=== PATIENT | male | born 1970 | race Two or more races ===

== ENCOUNTER 2025-04-22 10:30 | Outpatient (REF) | payer OTHER, SELFPAY ==
--- NOTE | 2025-04-22 | EMG_ITS ---
Chief complaint: Numbness and tingling left > right hands Reason for referral: G62.9 Polyneuropathy Referred by: ERICH Paula Procedure done: Nerve conduction of the bilateral upper extremities with EMG performed bilaterally Bilateral median and ulnar motor studies were performed, bilateral median and ulnar mixed sensory studies, radial sensory studies and median lateral antecubital brachial sensory studies were performed an EMG needle examination was performed. Bilateral median motor distal latencies were slightly prolonged, bilateral median mixed sensory distal latencies were prolonged with mildly slow conduction velocities. Bilateral ulnar motor study revealed moderate slowing across elbow with slight reduction of amplitude. In addition, median amplitudes were slightly larger distally than proximally, and ulnar amplitudes were larger proximally than distally. Impression: 1. [id number] bilateral median neuropathy across carpal tunnel 2. [id number] bilateral ulnar neuropathy across elbow 3. Bilateral Marek Cele anastomosis, a normal variant MTDD
--- OUTSIDE RECORDS SUMMARY | 2025-04-22 12:34 | XMS_ITS | Clinical Summary ---
Author Organization [facility] Address [address] [address] Phone Care Team Providers Care Wind Turbine Technician Name Role Phone Freddie Peguero MD Primary Care Provider [phone] Allergies No known active allergies Medications acetaminophen (TYLENOL) 500 MG tablet Active albuterol HFA (PROVENTIL HFA;VENTOLIN HFA) 108 (90 Base) MCG/ACT inhaler 2 puffs by Other route 4 (four) times a day Active fluticasone (FLONASE) 50 MCG/ACT nasal spray 1 Active fluticasone-kyara meterol (ADVAIR DISKUS) 500-50 MCG/DOSE diskus inhaler by Other route 2 (two) times a day Active gabapentin (NEURONTIN) 400 MG capsule 1 Active omeprazole (PriLOSEC) [address] capsule 1 Active topiramate (TOPAMAX) 50 MG tablet 1 Active traMADol (ULTRAM) 50 MG tablet 1 Active loratadine (CLARITIN) 10 MG tablet loratadine 10 mg tablet TAKE 1 TABLET BY MOUTH EVERY DAY Active Melatonin 10 MG capsule melatonin 10 mg capsule TAKE 1 CAPSULE BY MOUTH EVERY DAY AT BEDTIME NEEDED Active buPROPion XL (WELLBUTRIN XL) 150 MG 24 hr tablet Take 150 mg by mouth 1 (one) time each day 3 Active sildenafil (VIAGRA) 50 MG tablet TAKE 1 TABLET EVERY DAY BY ORAL ROUTE NEEDED. 3 Active Zepbound 7.5 MG/0.5ML solution auto-injector INJECT 0.5 ML (7.5 MG TOTAL) UNDER THE SKIN EVERY 7 (SEVEN) DAYS. 5 Active Senexon-S 8.6-50 MG per tablet Take 1 tablet by mouth 1 (one) time each day Active Active Problems Problem Noted Date Diagnosed Date Acute nontraumatic kidney injury 02/06/2023 Allergic rhinitis 02/06/2023 02/06/2023 Anxiety 02/06/2023 02/06/2023 Asthma 02/06/2023 02/06/2023 Chronic back pain 02/06/2023 02/06/2023 Fatigue 02/06/2023 02/06/2023 Gastroesophageal reflux disease 02/06/2023 02/06/2023 Hyperlipidemia 02/06/2023 02/06/2023 Herpes simplex 02/06/2023 02/06/2023 Helicobacter detected by serology 02/06/2023 Heartburn 02/06/2023 02/06/2023 Severe obesity 02/06/2023 02/06/2023 Plantar fascial fibromatosis 02/06/202312/2022 Mild persistent asthma 02/06/2023 Migraine 02/06/2023 02/06/2023 Lesion of ulnar nerve 02/06/2023 02/06/2023 Insomnia 02/06/2023 02/06/2023 Primary erectile dysfunction 05/18/202212/2022 Degeneration of cervical intervertebral disc 02/06/2023 Cervical radiculitis 01/12/2022 02/06/2023 Obstructive sleep apnea syndrome 01/10/2022 02/06/2023 Chronic kidney disease, stage 2 (mild) Hypertension 06/30/2021 Hypoglycemia 07/27/2020 02/06/2023 Hiatal hernia 04/24/2019 02/06/2023 Moderate major depression 02/19/20192022 Ex-smoker 01/31/2017 02/06/2023 Meralgia paresthetica 11/02/2015 02/06/2023 Family History Medical History Relation Comments Heart disease Father Hypertension Father Diabetes Mother Hypertension Mother Heart disease Sibling Relation Status Comments Father Mother Sibling Social History Tobacco Use Types Packs/Day Years Used Date Smoking Tobacco: Former Smokeless Tobacco: Never Tobacco Cessation:Counseling Given: Not Answered Alcohol Use Standard Drinks/Week Comments No 0 (1 standard drink = 0.6 oz pur e alcohol) Sex and Gender Information Value Date Recorded Sex Assigned at Not on file Legal Sex Male 4:56 PM EST Gender Identity Not on file Sexual Orientation Not on file Last Filed Vital Signs Vital Sign Reading Time Taken Comments Blood Pressure 100/60 01/14/2025 2:35 PM EDT Pulse 60 01/14/2025 2:35 PM EDT Temperature - - Respiratory Rate - - Oxygen Saturation 99% 01/14/2025 2:35 PM EDT Inhaled Oxygen Concentration - - Weight 139 kg (307 lb 3.2 oz) 01/14/2025 2:35 PM EDT Height 182.9 cm (6') 01/12/2024 11:50 AM EDT Body Mass Index 41.66 01/12/2024 11:50 AM EDT Plan of Treatment Upcoming Encounters Date Type Department Care Team (Late st Contact Info) Description 07/15/2025 2:00 PM EST Office Visit [facility] [address] [phone] Ashok Carpio MD [address] [phone] Health Maintenance Due Date Last Done Comments Hepatitis B Vaccine (1 of 3 - 19+ 3-dose series) 1991 Pneumococcal Vaccine: 50+ Ye ars (1 of 2 - PCV) 1991 Colorectal Cancer Screening: Annual FOBT 2021 Colorectal Cancer Screening: Colonoscopy 2021 Colorectal Cancer Screening: Sigmoidoscopy 2021 Influenza Vaccine (#1) 2025 4, 05/17/2022, 03/09/2020, Additional history exists [place] [address] ([id number]) [facility] ([id number]) Care Teams Wind Turbine Technician Relationship Specialty Start Date End Date Freddie Peguero MD [address] [phone] PCP - General Family Medicine 02/02/22
--- OUTSIDE RECORDS SUMMARY | 2025-04-22 12:34 | XMS_ITS | Data Portability ---
Author Organization [facility], Id [facility] Address [address] [place] [address] Care Team Providers Care Teleprinter Installer Name Role Phone JUVENAL HATHAWAY Primary Care Provider HIM CCA OTHER Assessment Encounter Date Assessment Date Assessment LastModified by Organization Details LastModified Time 03/27/2024 03/27/2024 service called for burning on urination found 53 yom with hx recurrent UTI c/o 2d feeling unwell, cough, fatigue. chills able conitnue regular PO fluids took 1g acetaminophn just immediately prior to arrival VS T104 tympanic, 102.4 oral dry skin, MMM CTAB #Acute COVID-19 supportive care, push PO fluids, acetaminophen 1g q6h no ibuprofen if unable keep uo with fluids or temp elev unresponse to acetaminophen, visit ED conitnue rest, PO fluids, monitor fever curve otherwise return to primary team [email or web address] Not available 03/27/2024 23:23:30 04/04/2024 04/04/2024 53 yo M with reported hx asthma and recent diagnosis of COVID (most sxs resolved) but with persistent dyspnea and cough w/exertion. Also endorses intermittent non-radiating chest tightness with the cough. Pt has been using his rx'd inhalers, but notably his albuterol inhaler is . No hx CAD or OH. No leg swelling. No F/C. VS wnl - SpO2 98% on RA. CV exam wnl Lung exam CTAB EKG RBBB (per patient followed by cardiology) No evidence of ACS. Wells score 0 and hx not c/w PE Will treat as asthma exacerbation with prednisone 40mg x 5 days Will send a new rx for albuterol inhaler to use q4 hrs PRN SOB. Pt should call PCP in the AM to arrange a clinic visit for f/up. elijah Not available 04/08/2024 18:21:26 06/10/2024 06/10/2024 As noted, we were called to see this patient regarding concerns of astham. Evaluation in the field was performed by my senior mechanical design engineer colleague, as noted above, I provided real-time direction and supervision for this visit. The evaluation revealed 54y M with asthma and asthma exacerbatoin sxs x 2, responding well to albuterol nebs by SpO2, VSS, resp exam c/w asthma - no consolidation to suggest pneumonia. Prednisone 40mg now and 40mg x 4d to pharmacy. Encouraged f/u w PCP to request albuterol nebulizer. Low threshold to call back w persistent SHOB. Impression: Asthma exacerbation Plan: prednisone Primary care, consider f/u in 3-5d to assess improvement. Consider education/transi tion to SMART therapy. Patient needs nebulizer supplies. Disposition: We discussed the diagnostic uncertainty of home visits and the risk associated with this. In this case, the patient and I felt this to be an acceptable and reasonable amount of risk given the benefit of avoiding an ED visit. We discussed the need to seek care urgently/emergen tly in the setting of any new or worsening serious symptoms, particularly shob, fever, worsening wheezing despite meds atilhou Not available 06/10/2024 21:08:59 Plan of Treatment Reminders Order Date Submit Date Provider Last Modified By Organization Details Last Modified Time Details Appointments None recorded. Lab BMP, serum or plasma [address], [phone] 5 08:02:15 rapid SARS CoV 2 Ag, QL IA, respiratory specimen [address], [phone] 4 21:55:06 rapid flu (A+B) [address], [phone] 4 21:54:46 urinalysis, dipstick [address], [phone] 4 08:09:01 rapid SARS CoV 2 Ag, QL IA, respiratory specimen 2023 [facility], [address] [place] [address], [phone] 4 08:09:16 Referral None recorded. Procedures None recorded. Surgeries None recorded. Imaging None recorded. Medication Orders sodium chloride 0.9 % intravenous solution 2024 025 [facility] [phone] [place], [address], 5 21:42:38 metoclopram marybel 5 mg/mL injection solution 2024 025 [facility], [phone] [place], [address], 5 21:42:38 diphenhydra mine 50 mg/mL injection solution 2024 025 [facility], [phone] [place], [address], 5 21:42:38 prednisone 20 mg tablet 2023 024 [facility], [phone] [place], [address], 4 21:04:59 prednisone 20 mg tablet 2023 024 [facility] [phone] [place], [address], 4 21:05:00 albuterol sulfate 2.5 mg/3 mL (0.083 %) solution for nebulizatio n 2023 024 [facility], [phone] [place], [address], 4 21:09:20 prednisone 20 mg tablet 2023 024 [email or web address] [facility] [phone] [place], [address], 4 21:43:45 prednisone 20 mg tablet 2023 024 [facility], [phone] [place], [address], 4 21:43:46 albuterol sulfate HFA 90 mcg/actuati on aerosol inhaler 2023 024 [facility], [phone] [place], [address], 4 21:43:47 Lotrimin AF Powder 2 % topical spray 2023 024 [facility], [phone] [place], [address], 4 10:40:31 Patient TargetsNo targets recorded. Patient InstructionsNo instructions recorded. Reason for Referral None Reported. Results Created Date Observation Date Name Description Value Unit Range Abnormal Flag Note LastModifiedBy Organization Detail LastModifiedTime 06/10/20 24 06/10/2024 rapid SARS CoV 2 Ag, QL IA, respi rator y speci men rapid SARS CoV 2 Ag, QL IA, respiratory specimen negati ve Not Available Main - [facility] ed [address] [place] [address], [phone] 06/10/2024 21:06:43 06/10/20 24 06/10/2024 rapid flu (A+B) Flu negati ve Not Available [facility] ed [address] [place] [address], [phone] 06/10/2024 21:06:43 Result Notes None recorded. Medical Equipment None Reported. Allergies No known drug allergies Medications Name Sig Start Date Stop Date Status Note LastModified by Organization Details LastModified Time BD Alcohol Swabs active Not Available Not Available Not Available prednisone 10 mg tablet PLEASE SEE ATTACHED FOR DETAILED DIRECTIONS active Not Available Not Available N ot Available metocloprami de 5 mg/mL injection solution Take 10 mg by injection route. 2024 active Not Available Not Available Not Avai lable sildenafil 50 mg tablet TAKE 1 TABLET EVERY DAY BY ORAL ROUTE NEEDED. active Not Available Not Available No t Available azithromycin 250 mg tablet TAKE 1 TABLET BY MOUTH EVERY DAY active Not Available Not Available No t Available famotidine 40 mg tablet TAKE 1 TABLET BY MOUTH TWICE A DAY active Not Available Not Available No t Available prednisone 20 mg tablet TAKE 2 TABLETS BY MOUTH EVERY DAY FOR 5 DAYS active Not Available Not Available No t Available gabapentin 400 mg capsule TAKE 1 CAPSULE BY MOUTH THREE TIMES A DAY active Not Available Not Available Not Available Lotrimin AF Powder 2 % topical spray APPLY SPRAY TO THE AFFECTED AREA(S) BY TOPICAL ROUTE 2 TIMES PER DAY IN THE MORNING AND EVENING x 10 days 2023 active Not Available Not Available Not Avai lable sulfamethoxa zole 800 mg-trimethop rim 160 mg tablet TAKE 1 TABLET BY MOUTH EVERY 12 HOURS active Not Available Not Available No t Available omeprazole 40 mg capsule,zaid yed release TAKE 1 CAPSULE BY MOUTH TWICE A DAY active Not Available Not Available No t Available aspirin 81 mg tablet,delay ed release TAKE 1 TABLET BY MOUTH EVERY DAY active Not Available Not Available No t Available tramadol 50 mg tablet TAKE 2 TABLETS BY MOUTH 3 TIMES A DAY DIRECTED FOR 30 DAYS. active Not Available Not Available No t Available sildenafil 100 mg tablet TAKE 1 TABLET ONE HOUR PRIOR TO SEXUAL ACTIVITY NO MORE THAN ONCE DAILY active Not Available Not Available N ot Available lidocaine-pr ilocaine 2.5 %-2.5 % topical cream APPLY TOPICALLY ONCE active Not Available Not Available No t Available hydrocortiso ne 2.5 % topical cream with perineal applicator APPLY SPARINGLY TO AFFECTED AREA 2 TO 4 TIMES A DAY active Not Available Not Available Not Available diphenhydram ine 50 mg/mL injection solution Take 25 mg by injection route. 2024 active Not Available Not Available Not Avai lable tamsulosin 0.4 mg capsule TAKE 1 CAPSULE BY MOUTH EVERY DAY BEFORE BEDTIME active Not Available Not Available No t Available benzonatate 100 mg capsule TAKE 1 CAPSULE BY MOUTH THREE TIMES A DAY NEEDED FOR COUGH active Not Available Not Available No t Available econazole nitrate 1 % topical cream TAKE 1 APPLICATION (TOPICAL) 2 TIMES PER DAY FOR 28 DAYS APPLY TO AFFECTED AREAS ON TORSO active Not Available Not Available No t Available tacrolimus 0.1 % topical ointment APPLY TO ALL AREAS TWICE A DAY active Not Available Not Available Not Available clotrimazole -betamethaso ne 1 %-0.05 % topical cream PLEASE SEE ATTACHED FOR DETAILED DIRECTIONS active Not Available Not Available N ot Available betamethason e dipropionate 0.05 % topical cream APPLY 2X PER DAY X14 DAYS TO AREAS ON TORSO, FOR 2WEEKS, THEN STOP FOR A WEEK, REPEAT UNTIL GONE active Not Available Not Available N ot Available oxybutynin chloride ER 5 mg tablet,exten ded release 24 hr TAKE 1 TABLET BY MOUTH EVERY DAY active Not Available Not Available No t Available montelukast 10 mg tablet TAKE 1 TABLET BY MOUTH EVERY DAY active Not Available Not Available No t Available codeine 10 mg-guaifenes in 100 mg/5 mL oral liquid TAKE 5 ML BY MOUTH EVERY 6 HOURS NEEDED FOR COUGH active Not Available Not Available No t Available sodium chloride 0.9 % intravenous solution Inject 500 mL by intravenous route. 2024 active Not Available Not Available Not Avai lable polyethylene glycol 3350 17 gram/dose oral powder TAKE 17 GRAM DISSOLVED IN WATER BY MOUTH ONCE A DAY active Not Available Not Available No t Available albuterol sulfate HFA 90 mcg/actuatio n aerosol inhaler INHALE 2 PUFFS EVERY 4 TO 6 HOURS active Not Available Not Available No t Available ferrous sulfate 325 mg (65 mg iron) tablet,delay ed release TAKE 1 TABLET BY MOUTH EVERY DAY active Not Available Not Available No t Available ketoconazole 2 % topical cream APPLY TO AFFECTED AREA EVERY DAY active Not Available Not Available No t Available ondansetron 4 mg disintegrati ng tablet DISSOLVE 1 TABLET BY MOUTH 3 TIMES A DAY active Not Available Not Available Not Available fluticasone propionate 50 mcg/actuatio n nasal spray,suspen daniella SPRAY 2 SPRAYS INTO EACH NOSTRIL DAILY DIRECTED active Not Available Not Available No t Available clotrimazole 1 % topical cream APPLY TO AFFECTED AREA TWICE A DAY FOR 2 WEEKS active Not Available Not Available No t Available loratadine 10 mg tablet TAKE 1 TABLET BY MOUTH EVERY DAY active Not Available Not Available No t Available oxycodone 5 mg tablet TAKE 1/2 TABLET BY MOUTH EVERY 6 HOURS NEEDED FOR PAIN DIRECTED active Not Available Not Available No t Available bupropion HCl XL 150 mg 24 hr tablet, extended release TAKE 1 TABLET BY MOUTH EVERY DAY active Not Available Not Available No t Available topiramate 50 mg tablet TAKE 1 TABLET BY MOUTH TWICE A DAY active Not Available Not Available No t Available chlorhexidin e gluconate 0.12 % mouthwash SWISH AND SPIT THREE TIMES A DAY FOR 7 DAYS active Not Available Not Available N ot Available melatonin 5 mg tablet TAKE 2 TABLETS BY MOUTH EVERY DAY AT BEDTIME active Not Available Not Available No t Available Antiseptic Skin Cleanser (chlorhexidi ne) 4 % liquid USE A BODY WASH EVERY DAY active Not Available Not Available No t Available Myrbetriq 25 mg tablet,exten ded release TAKE 1 TABLET BY MOUTH DAILY FOR 30 DAYS, THEN TAKE 50MG DAILY active Not Available Not Available No t Available melatonin 10 mg capsule TAKE 1 CAPSULE BY MOUTH AT BEDTIME active Not Available Not Available No t Available Wixela Inhub 250 mcg-50 mcg/dose powder for inhalation TAKE 1 PUFF BY MOUTH TWICE A DAY *RINSE MOUTH AFTER USE* active Not Available Not Available No t Available Wixela Inhub 500 mcg-50 mcg/dose powder for inhalation INHALE 1 PUFF INTO THE LUNGS TWICE A DAY active Not Available Not Available Not Available Vitals Date Recorded Body temperature Oxygen saturation Oxygen saturation in Arterial blood by Pulse oximetry Respiratory rate Heart rate Systolic And Diastolic Provider Name and Address Organization Details Last Updated DateTime 5 98.4 [degF] 99 % 99 % 18 /min 66 /min 145/90 mm[Hg] Not Available [email or web address] 5 21:32:23 Date Recorded Body temperature Heart rate Respiratory rate Oxygen saturation Oxygen saturation in Arterial blood by Pulse oximetry Systolic blood pressure Provider Name and Address Organization Details Last Updated DateTime 4 98.2 [degF] 69 /min 16 /min 97 % 97 % 120 mm[Hg] Not Available [email or web address] 4 10:36:09 Date Recorded Respiratory rate Oxygen saturation Oxygen saturation in Arterial blood by Pulse oximetry Body weight Body temperature Heart rate Systolic And Diastolic Provider Name and Address Organization Details Last Updated DateTime 4 16 /min 97 % 97 % 179649. 992 g 104 [degF] 87 /min 124/70 mm[Hg] Not Available [facility] 4 20:11:37 Date Recorded Body temperature Oxygen saturation Oxygen saturation in Arterial blood by Pulse oximetry Body weight Body height Heart rate Respiratory rate Systolic And Diastolic Provider Name and Address Organization Details Last Updated DateTime 4 98.5 [degF] 98 % 98 % 202313. 992 g 182.88 cm 68 /min 16 /min 140/85 mm[Hg] Not Available [employer] 21:31:30 Date Recorded Respiratory rate Body temperature Oxygen saturation Oxygen saturation in Arterial blood by Pulse oximetry Body weight Body height Heart rate Systolic And Diastolic Provider Name and Address Organization Details Last Updated DateTime 4 18 /min 98.9 [degF] 95 % 95 % 232723. 728 g 182.88 cm 72 /min 108/76 mm[Hg] Not Available [employer] [facility] 21:01:05 Social History None recorded. Functional Status None recorded. Mental Status None recorded. Family History Nothing Reported. Medical History No medical history recorded. Past Encounters Encounter ID Performer Location Encounter Start Date Encounter Closed Date Diagnosis/Indication Diagnosis SNOMED-CT Code Diagnosis ICD10 Code Diagnosis IMO Codes Diagnosis Note [id number] Gold Dolan MD Main - [facility] [address] [place] [address] [phone] 06/06/2022 14:51:44 06/08/2022 11:05:10 Upper respiratory infection 29714383 J06.9 [id number] Cari Urbina MD Main - [facility] [address] [place] [address] [phone] 09/22/2023 21:15:30 09/23/2023 00:43:00 Nausea, vomiting and diarrhea 0260221 R19.7 [id number] Christin Morales MD Main - [facility] [address] [place] [address] [phone] 0 10/13/2023 10:31:40 10/13/2023 12:57:37 Localized eruption of skin 095593575 R21 Evaluation in the field was performed by my senior mechanical design engineer colleague, as noted above, I provided real-time direction and supervisio n for this visit. 53yo M with painful and slightly pruritic erythemato us rash in skin folds of chest x 1 week. Recently on Bactrim. No mucosal lesions. On senior mechanical design engineer eval VS wnl, exam c/w intertriga l fungal infection, appearance not c/w zoster. Will treat with antifungal powder (spray form for ease of applicatio n), warned pt OTC and may not be covered by insurance. We discussed the diagnostic uncertaint y of home visits and the risk associated with this. In this case, the patient and I felt this to be an acceptable and reasonable amount of risk given the benefit of avoiding an ED visit. We discussed the need to seek care urgently/e mergently in the setting of any new or worsening serious symptoms, shortness of breath, cough, chest pain, fever. [id number] Gracia Aldridge MD Main - [facility] [address] [place] [address] [phone] 03/27/2024 20:11:35 03/28/2024 08:10:36 COVID-19 [id number] U07.1 Acute COVID-19 [id number] U07.1 [id number] MONSE FONG MD Main - [facility] [address] [place] [address] [id number] 04/04/2024 21:31:28 04/08/2024 19:28:20 Dyspnea on exertion 70435688 R06.09 [id number] Marissa Levy MD Main - [facility] [address] [place] [address] [phone] 06/10/2024 21:01:00 06/10/2024 22:07:26 Exacerbation of intermittent asthma 417577269 J45.22 [id number] ZHANE POLANCO MD Main - [facility] [address] [place] [address] [phone] 07/20/2024 21:21:47 07/22/2024 20:57:59 Headache 88309570 R51.9 Evaluation in the field was performed by my senior mechanical design engineer colleague, as noted above, I provided real-time direction and supervisio n for this visit. The evaluation revealed a 54-year-ol d male with a history of asthma, migraine headaches managed with Topamax for prophylaxi s and Excedrin as needed, and chronic kidney disease stage 3a, but with no history of hypertensi on (his usual blood pressure is typically low). He presents with complaints of a pressure-l mauricio headache and elevated blood pressure. The patient reports using his mother's blood pressure cuff today, which recorded a reading as high as 167/90 mmHg (his last visit with us on 06/10 showed a blood pressure of 108/76 mmHg). He denies blurred vision, weakness, chest pain, dizziness, nausea, vomiting or neurologic al deficits. VS: BP: 145/90 , HR: 66 bpm, RR: 18 , O2 saturation : 99% on room air. AfebrileEx am : AAO, speaking in full sentences, NAD. No neuro deficits. Lungs CTABBMP unremarkab le other than Creat 1.5Allergi es reviewed Impression :Elevated blood pressure in a patient with no prior diagnosis of hypertensi on.Headach e, likely related to elevated blood pressure vs migraine Plan:-500 mL of Normal Saline - was administer ed.-Reglan 10 mg IV and Benadryl 25 mg IV were administer ed. No Toradol was given due to the patient's chronic kidney disease - stage 3a and elevated blood pressure.- Patient advised to continue Topamax as prescribed and use Excedrin as needed.-Irwin celeste advised to maintain a blood pressure log and bring it to their scheduled visit with their PCP next week.-Sonia ent advised to avoid salty foods.-Red flags discussed with the patient. Primary care, consider__ _ Dispositio n: We discussed the diagnostic uncertaint y of home visits and the risk associated with this. In this case, the patient and I felt this to be an acceptable and reasonable amount of risk given the benefit of avoiding an ED visit. We discussed the need to seek care urgently/e mergently in the setting of any new or worsening serious symptoms, particular ly ongoing or worsening headache, blurred vision, weakness , focal deficits, dizziness, CP, SOB, fever, chills, vomiting or any other concerns Health Concerns Section Related Observation LastModified by Organization Detai ls LastModified Time None Recorded Concern Status LastModified by Organization Details LastModified Time None Recorded Advance Directives Directive None Recorded Payers Insurance Date Sequence Insurance Name Policy Number Policy Steen Covered Member ID Steen Member ID Guarantor Name 06/10/2024 [address] [facility] - DOS PRIOR TO 2022 - DUAL ELIGIBLE (MEDICARE REPLACEMENT/AD VANTAGE - HMO) Ramírez Mena [id number] Ramírez Mena 07/22/2024 1 [facility] - DOS ON OR AFTER 2022 - DUAL ELIGIBLE - LONGTERM OPTIONS AND ONE CARE (MEDICARE REPLACEMENT/AD VANTAGE - HMO) Ramírez Mena [id number] Ramírez Mena Notes Date Note Type Note Provider Name and Address Organization Details Recorded Time 10/13/2023 text/html [facility] Nurse Triage Notes (Dorothy Leonard): Chief Complaints: Pain PMH: COPD/Asthma Allergies: No Known Comments: Identity/Address/ verified. Member reports left axillary region redness and burning. Slightly itchy. Noticed 1 week ago, becoming worse. No new medication. Skin intact. Denies fevers. No OTC meds taken. .................... .................... .................... .................... .................... .................... .................... . Radiology Assistant Note From Aliya Srinivasan: Community Radiology Assistant Christin Srinivasan SC6 dispatched to a [facility] for a 53 yom C/O a rash. Upon arrival, the pt was ambulatory, BREWER X4, in no apparent distress. He stated that he had a circumcision a over a week ago, and was given bactrim. He reported that he saw the urologist the day prior, and that the surgical site looks good. He stated he took his last dose of bactrim 3 days prior, but that he had noticed some redness and itching on his left side about a week prior. He stated the discomfot, itching, and pain had steadily increased since then, and became almost unbearable the night prior. He stated he put some powder on the affected area in an attempt to keep it dry. He denied the rash anywhere else on his body. Pictures of his right and left torso mid axillary in insted; left side affected. He denied any THOMAS, dizziness, fever, cough, sore throat, CP, SOB, abd pain, N/V/D, or urinary S/S. C consulted; pt was given rx for nystatin and general wound care instructions for fungal infection. Red flags discussed. .................... .................... .................... .................... .................... .................... .................... . Disposition: Fulfilled Christin Morales MD [address] [place] [address],[address], [place], [address], [place]. com. cn 10/13/2023 11:16:10 03/27/2024 text/html CRC Nurse Triage Notes (Ean Sunshine): Chief Complaints: UTI/Pyelonephritis, URI PMH: COPD/Asthma Allergies: Unknown Comments: Gaggerman verified the Pt.'s name//address and phone number. Education provided on the response time and the Pt. was advised to monitor reported s/s and seek emergency treatment if needed. Member reports UTI symptoms - Lower back pain and fever - Increased in frequency and urinating little amounts - S/S started x2 days - Member also reports having a cough/cold and congestion. Radiology Assistant Organization Information for [facility] Business Legal Name: [facility] Address: [address] [place], [place] [address] [address], [employer] Pressmen: Nabeel Kimble MD CLIA No.: [id number] Radiology Assistant POC Test Results from [facility] Urine Dipstick (20:07:33) Urine leukocytes: NR Urine nitrites: NR Urine urobilinogen: 0.2(3.5) URO Urine protein: NR Urine pH: 6 pH Urine blood: + BLO Urine specific gravity: 1.015 SG Urine ketones: NR Urine bilirubin: NR Urine glucose: NR .................... .................... .................... .................... .................... .................... .................... . Radiology Assistant Note From Shmuel Mendosa: Pt co fever body aches chills loss of appetite and congestion for past two days. Pt was concerned for uti. Pt denies cp sob sore throat , painful urination abdominal pain flank pain dizziness NVD or cough. Baseline vitals assessed, pt febrile , pt able to tolerate fluid intake. Pt took Tylenol 20 mins prior to arrival. Urine dip benign , Covid positive, flu negative. [facility] contacted and advised pt to continue with Tylenol every 4-6 hours as needed, self care and rest and plenty of fluid intake. Pt declines paxlovid, Pt educated on signs indicating the ER. Pt advised if symptoms worsen to go to ER. .................... .................... .................... .................... .................... .................... .................... . Disposition: Dave Aldridge MD [address] [facility],[address], [place], [address], [employer]A [employer] 03/27/2024 23:24:29 04/04/2024 text/html [facility] Nurse Triage Notes (Zakiya Ro): Reason For Request: Patient had covid a few weeks ago, (on a Tue), and now patient still has breathing problems and doesn't feel well. Chief Complaints: Shortness of Breath/Dyspnea, URI, Weakness/Lethargy PMH: COPD/Asthma Allergies: No Known Comments: Patient calling in to place a referral, identified via name and . 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 NKDA. Patient had covid about 2.5 weeks ago, was not a candidate for Paxlovid due to kidney injuries in the past. He used Theraflu with some relief of symptoms. He endorses that the, flu like symptoms are gone, but still struggling with chest tightness, sob and being able to take a deep breath. He does have a random, intermittent nonproductive cough, feels phlegm but unable to expectorate anything. Denies fever/chill, no n/v/d, no stuffy or runny nose, no post nasal drip. He would like to be evaluated. Evaluate need for CXR. .................... .................... .................... .................... .................... .................... .................... . Radiology Assistant Note From Raji Valdes: [facility] visit for male pt. Pt presents complaining of chest tightness s/p COVID 9 days ago. Pt has asthma at baseline and takes wixela and albuterol. Pt reports dyspnea on exertion and some when lying supine. Pt denies fevers. Pt has some kidney dysfunction so was not given paxlovid. V/S as listed. Pt afebrile. Lung sounds clear. Pt's albuterol inhaler noted to be more than 1 year . Consulted with [facility] [place]. Fong who ordered EKG. 12 lead tracing taken showing RBBB with no known history or older reference EKGs for comparison. Dr. Fong ordered 40 mg of prednisone given on scene. Remainder of script sent to pharmacy. Pt declined neb treatment. Reviewed red flags for ED. Pt encouraged to follow up with PCP tomorrow. Pt education provided. .................... .................... .................... .................... .................... .................... .................... . Disposition: Fulfilled MONSE FONG MD [address] [facility],[address], [place], [address], [place]. com. cn 04/08/2024 18:21:34 06/10/2024 text/html HPI: 54 year old male member. This data analyst report writer called to perform telephonic MDS and member is noted to have a dry cough with audible I&E wheezes. Member reports spitting up phlegm earlier in the day, reports expectorate was thick and clear in color. Member reports symptoms started yesterday. Member denies fever. Member denies chest pain. PMH includes: Asthma, history of COVID (+) in March of 2024. .................... .................... .................... .................... .................... .................... .................... . CRC Nurse Triage Notes (Angeli Shabazz): Chief Complaints: Asthma, Cough PMH: COPD/Asthma Comments: HPI reviewed Radiology Assistant Organization Information for Dax Briceño Legal Name: [employer] Address: [address] [place] [id number], [employer] Pressmen: Braydon LANDAVERDE No.: [id number] Radiology Assistant POC Test Results from Dax Briceño Rapid COVID antigen (20:48:39) COVID: - Rapid influenza antigen (20:48:44) Flu: - [facility] HPI - 2d asthma sxs. wheezing. shob. albuterol MDI not helping. he felt sick - recently felt feverish, cough, and congestion. .................... .................... .................... .................... .................... .................... .................... . Radiology Assistant Note From Dax Briceño: [id number] to the above address for asthma and a cough. The pt was heard wheezing from across the room upon arrival. The pt stated this only started on Monday and has been getting worse. The pt stated he had Covid back in the beginning of March and thinks he might be positive again. The pt was tested for Covid and Flu and the results were negative for either. The pt takes a Wexela inhaler daily in the morning and the evening and then he has an Albuterol inhaler he uses when needed. The pt had diminished lung sounds in both lungs and Dr Levy was consulted and he was given a DUO NEB with Abluterol and Atrovent which did wonderful with clearing up the pt's lungs. The pt was also given 40 mg PO of Prednisone and a prescription was called in for the remaining days for him. The pt was advised to contact his primary physician for a nebulizer machine for his own treatments. The pt was also advised to call 911 if his symptoms got worse, the pt was made aware of chest pain and severe shortness of breath and he understood. SC1 cleared the call. WRR .................... .................... .................... .................... .................... .................... .................... . [facility] Consulted: Marissa Levy .................... .................... .................... .................... .................... .................... .................... . Disposition: Fulfilled Marissa Levy MD [address] [place] [address],[address], [place], [address], [place]. com. cn 06/10/2024 21:54:30 07/20/2024 text/html ROS as noted in the HPI CRC Nurse Triage Notes (Ean Sunshine - CHARLEY): Denies: History of Heart Attack, in the setting of active chest pain Active Chest pain, radiates to neck jaw and or arm Diaphoretic/Sweating Describes as c rushing Sudden onset of nausea/Vomiting and shortness of breath. Shortness of Breath Unable to speak in full sentences without distress Palpitations, feeling dizzy Chest pain, increased fatigue Chief Complaints: Hypertension, Headache, Breathing problems PMH: COPD/Asthma PMH Reviewed at 07/20/2024 - :07 Allergies Reviewed at 07/20/2024 - :07 Comments: Gaggerman verified the Pt.'s name//address and phone number. Education provided on the response time and the Pt. was advised to monitor reported s/s and seek emergency treatment if needed. Pt reports feeling unwell with Head pressure. B/P was obtained - 161/90 - Denies a history of hypertension - Denies headache and chest pain - Denies blurred vision -Denies Nausea/vomiting - S/S started earlier - Denies taking any over the counter medications Radiology Assistant Organization Information for Joel Li [employer] Legal Name: [employer] Address: [address] [place] [id number], [employer] Pressmen: Braydon LANDAVERDE No.: [id number] Radiology Assistant POC Test Results from Joel Li iSTAT Chem8+ (22:01:56) Na: 138 mEq/L K: 4.4 mEq/L Cl: 106 mEq/L iCa: 1.27 mmol/L TCO2: 23 mmol/L Glu: 79 mg/dL BUN: 12 mg/dL Crea: 1.5 mg/dL Hct: 45 % Hb: 15.3 g/dL A Attachments uploaded as part of this test result can be found under Documents section. .................... .................... .................... .................... .................... .................... .................... . Radiology Assistant Note From Joel Li: SC12 dispatched to the address listed above for the report of a male libertarian with a headache and hypertension. Arrival on scene, patient was found upstairs lying semi fowlers in bed, alert and oriented x4, patent airway, breathing non labored speaking in complete sentences, skin color WPD. +/= Chest rise. -SOB, -CP, -NVD, -Trauma, -Fever. GCS 15. FASTED of 0. Patient reports that he began to experience generalized head pressure and hypertension about 4-5 hours. Patient reports that he used his mother blood pressure machine which came back at 166/90 and was concerned. Patient reports no changes in head pressure based on movement or palpation. Patient reports that he has a history of migraines but states that this headache feels different. Patient reports no recent trauma, fevers, or infection. Patient reports no urinary issues and no bloody or black stool. Patient vital signs obtained as noted with improvements from prior blood pressures. [facility] was consulted, provided orders to IN to establish IV access with blood draw for BMP, administer 500ml Normal saline, 10mg Metoclopramide IV, and 25mg Benadryl IV. 20 gauge IV established in right AC, lab draw performed without incident. ISTAT BMP performed as noted. 500ml Normal Saline bolus administered IV, 25mg Benadryl IV administered, and 10mg Metoclopramide IV administered, six patient right verified. IV removed at end of visit. Red flags discussed with patient, advised to call 911 if condition worsened. Patient additionally advised to follow up with PCP. INChasity clear. [facility] Lab Orders: BMP, serum or plasma: Performed .................... .................... .................... .................... .................... .................... .................... . [facility] Consulted: Zhane Polanco .................... .................... .................... .................... .................... .................... .................... . Disposition: Fulfilled ZHANE POLANCO MD [address] [facility],[address], [place], [address], ANIKA PRATER 07/21/2024 09:19:23
--- OUTSIDE RECORDS SUMMARY | 2025-04-22 12:34 | XMS_ITS | Data Portability ---
Author Organization [place] - [facility], Allergy Address [address] [address] Care Team Providers Care Die Maintenance Name Role Phone JUVENAL HATHAWAY Primary Care Provider Assessment Encounter Date Assessment Date Assessment LastModified by Organization Details LastModified Time 05/02/2024 05/02/2024 53-year-old male presents for cerumen impaction removal. No acute issues since last visit. Cerumen impaction removed with suction bilaterally, which patient tolerated well. Otologic exam demonstrated TMs are intact with well-aerated middle ear spaces. Recommend continued Q-tip avoidance. Recommend 6-month follow-up for cerumen removal, sooner with issues. [email or web address] Not available 05/02/2024 09:41:26 10/30/2024 10/30/2024 54-year-old male presents for evaluation of the ears. TMs are normal to inspection. External auditory canals are without obstruction. Reviewed Qtip avoidance. Recommend follow up as needed for cerumen debridement or hearing changes. [email or web address] Not available 10/30/2024 15:10:05 02/10/2025 02/10/2025 54 year old male presents for evaluation of right otalgia. Otoscopic examination is unremarkable with no signs of effusion or infection. Audiometric testing also demonstrates normal hearing and tympanograms bilaterally. Patient did have bilateral crepitus with elevation and depression of the mandible. We discussed that the patient's auricular discomfort is most likely consistent with intermittent inflammation of the jaw joint or spasm of the surrounding musculature. This is likely exacerbated by dental clenching and grinding . Recommend light massage, warm compresses, and anti-inflammato jackelyn for symptomatic management. I also stressed chewing evenly on both sides of the mouth to keep from overworking the jaw joint and eating a soft food diet as needed. He is scheduled to meet with his dentist to obtain a night manager. Referral to physical therapist who specializes in TMJ disorders could also be considered in the future. All questions were answered. [email or web address] Not available 02/10/2025 12:01:54 Plan of Treatment Reminders Order Date Submit Date Provider Last Modified By Organization Details Last Modified Time Details Appointments None record ed. Lab None record ed. Referral None record ed. Procedures None record ed. Surgeries None record ed. Imaging None record ed. Medication Orders None record ed. Patient TargetsNo targets recorded. Patient InstructionsNo instructions recorded. Reason for Referral None Reported. Results Created Date Observation Date Name Description Value Unit Range Abnormal Flag Note LastModifiedBy Organization Detail LastModifiedTime 02/11/20 25 audio gram No observ ation record ed. BARCODE Not Available 2024 18:51:33 Result Notes None recorded. Problems Name Problem SNOMED Code Status Onset Date Resolution Date Notes Provider Name and Address Organization Details Recorded Time Dysphonia 88200220 Active 2020 Hoarsenes s; Note: Date Diagnosed : 09/09/2020 3:30 PM (R49.0) Not Available [facility] 4 02:40:14 Pain of right temporoma ndibular joint 51320759843 340716 Active 2021 Arthralgi a of right temporoma ndibular joint; Note: Date Diagnosed : 08/19/2021 11:17 AM (M26.621) Not Available [facility] 4 02:40:08 Otalgia of right ear 2855805418 Active 2021 Otalgia, right ear; Note: Date Diagnosed : 08/19/2021 11:12 AM (H92.01) Not Available [facility] 4 02:40:02 Abnormal auditory perceptio n 30100466 Active 2022 Other abnormal auditory perceptio ns, right ear; Note: Date Diagnosed : 3 4:53 PM (H93.291) Other abnormal auditory perceptio ns, bilateral ; Note: Date Diagnosed : 11/10/2020 1:58 PM (H93.293) ; Start Date : 1 Not Available [facility] 4 02:40:07 Bilateral temporoma ndibular joint pain 20115517792 812050 Active 2022 Arthralgi a of bilateral temporoma ndibular joint; Location: bilateral Note: Date Diagnosed : 3 4:52 PM (M26.623) Not Available [facility] 4 02:40:02 Otalgia of left ear 1019842089 Active 2022 Otalgia, left ear; Note: Date Diagnosed : 3 4:52 PM (H92.02) Not Available [facility] 4 02:40:13 Impacted cerumen in left ear 04622974272 68596 Active 2022 Impacted cerumen, left ear; Note: Date Diagnosed : 05/09/2023 3:55 PM (H61.22) Not Available [facility] 4 02:40:01 Impacted cerumen of bilateral ears 23416226068 60893 Active 2023 Impacted cerumen, bilateral ; Note: Date Diagnosed : 10/23/2023 3:37 PM (H61.23) Not Available [facility] 4 02:40:07 Abnormal auditory perceptio n 14983167 Active 2024 CASSIE VIDAL [address] [facility],[place] [address], [facility] [place], [address] , [facility] - [facility] 5 09:26:42 Referred otalgia of right ear 10774848745 54562 Active 2024 HIRAM TRIMBLE [address] [facility],[place] [address], [facility] [place], [address] , [facility] - [facility] 5 10:42:06 Problem Notes None recorded. Procedures Surgical History Date Name Laterality Status Provider Name and Address Organization Details Recorded Time 5 Air & Speech Audio with Tymps - 85155, 10900 & 78040 completed CASSIE VIDAL [address] [facility],[place] [address], [place], [address], [place] - [facility] 02/10/2025 09:26:26 Cerumen removal without microscope bilat completed LISY COLEMAN PA-C [address] [place] [address], [place], [address], [facility] - [facility] 05/02/2024 09:39:10 Imaging Results None recorded. Procedure Notes None recorded. Medical Equipment None Reported. Medications Name Sig Start Date Stop Date Status Note LastModified by Organization Details LastModified Time neomycin- polymyxin -hydrocor t 3.5 mg/mL-10, 000 unit/mL-1 % ear solution 10/22 completed Medicati on ID: [id number] rand Name: neomycin -polymyx in-HC Se nd Method: E-Prescr ibed Sub s Allowed: subs OK Medic ationGen ericName : neomycin -polymyx in-HC Not Available Not Available Not Available prednison e 10 mg tablet PLEASE SEE ATTACHED FOR DETAILED DIRECTIO NS 10/29 completed Not Available Not Available Not Available sildenafi l 50 mg tablet TAKE 1 TABLET EVERY DAY BY ORAL ROUTE NEEDED. active Not Available Not Available No t Available azithromy sarah 250 mg tablet TAKE 1 TABLET BY MOUTH EVERY DAY 10/29 completed Not Available Not Available Not Available valacyclo vir 1 gram tablet 10/22 completed Medicati on ID: [id number] B rand Name: valacycl ovir Sen d Method: E-Prescr ibed Sub s Allowed: subs OK Medic ationGen ericName : valacycl ovir Not Available Not Available Not Available naltrexon e 50 mg tablet TAKE 1/2 TABLET (25 MG TOTAL) BY MOUTH DAILY active Not Available Not Available No t Available FreeStyle Lancets 28 gauge 10/22 completed Medicati on ID: [id number] B rand Name: FreeStyl e Lancets Send Method: E-Prescr ibed Sub s Allowed: subs OK Speci al Instruct ion: USE TO CHECK BLOOD SUGAR ONCE DAILY E11.65 M edicatio nGeneric Name: FreeStyl e Lancets Not Available Not Available Not Available famotidin e 40 mg tablet 10/22 completed Medicati on ID: [id number] B rand Name: famotidi ne Send Method: E-Prescr ibed Sub s Allowed: subs OK Medic ationGen ericName : famotidi ne Not Available Not Available Not Available prednison e 20 mg tablet TAKE 2 TABLETS BY MOUTH EVERY DAY FOR 5 DAYS 10/29 completed Not Available Not Available Not Available gabapenti n 400 mg capsule TAKE 1 CAPSULE BY MOUTH THREE TIMES A DAY active Not Available Not Available No t Available sulfameth oxazole 800 mg-trimet hoprim 160 mg tablet 10/29 completed Medicati on ID: [id number] B rand Name: sulfamet hoxazole -trimeth oprim Se nd Method: E-Prescr ibed Sub s Allowed: subs OK Medic ationGen ericName : sulfamet hoxazole -trimeth oprim Not Available Not Available Not Available omeprazol e 40 mg capsule,d elayed release TAKE 1 CAPSULE BY MOUTH TWICE A DAY active Not Available Not Available No t Available aspirin 81 mg tablet,de layed release 10/29 completed Medicati on ID: [id number] B rand Name: aspirin Send Method: E-Prescr ibed Sub s Allowed: subs OK Medic ationGen ericName : aspirin Not Available Not Available Not Available tramadol 50 mg tablet TAKE 2 TABLETS (100 MG TOTAL) BY MOUTH 3 TIMES A DAY DIRECTED FOR BACK PAIN. active Not Available Not Available No t Available acetamino phen 500 mg tablet TAKE 2 TABLETS (1,000 MG TOTAL) BY MOUTH EVERY 8 HOURS active Not Available Not Available No t Available sildenafi l 100 mg tablet TAKE 1 TAB ONE HOUR PRIOR TO SEXUAL ACTIVITY NO MORE THAN ONCE DAILY active Not Available Not Available No t Available tamsulosi n 0.4 mg capsule TAKE 1 CAPSULE BY MOUTH EVERY DAY BEFORE BEDTIME 10/29 completed Not Available Not Available Not Available benzonata te 100 mg capsule TAKE 1 CAPSULE BY MOUTH THREE TIMES A DAY NEEDED FOR COUGH 10/29 completed Not Available Not Available Not Available econazole nitrate 1 % topical cream TAKE 1 APPLICAT ION (TOPICAL ) 2 TIMES PER DAY FOR 28 DAYS APPLY TO AFFECTED AREAS ON TORSO 10/29 completed Not Available Not Available Not Available cyanocoba junie (vit B-12) 1,000 mcg/mL injection solution INJECT 1 ML INTRAMUS CULARLY ONCE WEEKLY FOR 4 WEEKS, THEN MONTHLY MAINTENA NCE active Not Available Not Available No t Available tacrolimu s 0.1 % topical ointment APPLY TO ALL AREAS TWICE A DAY active Not Available Not Available No t Available clotrimaz ole-betam ethasone 1 %-0.05 % topical cream PLEASE SEE ATTACHED FOR DETAILED DIRECTIO NS 10/29 completed Not Available Not Available Not Available oxycodone 5 mg capsule PLEASE SEE ATTACHED FOR DETAILED DIRECTIO NS active Not Available Not Available No t Available betametha sone dipropion ate 0.05 % topical cream 10/29 completed Medicati on ID: [id number] B rand Name: betameth asone dipropio ping Sen d Method: E-Prescr ibed Sub s Allowed: subs OK Medic ationGen ericName : betameth asone dipropio ping Not Available Not Available Not Available docusate sodium 100 mg capsule TAKE 1-2 CAPSULES PER DAY, NEEDED FOR CONSTIPA TION active Not Available Not Available No t Available monteluka st 10 mg tablet TAKE 1 TABLET BY MOUTH EVERY DAY active Not Available Not Available No t Available codeine 10 mg-guaife nesin 100 mg/5 mL oral liquid TAKE 5 ML BY MOUTH EVERY 6 HOURS NEEDED FOR COUGH 10/29 completed Not Available Not Available Not Available alcohol swabs APPLY 1 PAD EVERY WEEK BY TOPICAL ROUTE FOR 90 DAYS. active Not Available Not Available No t Available zolpidem 10 mg tablet 10/22 completed Medicati on ID: [id number] B rand Name: zolpidem Send Method: E-Prescr ibed Sub s Allowed: subs OK Medic ationGen ericName : zolpidem Not Available Not Available Not Available albuterol sulfate HFA 90 mcg/actua tion aerosol inhaler INHALE 2 PUFFS EVERY 4 TO 6 HOURS active Not Available Not Available No t Available ketoconaz ole 2 % topical cream APPLY TO AFFECTED AREA EVERY DAY 10/29 completed Not Available Not Available Not Available ondansetr on 4 mg disintegr ating tablet DISSOLVE 1 TABLET BY MOUTH 3 TIMES A DAY 10/29 completed Not Available Not Available Not Available fluticaso ne propionat e 50 mcg/actua tion nasal spray,jeny pension SPRAY 2 SPRAYS INTO EACH NOSTRIL DAILY DIRECTED active Not Available Not Available No t Available clotrimaz ole 1 % topical cream 10/29 completed Medicati on ID: [id number] B rand Name: clotrima zole Sen d Method: E-Prescr ibed Sub s Allowed: subs OK Medic ationGen ericName : clotrima zole Not Available Not Available Not Available dicyclomi ne 10 mg capsule 10/22 completed Medicati on ID: [id number] B rand Name: dicyclom ine Send Method: E-Prescr ibed Sub s Allowed: subs OK Medic ationGen ericName : dicyclom ine Not Available Not Available Not Available loratadin e 10 mg tablet TAKE 1 TABLET BY MOUTH EVERY DAY active Not Available Not Available No t Available nabumeton e 500 mg tablet 10/22 completed Medicati on ID: [id number] B rand Name: nabumeto ne Send Method: E-Prescr ibed Sub s Allowed: subs OK Medic ationGen ericName : nabumeto ne Not Available Not Available Not Available oxycodone 5 mg tablet TAKE 1 TABLET (5 MG TOTAL) BY MOUTH EVERY 6 HOURS NEEDED FOR SEVERE PAIN MAX DAILY AMOUNT: 20 MG active Not Available Not Available No t Available Denta 5000 Plus 1.1 % cream USE PEA SISE AMOUNT WITH TOOTH BRUSH TWICE A DAY. active Not Available Not Available No t Available bupropion HCl XL 300 mg 24 hr tablet, extended release 10/22 completed Medicati on ID: [id number] B rand Name: bupropio n HCl Send Method: E-Prescr ibed Sub s Allowed: subs OK Medic ationGen ericName : bupropio n HCl Not Available Not Available Not Available bupropion HCl XL 150 mg 24 hr tablet, extended release TAKE 1 TABLET BY MOUTH EVERY DAY active Not Available Not Available No t Available topiramat e 50 mg tablet TAKE 1 TABLET BY MOUTH TWICE A DAY active Not Available Not Available No t Available chlorhexi dine gluconate 0.12 % mouthwash SWISH AND SPIT THREE TIMES A DAY FOR 7 DAYS active Not Available Not Available No t Available sodium fluoride 1.1 %-potassi um nitrate 5 % dental paste USE PEA SIZE AMOUNT WITH TOOTHBRU SH TWICE A DAY active Not Available Not Available No t Available FreeStyle Lite Meter kit 10/22 completed Medicati on ID: [id number] B rand Name: FreeStyl e Lite Meter Se nd Method: E-Prescr ibed Sub s Allowed: subs OK Speci al Instruct ion: USE TO CHECK BLOOD SUGAR ONCE DAILY. E11.65 M marco Abreuic Name: FreeStyl e Lite Meter Not Available Not Available Not Available FreeStyle Lite Strips 10/22 completed Medicati on ID: [id number] B rand Name: FreeStyl e Lite Strips S end Method: E-Prescr ibed Sub s Allowed: subs OK Speci al Instruct ion: USE TO CHECK BLOOD SUGAR ONCE DAILY E11.65 M marco Abreuic Name: FreeStyl e Lite Strips Not Available Not Available Not Available melatonin 5 mg tablet TAKE 2 TABLETS BY MOUTH AT BEDTIME active Not Available Not Available No t Available Gavilax 17 gram/dose oral powder TAKE 17 GRAMS BY MOUTH TWICE A DAY active Not Available Not Available No t Available Senexon-S 8.6 mg-50 mg tablet TAKE 2 TABLETS BY MOUTH EVERY DAY active Not Available Not Available No t Available Antisepti c Skin Cleanser (chlorhex idine) 4 % liquid USE A BODY WASH EVERY DAY active Not Available Not Available No t Available Wixela Inhub 250 mcg-50 mcg/dose powder for inhalatio n TAKE 1 PUFF BY MOUTH TWICE A DAY *RINSE MOUTH AFTER USE* 10/29 completed Not Available Not Available Not Available Wixela Inhub 500 mcg-50 mcg/dose powder for inhalatio n INHALE 1 PUFF INTO THE LUNGS TWICE A DAY active Not Available Not Available No t Available Zepbound 10 mg/0.5 mL subcutane ous pen injector INJECT 0.5 ML (10 MG TOTAL) UNDER THE SKIN EVERY 7 (SEVEN) DAYS. active Not Available Not Available No t Available Zepbound 5 mg/0.5 mL subcutane ous pen injector INJECT 0.5 ML (5 MG TOTAL) UNDER THE SKIN EVERY 7 (SEVEN) DAYS FOR 28 DAYS. active Not Available Not Available No t Available Zepbound 2.5 mg/0.5 mL subcutane ous pen injector INJECT 0.5 ML (2.5 MG TOTAL) UNDER THE SKIN EVERY 7 DAYS active Not Available Not Available No t Available Zepbound 7.5 mg/0.5 mL subcutane ous pen injector INJECT 0.5 ML (7.5 MG TOTAL) UNDER THE SKIN EVERY 7 (SEVEN) DAYS. active Not Available Not Available No t Available Vitals Date Recorded Body height Body mass index (BMI) Body weight Provider Name and Address Organization Details Last Updated DateTime 10/30/2024 182.88 cm 44.9 kg/m2 330907.07 g Baylee Fonseca [facility] 10/30/2024 15:02:10 Date Recorded Body height Body mass index (BMI) Body weight Provider Name and Address Organization Details Last Updated DateTime 02/10/2025 195.58 cm 35.3 kg/m2 945413.53 g Baylee Fonseca [facility] 02/10/2025 09:34:38 Date Recorded Body height Body mass index (BMI) Body weight Provider Name and Address Organization Details Last Updated DateTime 05/02/2024 182.88 cm 44.2 kg/m2 115139.11 g Sharon Ramon [facility] 05/02/2024 09:17:01 Social History None recorded. Functional Status None recorded. Mental Status None recorded. Family History Relationship Description Onset Age of this Age Resolved Age Notes LastModified by Organization Details LastModified Time Mother Asthma [email or web address] Not available 0 10/30/2024 15:02:14 Mother Diabetes mellitus [email or web address] Not available 2024 15:02:14 Medical History Condition Response Allergies/Hayfever N Heart Problems N Anxiety Y Tonsil Infections N Emphysema N Migraines Y Thyroid Problems N Glaucoma N Depression N COPD N Developmental Delay N Nasal or Sinus Problems N Anemia N Immune System Disorder N Anesthesia Complications N Heart Attack (OK) N Other Skin Condition N Diabetes N Rhinitis N Bleeding Disorder N Food Allergy N Arthritis Y Hearing Loss N Hyperlipidemia N Cancer N Stroke N Dementia N Nasal polyps N Asthma Y Sleep Disorder Y GERD/Reflux Y High Cholesterol N Liver Disease N Headaches Y Fibromyalgia N Hypertension Y Speech Delay N Kidney Disease Y Past Encounters Encounter ID Performer Location Encounter Start Date Encounter Closed Date Diagnosis/Indication Diagnosis SNOMED-CT Code Diagnosis ICD10 Code Diagnosis IMO Codes Diagnosis Note [id number] LISY COLEMAN PA-C [facility] [address] [address] 05/02/2024 09:03:01 05/02/2024 09:37:59 Impacted cerumen of bilateral ears 1373145406 749478 H61.23 [id number] LISY COLEMAN PA-C [facility] [address] [address] 10/30/2024 14:54:48 10/30/2024 15:07:41 Ear examination normal 255064384 Z01.10 [id number] HIRAM TRIMBLE [facility] [address] [place] [address] 02/10/2025 08:58:32 02/10/2025 09:52:26 Abnormal auditory perception 08547448 H93.291 [id number] Audiologic al evaluation results: Right ear:Normal hearing with excellent word recognitio n.Left ear:Normal hearing with excellent word recognitio n. Tympanomet ry:Right Ear:Type ALeft Ear:Type A Referred o talgia of right ear 9099982400 786548 H92.01 M26.621 M79.11 Health Concerns Section Related Observation LastModified by Organization Detai ls LastModified Time None Recorded Concern Status LastModified by Organization Details LastModified Time None Recorded Advance Directives Directive None Recorded Payers Insurance Date Sequence Insurance Name Policy Number Policy Steen Covered Member ID Steen Member ID Guarantor Name 04/02/2025 1 [facility] - DOS ON OR AFTER 2022 - ONE CARE (MEDICARE REPLACEMENT/AD VANTAGE - HMO) Ramírez Mena [id number] Ramírez Mena 03/24/2025 1 [facility] - DOS ON OR AFTER 2022 - ONE CARE (MEDICARE REPLACEMENT/AD VANTAGE - HMO) Ramírez Mena [id number] Ramírez Mena 03/24/2025 1 [facility] - DOS ON OR AFTER 2022 - MEDICARE [place]AGE [place]MED[place]ARE REPLACEMENT/AD VANTAGE - PPO) Ramírez Mena [id number] Ramírez Mena 04/02/2025 2 [place] [facility] Ramírez Mena [id number] Ramírez Mena Notes Date Note Type Note Provider Name and Address Organization Details Recorded Time 05/02/2024 text/html ROS as noted in the [facility] 53-year-old male presents for evaluation of the ears. Reports no change in hearing. Denies otalgia, otorrhea, change in tinnitus, or Qtip use. KARSON CARR MD [address] [facility],[address], [address], [facility] 05/03/2024 17:08:25 10/30/2024 text/html ROS as noted in the [facility] 54-year-old male presents for evaluation of the ears. No acute issues since last visit. Denies ear pain, drainage, or hearing loss. He stopped using Qtips in his ears. BRITTANY VELÁSQUEZ MD [address] [facility],[address], [address], [facility] 10/31/2024 09:01:50 02/10/2025 text/html ROS as noted in the [facility] 54 year old male presents for evaluation of right otalgia. Patient reports this began 2 weeks ago, described as an intermittent achy sensation involving the outer ear. The discomfort is accompanied by muffled hearing and has slightly improved since then. Denies URI symptoms at time of onset, otorrhea, tinnitus, and dizziness. He does endorse bruxism and is scheduled to see his dentist for a night manager. No longer using Q-tips. CHAYA NOLASCO MD [address] [facility],[address], [address], [facility] 02/10/2025 13:32:20
--- OUTSIDE RECORDS SUMMARY | 2025-04-22 12:34 | XMS_ITS | Data Portability ---
Author Organization [facility], Main Office Address [address] [place] [address] Care Team Providers Care Kids Activities Coach Name Role Phone BLUE MC Cash Register Mechanic EDELMIRA NEWTON Phys. Med. & Rehab [facility] N utritionist CHRISTIANO SONG MD Sleep Medicine [phone] MATTHEW GARCIA Macaroni Press Operator [facility] Urologist IAIN COBB Stable Attendant ALISHA SNIDER General Surgeon [facility] Sleep [facility] cine SUDARSHAN BAKER Machine Dyer [phone] JUVENAL HATHAWAY Primary Care Provider [phone] [facility] Vp Treasurer DONYA STEVEN Neurologist [phone] Assessment No assessment recorded. Plan of Treatment Reminders Order Date Submit Date Provider Last Modified By Organization Details Last Modified Time Details Appointments PA 2024 01:15P M PA SCHEDULE Not available Not available Not available FOLLOW UP 2024 10:00A M Juvenal Hathaway MD Not available Not available Not available Lab None record ed. Referral dermat ologis t referr binh Marie t report s change in mole in the past year, with increa sed irrita tion and occasi onal bleedi ng. 2024 025 [facility] [address], [address], [place], [address], 03/21/2025 09:09:31 neurol ogist referr al - Previo usly seen by your office for neurop athy r/t previo us back injury , concus daniella. Would like anothe r appoin tment for evalua tion of worsen ing sympto ms. 2024 025 Donya Steven MD, [address] [place] [address] Dr, [address], [place], [address], 03/06/2025 14:41:29 Procedures None record ed. Surgeries None record ed. Imaging XR, cervic al spine - neck pain with radiat ing neurop athic sympto ms 2024 025 [facility], [address] [facility] [address] [facility], [place], [address], 03/07/2025 11:38:33 electr omyogr am + nerve conduc tion study - Evalua ting neurop athy report ed in left arm, bilate ral for compar ainsley 2024 025 [facility] (Imaging), [address], [place], [address], 03/24/2025 11:35:25 Medication Orders cyanoc obalam in (vit B-12) 1,000 mcg/mL inject ion soluti on 2024 025 [id number], [phone] [place], [address], 04/04/2025 13:34:43 cyanoc obalam in (vit B-12) 1,000 mcg/mL inject ion soluti on 2024 025 Not available 03/06/2025 15:50:40 cyanoc obalam in (vit B-12) 1,000 mcg/mL inject ion soluti on 2024 025 [id number], [phone] [facility], [place], [address], 02/03/2025 13:43:09 cyanoc obalam in (vit B-12) 1,000 mcg/mL inject ion soluti on 2024 025 QIANA Not available 01/03/2025 05:01:47 Patient TargetsNo targets recorded. Patient Instructions Encounter Date Encounter Id Patient Instructions Last Modified By Organization Details Last Modified Time 03/06/2025 [id number] cervical disc disease: care instructions Not available 03/06/2025 14:41:29 neuropathic pain: care instructions Not available 03/06/2025 14:41:29 Chart reviewed, agree with above assessment and plan. [email or web address] Not available 03/06/2025 16:55:21 03/20/2025 [id number] moles: care instructions Not available 03/20/2025 15:17:28 Chart reviewed, agree with above assessment and plan. awychowski Not available 03/20/2025 15:19:38 Reason for Referral Neurologist Referral for Jojo ropathy Previously seen by your office for neuropathy r/t previous back injury, concussion. Would like another appointment for evaluation of worsening symptoms. Referring Physician: [facility], Encounter Date: 03/06/2025 Vp Treasurer Referral for C hange in skin lesion Patient reports change in mole in the past year, with increased irritation and occasional bleeding. Referring Physician: [facility], Encounter Date: 03/20/2025 Results Created Date Observation Date Name Description Value Unit Range Abnormal Flag Note LastModifiedBy Organization Detail LastModifiedTime 12/30/1912/30/2024 PROTH ROMBI N TIME WITH INR protime 12.9 sec 10.6-1 3.9 Not Available [facility]/S Dept [address], [place], [address], 12/30/2024 02:00:21 12/30/1912/30/2024 PROTH ROMBI N TIME WITH INR INR 1.0 Not Available [facility]/S Dept [address] [place] [address], [address], 12/30/2024 02:00:21 12/30/19 25 12/30/2024 PROTH ROMBI N TIME WITH INR note See Report [facility], [address], [place], [place] [id number] Not Available [facility]/ Dept [address] [place] [address] [place], [address], 12/30/2024 02:00:21 12/30/1912/30/2024 TYPE AND SCREE N ABO group O Not Available [facility] [address] [place] [address], [address], 12/30/2024 02:19:39 12/30/19 25 12/30/2024 TYPE AND SCREE N Rh type Positi ve Not Available [facility] [address] [place] [address], [address], 12/30/2024 02:19:39 12/30/19 25 12/30/2024 TYPE AND SCREE N antibody screen Negati ve Not Available [facility] [address] [place] [address], [address], 12/30/2024 02:19:39 12/30/19 25 12/30/2024 TYPE AND SCREE N note See Report [facility], [address], [place], [facility] [place] [id number] Not Available [facility] [address] [place] [address], [address], 12/30/2024 02:19:39 02/20/20 25 02/20/2025 HOMOC Y+MET HYL homocyst(E)i ne 10.5 umol/ L 0.0-14 .5 Not Available [facility] ([facility]) [address] [place], [address], 02/24/2025 10:06:00 02/20/2002/24/2025 HOMOC Y+MET HYL methylmaloni c acid, serum 120 nmol/ L 0-378 Not Available [facility] ([facility]) [address] [place], [address], 02/24/2025 10:06:00 02/20/2002/19/2025 CBC WITH DIFFE RENTI AL/PL ATELE T WBC 6.3 x10e3 /uL 3.4-10 .8 normal Not Available [facility] ([facility]) [address] [place], [address], 02/24/2025 10:06:00 02/20/20 25 02/19/2025 CBC WITH DIFFE RENTI AL/PL ATELE T RBC 4.91 x10e6 /uL 4.14-5 .80 normal Not Available [facility] ([facility]) [address] [place], [address], 02/24/2025 10:06:00 02/20/20 25 02/19/2025 CBC WITH DIFFE RENTI AL/PL ATELE T hemoglobin 14.8 g/dL 13.0-1 7.7 normal Not Available [facility] ([facility]) [address] [place], [address], 02/24/2025 10:06:00 02/20/2002/19/2025 CBC WITH DIFFE RENTI AL/PL ATELE T hematocrit 45.5 % 37.5-5 1.0 normal Not Available [facility] ([facility]) [address] [place], [address], 02/24/2025 10:06:00 02/20/20 25 02/19/2025 CBC WITH DIFFE RENTI AL/PL ATELE T MCV 93 fL 79-97 normal Not Available [facility] ([facility]) [address] [place], [address], 02/24/2025 10:06:00 02/20/20 25 02/19/2025 CBC WITH DIFFE RENTI AL/PL ATELE T MCH 30.1 pg 26.6-3 3.0 normal Not Available [facility] ([facility]) [address] [facility], [place], [address], 02/24/2025 10:06:00 02/20/2002/19/2025 CBC WITH DIFFE RENTI AL/PL ATELE T MCHC 32.5 g/dL 31.5-3 5.7 normal Not Available [facility] ([facility]) [address] [place], [address], 02/24/2025 10:06:00 02/20/20 25 02/19/2025 CBC WITH DIFFE RENTI AL/PL ATELE T RDW 13.4 % 11.6-1 5.4 Not Available [facility] ([facility]) [address] [place], [address], 02/24/2025 10:06:00 02/20/20 25 02/19/2025 CBC WITH DIFFE RENTI AL/PL ATELE T platelets 221 x10e3 /uL 150-45 0 normal Not Available [facility] ([facility]) [address] [place], [address], 02/24/2025 10:06:00 02/20/2002/19/2025 CBC WITH DIFFE RENTI AL/PL ATELE T neutrophils 75 % not estab. normal Not Available [facility] ([facility]) [address] [place], [address], 02/24/2025 10:06:00 02/20/20 25 02/19/2025 CBC WITH DIFFE RENTI AL/PL ATELE T lymphs 14 % not estab. normal Not Available [facility] ([facility]) [address] [place], [address], 02/24/2025 10:06:00 02/20/20 25 02/19/2025 CBC WITH DIFFE RENTI AL/PL ATELE T monocytes 8 % not estab. normal Not Available [facility] ([facility]) [address] [facility], [place], [address], 02/24/2025 10:06:00 02/20/20 25 02/19/2025 CBC WITH DIFFE RENTI AL/PL ATELE T eos 2 % not estab. normal Not Available [facility] ([facility]) [address] [facility], [place], [address], 02/24/2025 10:06:00 02/20/20 25 02/19/2025 CBC WITH DIFFE RENTI AL/PL ATELE T basos 1 % not estab. normal Not Available [facility] ([facility]) [address] [place], [address], 02/24/2025 10:06:00 02/20/20 25 02/19/2025 CBC WITH DIFFE RENTI AL/PL ATELE T immature cells INVESTMENT TRADER Not Available [facility]) [address] [place], [address], 02/24/2025 10:06:00 02/20/20 25 02/19/2025 CBC WITH DIFFE RENTI AL/PL ATELE T neutrophils (absolute) 4.7 x10e3 /uL 1.4-7. 0 normal Not Available [facility] ([facility]) [address] [place], [address], 02/24/2025 10:06:00 02/20/20 25 02/19/2025 CBC WITH DIFFE RENTI AL/PL ATELE T lymphs (absolute) 0.9 x10e3 /uL 0.7-3. 1 normal Not Available [facility] ([facility]) [address] [facility], [place], [address], 02/24/2025 10:06:00 02/20/20 25 02/19/2025 CBC WITH DIFFE RENTI AL/PL ATELE T monocytes(ab solute) 0.5 x10e3 /uL 0.1-0. 9 normal Not Available [facility] ([facility]) [address] [facility], [place], [address], 02/24/2025 10:06:00 02/20/20 25 02/19/2025 CBC WITH DIFFE RENTI AL/PL ATELE T eos (absolute) 0.1 x10e3 /uL 0.0-0. 4 normal Not Available [facility] ([facility]) [address] [facility], [place], [address], 02/24/2025 10:06:00 02/20/20 25 02/19/2025 CBC WITH DIFFE RENTI AL/PL ATELE T baso (absolute) 0.1 x10e3 /uL 0.0-0. 2 normal Not Available [facility] ([facility]) [address] [facility], [place], [address], 02/24/2025 10:06:00 02/20/20 25 02/19/2025 CBC WITH DIFFE RENTI AL/PL ATELE T immature granulocytes 0 % not estab. Not Available [facility] ([facility]) [address] [place], [address], 02/24/2025 10:06:00 02/20/20 25 02/19/2025 CBC WITH DIFFE RENTI AL/PL ATELE T immature grans (abs) 0.0 x10e3 /uL 0.0-0. 1 Not Available [facility] ([facility]) [address] [facility], [place], [address], 02/24/2025 10:06:00 02/20/20 25 02/19/2025 CBC WITH DIFFE RENTI AL/PL ATELE T NRBC INVESTMENT TRADER Not Available [facility] ([facility]) [address] [facility], [place], [address], 02/24/2025 10:06:00 02/20/20 25 02/19/2025 CBC WITH DIFFE RENTI AL/PL ATELE T hematology comments: INVESTMENT TRADER Not Available [facility]) [address] [facility], [place], [address], 02/24/2025 10:06:00 02/20/20 25 02/20/2025 VITAM IN B12 AND FOLAT E vitamin B12 409 pg/mL 232-12 45 normal Not Available [facility] ([facility]) [address] [facility], [place], [address], 02/24/2025 10:06:01 02/20/20 25 02/20/2025 VITAM IN B12 AND FOLAT E folate (folic acid), serum 14.7 NG/mL >3.0 normal A serum folat e kaylee ntrat ion of less than 3.1 ng/mL is consi dered to repre sent clini koffi defic iency . Not Available [facility] ([facility]) [address] [facility], [place], [address], 02/24/2025 10:06:01 02/20/20 25 02/20/2025 POTAS SIUM, HEPAR IN PLASM A potassium, heparin plasma 3.7 mmol/ L 3.5-5. 2 Not Available [facility] ([facility]) [address] [facility], [place], [address], 02/24/2025 10:06:02 02/20/20 25 02/19/2025 RETIC ULOCY TE COUNT reticulocyte count 1.2 % 0.6-2. 6 Not Available [facility] ([facility]) [address] [facility], [place], [address], 02/24/2025 10:06:03 03/07/20 25 03/06/2025 XR, cervi koffi spine No observ ation record ed. [facility] [address] [facility], [place], [address], 03/17/2025 15:06:16 Result Notes None recorded. Problems Name Problem SNOMED Code Status Onset Date Resolution Date Notes Provider Name and Address Organization Details Recorded Time Allergic rhinitis 04688313 Active Not Available [facility] 3 12:19:13 Anxiety state 342460266 Active Not Available [facility] 3 12:19:13 Asthma 612765091 Completed 09/23/2018 José John MD [address], [place], [address] , [facility] 9 08:14:02 Lesion of ulnar nerve 018627760 Completed 11/17/2023 Juvenal Hathaway MD [address], [place], [address] , [facility] 4 13:26:49 Pulmonar y emphysem a 43787212 Completed 09/21/2018 José John MD [address], [place], [address] , [facility] 9 15:50:02 Gastroes ophageal reflux disease 508175054 Active Not Available [facility] 3 12:19:13 Tobacco user 313561399 Completed 01/31/2017 Removal Reason: quit CHIDI Pelletier, [facility] 7 14:34:48 History of clinical finding in subject 449869437 Completed 01/31/2017 CHIDI Pelletier, [facility] 7 14:36:36 Hyperlip idemia 26490820 Active Not Available [facility] 3 12:19:13 Insomnia 700102928 Active Not Available [facility] 3 12:19:13 Migraine 24176739 Active Not Available [facility] 3 12:19:13 Obesity 358417883 Completed 09/23/2018 José John MD [address], [place], [address] , [facility] 9 08:12:35 Plantar fascial fibromat osis 64794844 Completed 11/18/2024 Juvenal Hathaway MD [address], [place], [address] , [facility] 5 13:30:37 Lateral epicondy litis 518744835 Completed 09/23/2018 José John MD [address], [place], [address] , [facility] 9 08:14:25 Neck pain 68901363 Completed 09/23/2018 José John MD [address], [place], [address] , [facility] 9 08:12:39 Mild persiste nt asthma 193625064 Active Not Available [facility] 3 12:19:13 Fatigue 02093285 Completed 11/17/2023 Juvenal Hathaway MD [address] [facility] [address], [place], [address] , [facility] 4 08:20:34 Degenera tion of lumbar interver tebral disc 62184083 Active Not Available [facility] 3 12:19:13 Major depressi ve disorder 543689354 Completed 02/19/2019 Kemi Murillo RN null, [facility] 9 15:20:59 Atypical chest pain 048615490 Completed 09/23/2018 José John MD [address] [facility] [address], [place], [address] , [facility] 9 08:14:19 Acute sinusiti s 93503881 Completed 01/31/2017 Wes henao MA null, [facility] 7 14:36:31 Herpes labialis 2741415 Active Not Available [facility] 3 12:19:13 Helicoba cter detected by serology 909263661 Completed 11/17/2023 Juvenal Hathaway MD [address], [place], [address] , [facility] 4 13:25:33 Candidia sis of mouth 02802854 Completed 09/23/2018 José John MD [address], [place], [address] , [facility] 9 08:12:42 Low back pain 034744208 Completed 09/23/2018 José John MD [address], [place], [address] , [facility] 9 08:13:27 Heartbur n 48010533 Completed 11/17/2023 Juvenal Hathaway MD [address], [place], [address] , [facility] 4 13:24:36 Asthma 815290845 Active Not Available [facility] 3 12:19:13 Herpes simplex 44016910 Completed 11/17/2023 Juvenal Hathaway MD [address] [facility] [address], [place], [address] , [facility] 4 13:25:55 Chronic back pain 601736832 Active Not Available [facility] 3 12:19:13 Administ ration of bacteria l and viral vaccine Completed 200801/21/2014 RECORDED 09/27/19 09 3:30PM BY DRISS STEELE, OFFICE VISIT Not Available [facility] 4 14:38:56 Administ ration of bacteria l and viral vaccine Completed 200802/10/2014 RECORDED 09/27/19 09 3:30PM BY DRISS STEELE, OFFICE VISIT Not Available [facility] 4 06:47:55 Tobacco dependen ce syndrome 61285161 Completed 201001/21/2014 RECORDED 12/08/19 11 10:25AM BY WES STEELE MA, JEANNETTEATI ON/ADDEN DUM Not Available [facility] 4 14:38:56 Tobacco dependen ce syndrome 90217157 Completed 201002/10/2014 RECORDED 12/08/19 11 10:25AM BY WES STEELE MA, JEANNETTEATI ON/ADDEN DUM Not Available [facility] 4 06:47:56 Acute pyelonep hritis without medullar y necrosis 517902133 Completed 201101/21/2014 RECORDED 02/07/20 12 1:32PM BY WES STEELE MA, MELODIE ON/ADDEN DUM Not Available [facility] 4 14:38:54 Chest pain 41916336 Completed 201101/21/2014 STORY: NOTES SINGLE EPISODE OF SUBSTERN AL CHEST PAIN AT REST. STATES EPISODE LAST 45MIN. SOME NAUSEA.; RECORDED 02/07/20 12 1:32PM BY WES STEELE MA, MELODIE ON/ADDEN DUM Not Available [facility] 4 14:38:55 Headache 08967485 Completed 201101/21/2014 RECORDED 02/07/20 12 1:32PM BY WES STEELE MA, JEANNETTEATI ON/ADDEN DUM Not Available [facility] 4 14:38:55 Pain of elbow region 49787364 Completed 201101/21/2014 IMPRESSI ON: R SIDED, NO HX OF TRAUMA OR INJURY. PAIN X 2 DAYS. PT WITH CONCERN RE BURSITIS , NO SWELLING OR DEFORMIT Y. PAIN OVER TRICEPS TENDON. ADVISED RE REST, ICE, NSAID FOR PAIN. WILL CHECK XRAY AND CONTACT PT WITH REPORT. HE IS TO CALL SOONER PRN.; RECORDED 02/07/20 12 1:32PM BY WES STEELE MA, MELODIE ON/ADDEN DUM Not Available [facility] 4 14:38:55 Blood in urine 12567186 Completed 201101/21/2014 RECORDED 02/07/20 12 1:32PM BY WES STEELE MA, MELODIE ON/ADDEN DUM Not Available [facility] 4 14:38:55 Kidney stone 59189664 Completed 201101/21/2014 STORY: HISTORY OF PRIOR PYELONEP HRITIS AND HEMATURI A; RECORDED 02/07/20 12 1:32PM BY WES STEELE MA, MELODIE ON/ADDEN DUM Not Available [facility] 4 14:38:56 Otalgia 68792021 Completed 201101/21/2014 IMPRESSI ON: SXS YESTERDA Y, GUYVIN G TODAY. NORMAL EXAM. REASSURE D. PT TO CALL PRN.; RECORDED 02/07/20 12 1:32PM BY WES STEELE MA, MELODIE ON/ADDEN DUM Not Available [facility] 4 14:38:56 Knee pain Completed 201101/21/2014 RECORDED 02/07/20 12 1:32PM BY WES STEELE MA, MELODIE ON/ADDEN DUM Not Available [facility] 4 14:38:56 Sprain of foot 97265301 Completed 201101/21/2014 RECORDED 02/07/20 12 1:32PM BY WES STEELE MA, MELODIE ON/ADDEN DUM Not Available [facility] 4 14:38:56 Syncope and collapse 993519441 Completed 201101/21/2014 RECORDED 02/07/20 12 1:32PM BY WES STEELE MA, MELODIE ON/ADDEN DUM Not Available [facility] 4 14:38:56 Viral disease 63250809 Completed 201101/21/2014 RECORDED 02/07/20 12 1:32PM BY WES STEELE MA, MELODIE ON/ADDEN DUM Not Available [facility] 4 14:38:57 Wheezing 50286162 Completed 201101/21/2014 RECORDED 02/07/20 12 1:32PM BY WES STEELE MA, MELODIE ON/ADDEN DUM Not Available [facility] 4 14:38:57 Acute pyelonep hritis without medullar y necrosis 433572523 Completed 201102/10/2014 RECORDED 02/07/20 12 1:32PM BY WES STEELE MA, MELODIE ON/ADDEN DUM Not Available [facility] 4 06:47:55 Chest pain 59116437 Completed 201102/10/2014 STORY: NOTES SINGLE EPISODE OF SUBSTERN AL CHEST PAIN AT REST. STATES EPISODE LAST 45MIN. SOME NAUSEA.; RECORDED 02/07/20 12 1:32PM BY WES STEELE MA, MELODIE ON/ADDEN DUM Not Available [facility] 4 06:47:55 Headache 01133384 Completed 201102/10/2014 RECORDED 02/07/20 12 1:32PM BY WES STEELE MA, MELODIE ON/ADDEN DUM Not Available [facility] 4 06:47:55 Pain of elbow region 45423922 Completed 201102/10/2014 IMPRESSI ON: R SIDED, NO HX OF TRAUMA OR INJURY. PAIN X 2 DAYS. PT WITH CONCERN RE BURSITIS , NO SWELLING OR DEFORMIT Y. PAIN OVER TRICEPS TENDON. ADVISED RE REST, ICE, NSAID FOR PAIN. WILL CHECK XRAY AND CONTACT PT WITH REPORT. HE IS TO CALL SOONER PRN.; RECORDED 02/07/20 12 1:32PM BY WES STEELE MA, MELODIE ON/ADDEN DUM Not Available [facility] 4 06:47:55 Blood in urine 11784890 Completed 201102/10/2014 RECORDED 02/07/20 12 1:32PM BY WES STEELE MA, MELODIE ON/ADDEN DUM Not Available [facility] 4 06:47:55 Kidney stone 44090073 Completed 201102/10/2014 STORY: HISTORY OF PRIOR PYELONEP HRITIS AND HEMATURI A; RECORDED 02/07/20 12 1:32PM BY WES STEELE MA, ANNOTATI ON/ADDEN DUM Not Available [facility] 4 06:47:55 Otalgia 23864625 Completed 201102/10/2014 IMPRESSI ON: SXS YESTERDA Y, IMPROVIN G TODAY. NORMAL EXAM. REASSURE D. PT TO CALL PRN.; RECORDED 02/07/20 12 1:32PM BY WES STEELE MA, ANNOTATI ON/ADDEN DUM Not Available [facility] 4 06:47:56 Knee pain Completed 201102/10/2014 RECORDED 02/07/20 12 1:32PM BY WES STEELE MA, ANNOTATI ON/ADDEN DUM Not Available [facility] 4 06:47:56 Sprain of foot 39592411 Completed 201102/10/2014 RECORDED 02/07/20 12 1:32PM BY WES STEELE MA, ANNOTATI ON/ADDEN DUM Not Available [facility] 4 06:47:56 Syncope and collapse 643244106 Completed 201102/10/2014 RECORDED 02/07/20 12 1:32PM BY WES STEELE MA, ANNOTATI ON/ADDEN DUM Not Available [facility] 4 06:47:56 Viral disease 95018882 Completed 201102/10/2014 RECORDED 02/07/20 12 1:32PM BY WES STEELE MA, ANNOTATI ON/ADDEN DUM Not Available [facility] 4 06:47:56 Wheezing 52712387 Completed 201102/10/2014 RECORDED 02/07/20 12 1:32PM BY WES STEELE MA, ANNOTATI ON/ADDEN DUM Not Available [facility] 4 06:47:56 Bronchit is 40776738 Completed 201201/21/2014 RECORDED 08/07/19 13 9:16AM BY JEANNETTE LLAMASATI ON/ADDEN DUM Not Available [facility] 4 14:38:55 Bronchit is 81417314 Completed 201202/10/2014 RECORDED 08/07/19 13 9:16AM BY MARTINE UGARTE, ANNOTATI ON/ADDEN DUM Not Available [facility] 4 06:47:55 Renewal of prescrip tion Completed 201201/21/2014 RECORDED 10/04/19 13 9:02AM BY KACY COLEMAN MA, ANNOTATI ON/ADDEN DUM Not Available [facility] 4 14:38:56 Enthesop athy [facility] 02797582 Completed 201201/21/2014 RECORDED 10/04/19 13 9:02AM BY KACY COLEMAN MA, ANNOTATI ON/ADDEN DUM Not Available [facility] 4 14:38:56 Renewal of prescrip tion Completed 201202/10/2014 RECORDED 10/04/19 13 9:02AM BY KACY COLEMAN MA, ANNOTATI ON/ADDEN DUM Not Available [facility] 4 06:47:55 [facility] 24426021 Completed 201202/10/2014 RECORDED 10/04/19 13 9:02AM BY AKCY COLEMAN MA, ANNOTATI ON/ADDEN DUM Not Available [facility] 4 06:47:56 Tobacco user 499309993 Completed 201201/21/2014 RECORDED 11/24/19 13 8:46AM BY WES STEELE MA, ANNOTATI ON/ADDEN DUM CHIDI Pelletier MA - [facility] 7 14:34:48 Acute asthma 081534062 Completed 201201/21/2014 RECORDED 02/05/20 13 10:50AM BY RUSSELL CAT MA, ANNOTATI ON/ADDEN DUM Not Available [facility] 4 14:38:54 Chronic sinusiti s 75028082 Completed 201201/21/2014 RECORDED 02/05/20 13 10:50AM BY RUSSELL CAT MA, ANNOTATI ON/ADDEN DUM Not Available [facility] 4 14:38:56 Acute asthma 263103971 Completed 201202/10/2014 RECORDED 02/05/20 13 10:50AM BY RUSSELL CAT MA, ANNOTATI ON/ADDEN DUM Not Available [facility] 4 06:47:55 Chronic sinusiti s 76231427 Completed 201202/10/2014 RECORDED 02/05/20 13 10:50AM BY RUSSELL CAT MA, ANNOTATI ON/ADDEN DUM Not Available [facility] 4 06:47:56 Acute pharyngi tis 539642042 Completed 201201/21/2014 RECORDED 02/12/20 13 1:05PM BY WES STEELE MA, ANNOTATI ON/ADDEN DUM Not Available [facility] [facility] 4 14:38:54 Acute sinusiti s [id number] Completed 201201/21/2014 RECORDED 02/12/20 13 1:05PM BY WES STEELE MA, ANNOTATI ON/ADDEN DUM CHIDI Pelletier [facility] 7 14:36:31 Acute pharyngi tis [id number] Completed 201202/10/2014 RECORDED 02/12/20 13 1:05PM BY WES STEELE MA, ANNOTATI ON/ADDEN DUM Not Available [facility] 4 06:47:55 Acute sinusiti s 32147564 Completed 201202/10/2014 RECORDED 02/12/20 13 1:05PM BY WES STEELE MA, ANNOTATI ON/ADDEN DUM CHIDI [facility] 7 14:36:31 Left upper quadrant pain [id number] Completed 201201/21/2014 RECORDED 05/08/20 13 10:40AM BY WES STEELE MA, ANNOTATI ON/ADDEN DUM Not Available [facility] 4 14:38:54 Follow-u p encounte r Completed 201201/21/2014 RECORDED 05/08/20 13 10:39AM BY WES STEELE MA, ANNOTATI ON/ADDEN DUM Not Available [facility] 4 14:38:55 Malaise and fatigue [id number] Completed 201201/21/2014 RECORDED 05/08/20 13 10:39AM BY WES STEELE MA, ANNOTATI ON/ADDEN DUM Not Available [facility] 4 14:38:55 Adult health examinat ion Completed 201201/21/2014 RECORDED 05/08/20 13 10:39AM BY WES STEELE MA, ANNOTATI ON/ADDEN DUM Not Available [facility] 4 14:38:55 Left upper quadrant pain [id number] Completed 201202/10/2014 RECORDED 05/08/20 13 10:40AM BY WES STEELE MA, ANNOTATI ON/ADDEN DUM Not Available [facility] 4 06:47:55 Follow-u p encounte r Completed 201202/10/2014 RECORDED 05/08/20 13 10:39AM BY WES STEELE MA, ANNOTATI ON/ADDEN DUM Not Available [facility] 4 06:47:55 Malaise and fatigue [id number] Completed 201202/10/2014 RECORDED 05/08/20 13 10:39AM BY WES STEELE MA, ANNOTATI ON/ADDEN DUM Not Available [facility] 4 06:47:55 Adult health examinat ion Completed 201202/10/2014 RECORDED 05/08/20 13 10:39AM BY WES STEELE MA, ANNOTATI ON/ADDEN DUM Not Available [facility] 4 06:47:55 Pain in limb 72152084 Completed 201301/21/2014 RECORDED 07/31/19 14 11:03AM BY WES STEELE MA, ANNOTATI ON/ADDEN DUM Not Available [facility] 4 14:38:56 Abdomina l pain 65266405 Completed 201301/21/2014 RECORDED 07/31/19 14 11:03AM BY WES STEELE MA, ANNOTATI ON/ADDEN DUM Not Available [facility] 4 14:38:56 Pain in limb 06902072 Completed 201302/10/2014 RECORDED 07/31/19 14 11:03AM BY WES STEELE MA, ANNOTATI ON/ADDEN DUM Not Available [facility] 4 06:47:56 Abdomina l pain 99611303 Completed 201302/10/2014 RECORDED 07/31/19 14 11:03AM BY WES STEELE MA, ANNOTATI ON/ADDEN DUM Not Available [facility] 4 06:47:56 Disorder of lower extremit y Completed 201301/21/2014 RECORDED 08/13/19 14 12:52PM BY YAMILE MAKI MA, ANNOTATI ON/ADDEN DUM Not Available [facility] 4 14:38:54 History of depressi on [id number] Completed 201301/21/2014 RECORDED 08/13/19 14 12:53PM BY YAMILE MAKI MA, ANNOTATI ON/ADDEN DUM Not Available [facility] 4 14:38:55 Disorder of lower extremit y Completed 201302/10/2014 RECORDED 08/13/19 14 12:52PM BY YAMILE MAKI MA, ANNOTATI ON/ADDEN DUM Not Available [facility] 4 06:47:55 History of depressi on [id number] Completed 201302/10/2014 RECORDED 08/13/19 14 12:53PM BY YAMILE MAKI MA, ANNOTATI ON/ADDEN DUM Not Available [facility] 4 06:47:55 Meralgia paresthe jagdeep 13772296 Active 2015 Dx: G57.11; numbness and burning in outer thigh Not Available [facility] 3 12:19:14 Ex-smoke r 1404296 Active 2016 Not Available [facility] 3 12:19:14 Mild intermit tent asthma 402345170 Completed 201809/23/2018 José John MD [address], [place], [address] , [facility] 9 08:15:52 Uncompli cated mild persiste nt asthma 718255102 Completed 201809/23/2019 José John MD [address], [place], [address] , [facility] 0 19:55:46 Moderate major depressi on 244732 Completed 201811/17/2023 Juvenal Hathaway MD [address], [place], [address] , [facility] 4 13:28:48 Serum creatini ne above referenc e range 702660789 Completed 201809/23/2019 José John MD [address], [place], [address] , [facility] 0 19:55:30 Hiatal hernia 11372919 Active 2018 Not Available [facility] 3 12:19:14 Morbid obesity 903080775 Active 2019 Not Available [facility] 3 12:19:13 Hypoglyc emia 623816879 Completed 202011/17/2023 Juvenal Hathaway MD [address], [place], [address] , [facility] 4 13:26:03 Left lateral elbow tendinop athy 75061969246 9100 Completed 202011/17/2023 Juvenal Hathaway MD [address] [facility] [address], [place], [address] , [facility] 4 13:26:42 Hyperten sive disorder 96993751 Active 2020 Martine Ugarte MA null, [facility] 4 14:17:09 Chronic kidney disease stage 2 332076494 Completed 202006/30/2021 Martine Ugarte MA null, [facility] 4 14:17:09 Obstruct usman sleep apnea syndrome 87233084 Active 2021 Not Available [facility] 3 12:19:13 Degenera tion of cervical interver tebral disc 55096495 Active 2021 Not Available [facility] 3 12:19:13 Primary erectile dysfunct ion 715710720 Active 2021 Not Available [facility] 3 12:19:13 Anal fissure 12170873 Active 2022 NAYE Meehan [address] [facility] [address], [place], [address] , [facility] 3 11:50:26 Acute prostati tis 45027367 Completed 202211/17/2023 Juvenal Hathaway MD [address] [facility] [address], [place], [address] , [facility] 4 13:23:54 Pain of left knee joint 38375906696 4107 Completed 202211/18/2024 Juvenal Hathaway MD [address] [facility] [address], [place], [address] , [facility] 5 13:27:25 Pain of right knee joint 85079276476 4100 Active 2022 NAYE Meehan [address], [place], [address] , [facility] 3 13:10:57 History of Helicoba cter pylori infectio n [id number] 342893 Active 2023 Juvenal Hathaway MD [address], [place], [address] , [facility] 4 13:25:14 Major depressi on in remissio n 99732400 Active 2023 Juvenal Hathaway MD [address], [place], [address] , [facility] 4 13:28:43 Chronic pain syndrome 367435281 Active 2023 Juvenal Hathaway MD [address], [place], [address] , [facility] 4 07:50:05 Incision al hernia 984894285 Active 2024 Juvenal Hathaway MD [address], [place], [address] , [facility] 5 13:29:31 Pain of knee region 6335842357 Active 2024 Teri Panda null, [facility] 5 12:25:03 Pernicio us anemia 92419499 Active 2024 CHIDI Roberts, [facility] 5 13:36:18 Neuropat hy 495543671 Active 2024 LEANNA Wang [facility] [address], [place], [address] , [facility] 5 13:47:38 Blood pressure above referenc e range 53725244 Active 2024 LEANNA Wang [employer] [address], [place], [address] , [facility] 5 13:54:14 Change in skin lesion 040737123 Active 2024 COSME MIRANDAP- [address] [facility] [address], [place], [address] , [facility] 5 14:30:34 Problem Notes None recorded. Procedures Surgical History Date Name Laterality Status Provider Name and Address Organization Details Recorded Time 06/18/20 24 Chronic Pain Assessment completed Wes smith MA [facility] 06/18/2024 15:30:34 09/25/19 24 circumcision completed Juvenal Hathaway MD [address] [facility] [address], [place], [address], [facility] 11/17/2023 13:33:39 10/05/19 22 Chronic Pain Assessment completed Wse smith [place] [facility] 10/04/2021 13:54:52 09/29/19 21 Six-Item Cognitive Test completed Juana Miner MA [facility] 09/28/2020 13:38:47 09/04/19 21 Upper gi endoscopy performed completed Prachi Teran [facility] 09/03/2020 13:44:48 08/20/19 20 laparoscopic appendectomy completed Esthela Mercer [facility] 08/21/2019 10:00:45 04/11/20 17 Polysom 6/> yrs 4/> antony completed Wes smith [place] [facility] 04/17/2017 10:49:10 05/12/20 16 Colonoscopy completed Wes smith MA [facility] 01/31/2017 14:39:56 I&d abscess simple/single completed Priscila Porter [facility] 11/03/2020 11:22:34 Imaging Results None recorded. Procedure Notes None recorded. Medical Equipment None Reported. Allergies Allergen ID Allergen Name Allergen Category Reaction Reaction Severity Criticality Documentation Date Start Date Code Code System Note Provider Name and Address Organization Details Recorded Time 71797 No known allergy (situatio n) Not available Not available Not available Not available 03/13/2024 33098 6003 SNOMED Martine CHIDI Ugarte [facility], [facility] 4 14:16:56 No known drug allergies Medications Name Sig Start Date Stop Date Status Note LastModified by Organization Details LastModified Time prednison e tab 10mgpredn isone active Not Available Not Available Not Available clotrimaz ole 10 mg troc active Not Available Not Available Not Available ibuprofen tab 800mgibup rofen active Not Available Not Available Not Available zolpidem tartrate 10 mg tabs active Not Available Not Available Not Available omeprazol e 40 mg cpdr active Not Available Not Available Not Available topiramat e tab 50mgtopir amate active Not Available Not Available Not Available omeprazol e cap 20mgomepr azole active Not Available Not Available Not Available zolpidem tab 10mgzolpi dem tartrate active Not Available Not Available Not Available tramadol hcl tab 50mgtrama dol hcl active Not Available Not Available Not Available amox/k clav tab 875mgamox icillin/c lavulanat e potassium active Not Available Not Available No t Available Prescript ion - Prior Authoriza tion Request 01/12 completed Not Available Not Available Not Available topiramat e tab 25mgtopir amate active Not Available Not Available Not Available tramadol hcl 50 mg tabs active Not Available Not Available Not Available amoxicill in 500 mg capsule TAKE 1 CAPSULE BY MOUTH 3 TIMES A DAY 03/23 completed Not Available Not Available Not Available clotrimaz ole 10 mg joao 03/13 completed Not Available Not Available Not Available neomycin- polymyxin -hydrocor t 3.5 mg/mL-10, 000 unit/mL-1 % ear solution INSTILL 4 DROPS INTO AFFECTED EAR(S) BY OTIC ROUTE 3 TIMES PER DAY 05/11 completed Not Available Not Available Not Available prednison e 10 mg tablet PLEASE SEE ATTACHED FOR DETAILED DIRECTIO NS 06/18 completed Not Available Not Available Not Available citalopra m 40 mg tablet DAILY 02/06 completed RECORDED 02/07/20 12 1:53PM BY JOSÉ JOHN MD, OFFICE VISIT;DR Dafne ALBA GIVES HIM THIS SCRIPT. Not Available Not Available Not Available hydrocort isone-pra moxine 2.5 %-1 % rectal cream Insert 1 applicat ion every day by rectal route for 14 days. 2022 active Not Available Not Available Not Avai lable sildenafi l 50 mg tablet TAKE 1 TABLET EVERY DAY BY ORAL ROUTE NEEDED. 07/24 completed Not Available Not Available Not Available cefpodoxi me 200 mg tablet TAKE 1 TABLET BY MOUTH TWICE A DAY UNTIL FINISHED 07/25 completed Not Available Not Available Not Available azithromy sarah 250 mg tablet DAILY, PER INSTRUCT IONS ON PACKAGE 06/18 completed Not Available Not Available Not Available ibuprofen 800 mg tablet Take 1 tablet 3 times a day by oral route as needed for 3 days. 01/12 completed Not Available Not Available Not Available valacyclo vir 1 gram tablet Take 2 tablets as needed by oral route. active Not Available Not Available No t Available clarithro mycin 500 mg tablet Take 1 tablet twice a day by oral route for 14 days. 10/11 completed Not Available Not Available Not Available sumatript an 100 mg tablet NEEDED TO TREAT A MIGRAINE 09/21 completed RECORDED 09/22/19 12 10:49AM BY MELODIE CESPEDES ON/CROW ELENA;USE PRN HEADACHE . MAY REPEAT IN 2 HOURS IF NEEDED. MAX DOSE IS 2 PER DAY. Not Available Not Available Not Available sucralfat e 100 mg/mL oral suspensio n 08/03 completed Not Available Not Available Not Available sucralfat e 1 gram tablet FOUR TIMES DAILY 02/04 completed RECORDED 02/05/20 13 11:02AM BY RUSSELL CAT MA, OFFICE VISIT; Not Available Not Available Not Available naltrexon e 50 mg tablet TAKE 1/2 TABLET (25 MG TOTAL) BY MOUTH DAILY 11/18 completed Not Available Not Available Not Available FreeStyle Lancets 28 gauge Take 1 each every day by miscell. route for 90 days. 07/25 completed Not Available Not Available Not Available famotidin e 40 mg tablet TAKE 1 TABLET BY MOUTH TWICE A DAY 11/16 completed Not Available Not Available Not Available prednison e 20 mg tablet TAKE 2 TABLETS BY MOUTH EVERY DAY FOR 5 DAYS 06/18 completed Not Available Not Available Not Available gabapenti n 400 mg capsule TAKE 1 CAPSULE BY MOUTH THREE TIMES A DAY active Not Available Not Available No t Available quetiapin e 200 mg tablet AT BEDTIME 02/04 completed RECORDED 02/05/20 13 11:02AM BY RUSSELL CAT MA, OFFICE VISIT;DR Dafne ALBA GIVES HIM THIS SCRIPT. Not Available Not Available Not Available penciclov ir 1 % topical cream EVERY 2 HOURS PRN 02/04 completed RECORDED 02/05/20 13 11:02AM BY RUSSELL CAT MA, OFFICE VISIT; Not Available Not Available Not Available ciproflox acin 500 mg tablet TAKE 1 TABLET BY MOUTH EVERY 12 HOURS DIRECTED FOR 7 DAYS 05/03 completed Not Available Not Available Not Available sulfameth oxazole 800 mg-trimet hoprim 160 mg tablet TAKE 1 TABLET BY MOUTH TWICE A DAY FOR 7 DAYS 10/25 completed Not Available Not Available Not Available peg-elect rolyte solution 420 gram oral solution 11/17 completed Not Available Not Available Not Available omeprazol e 40 mg capsule,d elayed release TAKE 1 CAPSULE BY MOUTH TWICE A DAY active Not Available Not Available No t Available aspirin 81 mg tablet,de layed release Take 1 tablet every day by oral route. 10/25 completed Not Available Not Available Not Available tramadol 50 mg tablet TAKE 2 TABLETS BY MOUTH 3 TIMES A DAY DIRECTED FOR BACK PAIN. 2024 active Not Available Not Available Not Avai lable acetamino phen 500 mg tablet TAKE 2 TABLETS (1,000 MG TOTAL) BY MOUTH EVERY 8 HOURS 03/06 completed Not Available Not Available Not Available sildenafi l 100 mg tablet TAKE 1 TAB ONE HOUR PRIOR TO SEXUAL ACTIVITY NO MORE THAN ONCE DAILY active Not Available Not Available No t Available amoxicill in 500 mg tablet Take 2 tablets twice a day by oral route for 14 days. 2014 active Not Available Not Available Not Avai lable lidocaine -prilocai ne 2.5 %-2.5 % topical cream 01/12 completed Not Available Not Available Not Available oxycodone -acetamin ophen 5 mg-325 mg tablet EVERY 4-6 HOURS NEEDED active Not Available Not Available No t Available hydrocort isone 2.5 % topical cream with perineal applicato r APPLY A THIN LAYER TO THE AFFECTED AREA(S) BY TOPICAL ROUTE 2-4 TIMESDAI LY active Not Available Not Available No t Available Fluticaso ne Propionat e (Inhal) 50 mcg/BLIST inhl powd DAILY 02/04 completed Flovent Diskus Not Available Not Available Not Available methocarb isabelle 750 mg tablet THREE TIMES DAILY PRN 02/04 completed RECORDED 02/05/20 13 11:02AM BY RUSSELL CAT MA, OFFICE VISIT; Not Available Not Available Not Available tamsulosi n 0.4 mg capsule TAKE 1 CAPSULE BY MOUTH EVERY DAY BEFORE BEDTIME 11/18 completed only took this for a few days in 2022 Not Available Not Available Not Available benzonata te 100 mg capsule TAKE 1 CAPSULE BY MOUTH THREE TIMES A DAY NEEDED FOR COUGH 06/18 completed Not Available Not Available Not Available econazole nitrate 1 % topical cream 03/13 completed Not Available Not Available Not Available cephalexi n 500 mg capsule 01/01 completed Not Available Not Available Not Available cyanocoba junie (vit B-12) 1,000 mcg/mL injection solution Inject 1 mL every month by intramus cular route. 2024 active Not Available Not Available Not Avai lable tacrolimu s 0.1 % topical ointment APPLY TO ALL AREAS TWICE A DAY active Not Available Not Available No t Available clotrimaz ole-betam ethasone 1 %-0.05 % topical cream PLEASE SEE ATTACHED FOR DETAILED DIRECTIO NS 11/16 completed Not Available Not Available Not Available prednison e 50 mg tablet Take 1 tablet every day by oral route for 5 days. 07/26 completed Not Available Not Available Not Available lidocaine 5 % topical patch APPLY 1 PATCH BY TRANSDER MAL ROUTE ONCE DAILY (MAY WEAR UP TO 12HOURS. ) 01/12 completed Not Available Not Available Not Available oxycodone 5 mg capsule PLEASE SEE ATTACHED FOR DETAILED DIRECTIO NS 03/06 completed Not Available Not Available Not Available betametha sone dipropion ate 0.05 % topical cream 10/25 completed Not Available Not Available Not Available docusate sodium 100 mg capsule TAKE 1-2 CAPSULES PER DAY, NEEDED FOR CONSTIPA TION active Not Available Not Available No t Available oxybutyni n chloride ER 5 mg tablet,ex tended release 24 hr 08/03 completed Not Available Not Available Not Available gabapenti n 300 mg capsule TAKE 1-2 CAPSULE( S) BY MOUTH AT BEDTIME. TAKE ONE HOUR PRIOR TO SLEEP. 05/05 completed Not Available Not Available Not Available omeprazol e 20 mg capsule,d elayed release Take one daily 10/11 completed Not Available Not Available Not Available monteluka st 10 mg tablet TAKE 1 TABLET BY MOUTH EVERY DAY 2024 active Not Available Not Available Not Avai lable codeine 10 mg-guaife nesin 100 mg/5 mL oral liquid TAKE 5 ML BY MOUTH EVERY 6 HOURS NEEDED FOR COUGH 06/18 completed Not Available Not Available Not Available alcohol swabs APPLY 1 PAD EVERY WEEK BY TOPICAL ROUTE FOR 90 DAYS. active Not Available Not Available No t Available nystatin 100,000 unit/gram topical powder APPLY TO THE FOLDS 3-4 X DAILY active Not Available Not Available No t Available lorazepam 1 mg tablet 11/29 completed Not Available Not Available Not Available levofloxa sarah 750 mg tablet TAKE 1 TABLET EVERY DAY BY ORAL ROUTE FOR 7 DAYS. 02/01 completed Not Available Not Available Not Available zolpidem 10 mg tablet Take 1 tablet every day by oral route for 90 days. 12/04 completed Not Available Not Available Not Available albuterol sulfate HFA 90 mcg/actua tion aerosol inhaler INHALE 2 PUFFS EVERY 4 TO 6 HOURS active Not Available Not Available No t Available ferrous sulfate 325 mg (65 mg iron) tablet,de layed release TAKE 1 TABLET BY MOUTH EVERY DAY 07/25 completed Not Available Not Available Not Available ketoconaz ole 2 % topical cream APPLY TO AFFECTED AREA EVERY DAY 11/16 completed Not Available Not Available Not Available ondansetr on 4 mg disintegr ating tablet DISSOLVE 1 TABLET BY MOUTH 3 TIMES A DAY NEEDED 10/25 completed Not Available Not Available Not Available topiramat e 100 mg tablet TWO TIMES DAILY active RECORDED 09/22/19 12 10:48AM BY MELODIE CESPEDES/ADDEN DUM; Not Available Not Available Not Available fluticaso ne propionat e 50 mcg/actua tion nasal spray,jeny pension SPRAY 2 SPRAYS INTO EACH NOSTRIL DAILY DIRECTED active Not Available Not Available No t Available clotrimaz ole 1 % topical cream 10/25 completed Not Available Not Available Not Available dicyclomi ne 10 mg capsule Take 1 capsule every day by oral route for 90 days. 12/04 completed Not Available Not Available Not Available chlorhexi dine gluconate 4 % topical liquid USE BODY WASH TOPICALL Y NEEDED WHEN FLARING. active Not Available Not Available No t Available loratadin e 10 mg tablet TAKE 1 TABLET BY MOUTH EVERY DAY active Not Available Not Available No t Available naproxen 500 mg tablet Take 1 tablet twice a day by oral route with meals for 10 days. 06/14 completed Not Available Not Available Not Available diazepam 5 mg tablet 11/17 completed Not Available Not Available Not Available hydrocort isone-pra moxine 1 %-1 % rectal cream Apply rectally in the evening 11/16 completed Not Available Not Available Not Available amoxicill in 875 mg-potass ium clavulana te 125 mg tablet Take 1 tablet every 12 hours by oral route for 10 days. 10/11 completed Not Available Not Available Not Available nabumeton e 500 mg tablet 03/13 completed Not Available Not Available Not Available oxycodone 5 mg tablet TAKE 1 TABLET (5 MG TOTAL) BY MOUTH EVERY 6 HOURS NEEDED FOR SEVERE PAIN MAX DAILY AMOUNT: 20 MG 03/06 completed Not Available Not Available Not Available neomycin- polymyxin -hydrocor t 3.5 mg-10,000 unit/mL-1 % ear drops,jeny p INSTILL 4 DROPS INTO AFFECTED EAR(S) BY OTIC ROUTE 3 TIMES PER DAY 05/11 completed Not Available Not Available Not Available Denta 5000 Plus 1.1 % cream USE PEA SISE AMOUNT WITH TOOTH BRUSH TWICE A DAY. active Not Available Not Available No t Available codeine-g uaifenesi n oral syrup EVERY FOUR HOURS, NEEDED 05/25 completed RECORDED 06/11/20 10 1:16PM BY HIRAM SCOTT, MEDICATI ON AUTO-ILYA CTIVATIO N; Not Available Not Available Not Available bupropion HCl XL 300 mg 24 hr tablet, extended release TAKE 1 TABLET BY MOUTH EVERY DAY 09/28 completed Not Available Not Available Not Available bupropion HCl XL 150 mg 24 hr tablet, extended release TAKE 1 TABLET BY MOUTH EVERY DAY active Not Available Not Available No t Available topiramat e 50 mg tablet TAKE 1 TABLET BY MOUTH TWICE A DAY 2024 active Not Available Not Available Not Avai lable chlorhexi dine gluconate 0.12 % mouthwash SWISH AND SPIT THREE TIMES A DAY FOR 7 DAYS 06/18 completed Not Available Not Available Not Available Vicodin EVERY 4 HOURS PRN 06/30 completed RECORDED 07/27/19 11 1:54PM BY WES STEELE MA, MEDICATI ON AUTO-ILYA CTIVATIO N; Not Available Not Available Not Available naproxen TWO TIMES DAILY 06/14 completed RECORDED 06/14/20 10 11:27AM BY WES STEELE MA, OFFICE VISIT; Not Available Not Available Not Available Ambien 10 mg. 03/11 completed Not Available Not Available Not Available sodium fluoride 1.1 %-potassi um nitrate 5 % dental paste USE PEA SIZE AMOUNT WITH TOOTHBRU SH TWICE A DAY active Not Available Not Available No t Available FreeStyle Lite Meter kit USE TO CHECK BLOOD SUGAR ONCE DAILY. E11.65 02/01 completed Not Available Not Available Not Available FreeStyle Lite Strips Take 1 strip every day by miscell. route. 07/25 completed Not Available Not Available Not Available melatonin [...] Not Available Not Available No t Available Calmol-4 76 %-10 % rectal supposito ry Insert 1 supposit ory twice a day by rectal route as directed for 6 days. 11/16 completed Not Available Not Available Not Available lidocaine 4 % topical gel Apply 1 applicat ion twice a day by topical route as needed for 5 days. 11/16 completed Not Available Not Available Not Available melatonin 10 mg tablet Take 1 tablet po daily at bedtime 01/12 completed duplicat e entry Not Available Not Available Not Available Myrbetriq 25 mg tablet,ex tended release TAKE 1 TABLET BY MOUTH DAILY FOR 30 DAYS, THEN TAKE 50MG DAILY 01/12 completed Not Available Not Available Not Available melatonin 10 mg capsule 03/13 completed Not Available Not Available Not Available Konsyl Sugar-Lacho e 6 gram/6 gram oral powder Take 6 g 3 times a day by oral route as needed for 7 days. 11/16 completed Not Available Not Available Not Available Flonase Sensimist 27.5 mcg/actua tion nasal spray,jeny pension Take 2 sprays every day by nasal route at bedtime for 30 days. 10/04 completed Not Available Not Available Not Available Wixela Inhub 250 mcg-50 mcg/dose powder for inhalatio n INHALE 1 DOSE BY MOUTH TWICE DAILY. RINSE MOUTH AFTER USE 04/17 completed Not Available Not Available Not Available Wixela Inhub 500 mcg-50 mcg/dose powder for inhalatio n Inhale 2 puffs every day by inhalati on route for 90 days. 2024 active Not Available Not Available Not Avai lable Afluria Qd 2019- (36 mos up)(PF)60 mcg (15 mcg x4)/0.5 mL IM syringe PHARMACY ADMINIST ERED 05/11 completed Not Available Not Available Not Available Wegovy 0.25 mg/0.5 mL subcutane ous pen injector Inject 0.25 mg every week by subcutan eous route for 30 days. 07/18 completed Not Available Not Available Not Available Zepbound 10 mg/0.5 mL subcutane ous pen injector INJECT 0.5 ML UNDER THE SKIN EVERY 7 DAYS. 03/20 completed Not Available Not Available Not Available Zepbound 5 mg/0.5 mL subcutane ous pen injector INJECT 0.5 ML (5 MG TOTAL) UNDER THE SKIN EVERY 7 (SEVEN) DAYS FOR 28 DAYS. 01/22 completed Not Available Not Available Not Available Zepbound 2.5 mg/0.5 mL subcutane ous pen injector INJECT 0.5 ML (2.5 MG TOTAL) UNDER THE SKIN EVERY 7 DAYS 12/04 completed Not Available Not Available Not Available Zepbound 12.5 mg/0.5 mL subcutane ous pen injector INJECT 0.5 ML (12.5 MG TOTAL) UNDER THE SKIN EVERY 7 (SEVEN) DAYS. active Not Available Not Available No t Available Zepbound 7.5 mg/0.5 mL subcutane ous pen injector INJECT 0.5 ML (7.5 MG TOTAL) UNDER THE SKIN EVERY 7 (SEVEN) DAYS. 03/06 completed Not Available Not Available Not Available Vitals Date Recorded Body height Body mass index (BMI) Body weight Heart rate Oxygen saturation Oxygen saturation in Arterial blood by Pulse oximetry Body temperature Systolic And Diastolic Provider Name and Address Organization Details Last Updated DateTime 5 180.34 cm 40.8 kg/m2 503444. 85 g 65 /min 98 % 98 % 98.6 [degF] 117/76 mm[Hg] Vinita [facility] [place] 5 13:31:51 Date Recorded Body height Body mass index (BMI) Body weight Heart rate Oxygen saturation Oxygen saturation in Arterial blood by Pulse oximetry Body temperature Systolic And Diastolic Provider Name and Address Organization Details Last Updated DateTime 5 180.34 cm 40.2 kg/m2 129675. 6 g 85 /min 99 % 99 % 97.9 [degF] 94/65 mm[Hg] Wes bryan [facility] [place] 5 14:18:10 Social History Question Answer Notes LastModified by Organizat ion Details LastModified Time Tobacco Smoking Status Former Smoker quit in 07/2010 CHIDI Curran [facility] [place] 04/18/2014 10:42:29 Do You Have An Advance Directive? Yes HCP [email or web address] Information not available 11/08/2021 Is Blood Transfusion Acceptable In An Emergency? Yes Information not available 05/01/2015 What Is Your Level Of Caffeine Consumption? Occasional 1-2 Cups Of DECAFF Coffee; Sometimes Regular Coffee Information not available 11/17/2023 How Much Tobacco Do You Chew? None Information not available 05/01/2015 What Type Of Diet Are You Following? SPECIFIC Low Fat, Low Salt, Uses Splenda Sweetener, Lots Of Veggies Information not available 04/18/2014 Which Illicit Or Recreational Drugs Have You Used? None Information not available 04/18/2014 Education 12 [email or web address] Information not available 11/08/2021 When Did You Quit Smoking? 11-15yearssi [email or web address] nicholsonte Information not available 11/08/2021 Live Alone Or With Others? With Others Quentin Milligan) And 2 Stepchildren [email or web address] Information not available 11/08/2021 Do You Take Precautions To Prevent Distracted Driving? Yes Information not available 05/01/2015 How Often Do You Need To Have Someone Help You When You Read Instructions, Pamphlets, Or Other Written Material From Your Doctor Or Pharmacy? Never Information not available 05/01/2015 Have You Served In The ? No Information not available 01/31/2017 Have You Or Anyone In Your Household Had Any Of The Following Symptoms In The Last 14 Days: Sore Throat, Cough, Chills, Body Aches For Unknown Reasons, Shortness Of Breath For Unknown Reasons, Loss Of Smell, Loss Of Taste, Fever At Or Greater Than 100 Degrees Fahrenheit? No Information not available 07/27/2020 Are You Or Anyone In Your Household A Health Care Provider Or Emergency Responder? No Information not available 03/11/2020 To The Best Of Your Knowledge Have You Been In Close Proximity To Any Individual Who Tested Positive For COVID-19? No Information not available 03/11/2020 *AWV ONLY* Are You Presently Prescribed Opioid Medication By PCP Or Specialist? If YES -Provider Assess The Benefit For Other, Non-opioid Pain Therapies Instead, Even If The Patient Does Not Have OUD But Is Possibly At Risk. No Information not available 03/11/2020 Have You Recently Traveled To A [place] [address] High Risk Area Or Gathering In The Last 10 Days? No Information not available 07/27/2020 Marital Status Single [email or web address] Informatio n not available 11/08/2021 What Was The Date Of Your Most Recent Tobacco Screening? 03/20/2025 Information not available 03/20/2025 How Many Children Do You Have? 0 Information not available 04/18/2014 What Is Your Current Pack Years? 10packyears [email or web address] Information not available 11/08/2021 Do You Use Protection During Sex? No Information not available 05/01/2015 Seat Belts Used Routinely Yes [email or web address] Information not available 11/08/2021 Are You Sexually Active? Yes Aarti Information not available 11/17/2023 Smoke Alarm In Home Yes [email or web address] Information not available 11/08/2021 At What Age Did You Start Smoking Tobacco? 19 Quit At 40 Information not available 05/01/2015 Are You Passively Exposed To Smoke? No Information not available 05/01/2015 How Much Tobacco Do You Smoke? 1 PPW Information not available 04/18/2014 Do You Use Sunscreen Routinely? No Information not available 05/01/2015 How Many Years Have You Smoked Tobacco? 21 Information not available 05/01/2015 Sex: Unknown Functional Status Question Answer Note LastModified by Organizat ion Details LastModified Time Do you use any illicit or recreational drugs? No [email or web address] Information not available 11/08/2021 Do you or have you ever used any other forms of tobacco or nicotine? No [email or web address] Information not available 11/08/2021 What is your level of alcohol consumption? None Information not available 04/18/2014 Do you or have you ever used smokeless tobacco? Never used smokeless tobacco Information not available 09/23/2019 Are you currently employed? No disabled due to back issues Information not available 04/18/2014 Are you able to walk independently without assistance or assistive devices? YESWOREST [email or web address] Information not available 11/08/2021 Are you able to care for yourself independently? 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 Never used electronic cigarettes [email or web address] Information not available 11/08/2021 What is your exercise level? Occasional walking Information not available 05/01/2015 Mental Status None recorded. Family History Relationship Description Onset Age of this Age Resolved Age Notes LastModified by Organization Details LastModified Time Mother Essential hypertension [email or web address] Not available 14:25:06 Mother Diabetes mellitus [email or web address] s Not available 11/02/2015 10:09:52 Mother Asthma [email or web address] s Not available 11/02/2015 10:09:52 Mother Glaucoma [email or web address] s Not available 11/17/2023 13:17:00 Mother Cataract [email or web address] s Not available 11/17/2023 13:17:06 Father Essential hypertension [email or web address] Not available 14:25:06 Father Prostatism [email or web address] Not avail able 11/08/2021 14:25:06 Father Heart disease 68 [email or web address] Not available 11/29 11:41:41 Maternal Grandfather Primary malignant neoplasm of lung [email or web address] Not available 11/08 14:25:06 Medical History Condition Response Anxiety Disorder Y Obesity Y Depression Y Immunizations Vaccine Type Date Status Note Provider Nam e and Address Organization Details Recorded Time Influenza, split virus, trivalent, preservative 7 completed Not Available [facility] 05/17/2023 15:46:02 Influenza, split virus, quadrivalent, preservative 9 completed TANI [facility], [facility] 07/24/2023 15:15:16 Influenza, split virus, quadrivalent, preservative 0 completed TANI Lindsay, [facility] 07/24/2023 15:15:16 Influenza, split virus, quadrivalent, PF 0 completed Not Available [facility] 05/17/2023 15:46:02 COVID-19, mRNA, LNP-S, PF, 100 mcg/0.5mL dose or 50 mcg/0.25mL dose 1 completed Not Available [facility] 05/17/2023 15:46:02 COVID-19, mRNA, LNP-S, PF, 100 mcg/0.5mL dose or 50 mcg/0.25mL dose 1 completed Not Available [facility] 05/17/2023 15:46:02 Influenza, MDCK, quadrivalent, PF 9 completed Not Available [facility] 05/17/2023 15:46:02 Influenza, MDCK, quadrivalent, PF 7 completed Not Available [facility] 05/17/2023 15:46:02 Influenza, MDCK, quadrivalent, PF 6 completed Not Available [facility] 05/17/2023 15:46:02 Influenza, split virus, trivalent, PF 4 completed Not Available [facility] 05/17/2023 15:46:02 Influenza, split virus, quadrivalent, PF 5 completed Not Available [facility] 05/17/2023 15:46:03 Td (adult), 2 Lf tetanus toxoid, preservative free, adsorbed 9 completed Not Available [facility] 05/17/2023 15:46:02 Influenza, split virus, quadrivalent, PF 8 completed Not Available [facility] 05/17/2023 15:46:02 zoster recombinant 3 completed Not Available [facility] 05/17/2023 15:46:02 zoster recombinant 3 completed TANI Lindsay, [facility] 07/24/2023 15:15:17 Tdap 4 completed CHIDI Curran, [facility] 06/18/2024 15:09:13 Pneumococcal conjugate PCV20, polysaccharide [id number] conjugate, adjuvant, PF 5 completed Ofelia booth, [facility] 07/12/2024 09:10:54 COVID-19, mRNA, LNP-S, PF, jen-sucrose, 30 mcg/0.3 mL 5 completed Cindi Yanez MA null, [facility] 07/26/2024 13:39:45 Influenza, split virus, quadrivalent, PF 2 completed Juvenal Hathaway MD [address] [address], [place], [address], [facility] 05/17/2022 14:52:47 Tdap 9 completed Not Available [facility] 05/17/2023 15:46:02 Influenza, split virus, trivalent, PF 4 completed Juvenal Hathaway MD [address] [address], [place], [address], [facility] 06/19/2024 12:48:41 Influenza, split virus, trivalent, PF 5 completed Wes Mendez MA null, [facility] 03/20/2025 14:38:37 Past Encounters Encounter ID Performer Location Encounter Start Date Encounter Closed Date Diagnosis/Indication Diagnosis SNOMED-CT Code Diagnosis ICD10 Code Diagnosis IMO Codes Diagnosis Note [id number] [facility] [address] [facility] [place] [address] 05/23/2007 00:00:00 [id number] auto[facility]Comm erce [address] [facility],[address] [place] [address] 05/23/2007 00:00:00 [id number] auto[facility]Comm erce [address] [facility],[address] [place] [address] 05/23/2007 00:00:00 [id number] auto[facility] erce [address] [facility],[address] [place] [address] 06/01/2007 00:00:00 [id number] [facility] erce [address] [place] [address] 06/01/2007 00:00:00 [id number] [facility] [address] [place] [address] 09/26/2008 00:00:00 [id number] [facility] [address] [place] [address] 09/26/2008 00:00:00 [id number] auto[facility] erce [address] [place] [address] 12/07/2009 00:00:00 [id number] auto[facility] erce [address] [facility] [address] [place] [address] 12/07/2009 00:00:00 [id number] auto[facility] erce [address] [facility] [address] [place] [address] 12/07/2009 00:00:00 [id number] auto[facility] erce [address] [facility] [address] [place] [address] 01/12/2010 00:00:00 [id number] [facility] [address] [facility] [address] [place] [address] 01/12/2010 00:00:00 [id number] auto[facility] erce [address] [facility],[address] [place] [address] 05/17/2010 00:00:00 [id number] [facility] erce [address] [facility] [address] [place] [address] 05/17/2010 00:00:00 [id number] [facility] erce [address] [facility] [address] [place] [address] 06/14/2010 00:00:00 [id number] auto[facility]Comm erce [address] [facility] [address] [place] [address] 06/14/2010 00:00:00 [id number] autoEComm erce [address] [facility],[address] [place] [address] 06/14/2010 00:00:00 [id number] autoEComm erce [address] [place] [address] 06/23/2010 00:00:00 [id number] autoEComm erce [address] [place] [address] 06/23/2010 00:00:00 [id number] autoEComm erce [address] [place] [address] 06/28/2010 00:00:00 [id number] autoEComm erce [address] [place] [address] 12/07/2010 00:00:00 [id number] autoEComm erce [address] [place] [address] 12/07/2010 00:00:00 [id number] autoEComm erce [address] [facility] [address] [place] [address] 01/24/2011 00:00:00 [id number] autoEComm erce [address] [place] [address] 01/24/2011 00:00:00 [id number] autoEComm erce [address] [facility] [address] [place] [address] 05/18/2011 00:00:00 [id number] autoEComm erce [address] [facility] [address] [place] [address] 05/18/2011 00:00:00 [id number] autoEComm erce [address] [place] [address] 08/09/2011 00:00:00 [id number] auto[facility]Comm erce [address] [place] [address] 08/09/2011 00:00:00 [id number] autoEComm erce [address] [facility] [address] [place] [address] 11/04/2011 00:00:00 [id number] auto[facility]Comm erce [address] [place] [address] 02/07/2012 00:00:00 [id number] auto[facility]Comm erce [address] [facility] [address] [place] [address] 08/07/2012 00:00:00 [id number] auto[facility]Comm erce [address] [facility] [address] [place] [address] 08/07/2012 00:00:00 [id number] autoEComm erce [address] [facility] [address] [place] [address] 08/07/2012 00:00:00 [id number] auto[facility]Comm erce [address] [facility] [address] [place] [address] 10/03/2012 00:00:00 [id number] autoEComm erce [address] [facility] [place] [address] 11/23/2012 00:00:00 [id number] autoEComm erce [address] [facility],[address] [place] [address] 11/23/2012 00:00:00 [id number] autoEComm erce [address] [facility],[address] [place] [address] 11/23/2012 00:00:00 [id number] autoEComm erce [address] [facility],[address] [place] [address] 11/23/2012 00:00:00 [id number] autoEComm erce [address] [facility],[address] [place] [address] 02/04/2013 00:00:00 [id number] autoEComm erce [address] [facility],[address] [place] [address] 02/11/2013 00:00:00 [id number] autoEComm erce [address] [facility],[address] [place] [address] 02/11/2013 00:00:00 [id number] autoEComm erce [address] [facility],[address] [place] [address] 02/11/2013 00:00:00 [id number] autoEComm erce [address] [place] [address] 02/11/2013 00:00:00 [id number] auto[facility]Comm erce [address] [place] [address] 05/08/2013 00:00:00 [id number] auto[facility]Comm erce [address] [place] [address] 05/08/2013 00:00:00 [id number] autoEComm erce [address] [place] [address] 05/08/2013 00:00:00 [id number] autoEComm erce [address] [place] [address] 05/08/2013 00:00:00 [id number] auto[facility]Comm erce [address] [facility],[address] [place] [address] 07/31/2013 00:00:00 [id number] autoEComm erce [address] [place],[address] [place] [address] 07/31/2013 00:00:00 [id number] auto[facility]Comm erce [address] [facility],[address] [place] [address] 07/31/2013 00:00:00 [id number] autoEComm erce [address] [place],[address] [place] [address] 08/13/2013 00:00:00 [id number] autoEComm erce [address] [place],[address] [place] [address] 08/13/2013 00:00:00 [id number] autoEComm erce [address] [facility],[address] [place] [address] 08/13/2013 00:00:00 [id number] José John MD Main Office [address] [facility] [address] [place] [address] 04/18/2014 10:27:28 04/18/2014 11:46:45 Adult health examination 502196257 Needs infl uenza immunization 876628746 Gastroesop hageal reflux disease 401514958 Migraine 28218918 Lateral epicondylitis 064959136 Body mass index 40+ - severely obese 736486941 Neck pain 08360201 Mild persi stent asthma 470790231 Fatigue 37375130 Hyperlipidemia 21423094 Major depr essive disorder 924531047 [id number] NAYE Cai Main Office [address] [address] [place] [address] 07/23/2014 09:11:22 07/23/2014 10:10:13 Atypical chest pain 515265866 atypical , reassuring ECG with low cardiac risk but will eval further with stress test Body mass index 40+ - severely obese 785871957 Asthma 446533151 Lungs are clear today, continue advair 500/50 BID and albuterol inhaler prn [id number] José John MD Main Office [address] [address] [place] [address] 12/09/2014 13:30:57 12/09/2014 14:12:40 Acute sinusitis 97249448 Mild persi stent asthma 836718628 Degenerati on of lumbar intervertebral disc 98281441 Herpes labialis 3671174 [id number] José John MD Main Office [address] [address] [place] [address] 12/29/2014 10:58:10 12/29/2014 11:46:00 Gastroesophageal reflux disease 730562852 [id number] NAYE Cai Main Office [address] [address] [place] [address] 01/12/2015 10:18:37 01/12/2015 10:46:58 Candidiasis of mouth 16026028 on abx, continue probiotic, complete abx for h. pylori [id number] José John MD Main Office [address] [address] [place] [address] 02/17/2015 10:43:22 02/17/2015 11:24:40 Candidiasis of mouth 16845464 [id number] José John MD Main Office [address] [address] [place] [address] 05/01/2015 09:38:45 05/01/2015 10:55:39 Adult health examination 250622664 Z00.00 G0439 Major depr essive disorder 039150497 F32.9 Anxiety state 307027148 F41.1 Needs infl uenza immunization 722842920 Z23 Hyperlipidemia 05191455 E78.5 Body mass index 40+ - severely obese 813136337 Z68.41 Gastroesop hageal reflux disease 327226064 K21.9 Fatigue 26146581 R53.83 [id number] José John MD Main Office [address] [address] [place] [address] 10/12/2015 11:04:57 10/12/2015 11:56:35 Low back pain 792835680 M54.5 Acute on chronic [id number] José John MD Main Office [address] [place] [address] 11/02/2015 09:50:10 11/02/2015 11:06:32 Low back pain 009816319 M54.5 Acute on chronic Body mass index 40+ - severely obese 420928580 Z68.41 Meralgia paresthetica 85 897548 G57.11 [id number] José John MD Main Office [address] [address] [place] [address] 11/17/2016 14:18:50 11/17/2016 15:31:40 Chest pain 36252251 R07.89 Low back pain 308378633 M54.5 Acute on chronic Mild persi stent asthma 640935062 J45.30 Palpitations 21613715 R0 0.2 Patient will return tomorrow for Holter monitor placement [id number] José John MD Main Office [address] [address] [place] [address] 11/18/2016 09:01:59 11/18/2016 09:30:58 Palpitations 20801768 R00.2 [id number] Rubina rangel MD Main Office [address] [place] [address] 11/19/2016 09:35:39 11/21/2016 13:25:44 Palpitations 60682702 R00.2 [id number] José John MD Main Office [address] [place] [address] 12/26/2016 15:42:49 12/26/2016 21:59:28 [id number] José John MD Main Office [address] [address] [place] [address] 01/31/2017 14:25:48 01/31/2017 15:45:50 Adult health examination 876727171 Z00.00 G0439 Mild persi stent asthma 004901759 J45.30 STable on Advair Hypersomnia 35427999 G47 .10 Last sleep test 2006 Migraine 18769362 G43.90 9 STable on topiramate Degenerati on of lumbar intervertebral disc 97515342 M51.36 Heel pain 7918243 M79.67 2 Major depr essive disorder 835686909 F32.9 Hyperlipidemia 42236492 E78.5 Fatigue 54169602 R53.83 Gastroesop hageal reflux disease 657681127 K21.9 Stable on omeprazole Body mass index 40+ - severely obese 463566348 E66.01 Z68.43 [id number] NAYE Meehan Main Office [address] [address] [place] [address] 04/07/2017 14:33:46 04/07/2017 15:22:52 Knee pain 59928076 M25.562 He notes sleep medicine suggested increasing his dose of gabapentin at bedtime. He tried it and was successful in sleeping. Will send rx for 1 month supply of increased dose as it may help with knee pain as well. Continue all other meds adn discuss further with PCP in May. Will send for XR and refer to ortho for further eval. [id number] José John MD Main Office [address] [address] [place] [address] 05/05/2017 12:47:30 05/05/2017 15:00:04 Low back pain 631284905 M54.5 Acute on chronic Major depr essive disorder 818022835 F32.9 Insomnia 684171071 G47.0 0 Improved with gabapentin [id number] José John MD Main Office [address] [address] [place] [address] 06/05/2017 13:08:34 06/05/2017 14:03:38 Insomnia 534856741 G47.00 Improved with gabapentin Acute exac erbation of mild persistent asthma 7058331834 12709 J45.31 [id number] Sim Luna PA-C Main Office [address] [address] [place] [address] 07/26/2017 13:37:40 07/26/2017 14:34:05 Fever 609034987 R50.9 rapid flu neg - will check labs and urine - pt states also has 2 day h/o dysuria - no pus dc. nl lung sounds and no cough/sob so doubt pna. 25 minute office visit with greater than 50% of the visit face-to-fa ce with the patient and/or family providing counseling and/or coordinati on of care. *ADDENDUM 1.25.18 - serum wbc ct 23.5 and urinalysis suspicious for uti - spoke c pt - will rx c cipro 500mg bid x 1 wk, and advised to take probiotic/ push fluids/go to ER if worse* Dysuria 52359390 R30.0 [id number] José John MD Main Office [address] [address] [place] [address] 08/11/2017 12:49:35 08/11/2017 13:39:34 Major depressive disorder 167897693 F32.9 Anxiety state 124937097 F41.1 Body mass index 40+ - severely obese 622297448 E66.01 Z68.42 Hyperlipidemia 89436288 E78.5 [id number] Malcolm Bear MD Main Office [address] [address] [place] [address] 01/16/2018 09:08:11 01/16/2018 10:02:56 Foot pain 87372679 M79.671 Likely a sprain vs tendinitis . Will rule out 5th metatarsal fracture and arthritic changes. Will try a compressio n brace, HEP, and RICE. To podiatry if persistent /worse. Call with any problems or if new symptoms develop. [id number] NAYE Meehan Main Office [address] [address] [place] [address] 03/29/2018 14:12:59 03/29/2018 14:46:30 Needs influenza immunization 091450427 Z23 Pain of sh oulder region 29478873 M25.511 anterior right shoulder pain x 1 month, full ROM, tenderness to palpation to anterior shoulder but otherwise no pain. will get XR, naproxen bid x 10 days with food, continue other meds, ice or heat as needed. PT as directed. if sx treatment not helpful will refer to ortho for further eval. [id number] Godwin Diaz MD Main Office [address] [facility] [address] [place] [address] 06/14/2018 13:02:49 06/14/2018 13:58:15 Chest pain 75962898 R07.1 Appears to be non-cardia c. He has no cardiac risk factors and his EKG shows no change from his previous one. Probably muscular. I advised ibuprofen prn. [id number] José John MD Main Office [address] [facility] [address] [place] [address] 09/21/2018 14:52:53 09/21/2018 16:07:43 Adult health examination 412515151 Z00.00 G0439 Requires a tetanus booster 345654821 Z23 Allergic rhinitis 863977 04 J30.1 Body mass index 40+ - severely obese 301756957 E66.01 Z68.41 Mild persi stent asthma 656292305 J45.30 STable on Advair Hyperlipidemia 96534097 E78.5 Fatigue 22322147 R53.83 Migraine 14754543 G43.90 9 STable on topiramate Degenerati on of lumbar intervertebral disc 41466633 M51.36 chronic back pain. Continues on tramadol with good results. did not respond to PT Major depr essive disorder 693151512 F32.9 Gastroesop hageal reflux disease 559374409 K21.9 Stable on omeprazole Uncomplica ana mild persistent asthma 203844900 J45.30 Stable on Advair with rare use of rescue inhaler [id number] Malcolm Bear MD Main Office [address] [facility] [address] [facility] [place] [address] 11/29/2018 11:33:19 11/29/2018 12:38:27 Asthmatic bronchitis 754005351 J45.909 rest, hydration, start pred taper, use albuterol inhaler as needed, ok for otc cough med as needed, call if not improving in the next few days, sooner if worse Acute pharyngitis 301105 003 J02.9 gargles, otc pain reliever if needed, will treat for pharyngiti s with dry cough, atypical bronchitis . Call prn if not better [id number] Godwin Diaz MD Main Office [address] [address] [place] [address] 01/29/2019 14:14:28 01/29/2019 15:12:01 Dyspnea at rest 406886327 R06.00 His oxygen was normal when laying down and when walking around the office. Body mass index 40+ - severely obese 234505243 E66.01 Z68.42 [id number] oJsé John MD Main Office [address] [address] [place] [address] 02/20/2019 13:06:47 02/20/2019 13:59:32 Dizziness 234490233 R42 ? electrolyt e abnormalit y. will check magnesium and retest BMP. CBC was normal in the ER. Tachycardia 9761495 R00. 0 will test thyroid. EKG was normal in the hospital. Cramp in lower limb 4499 37712 R25.2 Hypoglycemia 308339240 E 16.2 Pt. documented one episode with ? glucose of 32 . Will use CGM with [employer] for tracking blood sugars for 2 weeks and also pt. is advised to keep diary of all symptoms with dates and descriptio n. F/u 2-4 weeks. [id number] José John MD Main Office [address] [address] [place] [address] 03/13/2019 15:59:25 03/13/2019 16:30:46 Fatigue 90581040 R53.83 Has significan tly improved. Rec increase fluid intake. Discussed with patient how to use OneTouch glucometer , instructed to check sugar whenever symptomati c after meals and to return with readings if he continues to have symptoms. If symptoms do not continue, then patient does not need to follow up. [id number] José John MD Main Office [address] [address] [place] [address] 04/24/2019 09:47:00 04/24/2019 10:31:23 Gastroesophageal reflux disease 640013200 K21.9 Pt. is recommende d to avoid spicy foods, caffeine and late night eating and return to taking PPI as was directed by the GI. If symptoms persist or worsen , pt. will call office for further work up. [id number] Malcolm Bear MD Main Office [address] [address] [place] [address] 06/10/2019 14:02:35 06/10/2019 15:12:52 Extreme obesity with alveolar hypoventilation 361607902 E66.2 pulmonolog y consult Urinary tr act infectious disease 70491205 N39.0 repeat urine, still having some mild symptoms, will send for culture if needed, push fluids and continue antibiotic s for now Serum crea tinine above reference range 854899408 R79.89 will do labs today Dizziness 246155741 R42 still feeling off today, tired, do STAT labs now/ advised ED if feeling worse through the night. [id number] Malcolm Bear MD Main Office [address] [address] [place] [address] 06/10/2019 14:05:49 06/11/2019 08:15:54 [id number] Malcolm Bear MD Main Office [address] [address] [place] [address] 06/17/2019 11:25:04 06/17/2019 12:44:42 Left lower quadrant pain 582205030 R10.32 recently hospitaliz ed then back to ER yesterday for LLQ pain - see below - believe pt's pain is in part d/t ibs-c, and may help explain his sxs not only over the past few months but also over the past few yrs Constipation 03419995 K5 9.00 see above and below Irritable bowel syndrome characterized by constipation 770265495 K58.1 ? this vs other - new dx - will cont to monitor - if sxs worse will refer back to gi, if acutely worse then call us, o/w f/u next wk for re-eval [id number] Malcolm Bear MD Main Office [address] [address] [place] [address] 07/04/2019 09:39:58 07/04/2019 11:07:50 [id number] Malcolm Bear MD Main Office [address] [address] [place] [address] 07/05/2019 09:00:26 07/05/2019 09:38:36 Pain of right shoulder joint 2820427649 9527080 M25.511 Use pain patch as noted below, otc ibuprofen or tyelnol as needed. Home exercise and avoid aggravatin g positions or movments. If not better will call for PT appt. Clavicle pain 132675568 M25.519 xray was negative, avoid leaning on shoulder, try gentle ROM Body mass index 40+ - severely obese 700880788 Z68.42 pt is in an wt loss program and is down 40 pounds, working on getting his weight down to be a candidate for the gastric sleeve. Has apt with frozen meat cutter 07/25/19 and surgeon 08/22 Morbid obesity 538396298 E66.01 [id number] José John MD Main Office [address] [address] [place] [address] 08/23/2019 09:47:30 08/23/2019 11:12:02 Dysuria 58418263 R30.0 Fever 095891462 R50.9 [id number] José John MD Main Office [address] [address] [place] [address] 09/06/2019 10:51:42 09/06/2019 13:58:42 [id number] José John MD Main Office [address] [address] [place] [address] 09/23/2019 14:37:54 09/23/2019 15:57:16 Adult health examination 261610691 Z00.00 G0439 Allergic rhinitis 632647 04 J30.1 Mild persi stent asthma 329014026 J45.30 STable on Advair Hyperlipidemia 69195342 E78.5 Moderate m ajor depression 147088 F32.1 Stable on bupropion. Body mass index 40+ - severely obese 336002865 E66.01 Z68.41 Chronic ki dney disease stage 3 849598624 N18.3 Likely related to NSAIDs. Followed by nephrology Anxiety state 840230728 F41.1 Migraine 80004465 G43.90 9 STable on topiramate [id number] Malcolm Bear MD Main Office [address] [facility] [address] [place] [address] 03/11/2020 14:49:11 03/11/2020 16:04:48 Pain of ear 632050894 H92.03 no evidence of cerumen impaction, doubt eustachian tube dysfxn, likely has mild to moderate external otitis - see below Acute otitis externa 302 75879 H60.503 [id number] José John MD [facility] [address] [address] [place] [address] 05/11/2020 15:18:27 05/11/2020 16:00:40 Fever 751861101 R50.9 Low back pain 967759062 M54.5 test urine at [facility] after results of COVID test avail and negative. Increase fluids. Exposure t o viral disease 0616997093 17960 Z20.828 If pt's brother is positive for COVID , pt. is advised to quarantine for full 14 days even if his test comes back negative. [id number] José John MD Main Office [address] [address] [place] [address] 05/21/2020 10:06:19 05/21/2020 20:14:23 [id number] José John MD [facility] [address] [place] [address] [place] [address] 05/25/2020 11:28:25 05/25/2020 16:29:59 Mild persistent asthma 963868824 J45.30 post COVID and is doing well now. Will do iincentive spirometry due to residual chest tightness and sob. Continue advair and rescue inh. use. [id number] Juvenal Hathaway MD Main Office [address] [address] [place] [address] 07/22/2020 14:36:27 07/22/2020 16:03:13 Transition of care 4737525054 105 Z75.8 ED notes and medication reviewedPr ecaution discussed, red flag for chest pain discussed such as location, diaphoresi s and radiation and quality, and when to return to ED. Chest discomfort 9971368 09 R07.89 Pain in right costochond ral region and is present on palpation thus i suspect this could be costochond ral in nature given extensive hx of GERD risk of NSAID use discussed extensivel y he agreed to try nabumetone .Given his concern of cardiac cause, fhx of DC, post covid cardiac causes I've ordered echo and a cardiac referral for f/u and to r/o cardiac causes.I suspect much of this is GI and MSK related. Allergic rhinitis 212205 04 J30.9 Patient is having horsiness he is noted to have erythema in the throat and nasal turbinates will refer to ent to evaluate.H e notes discomfort to regular flonase thus does not use regularly, I will try to send sensimist version to see if it can allow for better compliance . [id number] José John MD Main Office [address] [facility] [place] [address] 07/27/2020 15:08:25 07/27/2020 16:20:37 Hypoglycemia 955234121 E16.2 [id number] Juvenal Hathaway MD Main Office [address] [facility] [address] 09/28/2020 13:31:22 09/28/2020 14:21:34 Adult health examination 173162501 Z00.00 Patient was counseled on healthy diet, exercise and nutrition due to Body mass index is 40.7 kg/m . Last Colonoscop y: Date: 05/12/16 Result: WNL Notes that mothers uncle had colon ca. Vaccines: Td: 09/21/18 Zoster: Not indicated at this time PCV13: Not indicated at this time PPSV23: Not indicated at this time Influenza: 03/09/2020 Covid: to receive Skin check: Does not get skin check denies any abnormal mole, has some hemangioma s. Routine labs today, declined STI work up Immunizati on status utd,. Will screen based on risk factors. Regular dental and ophtho care advised as well as seat belt and suncreen use. Distracted driving discussed. Medication reconciled Body mass index 40+ - severely obese 895016898 Z68.41 Patient is being followed by the bariatric center for his obesity and is being followed by a nutritioni st/dietiti an. Moderate m ajor depression 423225 F32.1 Patient notes no longer depressed, denies any homicidal or suicidal ideation. He mentioned to me that the Wellbutrin did not do much for him and he would like to stop it. We talked about tapering the dose down and he is open to doing this the risk of worsening depression was discussed with the patient he was told that if this happens he is to reach out to us or seek medical attention immediatel y. Chronic ki dney disease stage 3 143181924 N18.31 Will evaluate patient's renal function, he stopped NSAIDs which was likely the cause of his renal impairment . Fatigue 16920519 R53.83 Chronic back pain 324315 002 G89.29 Patient has chronic lower back pain, patient has been on tramadol therapy but is open to be seen by a physiatris t, to help with his low back pain. Morbid obesity 286008248 E66.01 [id number] Juvenal Hathaway MD Main Office [address] [facility] [address] [place] [address] 11/03/2020 11:22:04 11/03/2020 13:15:46 Moderate major depression 284369 F32.1 Patient notes no longer depressed, denies any homicidal or suicidal ideation.T olerated tappering of wellbutrin no sx at this time.Will stop wellbutrin .He is aware if mood changes such as depression , he has sucidal thoughts or homcidal thoughts to let us know and call hotline or to go ED. [id number] Juvenal Hathaway MD Main Office [address] [facility] [address] [facility] [place] [address] 12/04/2020 14:25:03 12/04/2020 15:05:56 Transition of care from emergency department to self-care 0324085317 84269 Z76.89 summary, lab and imaging results reviewed and medication reconciled Cervical radiculopathy 03688019 M54.12 Asymptomat ic at this time thus will not start medication .For prevention will provide exercises. Insomnia 669369832 G47.0 0 Stopped zolpidem due to concerns of dependance . Given that it has been > 3 weeks concerns for withdrawal less likely at this time but now he has been having trouble sleeping. Will do trial of melatonin and increase to max of 30 mg as needed. [id number] [facility] [address] [address] [place] [address] 01/01/2021 08:28:45 01/01/2021 11:27:30 Fever 785099199 R50.9 Pain in testicle 7681842 9 N50.819 Pain of prostate 5970907 0 N42.81 [id number] Malcolm [facility] [address] [address] [place] [address] 01/09/2021 19:37:10 01/11/2021 10:03:31 Candidiasis of mouth 39913323 B37.0 Has significan t risk factors and exam findings c/w thrush. Will treat and pt understand s to call if symptoms persist/wo rsen or if there are any issues with rx. [id number] Juvenal Hathaway MD Main Office [facility] [address] [address] [place] [address] 02/01/2021 13:35:07 02/01/2021 14:24:35 Recurrent urinary tract infection 527663146 N39.0 Resolved at this time.Will recheck urine s/p abxPatient does not appear in acute distress, denies any fever, chills or flank pain, will hold any labs Lateral epicondylitis 20 7395475 M77.12 Cannot tolerate NSAID will do trial of conservati ve therapy, if no improvemen t will do trial of steroids. Constipation 72673926 K5 9.00 Passing dequan goes every 2-3 days, high fiber diet discussed, advise hydration. Will also provide stool softner. [id number] Juvenal Hathaway MD Main Office [address] [address] [place] [address] 03/24/2021 13:34:34 03/24/2021 14:02:41 Lateral epicondylitis 958187923 M77.12 Cannot tolerate NSAID we did trial of conservati ve therapy with exercise, brace, ice and with no relief will start PO steroid (side affects discussed) and refer to physiatry. [id number] Juvenal Hathaway MD Main Office [facility] [address] [address] [place] [address] 10/04/2021 13:40:45 10/04/2021 14:25:43 Body mass index 40+ - severely obese 238788825 Z68.41 Patient is being followed by the bariatric center for his obesity and is being followed by a nutritionamarjit hdez/unruly sanchez.Is looking to reconsider surgery. Moderate m ajor depression 595683 F32.1 Notes mood was better with bupropion wants to restartden ies homicidal or suicidal ideationWi ll restart bupropion as it also can help with weight.Chago link angela in October. Chronic ki dney disease stage 3 810289851 N18.31 Advised to avoid NSAID when possible, tells me he very rarely takes Ibuprofen. Chronic back pain 108545 002 G89.29 Patient has chronic lower back pain, patient has been on tramadol therapy but is open to be seen by a physiatry, to help with his low back pain if needs be. Chronic pain syndrome 37 5013916 G89.4 stable on tramadol discussed if more needed I am happy to have him be by pain management .He agreed that I will continue with his current regimen for the time being.Risk of narcotic use discussed. Morbid obesity 607951780 E66.01 [id number] Juvenal Hathaway MD Main Office [address] [address] [place] [address] 10/13/2021 13:51:13 10/13/2021 14:23:39 Hemorrhoids 39943434 K64.9 Advised to continue high-fiber dietAnusol prescribed .Calmol prescribeA dvised to buy sitz bath from the pharmacy so he can sit on the toilet with warm water.We will make urgent referral to colorectal surgeon as he is in extreme discomfort .He was advised if he develops any fever, chills or worsening of the pain or extensive bleeding from the back passage to go to the nearest emergency room. [id number] Juvenal Hathaway MD Main Office [address] [address] [place] [address] 11/08/2021 14:24:21 11/08/2021 15:11:46 Chronic pain syndrome 665643071 G89.4 stable on tramadol discussed if more needed I am happy to have him be by pain management .He agreed that I will continue with his current regimen for the time being.Risk of narcotic use discussed. Chronic back pain 550025 002 G89.29 Patient has chronic lower back pain, patient has been on tramadol therapy but is open to be seen by a physiatry, to help with his low back pain if needs be. Adult heal th examination 054908556 Z00.00 Patient was counseled on healthy diet, exercise and nutrition due to Body mass index is 42.4 kg/m . Last Colonoscop y: Date: 05/12/16 Result: WNL Notes that mothers uncle had colon ca. Vaccines: Td: 09/21/18 Zoster: Not due PCV20: Not due Influenza: not in season Covid: 03/16/21, 04/13/21, advised booster. Skin check: Does not get skin check denies any abnormal mole, has some hemangioma s. Routine labs toda Immunizati on status utd,. Will screen based on risk factors. Regular dental and ophtho care advised as well as seat belt and suncreen use. Distracted driving discussed. Medication reconciled Morbid obesity 531249518 E66.01 Body mass index 40+ - severely obese 455181905 Z68.41 Patient is being followed by the bariatric center for his obesity and is being followed by a nutritioni st/dietiti an. Chronic ki dney disease stage 3 387858345 N18.31 Will evaluate patient's renal function, he stopped NSAIDs which was likely the cause of his renal impairment . Hyperlipidemia 28923452 E78.5 Impaired f asting glycemia 366726178 R73.01 Fatigue 60378522 R53.83 Anemia due to unknown mechanism 08308891 D64.9 Snoring 59963990 R06.83 STOP BANG 5 Hepatitis C screening 41 7373412 Z11.59 Meralgia p aresthetica of right leg 4955045696 04694 G57.11 [id number] Juvenal Hathaway MD Main Office [address] [facility] [address] [facility] [place] [address] 01/12/2022 13:00:48 01/12/2022 13:46:01 Cervical radiculitis 33583818 M54.12 review pain management notes and neck xray. Increase gabapentin by 400 mg and take in the am. Refer to neurology. [id number] Juvenal Hathaway MD Main Office [address] [facility] [address] [place] [address] 05/17/2022 14:14:26 05/17/2022 15:12:02 Morbid obesity 805114022 E66.01 Body mass index 40+ - severely obese 492422801 Z68.41 Patient is being followed by the bariatric center for his obesity and is being followed by a nutritioni st/unruly [place] advised. - Diet and exercise discussed- Patient made aware of risks of obesity- Encouraged to loose weight. Goal set to loose weight at 1-1.5 Lbs/week- Avoid starchy and fatty food- Encouraged use of green vegetables and fruits- Consider Bariatric Surgery evaluation Asthma 881990672 J45.90 9 stable on inhaler.If asthama flare stable when I see him in PE will consider bringing dose down. Mild persi stent asthma 928548155 J45.30 Needs infl uenza immunization 641753919 Z23 Erectile dysfunction 860 377912 F52.21 Has interest in sex but unable to keep erection. [id number] Rubina rangel MD Main Office [address] [facility] [address] [place] [address] 07/25/2022 11:04:08 07/25/2022 11:49:04 History of urinary tract infection 9162592787 107 Z87.440 push fluids, repeat urine today to make sure infection is cleared. Followp with urology to discuss prostate as possible issue and states he was going to be referred for pelvic floor PT> History of sepsis 617248 3629 62462 Z86.19 labs normalized in hospital, BC neg x 2,UTI cleared, pt is no longer having symptoms. Call if any fever, chills or illness sx. [id number] Juvenal Hathaway MD Main Office [address] [facility] [address] [place] [address] 07/25/2022 08:39:44 07/25/2022 11:50:59 [id number] Juvenal Hathaway MD Main Office [address] [facility] [address] [place] [address] 11/14/2022 14:58:18 11/14/2022 16:14:26 Adult health examination 218336338 Z00.00 Patient was counseled on healthy diet, exercise and nutrition due to Body mass index is 43.8 kg/m . Last Colonoscop y: Date: 05/12/16 Result: WNL Due in 10 yrs per note. Last PSADate:Re sultPlan: followed by urology. Vaccines: Td: 09/21/18 Zoster rec: 10/12/22, plans to get second dose. PCV20: Not due Influenza: 05/17/22 Covid: 03/16/21, 04/13/21, bivalent encouraged . Skin check: Does not get skin check denies any abnormal mole, has some hemangioma s. Routine labs today Immunizati on status utd,. Will screen based on risk factors. Regular dental and ophtho care advised as well as seat belt and suncreen use. Distracted driving discussed. Medication reconciled Chronic pain syndrome 37 3475536 G89.4 stable on tramadol discussed if more needed I am happy to have him be seen by pain management .He agreed that I will continue with his current regimen for the time being.Risk of narcotic use discussed. Chronic back pain 621468 002 G89.29 Patient has chronic lower back pain, patient has been on tramadol therapy but is open to be seen by a physiatry, to help with his low back pain if needs be. Morbid obesity 126741623 E66.01 Body mass index 40+ - severely obese 233564704 Z68.41 Patient is being followed by the bariatric center for his obesity and is being followed by a nutritioni /unruly sanchez. Chronic ki dney disease stage 3 949066077 N18.31 Follows renal, advised to avoid NSAID and hydrate. Hyperlipidemia 95867108 E78.5 Impaired f asting glycemia 862912891 R73.01 Fatigue 62506247 R53.83 Snoring 15668157 R06.83 Follows sleep medicine. Moderate m ajor depression 001843 F32.1 Notes mood was better with bupropiond enies homicidal or suicidal ideation [id number] Juvenal Hathaway MD Main Office [address] [facility] [address] [facility] [place] [address] 12/26/2022 10:07:49 12/26/2022 10:44:49 Anal fissure 43955114 K60.2 Sitz bath advised.Hi gh fiber diet, advised.hy giene advised.Cr eam given, calmol providedIf sx persist will refer.No sx orthotic. [id number] Godwin Diaz MD Main Office [address] [address] [place] [address] 03/23/2023 11:31:57 03/23/2023 12:21:13 Anal fissure 84741351 K60.2 No hemorrhoid or fissure noted on exam, no pain with CECILIO. ? spasm vs prostatiti s though he has no other sx. recommend watchful waiting. if sx resume or has any worsening or urinary sx may start cipro twice daily as directed. He does note he is trying to lose weight and has been using a stationary bike- ? whether seat is causing pain/ spasm. Acute prostatitis 607084 02 N41.0 Pain of ri t knee joint 2759184267 16673 M25.561 right knee pain, recommend tylenol as needed, ice, elevate, compressio n, if sx not better in 2 weeks will refer to PT. [id number] Juvenal Hathaway MD Main Office [address] [place] [address] 04/07/2023 13:26:34 04/07/2023 13:56:43 Incisional hernia 300209089 K43.2 Advised to avoid anything that increase intra-abdo tiki pressure, follow up with surgeon on 04/11. Transition of care from emergency department to self-care 0462161590 04361 Z76.89 summary, lab and imaging results reviewed and medication reconciled [id number] Juvenal Hathaway MD Main Office [address] [address] [place] [address] 04/27/2023 08:02:37 05/03/2023 17:00:28 [id number] HIRAM PANTOJA Main Office [address] [address] [place] [address] 07/24/2023 14:51:13 07/24/2023 15:30:31 Insomnia 614187047 G47.00 -requests a refill of melatonin- has sleep study scheduled at the end of the month Mild persi stent asthma 475867278 J45.30 refill per pt request Allergic rhinitis 109169 04 J30.9 refill per pt request History of transient ischemic attack 601566691 Z86.73 Was seen at [facility] [place] left sided hemiparest hesia back in 04/2023-quach s not had any symptoms since discharge- PE was unremarkab le; sensation intact WNL, no signs of TIA-pt completed the outpatient echo and holter monitor as advised by [facility], requests a referral to neurology [id number] Godwin Diaz MD Main Office [address] [facility] [address] [facility] [place] [address] 10/26/2023 13:03:24 10/26/2023 13:38:46 Candidal intertrigo 193758878 B37.2 -ongoing issue for the past x2 months-was recently treated at on 10/14/23; dx with erythema intertrigo and provided with econazole 1% and betamethas one dipropiona te 0.05% cream-reso lved after use of topical creams, reappeared in multiple skin folds after using a deoderant- due to topical regimen failure, advised pt to f/u with dermatolog y and continue conservati ve measuremen ts; will refer to [facility]-will refill topical ointments. Pt is currently on tramadol for chronic pain, contraindi cated with fluconazol e [id number] Juvenal Hathaway MD Main Office [address] [facility] [address] [facility] [place] [address] 11/17/2023 13:03:21 11/17/2023 14:00:14 Adult health examination [id number] Z00.00 Patient was counseled on healthy diet, exercise and nutrition due to Body mass index is 44.5 kg/m . Last Colonoscop y: Date: 05/12/16 Result: WNL Due in 10 yrs per note. Last PSADate:Re sultPlan: followed by urology. Vaccines: Td: 09/21/18 Zoster rec: 10/12/22, 03/11/23 PCV20: script given. Influenza: yearly flu encouraged Covid: encouraged updated vaccine Routine labs today Immunizati on status utd,. Will screen based on risk factors. Regular dental and ophtho care advised as well as seat belt and suncreen use. Distracted driving discussed. Medication reconciled Chronic pain syndrome 37 8710821 G89.4 stable on tramadol discussed if more needed I am happy to have him be seen by pain management .He agreed that I will continue with his current regimen for the time being.Risk of narcotic use discussed. Chronic back pain 896552 002 G89.29 Patient has chronic lower back pain, patient has been on tramadol therapy but is open to be seen by a physiatry, to help with his low back pain if needs be. Morbid obesity 244413887 E66.01 Body mass index 40+ - severely obese 342356496 Z68.41 Patient is being followed by the bariatric center for his obesity and is being followed by a nutritioni /unruly sanchez. Chronic ki dney disease stage 3 900933777 N18.31 Follows renal, advised to avoid NSAID and hydrate. Hyperlipidemia 94256514 E78.5 Impaired f asting glycemia 321321800 R73.01 Snoring 93778318 R06.83 Follows sleep medicine. Moderate m ajor depression 311175 F32.1 Notes mood was better with bupropiond enies homicidal or suicidal ideation Asthma 668066947 J45.90 9 stable on inhaler. Administra tion of pneumococcal vaccine 61281444 Z23 [id number] Juvenal Hathaway MD Main Office [address] [facility] [address] [facility] [place] [address] 04/17/2024 09:11:24 04/17/2024 10:03:28 Upper respiratory infection 21742862 J06.9 Finish regimen per ED as sx has improved.W ill follow up next month. Mild persi stent asthma 510805317 J45.30 Will increase dose of inhaler I suspect covid resulted in asthma exacerbati on as he tells me his cough was worse at night.Cont . albuterol prn. Leukocytosis 699329977 D 72.829 Will repeat CBC, wbc elevation can be from prednisone . Lactic acidosis 54229726 E87.20 Hydration enforced, will repeat lactic acid levels. Transition of care from emergency department to self-care [id number] 12776 Z76.89 summary, lab and imaging results reviewed and medication reconciled [id number] Juvenal Hathaway MD Main Office [address] [facility] [address] [place] [address] 06/18/2024 15:03:16 06/18/2024 16:02:43 Asthma 332930168 J45.909 -Given his recent increase in exacerbati ons, I will start Montelukas t 10 mg daily.-Silvano ck box warning regarding potential mood changes and behavioral side effects was discussed with the patient.-C ont. LABA/ICS-C ont. Albuterol PRN Degenerati on of lumbar intervertebral disc 75548034 M51.360 Degenerati on of cervical intervertebral disc 70647446 M50.30 -Patient reports not tolerating CPAP therapy.-P rovided education on sleep apnea, including the importance of treatment adherence and alternativ e options (e.g., mouth guards). Chronic pain syndrome 37 4594454 G89.4 -The patient is stable on Tramadol and agrees to continue the current regimen for now.-Discu ssed risks associated with narcotic use, including dependency and side effects.-A dvised that if pain worsens or becomes unmanageab le, I will refer him to pain management .-Control substance up to date. Needs infl uenza immunization 870267670 Z23 19 YEARS AND OLDER ONLY Administra tion of pneumococcal vaccine 50358044 Z23 Has asthma encourage to get. Obstructiv e sleep apnea syndrome 66257934 G47.33 Not tolerating CPAP.Consi drea dental guard. Cobalamin deficiency 190 956375 E53.8 -Ordered labs to evaluate the underlying cause of the deficiency .-He is aware must hold all antiacid ppi one week prior to lab and do fasting. Morbid obesity 548324985 E66.01 -Patient is preparing for H. pylori testing as part of his bariatric evaluation .-Plan: Taper PPI to 1 tablet daily for 2 weeks, then hold all PPIs/antac ids for 1 week prior to performing the H. pylori breath test and fasting labs.-He may resume PPIs after testing is completed. -Provided care instructio ns for weight management , including dietary guidance and the importance of lifestyle changes.-A dvised to reach out to insurance regarding GLP 1 Transition of care from emergency department to self-care 8407145384 52704 Z76.89 -Reviewed hospital summary, lab, and imaging results.-C ompleted medication reconcilia tion.*Prov ided education on transition ing to self-care and the importance of follow-up visits. Pneumonia 352574908 J18. 9 Resolved Cheek injury 288764088 S 09.93XD Resolved and healed. [id number] Juvenal Hathaway MD Main Office [address] [address] [place] [address] 06/25/2024 13:48:00 06/25/2024 14:20:49 Morbid obesity 867154868 E66.01 Body mass index 40+ - severely obese 907662959 E66.01 Z68.41 Obstructiv e sleep apnea syndrome 22306372 G47.33 Degenerati on of lumbar intervertebral disc 77944248 M51.360 Degenerati on of cervical intervertebral disc 01733559 M50.30 Chronic back pain 789986 002 G89.29 [id number] Juvenal Hathaway MD Main Office [address] [address] [place] [address] 07/26/2024 13:32:22 07/26/2024 14:11:55 Migraine 71901492 G43.909 stable with topamax. Transition of care 05216 31046 105 Z75.8 Notes from home care reviewed. Cobalamin deficiency 190 155035 E53.8 -Ordered labs to evaluate the underlying cause of the deficiency .-He is aware must hold all antiacid ppi one week prior to lab and do fasting. [id number] Juvenal Hathaway MD Main Office [address] [place] [address] 11/18/2024 13:04:45 11/18/2024 13:55:45 Adult health examination 549950816 Z00.00 Patient was counseled on healthy diet, exercise and nutrition due to Body mass index is 45.5 kg/m . Last Colonoscop y: Date: 05/12/16 Result: WNL Due in 10 yrs per note. Last PSADate:Re sultPlan: followed by urology. Vaccines: Td: 09/21/18 Zoster rec: 10/12/22, 03/11/23 PCV20: 07/10/24 Influenza: 06/18/24 Covid: 07/10/24 Routine labs today Immunizati on status utd,. Will screen based on risk factors. Regular dental and ophtho care advised as well as seat belt and suncreen use. Distracted driving discussed. Medication reconciled Chronic pain syndrome 37 7825067 G89.4 stable on tramadol discussed if more needed I am happy to have him be seen by pain management .He agreed that I will continue with his current regimen for the time being.Risk of narcotic use discussed. Chronic back pain 444588 002 G89.29 Patient has chronic lower back pain, patient has been on tramadol therapy but is open to be seen by a physiatry, to help with his low back pain if needs be. Morbid obesity 239310793 E66.01 Body mass index 40+ - severely obese 686604685 Z68.41 Patient is being followed by the bariatric center for his obesity and is being followed by a nutritioni /unruly sanchez. Chronic ki dney disease stage 3 871008348 N18.31 Follows renal, advised to avoid NSAID and hydrate. Hyperlipidemia 62819913 E78.5 Impaired f asting glycemia 192778089 R73.01 Snoring 21084776 R06.83 Follows sleep medicine. Moderate m ajor depression 087082 F32.1 Notes mood was better with bupropiond enies homicidal or suicidal ideation Cobalamin deficiency 190 262919 E53.8 -Ordered labs to evaluate the underlying cause of the deficiency .-He is aware must hold all antiacid ppi one week prior to lab and do fasting. Drug-induc ed constipation 38521954 K59.03 8840 [id number] Godwin Diaz MD Main Office [address] [place] [address] 12/04/2024 11:06:14 12/04/2024 12:04:26 Pain of knee region 3158095587 M25.562 12644609 likely due to knee sprain. Recommend rest, ice,elevat ion,compre ssion and topical diclofenac cream on affected area. If no or marginal improvemen t improvemen t in 3-4 weeks,. pt is advised to see an orthopedis t. [id number] Godwin Diaz MD Main Office [address] [facility] [address] [facility] [place] [address] 12/11/2024 10:01:39 12/11/2024 10:11:50 Anemia 225291231 D64.9 0225261903 [id number] Godwin Diaz MD Main Office [address] [address] [place], [place] [address] 12/18/2024 13:22:12 12/18/2024 13:51:27 Pernicious anemia 05844873 D51.9 [id number] Godwin Diaz MD Main Office [address] [address] [place], [place] [address] 12/25/2024 13:31:28 12/25/2024 13:46:22 Pernicious anemia 24503055 D51.9 [id number] Juvenal Hathaway MD Main Office [address] [address] [place],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
== END 2025-04-22 10:31 | disposition home or self-care (01) ==
LOC: HO.NEURO 10:30
PROVIDERS: PCP Family Medicine
DX: G62.9 Polyneuropathy, unspecified (principal); R20.0 Anesthesia of skin; R20.2 Paresthesia of skin
CPT/HCPCS: 95886; 95913

== ENCOUNTER → 2025-04-22 10:35 | Outpatient (BNV) | payer OTHER, SELFPAY | PROVIDERS: PCP Family Medicine; Visit Provider Psychiatry & Neurology Neurology | DX: G56.03 Carpal tunnel syndrome, bilateral upper limbs (principal) | CPT/HCPCS: 95886; 95912 ==

== ENCOUNTER → 2025-06-25 13:31 | Outpatient (BNVA) | payer OTHER, SELFPAY | PROVIDERS: PCP Family Medicine; Visit Provider Psychiatry & Neurology Neurology | DX: G56.03 Carpal tunnel syndrome, bilateral upper limbs (principal); G56.23 Lesion of ulnar nerve, bilateral upper limbs | CPT/HCPCS: 99212 ==

== ENCOUNTER 2025-06-25 14:19 | Outpatient (AMB) | payer OTHER, SELFPAY ==
--- OUTSIDE RECORDS SUMMARY | 2025-06-25 13:34 | XMS_ITS | Data Portability ---
Author Organization [facility], Main Office Address [address] [place] [address] Care Team Providers Care Boiler Tenders Supervisor Name Role Phone BLUE MC Home Improvement Advisor EDELMIRA NEWTON Phys. Med. & Rehab [facility] COMPREHENSIVE ADULT WEIGHT MANAGEMENT N utritionist CHRISTIANO SONG MD Sleep Medicine [phone] MATTHEW GARCIA Plumbing Assembler Installer [facility] UROLOGY Urologist IAIN COBB Manager Supply ALISHA SNIDER General Surgeon [facility] cine SUDARSHAN BAKER Maintenance Shop Manager JUVENAL HATHAWAY Primary Care Provider [facility] [employer]oles[employer] Salesperson MELISA CORBETT Neurologist Assessment No assessment recorded. Plan of Treatment Reminders Order Date Submit Date Provider Last Modified By Organization Details Last Modified Time Details Appointments FOLLOW UP 2024 11:00A M Juvenal Hathaway MD Not available Not available Not available CHIDI 2025 01:15P M CHIDI SCHEDULE Not available Not available Not available Lab None recorde d. Referral physica l therapi st referra l 2024 025 [email or web address] Not available 05/12/2025 15:36:59 dermato logist referra l - Patient reports change in mole in the past year, with increas ed irritat ion and occasio nal bleedin g. 2024 025 [facility], [address], [address], [place], [address], 03/21/2025 09:09:31 Procedures None recorde d. Surgeries None recorde d. Imaging XR, knee, 3 view 2024 025 QIANA Not available 05/12/2025 12:18:53 XR, knee, weightb earing 2024 025 QIANA Not available 05/12/2025 11:53:48 Medication Orders cyanoco balamin (vit B-12) 1,000 mcg/mL injecti on solutio n 2024 025 [email or web address] [id number], [phone] [place], [address], 06/05/2025 14:49:41 diclofe nac 1 % topical gel 2024 025 HAZARD [id number], [phone] [place], [address], 05/12/2025 10:42:48 cyanoco balamin (vit B-12) 1,000 mcg/mL injecti on solutio n 2024 025 [email or web address] Not available 05/06/2025 14:03:30 cyanoco balamin (vit B-12) 1,000 mcg/mL injecti on solutio n 2024 025 [email or web address] [id number], [phone] [place], [address], 04/04/2025 13:34:43 Patient TargetsNo targets recorded. Patient Instructions Encounter Date Encounter Id Patient Instructions Last Modified By Organization Details Last Modified Time 03/20/2025 [id number] moles: care instructions Not available 03/20/2025 15:17:28 Chart reviewed, agree with above assessment and plan. [email or web address] Not available 03/20/2025 15:19:38 05/12/2025 [id number] knee arthritis: exercises [email or web address] Not available 05/12/2025 10:42:42 cervical disc disease: care instructions [email or web address] Not available 05/12/2025 10:42:43 sleep apnea: care instructions ckokar Not available 05/12/2025 10:42:43 chronic pain: care instructions [email or web address] Not available 05/12/2025 10:42:42 Learning About Take-Home Naloxone Kits for Opioid Emergencies ckokar Not available 05/12/2025 10:42:42 chronic pain: care instructions ckokar Not available 05/12/2025 10:42:42 Learning About Take-Home Naloxone Kits for Opioid Emergencies ckokar Not available 05/12/2025 10:42:42 Reviewed the risks and benefits of long-term use of opiate for chronic, non-malignant pain. Reviewed with patient that manager long term care opiate use is appropriate treatment based on current medical condition and patient states that continued benefit is noted. Contract for opiate use is in place. Discussed side effects of opiates. Caution driving, reviewed fall risk, and treatment for constipation, as well as option to fill in lesser amounts. A Prescription for an Opioid has been given to the patient and I have reviewed the patients profile in [facility] Partial fill of RX is possible. 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 Referring Physician: Leanna Álvarez, Family Medicine, Encounter Date: 03/20/2025 Physical Therapist Referral for Pain of knee region Referring Physician: Juvenal Hathaway, Family Medicine, Encounter Date: 05/12/2025 Results Created Date Observation Date Name Description Value Unit Range Abnormal Flag Note LastModifiedBy Organization Detail LastModifiedTime 02/20/20 25 02/20/2025 HOMOC Y+MET HYL homocyst(E)i ne 10.5 umol/ L 0.0-14 .5 Not Available [facility] ([facility]) [address] [facility], [place], [address], 02/24/2025 10:06:00 02/20/20 25 02/24/2025 HOMOC Y+MET HYL methylmaloni c acid, serum 120 nmol/ L 0-378 Not Available [facility] ([facility]) [address] [place], [address], 02/24/2025 10:06:00 02/20/20 25 02/19/2025 CBC WITH DIFFE RENTI AL/PL ATELE T WBC 6.3 x10e3 /uL 3.4-10 .8 normal Not Available [facility] ([facility]) [address] [place], [address], 02/24/2025 10:06:00 02/20/20 25 02/19/2025 CBC WITH DIFFE RENTI AL/PL ATELE T RBC 4.91 x10e6 /uL 4.14-5 .80 normal Not Available [facility] ([facility]) [address] [place], [address], 02/24/2025 10:06:00 02/20/20 25 02/19/2025 CBC WITH DIFFE RENTI AL/PL ATELE T hemoglobin 14.8 g/dL 13.0-1 7.7 normal Not Available [facility] ([facility]) [address] [place], [address], 02/24/2025 10:06:00 02/20/20 25 02/19/2025 CBC WITH DIFFE RENTI AL/PL ATELE T hematocrit 45.5 % 37.5-5 1.0 normal Not Available [facility] ([facility]) [address] [place], [address], 02/24/2025 10:06:00 02/20/20 25 02/19/2025 CBC WITH DIFFE RENTI AL/PL ATELE T MCV 93 fL 79-97 normal Not Available [facility] ([facility]) [address] [place], [address], 02/24/2025 10:06:00 02/20/20 25 02/19/2025 CBC WITH DIFFE RENTI AL/PL ATELE T MCH 30.1 pg 26.6-3 3.0 normal Not Available [facility] ([facility]) [address] [place], [address], 02/24/2025 10:06:00 02/20/20 25 02/19/2025 CBC WITH DIFFE RENTI AL/PL ATELE T MCHC 32.5 g/dL 31.5-3 5.7 normal Not Available [facility] ([facility]) [address] [place], [address], 02/24/2025 10:06:00 02/20/20 25 02/19/2025 CBC WITH DIFFE RENTI AL/PL ATELE T RDW 13.4 % 11.6-1 5.4 Not Available [facility] ([facility]) [address] [place], [address], 02/24/2025 10:06:00 02/20/20 25 02/19/2025 CBC WITH DIFFE RENTI AL/PL ATELE T platelets 221 x10e3 /uL 150-45 0 normal Not Available [facility] ([facility]) [address] [place], [address], 02/24/2025 10:06:00 02/20/20 25 02/19/2025 CBC WITH DIFFE RENTI AL/PL ATELE T neutrophils 75 % not estab. normal Not Available [facility] ([facility]) [address] [place], [address], 02/24/2025 10:06:00 02/20/20 25 02/19/2025 CBC WITH DIFFE RENTI AL/PL ATELE T lymphs 14 % not estab. normal Not Available [facility] ([facility]) [address] [place], [address], 02/24/2025 10:06:00 02/20/20 25 02/19/2025 CBC WITH DIFFE RENTI AL/PL ATELE T monocytes 8 % not estab. normal Not Available [facility] ([facility]) [address] [facility], [place], [address], 02/24/2025 10:06:00 02/20/20 25 02/19/2025 CBC WITH DIFFE RENTI AL/PL ATELE T eos 2 % not estab. normal Not Available [facility] ([facility]) [address] [place], [address], 02/24/2025 10:06:00 02/20/2002/19/2025 CBC WITH DIFFE RENTI AL/PL ATELE T basos 1 % not estab. normal Not Available [facility] ([facility]) [address] [place], [address], 02/24/2025 10:06:00 02/20/20 25 02/19/2025 CBC WITH DIFFE RENTI AL/PL ATELE T immature cells EMERGENCY PLANNER Not Available [facility] ([facility]) [address] [place], [address], 02/24/2025 10:06:00 02/20/20 25 02/19/2025 CBC WITH DIFFE RENTI AL/PL ATELE T neutrophils (absolute) 4.7 x10e3 /uL 1.4-7. 0 normal Not Available [facility] ([facility]) [address] [place], [address], 02/24/2025 10:06:00 02/20/20 25 02/19/2025 CBC WITH DIFFE RENTI AL/PL ATELE T lymphs (absolute) 0.9 x10e3 /uL 0.7-3. 1 normal Not Available [facility] ([facility]) [address] [place], [address], 02/24/2025 10:06:00 02/20/20 02/19/2025 CBC WITH DIFFE RENTI AL/PL ATELE T monocytes(ab solute) 0.5 x10e3 /uL 0.1-0. 9 normal Not Available [facility] ([facility]) [address] [facility], [place], [address], 02/24/2025 10:06:00 02/20/20 25 02/19/2025 CBC WITH DIFFE RENTI AL/PL ATELE T eos (absolute) 0.1 x10e3 /uL 0.0-0. 4 normal Not Available [facility] ([facility]) [address] [facility], [place], [address], 02/24/2025 10:06:00 02/20/20 25 02/19/2025 CBC WITH DIFFE RENTI AL/PL ATELE T baso (absolute) 0.1 x10e3 /uL 0.0-0. 2 normal Not Available [facility] ([facility]) [address] [facility], [place], [address], 02/24/2025 10:06:00 02/20/20 25 02/19/2025 CBC WITH DIFFE RENTI AL/PL ATELE T immature granulocytes 0 % not estab. Not Available [facility] ([facility]) [address] [place], [address], 02/24/2025 10:06:00 02/20/20 25 02/19/2025 CBC WITH DIFFE RENTI AL/PL ATELE T immature grans (abs) 0.0 x10e3 /uL 0.0-0. 1 Not Available [facility] ([facility]) [address] [place], [address], 02/24/2025 10:06:00 02/20/20 25 02/19/2025 CBC WITH DIFFE RENTI AL/PL ATELE T NRBC EMERGENCY PLANNER Not Available [facility] ([facility]) [address] [place], [address], 02/24/2025 10:06:00 02/20/20 25 02/19/2025 CBC WITH DIFFE MARISOL AL/PL ENID T hematology comments: EMERGENCY PLANNER Not Available [facility] ([facility]) [address] [facility], [place], [address], 02/24/2025 10:06:00 02/20/2002/20/2025 VITAM IN B12 AND FOLAT E vitamin B12 409 pg/mL 232-12 45 normal Not Available [facility] ([facility]) [address] [facility], [place], [address], 02/24/2025 10:06:01 02/20/2002/20/2025 VITAM IN B12 AND FOLAT E folate (folic acid), serum 14.7 NG/mL >3.0 normal A serum folat e kaylee ntrat ion of less than 3.1 ng/mL is consi dered to repre sent clini koffi defic iency . Not Available [facility] ([facility]) [address] [facility], [place], [address], 02/24/2025 10:06:01 02/20/20 25 02/20/2025 POTAS SIUM HEPAR IN PLASM A potassium, heparin plasma 3.7 mmol/ L 3.5-5. 2 Not Available [facility] ([facility]) [address] [facility], [place], [address], 02/24/2025 10:06:02 02/20/2002/19/2025 RETIC ULOCY TE COUNT reticulocyte count 1.2 % 0.6-2. 6 Not Available [facility] ([facility]) [address] [facility], [place], [address], 02/24/2025 10:06:03 03/07/2003/06/2025 XR, cervi koffi spine No observ ation record ed. [facility] [address], [place], [address], 03/17/2025 15:06:16 04/22/2004/22/2025 elect romyo gram + nerve condu ction study No observ ation record ed. [facility] (Medical Records) [address] [place], [address], 04/26/2025 02:29:19 04/24/2004/22/2025 elect romyo gram + nerve condu ction study No observ ation record ed. [facility] (Medical Records) [address] [place], [address], 04/25/2025 12:27:09 05/12/2005/12/2025 XR, knee, weigh tbear ing Knees Bilat Standi ng, 3 views Reason : bilate ral knee pain; Specia l Instru ctions : weight bearin g COMPAR CARMELLA: 017. FINDIN GS: No bone lesion s or fractu res. No arthri tic change s. No osteoc hondra l defect s or intra- articu lar loose bodies . No eviden ce of joint effusi on. IMPRES WILDER: Normal . WSN: [id number] Orderi ng Physic berna: Alyce Hathaway Dictat ed By: Ryder Chris MD Dictat ed Date/T sheryl: 11:48 a Review ed By: Ryder Chris MD Signed By: Ryder Chris MD Signed Date/T sheryl: 11:48 am Transc ribed By: ALEJO Transc ribed Date/T sheryl: 11:48 am Patien t Class: Outpat ient [facility] (Outpt Imaging) [address] [place], [address], 05/26/2025 10:48:56 05/12/2005/12/2025 XR, knee, 3 view No observ ation record ed. [facility] [address], [address], 05/26/2025 10:48:56 05/19/20 25 ECG 12-le ad No observ ation record ed. [facility] [address] [place], [address], 05/20/2025 13:21:09 Result Notes Documentation Provider Name and Address Organization Details Recorded Time Xr, Knee, Weightbearing : Knees Bilat Standing, 3 views Reason: bilateral knee pain; Special Instructions: weightbearing COMPARISON: 04/07/2017. FINDINGS: No bone lesions or fractures. No arthritic changes. No osteochondral defects or intra-articular loose bodies. No evidence of joint effusion. IMPRESSION: Normal. WSN: [id number] Ordering Physician: Juvenal Hathaway Dictated By: Chapin Villegas MD Dictated Date/Time: 05/12/25 11:48 a Reviewed By: Chapin Villegas MD Signed By: Chapin Villegas MD Signed Date/Time: 05/12/25 11:48 am Transcribed By: ALEJO Transcribed Date/Time: 05/12/25 11:48 am Patient Class: Outpatient Moreno Rodriguez [place] [facility], [facility] 05/26/2025 10:48:56 Problems Name Problem SNOMED Code Status Onset Date Resolution Date Notes Provider Name and Address Organization Details Recorded Time Allergic rhinitis 85002388 Active Not Available [facility] 3 12:19:13 Anxiety state 931768923 Active Not Available [facility] 3 12:19:13 Asthma 373013815 Completed 09/23/2018 José John MD [address], [place], [address] , [facility] 9 08:14:02 Lesion of ulnar nerve 509311138 Completed 11/17/2023 Juvenal Hathaway MD [address], [place], [address] , [facility] 4 13:26:49 Pulmonar y emphysem a 95943010 Completed 09/21/2018 José John MD [address], [place], [address] , [facility] 9 15:50:02 Gastroes ophageal reflux disease 616480513 Active Not Available [facility] 3 12:19:13 Tobacco user 465325617 Completed 01/31/2017 Removal Reason: quit CHIDI Pelletier, [facility] 7 14:34:48 History of clinical finding in subject 058485458 Completed 01/31/2017 CHIDI Pelletier, [facility] 7 14:36:36 Hyperlip idemia 42866234 Active Not Available [facility] 3 12:19:13 Insomnia 875301622 Active Not Available [facility] 3 12:19:13 Migraine 26176412 Active Not Available [facility] 3 12:19:13 Obesity 315100720 Completed 09/23/2018 José John MD [address], [place], [address] , [facility] 9 08:12:35 Plantar fascial fibromat osis 43364964 Completed 11/18/2024 Juvenal Hathaway MD [address], [place], [address] , [facility] 5 13:30:37 Lateral epicondy litis 042785216 Completed 09/23/2018 José John MD [address], [place], [address] , [facility] 9 08:14:25 Neck pain 29749252 Completed 09/23/2018 José John MD [address], [place], [address] , [facility] 9 08:12:39 Mild persiste nt asthma 304784658 Active Not Available [facility] 3 12:19:13 Fatigue 93879563 Completed 11/17/2023 Juvenal Hathaway MD [address] [address], [place], [address] , [facility] 4 08:20:34 Degenera tion of lumbar interver tebral disc 09878990 Active Not Available [facility] 3 12:19:13 Major depressi ve disorder 303309656 Completed 02/19/2019 Kemi Murillo RN null, [facility] 9 15:20:59 Atypical chest pain 626947012 Completed 09/23/2018 José John MD [address] [address], [place], [address] , [facility] 9 08:14:19 Acute sinusiti s 76941840 Completed 01/31/2017 Wes henao MA null, [facility] 7 14:36:31 Herpes labialis 0190921 Active Not Available [facility] 3 12:19:13 Helicoba cter detected by serology 616393281 Completed 11/17/2023 Juvenal Hathaway MD [address] [facility] [address], [place], [address] , [facility] 4 13:25:33 Candidia sis of mouth 31850690 Completed 09/23/2018 José John MD [address] [address], [place], [address] , [facility] 9 08:12:42 Low back pain 441772631 Completed 09/23/2018 José John MD [address] [address], [place], [address] , [facility] 9 08:13:27 Heartbur n 04261260 Completed 11/17/2023 Juvenal Hathaway MD [address] [address], [address] , [facility] 4 13:24:36 Asthma 570217472 Active Not Available [facility] 3 12:19:13 Herpes simplex 75988866 Completed 11/17/2023 Juvenal Hathaway MD [address] [facility] [address], [place], [address] , [facility] 4 13:25:55 Chronic back pain 781531755 Active Not Available [facility] 3 12:19:13 Administ ration of bacteria l and viral vaccine Completed 200801/21/2014 RECORDED 09/27/19 09 3:30PM BY DRISS STEELE, OFFICE VISIT Not Available [facility] 4 14:38:56 Administ ration of bacteria l and viral vaccine Completed 200802/10/2014 RECORDED 09/27/19 09 3:30PM BY DRISS STEELE, OFFICE VISIT Not Available [facility] 4 06:47:55 Tobacco dependen ce syndrome 24355042 Completed 201001/21/2014 RECORDED 12/08/19 11 10:25AM BY WES STEELE MA, JEANNETTEATI ON/ADDEN DUM Not Available [facility] 4 14:38:56 Tobacco dependen ce syndrome 00851927 Completed 201002/10/2014 RECORDED 12/08/19 11 10:25AM BY WES STEELE MA, JEANNETTEATI ON/ADDEN DUM Not Available [facility] 4 06:47:56 Acute pyelonep hritis without medullar y necrosis 465578614 Completed 201101/21/2014 RECORDED 02/07/20 12 1:32PM BY WES STEELE MA, ANNOTATI ON/ADDEN DUM Not Available [facility] 4 14:38:54 Chest pain 94388549 Completed 201101/21/2014 STORY: NOTES SINGLE EPISODE OF SUBSTERN AL CHEST PAIN AT REST. STATES EPISODE LAST 45MIN. SOME NAUSEA.; RECORDED 02/07/20 12 1:32PM BY WES STEELE MA, JEANNETTEATI ON/ADDEN DUM Not Available [facility] 4 14:38:55 Headache 38840887 Completed 201101/21/2014 RECORDED 02/07/20 12 1:32PM BY WES STEELE MA, JEANNETTEATI ON/ADDEN DUM Not Available [facility] 4 14:38:55 Pain of elbow region 57553588 Completed 201101/21/2014 IMPRESSI ON: R SIDED, NO [...] STEELE MA, JEANNETTEATI ON/ADDEN DUM Not Available [facility] 4 14:38:55 Blood in urine 14742106 Completed 201101/21/2014 RECORDED 02/07/20 12 1:32PM BY WES STEELE MA, JEANNETTEATI ON/ADDEN DUM Not Available [facility] 4 14:38:55 Kidney stone 27877791 Completed 201101/21/2014 STORY: HISTORY OF PRIOR PYELONEP HRITIS AND HEMATURI A; RECORDED 02/07/20 12 1:32PM BY WES STEELE MA, MELODIE ON/ADDEN DUM Not Available [facility] 4 14:38:56 Otalgia 69963722 Completed 201101/21/2014 IMPRESSI ON: SXS YESTERDA Y, IMPROVIN G TODAY. NORMAL EXAM. REASSURE D. PT TO CALL PRN.; RECORDED 02/07/20 12 1:32PM BY WES STEELE MA, MELODIE ON/ADDEN DUM Not Available [facility] 4 14:38:56 Knee pain Completed 201101/21/2014 RECORDED 02/07/20 12 1:32PM BY WES STEELE MA, ANNOTATI ON/ADDEN DUM Not Available [facility] 4 14:38:56 Sprain of foot 64596953 Completed 201101/21/2014 RECORDED 02/07/20 12 1:32PM BY WES STEELE MA, ANNOTATI ON/ADDEN DUM Not Available [facility] 4 14:38:56 Syncope and collapse 689811686 Completed 201101/21/2014 RECORDED 02/07/20 12 1:32PM BY WES STEELE MA, ANNOTATI ON/ADDEN DUM Not Available [facility] 4 14:38:56 Viral disease 62062484 Completed 201101/21/2014 RECORDED 02/07/20 12 1:32PM BY WES STEELE MA, ANNOTLAVON ON/ADDEN DUM Not Available [facility] 4 14:38:57 Wheezing 09523473 Completed 201101/21/2014 RECORDED 02/07/20 12 1:32PM BY WES STEELE MA, MELODIE ON/ADDEN DUM Not Available [facility] 4 14:38:57 Acute pyelonep hritis without medullar y necrosis 501214201 Completed 201102/10/2014 RECORDED 02/07/20 12 1:32PM BY WES STEELE MA, MELODIE ON/ADDEN DUM Not Available [facility] 4 06:47:55 Chest pain 70383557 Completed 201102/10/2014 STORY: NOTES SINGLE EPISODE OF SUBSTERN AL CHEST PAIN AT REST. STATES EPISODE LAST 45MIN. SOME NAUSEA.; RECORDED 02/07/20 12 1:32PM BY WES STEELE MA, MELODIE ON/ADDEN DUM Not Available [facility] 4 06:47:55 Headache 15705889 Completed 201102/10/2014 RECORDED 02/07/20 12 1:32PM BY WES STEELE MA, MELODIE ON/ADDEN DUM Not Available [facility] 4 06:47:55 Pain of elbow region 54846751 Completed 201102/10/2014 IMPRESSI ON: R SIDED, NO [...] STEELE MA, MELODIE ON/ADDEN DUM Not Available [facility] 4 06:47:55 Blood in urine 99713434 Completed 201102/10/2014 RECORDED 02/07/20 12 1:32PM BY WES STEELE MA, JEANNETTEATI ON/ADDEN DUM Not Available [facility] 4 06:47:55 Kidney stone 84337203 Completed 201102/10/2014 STORY: HISTORY OF PRIOR PYELONEP HRITIS AND HEMATURI A; RECORDED 02/07/20 12 1:32PM BY WES STEELE MA, MELODIE ON/ADDEN DUM Not Available [facility] 4 06:47:55 Otalgia 90504773 Completed 201102/10/2014 IMPRESSI ON: SXS YESTERDA Y, IMPROVIN G TODAY. NORMAL EXAM. REASSURE D. PT TO CALL PRN.; RECORDED 02/07/20 12 1:32PM BY WES STEELE MA, MELODIE ON/ADDEN DUM Not Available [facility] 4 06:47:56 Knee pain Completed 201102/10/2014 RECORDED 02/07/20 12 1:32PM BY WES STEELE MA, MELODIE ON/ADDEN DUM Not Available [facility] 4 06:47:56 Sprain of foot 97204644 Completed 201102/10/2014 RECORDED 02/07/20 12 1:32PM BY WES STEELE MA, ANNOTATI ON/ADDEN DUM Not Available [facility] 4 06:47:56 Syncope and collapse 000628059 Completed 201102/10/2014 RECORDED 02/07/20 12 1:32PM BY WES STEELE MA, JEANNETTEATI ON/ADDEN DUM Not Available [facility] 4 06:47:56 Viral disease 79861730 Completed 201102/10/2014 RECORDED 02/07/20 12 1:32PM BY WES STEELE MA, JEANNETTEATI ON/ADDEN DUM Not Available [facility] 4 06:47:56 Wheezing 19089973 Completed 201102/10/2014 RECORDED 02/07/20 12 1:32PM BY WES STEELE MA, JEANNETTEATI ON/ADDEN DUM Not Available [facility] 4 06:47:56 [place] is 89680005 Completed 201201/21/2014 RECORDED 08/07/19 13 9:16AM BY MELODIE LLAMAS ON/ADDEN DUM Not Available [facility] 4 14:38:55 [place] is 64174062 Completed 201202/10/2014 RECORDED 08/07/19 13 9:16AM BY MELODIE LLAMAS ON/ADDEN DUM Not Available [facility] 4 06:47:55 Renewal of prescrip tion Completed 201201/21/2014 RECORDED 10/04/19 13 9:02AM BY KACY COLEMAN MA, MELODIE ON/ADDEN DUM Not Available [facility] 4 14:38:[address] [facility] 26739115 Completed 201201/21/2014 RECORDED 10/04/19 13 9:02AM BY KACY COLEMAN MA, MELODIE ON/ADDEN DUM Not Available [facility] 4 14:38:56 Renewal of prescrip tion Completed 201202/10/2014 RECORDED 10/04/19 13 9:02AM BY KACY COLEMAN MA, ANNOTATI ON/ADDEN DUM Not Available [facility] 4 06:47:[address] [facility] 99699106 Completed 201202/10/2014 RECORDED 10/04/19 13 9:02AM BY KACY COLEMAN MA, ANNOTATI ON/ADDEN DUM Not Available [facility] 4 06:47:56 Tobacco user [id number] Completed 201201/21/2014 RECORDED 11/24/19 13 8:46AM BY WES STEELE MA, ANNOTATI ON/ADDEN DUM CHIDI Pelletier MA - [facility] 7 14:34:48 Acute asthma 262039248 Completed 201201/21/2014 RECORDED 02/05/20 13 10:50AM BY RUSSELL CAT MA, ANNOTATI ON/ADDEN DUM Not Available [facility] 4 14:38:54 Chronic sinusiti s 56384680 Completed 201201/21/2014 RECORDED 02/05/20 13 10:50AM BY RUSSELL CAT MA, ANNOTATI ON/ADDEN DUM Not Available [facility] 4 14:38:56 Acute asthma 879944424 Completed 201202/10/2014 RECORDED 02/05/20 13 10:50AM BY RUSSELL CAT MA, ANNOTATI ON/ADDEN DUM Not Available [facility] 4 06:47:55 Chronic sinusiti s 46136196 Completed 201202/10/2014 RECORDED 02/05/20 13 10:50AM BY RUSSELL CAT MA, ANNOTATI ON/ADDEN DUM Not Available [facility] 4 06:47:56 Acute pharyngi tis 816149936 Completed 201201/21/2014 RECORDED 02/12/20 13 1:05PM BY WES STEELE MA, ANNOTATI ON/ADDEN DUM Not Available [facility] 4 14:38:54 Acute sinusiti s 37146737 Completed 201201/21/2014 RECORDED 02/12/20 13 1:05PM BY WES STEELE MA, ANNOTATI ON/ADDEN DUM CHIDI Pelletier, [facility] 7 14:36:31 Acute pharyngi tis 567378625 Completed 201202/10/2014 RECORDED 02/12/20 13 1:05PM BY WES STEELE MA, ANNOTATI ON/ADDEN DUM Not Available [facility] 4 06:47:55 Acute sinusiti s 16111798 Completed 201202/10/2014 RECORDED 02/12/20 13 1:05PM BY WES STEELE MA, ANNOTATI ON/ADDEN DUM CHIDI Pelletier, [facility] 7 14:36:31 Left upper quadrant pain 044728188 Completed 201201/21/2014 RECORDED 05/08/20 13 10:40AM BY WES STEELE MA, ANNOTATI ON/ADDEN DUM Not Available [facility] 4 14:38:54 Follow-u p encounte r Completed 201201/21/2014 RECORDED 05/08/20 13 10:39AM BY WES STEELE MA, ANNOTATI ON/ADDEN DUM Not Available [facility] 4 14:38:55 Malaise and fatigue 787529556 Completed 201201/21/2014 RECORDED 05/08/20 13 10:39AM BY WES STEELE MA, ANNOTATI ON/ADDEN DUM Not Available [facility] 4 14:38:55 Adult health examinat ion Completed 201201/21/2014 RECORDED 05/08/20 13 10:39AM BY WES STEELE MA, ANNOTATI ON/ADDEN DUM Not Available [facility] 4 14:38:55 Left upper quadrant pain 648978035 Completed 201202/10/2014 RECORDED 05/08/20 13 10:40AM BY WES STEELE MA, ANNOTATI ON/ADDEN DUM Not Available [facility] 4 06:47:55 Follow-u p encounte r Completed 201202/10/2014 RECORDED 05/08/20 13 10:39AM BY WES STEELE MA, ANNOTATI ON/ADDEN DUM Not Available [facility] 4 06:47:55 Malaise and fatigue 147737859 Completed 201202/10/2014 RECORDED 05/08/20 13 10:39AM BY WES STEELE MA, ANNOTATI ON/ADDEN DUM Not Available [facility] 4 06:47:55 Adult health examinat ion Completed 201202/10/2014 RECORDED 05/08/20 13 10:39AM BY WES STEELE MA, ANNOTATI ON/ADDEN DUM Not Available [facility] 4 06:47:55 Pain in limb 32816283 Completed 201301/21/2014 RECORDED 07/31/19 14 11:03AM BY WES STEELE MA, ANNOTATI ON/ADDEN DUM Not Available [facility] 4 14:38:56 Abdomina l pain 11050919 Completed 201301/21/2014 RECORDED 07/31/19 14 11:03AM BY WES STEELE MA, ANNOTATI ON/ADDEN DUM Not Available [facility] 4 14:38:56 Pain in limb 86768508 Completed 201302/10/2014 RECORDED 07/31/19 14 11:03AM BY WES STEELE MA, ANNOTATI ON/ADDEN DUM Not Available [facility] 4 06:47:56 Abdomina l pain 81113719 Completed 201302/10/2014 RECORDED 07/31/19 14 11:03AM BY WES STEELE MA, ANNOTATI ON/ADDEN DUM Not Available [facility] 4 06:47:56 Disorder of lower extremit y Completed 201301/21/2014 RECORDED 08/13/19 14 12:52PM BY YAMILE MAKI MA, ANNOTATI ON/ADDEN DUM Not Available [facility] 4 14:38:54 History of depressi on 079243111 Completed 201301/21/2014 RECORDED 08/13/19 14 12:53PM BY YAMILE MAKI MA, ANNOTATI ON/ADDEN DUM Not Available [facility] 4 14:38:55 Disorder of lower extremit y Completed 201302/10/2014 RECORDED 08/13/19 14 12:52PM BY YAMILE MAKI MA, ANNOTATI ON/ADDEN DUM Not Available [facility] 4 06:47:55 History of depressi on 395444033 Completed 201302/10/2014 RECORDED 08/13/19 14 12:53PM BY YAMILE MAKI MA, ANNOTATI ON/ADDEN DUM Not Available [facility] 4 06:47:55 Meralgia paresthe jagdeep 99516473 Active 2015 Dx: G57.11; numbness and burning in outer thigh Not Available [facility] 3 12:19:14 Ex-smoke r 1876610 Active 2016 Not Available [facility] 3 12:19:14 Mild intermit tent asthma 963578020 Completed 201809/23/2018 José John MD [address] [facility] [address], [place], [address] , [facility] 9 08:15:52 Uncompli cated mild persiste nt asthma 212159801 Completed 201809/23/2019 José John MD [address] [facility] [address], [place], [address] , [facility] 0 19:55:46 Moderate major depressi on 525300 Completed 201811/17/2023 Juvenal Hathaway MD [address] [facility] [address], [place], [address] , [facility] 4 13:28:48 Serum creatini ne above referenc e range 661601378 Completed 201809/23/2019 José John MD [address], [place], [address] , [facility] 0 19:55:30 Hiatal hernia 21127301 Active 2018 Not Available [facility] 3 12:19:14 Morbid obesity 237429922 Active 2019 Not Available [facility] 3 12:19:13 Hypoglyc emia 141157333 Completed 202011/17/2023 Juvenal Hathaway MD [address], [place], [address] , [facility] 4 13:26:03 Left lateral elbow tendinop athy 80364101794 9100 Completed 202011/17/2023 Juvenal Hathaway MD [address], [place], [address] , [facility] 4 13:26:42 Hyperten sive disorder 80452853 Active 2020 Martine Craft MA null, [facility] 4 14:17:09 Chronic kidney disease stage 2 742267002 Completed 202006/30/2021 Martine Craft MA null, [facility] 4 14:17:09 Obstruct usman sleep apnea syndrome 04827133 Active 2021 Not Available [facility] 3 12:19:13 Degenera tion of cervical interver tebral disc 53493653 Active 2021 Not Available [facility] 3 12:19:13 Primary erectile dysfunct ion 131749469 Active 2021 Not Available [facility] 3 12:19:13 Anal fissure 44707233 Active 2022 Xavier Brooks, PASUP [address] [facility] [address], [place], [address] , [facility] 3 11:50:26 Acute prostati tis 25508491 Completed 202211/17/2023 Juvenal Hathaway MD [address] [facility] [address], [place], [address] , [facility] 4 13:23:54 Pain of left knee joint 74498205547 4107 Completed 202211/18/2024 Juvenal Hathaway MD [address] [facility] [address], [place], [address] , [facility] 5 13:27:25 Pain of right knee joint 03867498994 4100 Active 2022 Xavier Brooks, [facility] [address] [facility] [address], [place], [address] , [facility] 3 13:10:57 History of Helicoba cter pylori infectio n 64708430212 924778 Active 2023 Juvenal Hathaway MD [address] [facility] [address], [place], [address] , [facility] 4 13:25:14 Major depressi on in remissio n 27852058 Active 2023 Juvenal Hathaway MD [address] [facility] [address], [place], [address] , [facility] 4 13:28:43 Chronic pain syndrome 190441236 Active 2023 Juvenal Hathaway MD [address] [facility] [address], [place], [address] , [facility] 4 07:50:05 Incision al hernia 969762374 Active 2024 Juvenal Hathaway MD [address] [facility] [address], [place], [address] , [facility] 5 13:29:31 Pain of knee region 3713476845 Active 2024 Teri Panda null, [facility] 5 12:25:03 Pernicio us anemia 82128030 Active 2024 Moreno doyle MA null, [facility] 5 13:36:18 Neuropat hy 925612633 Active 2024 LEANNA Wang, [facility] [address] [facility] [address], [place], [address] , [facility] 5 13:47:38 Blood pressure above referenc e range 10195645 Active 2024 LEANNA Wang, [facility] [address] [facility] [address], [place], [address] , [facility] 5 13:54:14 Change in skin lesion 527262865 Active 2024 LEANNA Wang, [facility] [address] [facility] [address], [place], [address] , [facility] 5 14:30:34 Polyneur opathy 01919697 Active 2024 LEANNA Wang, [facility] [address] [facility] [address], [place], [address] , [facility] 5 12:16:04 Problem Notes None recorded. Procedures Surgical History Date Name Laterality Status Provider Name and Address Organization Details Recorded Time 05/12/20 Chronic Pain Assessment completed Wes smith MA [facility] 05/12/2025 10:16:57 06/18/20 Chronic Pain Assessment completed Wes smith MA [facility] 06/18/2024 15:30:34 09/25/19 24 circumcision completed Juvenal Hathaway MD [address] [address], [place], [address], [facility] 11/17/2023 13:33:39 10/05/19 22 Chronic Pain Assessment completed Wes smith MA [facility] 10/04/2021 13:54:52 09/29/19 21 Six-Item Cognitive Test completed Juana Miner MA [facility] 09/28/2020 13:38:47 09/04/19 21 Upper gi endoscopy performed completed Prachi Teran [facility] 09/03/2020 13:44:48 08/20/19 20 laparoscopic appendectomy completed Esthela Mercer [facility] 08/21/2019 10:00:45 04/11/20 17 Polysom 6/> yrs 4/> antony completed Wes smith MA [facility] 04/17/2017 10:49:10 05/12/20 16 Colonoscopy completed Wes smith MA [facility] 01/31/2017 14:39:56 I&d abscess simple/single completed Priscila Porter [facility] 11/03/2020 11:22:34 Imaging Results None recorded. Procedure Notes None recorded. Medical Equipment None Reported. Allergies Allergen ID Allergen Name Allergen Category Reaction Reaction Severity Criticality Documentation Date Start Date Code Code System Note Provider Name and Address Organization Details Recorded Time 67414 No known allergy (situatio n) Not available Not available Not available Not available 03/13/2024 01518 6003 SNEMILY Craft [facility] 14:16:56 No known drug allergies Medications Name [...] CAPSULE BY MOUTH THREE TIMES A DAY 2024 active Not Available Not Available Not Avai lable quetiapin e 200 mg tablet AT BEDTIME 02/04 completed RECORDED 02/05/20 13 11:02AM BY RUSSELL CAT MA, OFFICE VISIT;DR Dafne ALBA GIVES HIM THIS SCRIPT. Not Available Not Available Not Available pimecroli mus 1 % topical cream APPLY TO AFFECTED AREA TWICE A DAY active Not Available Not Available No t Available penciclov ir 1 % topical cream [...] TABLETS BY MOUTH 3 TIMES A DAY NEEDED FOR BACK PAIN FOR 30 DAYS DIRECTED 2024 active Not Available Not Available Not [...] CAPSULES PER DAY, NEEDED FOR CONSTIPA TION 05/12 completed using senna Not Available Not Available Not Available oxybutyni n chloride ER 5 mg [...] active RECORDED 09/22/19 12 10:48AM BY MELODIE CESPEDES ON/CROW ELENA; Not Available Not Available Not Available [email or web address] [...] completed Not Available Not Available Not Available diclofena c 1 % topical gel APPLY 2 GRAMS TO THE AFFECTED AREA(S) BY TOPICAL ROUTE 4 TIMES PER DAY 2024 active Not Available Not Available Not Avai lable melatonin 5 mg tablet TAKE 2 TABLETS [...] Not Available Not Avai lable Afluria Qd 2020- (36 mos up)(PF)60 mcg (15 mcg x4)/0.5 [...] TOTAL) UNDER THE SKIN EVERY 7 DAYS 06/04 /2025 completed Not Available Not Available Not Available Zepbound 15 mg/0.5 mL subcutane ous pen injector INJECT 0.5 ML (15 MG TOTAL) UNDER THE SKIN EVERY 7 (SEVEN) DAYS. active Not Available Not Available No t Available Zepbound 12.5 mg/0.5 mL subcutane ous pen injector INJECT 0.5 ML (12.5 MG TOTAL) UNDER THE SKIN EVERY 7 (SEVEN) DAYS. 05/12 completed Not Available Not Available Not Available Zepbound 7.5 mg/0.5 mL subcutane ous pen injector INJECT 0.5 ML (7.5 MG TOTAL) UNDER THE SKIN EVERY 7 (SEVEN) DAYS. 03/06 completed Not Available Not Available Not Available Vitals Date Recorded Body height Body mass index (BMI) Body weight Heart rate Oxygen saturation Body temperature Systolic And Diastolic Provider Name and Address Organization Details Last Updated DateTime 5 180.34 cm 40.2 kg/m2 143163. 6 g 85 /min 99 % 97.9 [degF] 94/65 mm[Hg] Wes bryan MA [facility] 5 14:18:10 Date Recorded Body height Body mass index (BMI) Body weight Heart rate Oxygen saturation Body temperature Pain severity - 0-10 verbal numeric rating [Score] - Reported Systolic And Diastolic Provider Name and Address Organization Details Last Updated DateTime 5 180.34 cm 39.6 kg/m2 078509. 23 g 74 /min 98 % 98.4 [degF] 8 112/62 mm[Hg] Wes bryan MA [facility] 5 10:12:57 Social History Question Answer Notes LastModified by Organizat ion Details LastModified Time Tobacco Smoking Status Former Smoker quit in 07/2010 Wes Mendez [facility] 04/18/2014 10:42:29 Do You Have An Advance Directive? Yes HCP [email or web address] Information not available 11/08/2021 Is Blood Transfusion [...] None Information not available 04/18/2014 Education 12 [email or web address] Information not available 11/08/2021 When Did You Quit Smoking? 11-15yearssi nccristel [email or web address] Information not available 11/08/2021 Live Alone Or With Others? With Others Quentin Milligan) And 2 Stepchildren [email or web address] Information not available 11/08/2021 Do You Take [...] 03/11/2020 Have You Recently Traveled To A COVID-19 High Risk Area Or Gathering In The Last 10 Days? No Information not available 07/27/2020 Marital Status Single [email or web address] Informatio n not available 11/08/2021 What Was The Date Of Your Most Recent Tobacco Screening? 05/12/2025 Information not available 05/12/2025 How Many Children Do You Have? 0 Information not available 04/18/2014 What Is Your Current Pack Years? 10packyears [email or web address] Information not available 11/08/2021 Do You Use Protection During Sex? No Information not available 05/01/2015 Seat Belts Used Routinely Yes [email or web address] Information not available 11/08/2021 Are You Sexually Active? Yes Aarti Information not available 11/17/2023 Smoke Alarm In Home Yes [email or web address] Information not available 11/08/2021 At What Age [...] use any illicit or recreational drugs? No [email or web address] Information not available 11/08/2021 Do you or have you ever used any other forms of tobacco or nicotine? No [email or web address] Information not available 11/08/2021 What is your level of alcohol consumption? None Information not available 04/18/2014 Do you or have you ever used smokeless tobacco? Never used smokeless tobacco Information not available 09/23/2019 Are you currently employed? No disabled due to back issues Information not available 04/18/2014 Are you able to walk independently without assistance or assistive devices? YESWOREST [email or web address] Information not available 11/08/2021 Are you able to care for yourself independently? 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 Never used electronic cigarettes Information not available 11/08/2021 What is your exercise level? Occasional walking Information not available 05/01/2015 Mental Status None recorded. Family History Relationship Description Onset Age of this Age Resolved Age Notes LastModified by Organization Details LastModified Time Mother Essential hypertension [email or web address] Not available 14:25:06 Mother Diabetes mellitus [email or web address] s Not available 11/02/2015 10:09:52 Mother Asthma [email or web address] s Not available 11/02/2015 10:09:52 Mother Glaucoma [email or web address] s Not available 11/17/2023 13:17:00 Mother Cataract [email or web address] s Not available 11/17/2023 13:17:06 Father Essential hypertension [email or web address] Not available 14:25:06 Father Prostatism [email or web address] Not avail able 11/08/2021 14:25:06 Father Heart disease 68 [email or web address] Not available 11/29 11:41:41 Maternal Grandfather Primary malignant neoplasm of lung [email or web address] Not available 11/08 14:25:06 Medical History Condition Response Anxiety Disorder Y Obesity Y Depression Y Immunizations Vaccine Type Date Status Note Provider Nam e and Address Organization Details Recorded Time Influenza, split virus, trivalent, preservative 7 completed Not Available [facility] 05/17/2023 15:46:02 Influenza, split virus, quadrivalent, preservative 9 completed TANI Lindsay [facility] 07/24/2023 15:15:16 Influenza, split virus, quadrivalent, preservative 0 completed TANI Lindsay [facility] 07/24/2023 15:15:16 Influenza, split virus, quadrivalent, PF 0 completed Not Available [facility] 05/17/2023 15:46:02 COVID-19, mRNA, LNP-S, PF, 100 mcg/0.5mL dose or 50 mcg/0.25mL dose 1 completed Not Available [facility] 05/17/2023 15:46:02 COVID-19, mRNA, LNP-S, PF, 100 mcg/0.5mL dose or 50 mcg/0.25mL dose 1 completed Not Available [facility] 05/17/2023 15:46:02 Influenza, MDCK, quadrivalent, PF 9 completed Not Available [facility] 05/17/2023 15:46:02 Influenza, MDCK, quadrivalent, PF 7 completed Not Available [facility] 05/17/2023 15:46:02 Influenza, MDCK, quadrivalent, PF 6 completed Not Available [facility] 05/17/2023 15:46:02 Influenza, split virus, trivalent, PF 4 completed Not Available [facility] 05/17/2023 15:46:02 Influenza, split virus, quadrivalent, PF 5 completed Not Available [facility] 05/17/2023 15:46:03 Td (adult), 2 Lf tetanus toxoid, preservative free, adsorbed 9 completed Not Available [facility] 05/17/2023 15:46:02 Influenza, split virus, quadrivalent, PF 8 completed Not Available [facility] 05/17/2023 15:46:02 zoster recombinant 3 completed Not Available [facility] 05/17/2023 15:46:02 zoster recombinant 3 completed TANI Lindsay, [facility] 07/24/2023 15:15:17 Tdap 4 completed CHIDI Curran, [facility] 06/18/2024 15:09:13 Pneumococcal conjugate PCV20, polysaccharide FHV206 conjugate, adjuvant, PF 5 completed Ofelia booth, [facility] 07/12/2024 09:10:54 COVID-19, mRNA, LNP-S, PF, jen-sucrose, 30 mcg/0.3 mL 5 completed CHIDI Camargo, [facility] 07/26/2024 13:39:45 Influenza, split virus, quadrivalent, PF 2 completed Juvenal Hathaway MD [address] [address], [place], [address], [facility] 05/17/2022 14:52:47 Tdap 9 completed Not Available [facility] 05/17/2023 15:46:02 Influenza, split virus, trivalent, PF 4 completed Juvenal Hathaway MD [address] [address], [place], [address], [facility] 06/19/2024 12:48:41 Influenza, split virus, trivalent, PF 5 completed CHIDI Curran, [facility] 03/20/2025 14:38:37 Past Encounters Encounter ID Performer Location Encounter Start Date Encounter Closed Date Diagnosis/Indication Diagnosis SNOMED-CT Code Diagnosis ICD10 Code Diagnosis IMO Codes Diagnosis Note [id number] autoEComm erce [address] [facility] [facility] [place] [address] 05/23/2007 00:00:00 [id number] autoEComm erce [address] [facility] [facility] [place] [address] 05/23/2007 00:00:00 [id number] autoEComm erce [address] [facility] [place] [address] 05/23/2007 00:00:00 [id number] autoEComm erce [address] [facility] [address] [place] [address] 06/01/2007 00:00:00 [id number] autoEComm erce [address] [facility] [facility] [place] [address] 06/01/2007 00:00:00 [id number] auto[facility] erce [address] [place] [address] 09/26/2008 00:00:00 [id number] auto[employer] erce [address] [place] [address] 09/26/2008 00:00:00 [id number] autoEComm erce [address] [place] [address] 12/07/2009 00:00:00 [id number] auto[employer] erce [address] [place] [address] 12/07/2009 00:00:00 [id number] autoEComm erce [address] [facility] [address] [place] [address] 12/07/2009 00:00:00 [id number] autoEComm erce [address] [facility] [address] [place] [address] 01/12/2010 00:00:00 [id number] auto[employer]Comm erce [address] [facility] [address] [place] [address] 01/12/2010 00:00:00 [id number] autoEComm erce [address] [facility] [address] [place] [address] 05/17/2010 00:00:00 [id number] autoEComm erce [address] [facility] [place] [address] 05/17/2010 00:00:00 [id number] auto[employer] erce [address] [facility] [address] [place] [address] 06/14/2010 00:00:00 [id number] autoEComm erce [address] [facility] [address] [place] [address] 06/14/2010 00:00:00 [id number] autoEComm erce [address] [facility] [address] [place] [address] 06/14/2010 00:00:00 [id number] auto[employer]Comm erce [address] [facility] [address] [place] [address] 06/23/2010 00:00:00 [id number] autoEComm erce [address] [place] [address] 06/23/2010 00:00:00 [id number] autoEComm erce [address] [place] [address] 06/28/2010 00:00:00 [id number] autoEComm erce [address] [place] [address] 12/07/2010 00:00:00 [id number] autoEComm erce [address] [facility] [address] [place] [address] 12/07/2010 00:00:00 [id number] autoEComm erce [address] [facility] [address] [place] [address] 01/24/2011 00:00:00 [id number] autoEComm erce [address] [facility] [address] [place] [address] 01/24/2011 00:00:00 [id number] autoEComm erce [address] [facility] [address] [place] [address] 05/18/2011 00:00:00 [id number] autoEComm erce [address] [facility] [address] [place] [address] 05/18/2011 00:00:00 [id number] autoEComm erce [address] [facility] [address] [place] [address] 08/09/2011 00:00:00 [id number] autoEComm erce [address] [facility] [address] [place] [address] 08/09/2011 00:00:00 [id number] autoEComm erce [address] [facility] [address] [place] [address] 11/04/2011 00:00:00 [id number] autoEComm erce [address] [facility] [address] [place] [address] 02/07/2012 00:00:00 [id number] autoEComm erce [address] [place] [address] 08/07/2012 00:00:00 [id number] autoEComm erce [address] [place] [address] 08/07/2012 00:00:00 [id number] [employer] [address] [place] [address] 08/07/2012 00:00:00 [id number] [employer] [address] [place] [address] 10/03/2012 00:00:00 [id number] [employer] [address] [facility] [address] [place] [address] 11/23/2012 00:00:00 [id number] [employer] [address] [facility] [address] [place] [address] 11/23/2012 00:00:00 [id number] [employer] [address] [facility] [address] [place] [address] 11/23/2012 00:00:00 [id number] [employer] [address] [facility] [address] [place] [address] 11/23/2012 00:00:00 [id number] [employer] [address] [facility],[address] [place] [address] 02/04/2013 00:00:00 [id number] [employer] [address] [facility] [address] [place] [address] 02/11/2013 00:00:00 [id number] [employer] [address] [place] [address] 02/11/2013 00:00:00 [id number] [employer] [address] [facility] [address] [place] [address] 02/11/2013 00:00:00 [id number] [employer] [address] [facility] [address] [place] [address] 02/11/2013 00:00:00 [id number] [employer] [address] [place] [address] 05/08/2013 00:00:00 [id number] [employer] [address] [place] [address] 05/08/2013 00:00:00 [id number] [employer] [address] [facility],[address] [place] [address] 05/08/2013 00:00:00 [id number] [employer] [address] [facility],[address] [place] [address] 05/08/2013 00:00:00 [id number] [employer] [address] [facility],[address] [place] [address] 07/31/2013 00:00:00 [id number] [employer] [address] [facility],[address] [place] [address] 07/31/2013 00:00:00 [id number] [employer] [address] [facility],[address] [place] [address] 07/31/2013 00:00:00 [id number] [employer] [address] [facility],[address] [place] [address] 08/13/2013 00:00:00 [id number] [employer] [address] [facility],[address] [place] [address] 08/13/2013 00:00:00 [id number] [employer] [address] [facility],[address] [place] [address] 08/13/2013 00:00:00 [id number] José John MD Main Office [address] [facility] [address] [place] [address] 04/18/2014 10:27:28 04/18/2014 11:46:45 Adult health examination 840159193 Needs infl uenza immunization 543977427 Gastroesop hageal reflux disease 177763739 Migraine 92460364 Lateral epicondylitis 135688551 Body mass index 40+ - severely obese 734458490 Neck pain 72023293 Mild persi stent asthma 064962937 Fatigue 86489160 Hyperlipidemia 76753350 Major depr essive disorder 079401847 [id number] NAYE Cai Main Office [address] [address] [place] [address] 07/23/2014 09:11:22 07/23/2014 10:10:13 Atypical chest pain 404847077 atypical , reassuring ECG with low cardiac risk but will eval further with stress test Body mass index 40+ - severely obese 626987150 Asthma 944125410 Lungs are clear today, continue advair 500/50 BID and albuterol inhaler prn [id number] José John MD Main Office [address] [address] [place] [address] 12/09/2014 13:30:57 12/09/2014 14:12:40 Acute sinusitis 71697887 Mild persi stent asthma 935892291 Degenerati on of lumbar intervertebral disc 53058814 Herpes labialis 2579665 [id number] José John MD Main Office [address] [address] [place] [address] 12/29/2014 10:58:10 12/29/2014 11:46:00 Gastroesophageal reflux disease 356363225 [id number] NAYE Cai Main Office [address] [place] [address] 01/12/2015 10:18:37 01/12/2015 10:46:58 Candidiasis of mouth 27904040 on abx, continue probiotic, complete abx for h. pylori [id number] José John MD Main Office [address] [address] [place] [address] 02/17/2015 10:43:22 02/17/2015 11:24:40 Candidiasis of mouth 09585389 [id number] José John MD Main Office [address] [address] [place] [address] 05/01/2015 09:38:45 05/01/2015 10:55:39 Adult health examination 885777511 Z00.00 G0439 Major depr essive disorder 935429652 F32.9 Anxiety state 085863709 F41.1 Needs infl uenza immunization 095630653 Z23 Hyperlipidemia 19612619 E78.5 Body mass index 40+ - severely obese 901017217 Z68.41 Gastroesop hageal reflux disease 636845764 K21.9 Fatigue 50437440 R53.83 [id number] José John MD Main Office [address] [address] [place] [address] 10/12/2015 11:04:57 10/12/2015 11:56:35 Low back pain 054015934 M54.5 Acute on chronic [id number] José John MD Main Office [address] [address] [place] [address] 11/02/2015 09:50:10 11/02/2015 11:06:32 Low back pain 955379873 M54.5 Acute on chronic Body mass index 40+ - severely obese 907001534 Z68.41 Meralgia paresthetica 85 354651 G57.11 [id number] José John MD Main Office [address] [address] [place] [address] 11/17/2016 14:18:50 11/17/2016 15:31:40 Chest pain 52233008 R07.89 Low back pain 526455488 M54.5 Acute on chronic Mild persi stent asthma 846661223 J45.30 Palpitations 48690498 R0 0.2 Patient will return tomorrow for Holter monitor placement [id number] José John MD Main Office [address] [address] [place] [address] 11/18/2016 09:01:59 11/18/2016 09:30:58 Palpitations 30090402 R00.2 [id number] Rubina rangel MD Main Office [address] [address] [place] [address] 11/19/2016 09:35:39 11/21/2016 13:25:44 Palpitations 87324756 R00.2 [id number] José John MD Main Office [address] [address] [place] [address] 12/26/2016 15:42:49 12/26/2016 21:59:28 [id number] José John MD Main Office [address] [address] [place] [address] 01/31/2017 14:25:48 01/31/2017 15:45:50 Adult health examination 580643324 Z00.00 G0439 Mild persi stent asthma 032526049 J45.30 STable on Advair Hypersomnia 91280203 G47 .10 Last sleep test 2006 Migraine 26064723 G43.90 9 STable on topiramate Degenerati on of lumbar intervertebral disc 51622968 M51.36 Heel pain 3463428 M79.67 2 Major depr essive disorder 411905812 F32.9 Hyperlipidemia 64838869 E78.5 Fatigue 60016351 R53.83 Gastroesop hageal reflux disease 247250385 K21.9 Stable on omeprazole Body mass index 40+ - severely obese 194813268 E66.01 Z68.43 [id number] NAYE Meehan Main Office [address] [address] [place] [address] 04/07/2017 14:33:46 04/07/2017 15:22:52 Knee pain 70709586 M25.562 He notes sleep medicine suggested increasing his dose of gabapentin at bedtime. He tried it and was successful in sleeping. Will send rx for 1 month supply of increased dose as it may help with knee pain as well. Continue all other meds adn discuss further with PCP in May. Will send for XR and refer to ortho for further eval. [id number] José John MD Main Office [address] [address] [place] [address] 05/05/2017 12:47:30 05/05/2017 15:00:04 Low back pain 586977971 M54.5 Acute on chronic Major depr essive disorder 377618375 F32.9 Insomnia 898475938 G47.0 0 Improved with gabapentin [id number] José John MD Main Office [address] [address] [place] [address] 06/05/2017 13:08:34 06/05/2017 14:03:38 Insomnia 250155583 G47.00 Improved with gabapentin Acute exac erbation of mild persistent asthma 0749199199 87622 J45.31 [id number] Sim Luna PA-C Main Office [address] [address] [place] [address] 07/26/2017 13:37:40 07/26/2017 14:34:05 Fever 270303919 R50.9 rapid flu neg - will check [...] push fluids/go to ER if worse* Dysuria 79489590 R30.0 [id number] José John MD Main Office [address] [address] [place] [address] 08/11/2017 12:49:35 08/11/2017 13:39:34 Major depressive disorder 367952267 F32.9 Anxiety state 725351538 F41.1 Body mass index 40+ - severely obese 149012600 E66.01 Z68.42 Hyperlipidemia 01840468 E78.5 [id number] Malcolm Bear MD Main Office [address] [address] [place] [address] 01/16/2018 09:08:11 01/16/2018 10:02:56 Foot pain 88751061 M79.671 Likely a sprain vs tendinitis . Will rule out 5th metatarsal fracture and arthritic changes. Will try a compressio n brace, HEP, and RICE. To podiatry if persistent /worse. Call with any problems or if new symptoms develop. [id number] NAYE Meehan Main Office [address] [address] [place] [address] 03/29/2018 14:12:59 03/29/2018 14:46:30 Needs influenza immunization 218910222 Z23 Pain of sh oulder region 89811004 M25.511 anterior right shoulder pain x 1 month, full ROM, tenderness to palpation to anterior shoulder but otherwise no pain. will get XR, naproxen bid x 10 days with food, continue other meds, ice or heat as needed. PT as directed. if sx treatment not helpful will refer to ortho for further eval. [id number] Godwin Diaz MD Main Office [address] [address] [place] [address] 06/14/2018 13:02:49 06/14/2018 13:58:15 Chest pain 11149433 R07.1 Appears to be non-cardia c. He has no cardiac risk factors and his EKG shows no change from his previous one. Probably muscular. I advised ibuprofen prn. [id number] José John MD Main Office [address] [place] [address] 09/21/2018 14:52:53 09/21/2018 16:07:43 Adult health examination 702017661 Z00.00 G0439 Requires a tetanus booster 266802884 Z23 Allergic rhinitis 001249 04 J30.1 Body mass index 40+ - severely obese 439116748 E66.01 Z68.41 Mild persi stent asthma 457432927 J45.30 STable on Advair Hyperlipidemia 58907609 E78.5 Fatigue 01713511 R53.83 Migraine 60502719 G43.90 9 STable on topiramate Degenerati on of lumbar intervertebral disc 85129402 M51.36 chronic back pain. Continues on tramadol with good results. did not respond to PT Major depr essive disorder 702932235 F32.9 Gastroesop hageal reflux disease 541589101 K21.9 Stable on omeprazole Uncomplica ana mild persistent asthma 184129636 J45.30 Stable on Advair with rare use of rescue inhaler [id number] Malcolm Bear MD Main Office [address] [place] [address] 11/29/2018 11:33:19 11/29/2018 12:38:27 Asthmatic bronchitis 170647191 J45.909 rest, hydration, start pred taper, use albuterol inhaler as needed, ok for otc cough med as needed, call if not improving in the next few days, sooner if worse Acute pharyngitis 387638 003 J02.9 gargles, otc pain reliever if needed, will treat for pharyngiti s with dry cough, atypical bronchitis . Call prn if not better [id number] Godwin Diaz MD Main Office [address] [address] [place] [address] 01/29/2019 14:14:28 01/29/2019 15:12:01 Dyspnea at rest 262131466 R06.00 His oxygen was normal when laying down and when walking around the office. Body mass index 40+ - severely obese 395070611 E66.01 Z68.42 [id number] José John MD Main Office [address] [address] [place] [address] 02/20/2019 13:06:47 02/20/2019 13:59:32 Dizziness 769165287 R42 ? electrolyt e abnormalit y. will check magnesium and retest BMP. CBC was normal in the ER. Tachycardia 4125499 R00. 0 will test thyroid. EKG was normal in the hospital. Cramp in lower limb 4499 11613 R25.2 Hypoglycemia 442011669 E 16.2 Pt. documented one episode with ? glucose of 32 . Will use CGM with [employer] for tracking blood sugars for 2 weeks and also pt. is advised to keep diary of all symptoms with dates and descriptio n. F/u 2-4 weeks. [id number] José John MD Main Office [address] [address] [place] [address] 03/13/2019 15:59:25 03/13/2019 16:30:46 Fatigue 36172661 R53.83 Has significan tly improved. Rec increase fluid intake. Discussed with patient how to use OneTouch glucometer , instructed to check sugar whenever symptomati c after meals and to return with readings if he continues to have symptoms. If symptoms do not continue, then patient does not need to follow up. [id number] José John MD Main Office [address] [address] [place] [address] 04/24/2019 09:47:00 04/24/2019 10:31:23 Gastroesophageal reflux disease 380258362 K21.9 Pt. is recommende d to avoid spicy foods, caffeine and late night eating and return to taking PPI as was directed by the GI. If symptoms persist or worsen , pt. will call office for further work up. [id number] Malcolm Bear MD Main Office [address] [address] [place] [address] 06/10/2019 14:02:35 06/10/2019 15:12:52 Extreme obesity with alveolar hypoventilation 456960596 E66.2 pulmonolog y consult Urinary tr act infectious disease 69298833 N39.0 repeat urine, still having some mild symptoms, will send for culture if needed, push fluids and continue antibiotic s for now Serum crea tinine above reference range 902310667 R79.89 will do labs today Dizziness 305816057 R42 still feeling off today, tired, do STAT labs now/ advised ED if feeling worse through the night. [id number] Malcolm Bear MD Main Office [address] [address] [place] [address] 06/10/2019 14:05:49 06/11/2019 08:15:54 [id number] Malcolm Bear MD Main Office [address] [address] [place] [address] 06/17/2019 11:25:04 06/17/2019 12:44:42 Left lower quadrant pain 782242112 R10.32 recently hospitaliz ed then back to ER yesterday for LLQ pain - see below - believe pt's pain is in part d/t ibs-c, and may help explain his sxs not only over the past few months but also over the past few yrs Constipation 36438944 K5 9.00 see above and below Irritable bowel syndrome characterized by constipation 824440908 K58.1 ? this vs other - new dx - will cont to monitor - if sxs worse will refer back to gi, if acutely worse then call us, o/w f/u next wk for re-eval [id number] Malcolm Bear MD Main Office [address] [address] [place] [address] 07/04/2019 09:39:58 07/04/2019 11:07:50 [id number] Malcolm Bear MD Main Office [address] [address] [place] [address] 07/05/2019 09:00:26 07/05/2019 09:38:36 Pain of right shoulder joint 5864957815 9846273 M25.511 Use pain patch as noted below, otc ibuprofen or tyelnol as needed. Home exercise and avoid aggravatin g positions or movments. If not better will call for PT appt. Clavicle pain 628426963 M25.519 xray was negative, avoid leaning on shoulder, try gentle ROM Body mass index 40+ - severely obese 787586261 Z68.42 pt is in an wt loss program and is down 40 pounds, working on getting his weight down to be a candidate for the gastric sleeve. Has apt with paralegal assistant 07/25/19 and surgeon 08/22 Morbid obesity 187234018 E66.01 [id number] José John MD Main Office [address] [address] [place] [address] 08/23/2019 09:47:30 08/23/2019 11:12:02 Dysuria 06376314 R30.0 Fever 909923524 R50.9 [id number] José John MD Main Office [address] [address] [place] [address] 09/06/2019 10:51:42 09/06/2019 13:58:42 [id number] José John MD Main Office [address] [address] [place] [address] 09/23/2019 14:37:54 09/23/2019 15:57:16 Adult health examination 768198177 Z00.00 G0439 Allergic rhinitis 868513 04 J30.1 Mild persi stent asthma 053792234 J45.30 STable on Advair Hyperlipidemia 17291600 E78.5 Moderate m ajor depression 051385 F32.1 Stable on bupropion. Body mass index 40+ - severely obese 693378378 E66.01 Z68.41 Chronic ki dney disease stage 3 045693878 N18.3 Likely related to NSAIDs. Followed by nephrology Anxiety state 466427681 F41.1 Migraine 69010194 G43.90 9 STable on topiramate [id number] Malcolm Bear MD Main Office [address] [address] [place] [address] 03/11/2020 14:49:11 03/11/2020 16:04:48 Pain of ear 722337885 H92.03 no evidence of cerumen impaction, doubt eustachian tube dysfxn, likely has mild to moderate external otitis - see below Acute otitis externa 302 52325 H60.503 [id number] José John MD [address] [address] [place] [address] 05/11/2020 15:18:27 05/11/2020 16:00:40 Fever 412427127 R50.9 Low back pain 065576292 M54.5 test urine at [facility] after results of COVID test avail and negative. Increase fluids. Exposure t o viral disease 5474349877 82147 Z20.828 If pt's brother is positive for COVID , pt. is advised to quarantine for full 14 days even if his test comes back negative. [id number] José John MD Main Office [address] [address] [place] [address] 05/21/2020 10:06:19 05/21/2020 20:14:23 [id number] José John MD [address] [address] [place] [address] 05/25/2020 11:28:25 05/25/2020 16:29:59 Mild persistent asthma 565454824 J45.30 post COVID and is doing well now. Will do iincentive spirometry due to residual chest tightness and sob. Continue advair and rescue inh. use. [id number] Juvenal Hathaway MD Main Office [address] [address] [place] [address] 07/22/2020 14:36:27 07/22/2020 16:03:13 Transition of care 1535926945 105 Z75.8 ED notes and medication reviewedPr ecaution discussed, red flag for chest pain discussed such as location, diaphoresi s and radiation and quality, and when to return to ED. Chest discomfort 9454524 09 R07.89 Pain in right costochond ral region and is present on palpation thus i suspect this could be costochond ral in nature given extensive hx of GERD risk of NSAID use discussed extensivel y he agreed to try nabumetone .Given his concern of cardiac cause, fhx of AL, post covid cardiac causes I've ordered echo and a cardiac referral for f/u and to r/o cardiac causes.I suspect much of this is GI and MSK related. Allergic rhinitis 621067 04 J30.9 Patient is having horsiness he is noted to have erythema in the throat and nasal turbinates will refer to ent to evaluate.H e notes discomfort to regular flonase thus does not use regularly, I will try to send sensimist version to see if it can allow for better compliance . [id number] José John MD Main Office [address] [facility] [address] [place] [address] 07/27/2020 15:08:25 07/27/2020 16:20:37 Hypoglycemia 400721684 E16.2 [id number] Juvenal Hathaway MD Main Office [address] [facility] [address] [place] [address] 09/28/2020 13:31:22 09/28/2020 14:21:34 Adult health examination 625752802 Z00.00 Patient was counseled on healthy diet, [...] Body mass index 40+ - severely obese 834853130 Z68.41 Patient is being followed by the bariatric center for his obesity and is being followed by a nutritioni st/dietiti laura. Jakub m ajor depression 429829 F32.1 Patient notes no longer depressed, denies [...] y. Chronic ki dney disease stage 3 490393523 N18.31 Will evaluate patient's renal function, he stopped NSAIDs which was likely the cause of his renal impairment . Fatigue 12068349 R53.83 Chronic back pain 551845 002 G89.29 Patient has chronic lower back pain, patient has been on tramadol therapy but is open to be seen by a physiatris t, to help with his low back pain. Morbid obesity 555139784 E66.01 [id number] Juvenal Hathaway MD Main Office [address] [place] [address] 11/03/2020 11:22:04 11/03/2020 13:15:46 Moderate major depression 427079 F32.1 Patient notes no longer depressed, denies any homicidal or suicidal ideation.T olerated tappering of wellbutrin no sx at this time.Will stop wellbutrin .He is aware if mood changes such as depression , he has sucidal thoughts or homcidal thoughts to let us know and call hotline or to go ED. [id number] Juvenal Hathaway MD Main Office [address] [place] [address] 12/04/2020 14:25:03 12/04/2020 15:05:56 Transition of care from emergency department to self-care 4197397967 25470 Z76.89 summary, lab and imaging results reviewed and medication reconciled Cervical radiculopathy 26281958 M54.12 Asymptomat ic at this time thus will not start medication .For prevention will provide exercises. Insomnia 377472725 G47.0 0 Stopped zolpidem due to concerns of dependance . Given that it has been > 3 weeks concerns for withdrawal less likely at this time but now he has been having trouble sleeping. Will do trial of melatonin and increase to max of 30 mg as needed. [id number] José John MD [facility] [address] [place] [address] 01/01/2021 08:28:45 01/01/2021 11:27:30 Fever 604508065 R50.9 Pain in testicle 8380543 9 N50.819 Pain of prostate 9901467 0 N42.81 [id number] Malcolm Bear MD [facility] [address] [address] [place] [address] 01/09/2021 19:37:10 01/11/2021 10:03:31 Candidiasis of mouth 64731146 B37.0 Has significan t risk factors and exam findings c/w thrush. Will treat and pt understand s to call if symptoms persist/wo rsen or if there are any issues with rx. [id number] Juvenal Hathaway MD Main Office [address] [place] [address] [place] [address] 02/01/2021 13:35:07 02/01/2021 14:24:35 Recurrent urinary tract infection 896619321 N39.0 Resolved at this time.Will recheck urine s/p abxPatient does not appear in acute distress, denies any fever, chills or flank pain, will hold any labs Lateral epicondylitis 20 6076768 M77.12 Cannot tolerate NSAID will do trial of conservati ve therapy, if no improvemen t will do trial of steroids. Constipation 83661024 K5 9.00 Passing dequan goes every 2-3 days, high fiber diet discussed, advise hydration. Will also provide stool softner. [id number] Juvenal Hathaway MD Main Office [facility] [address] [place] [address] 03/24/2021 13:34:34 03/24/2021 14:02:41 Lateral epicondylitis 414091462 M77.12 Cannot tolerate NSAID we did trial of conservati ve therapy with exercise, brace, ice and with no relief will start PO steroid (side affects discussed) and refer to physiatry. [id number] Juvenal Hathaway MD Main Office [facility] [address] [address] [place] [address] 10/04/2021 13:40:45 10/04/2021 14:25:43 Body mass index 40+ - severely obese 984957371 Z68.41 Patient is being followed by the bariatric center for his obesity and is being followed by a nutritioni /unruly sanchez.Is looking to reconsider surgery. Moderate m ajor depression 205457 F32.1 Notes mood was better with bupropion wants to restartden ies homicidal or suicidal ideationWi ll restart bupropion as it also can help with weight.Chago link angela in October. Chronic ki dney disease stage 3 026100167 N18.31 Advised to avoid NSAID when possible, tells me he very rarely takes Ibuprofen. Chronic back pain 523941 002 G89.29 Patient has chronic lower back pain, patient has been on tramadol therapy but is open to be seen by a physiatry, to help with his low back pain if needs be. Chronic pain syndrome 37 6433647 G89.4 stable on tramadol discussed if more needed I am happy to have him be by pain management .He agreed that I will continue with his current regimen for the time being.Risk of narcotic use discussed. Morbid obesity 651781258 E66.01 [id number] Juvenal Hathaway MD Main Office [address] [facility] [address] [facility] [place] [address] 10/13/2021 13:51:13 10/13/2021 14:23:39 Hemorrhoids 66589391 K64.9 Advised to continue high-fiber dietAnusol prescribed [...] to go to the nearest emergency room. [id number] Juvenal Hathaway MD Main Office [address] [facility] [address] [facility] [place] [address] 11/08/2021 14:24:21 11/08/2021 15:11:46 Chronic pain syndrome 005904908 G89.4 stable on tramadol discussed if more needed I am happy to have him be by pain management .He agreed that I will continue with his current regimen for the time being.Risk of narcotic use discussed. Chronic back pain 772815 002 G89.29 Patient has chronic lower back pain, patient has been on tramadol therapy but is open to be seen by a physiatry, to help with his low back pain if needs be. Adult heal th examination 217988263 Z00.00 Patient was counseled on healthy diet, [...] Distracted driving discussed. Medication reconciled Morbid obesity 802365691 E66.01 Body mass index 40+ - severely obese 582879197 Z68.41 Patient is being followed by the bariatric center for his obesity and is being followed by a nutritioni st/dietiti an. Chronic ki dney disease stage 3 333680559 N18.31 Will evaluate patient's renal function, he stopped NSAIDs which was likely the cause of his renal impairment . Hyperlipidemia 13670151 E78.5 Impaired f asting glycemia 774378236 R73.01 Fatigue 57661282 R53.83 Anemia due to unknown mechanism 69739036 D64.9 Snoring 82706158 R06.83 STOP BANG 5 Hepatitis C screening 41 5320053 Z11.59 Meralgia p aresthetica of right leg 0419960286 15792 G57.11 [id number] Juvenal Hathaway MD Main Office [address] [place] [address] 01/12/2022 13:00:48 01/12/2022 13:46:01 Cervical radiculitis 80419351 M54.12 review pain management notes and neck xray. Increase gabapentin by 400 mg and take in the am. Refer to neurology. [id number] Juvenal Hathaway MD Main Office [address] [place] [address] 05/17/2022 14:14:26 05/17/2022 15:12:02 Morbid obesity 098756308 E66.01 Body mass index 40+ - severely obese 227716362 Z68.41 Patient is being followed by the bariatric center for his obesity and is being followed by a nutritioni /unruly [place] advised. - Diet and exercise discussed- Patient made aware of risks of obesity- Encouraged to loose weight. Goal set to loose weight at 1-1.5 Lbs/week- Avoid starchy and fatty food- Encouraged use of green vegetables and fruits- Consider Bariatric Surgery evaluation Asthma 974221284 J45.90 9 stable on inhaler.If asthama flare stable when I see him in PE will consider bringing dose down. Mild persi stent asthma 700492770 J45.30 Needs infl uenza immunization 365272408 Z23 Erectile dysfunction 860 494721 F52.21 Has interest in sex but unable to keep erection. [id number] Rubina rangel MD Main Office [address] [address] [place] [address] 07/25/2022 11:04:08 07/25/2022 11:49:04 History of urinary tract infection 0329092657 107 Z87.440 push fluids, repeat urine today to make sure infection is cleared. Followp with urology to discuss prostate as possible issue and states he was going to be referred for pelvic floor PT> History of sepsis 211364 7742 23583 Z86.19 labs normalized in hospital, BC neg x 2,UTI cleared, pt is no longer having symptoms. Call if any fever, chills or illness sx. [id number] Juvenal Hathaway MD Main Office [address] [place] [address] [place] [address] 07/25/2022 08:39:44 07/25/2022 11:50:59 [id number] Juvenal Hathaway MD Main Office [address] [place] [address] [place] [address] 11/14/2022 14:58:18 11/14/2022 16:14:26 Adult health examination 370111974 Z00.00 Patient was counseled on healthy diet, [...] discussed. Medication reconciled Chronic pain syndrome 37 0716216 G89.4 stable on tramadol discussed if more needed I am happy to have him be seen by pain management .He agreed that I will continue with his current regimen for the time being.Risk of narcotic use discussed. Chronic back pain 746070 002 G89.29 Patient has chronic lower back pain, patient has been on tramadol therapy but is open to be seen by a physiatry, to help with his low back pain if needs be. Morbid obesity 510639207 E66.01 Body mass index 40+ - severely obese 336205990 Z68.41 Patient is being followed by the bariatric center for his obesity and is being followed by a nutritioni /unruly sanchez. Chronic ki dney disease stage 3 095449009 N18.31 Follows renal, advised to avoid NSAID and hydrate. Hyperlipidemia 01899714 E78.5 Impaired f asting glycemia 129169014 R73.01 Fatigue 51650570 R53.83 Snoring 97266532 R06.83 Follows sleep medicine. Moderate m ajor depression 737657 F32.1 Notes mood was better with bupropiond enies homicidal or suicidal ideation [id number] Juvenal Hathaway MD Main Office [address] [facility] [place] [address] 12/26/2022 10:07:49 12/26/2022 10:44:49 Anal fissure 48515011 K60.2 Sitz bath advised.Hi gh fiber diet, advised.hy giene advised.Cr eam given, calmol providedIf sx persist will refer.No sx orthotic. [id number] Godwin Diaz MD Main Office [address] [facility] [address] [place] [address] 03/23/2023 11:31:57 03/23/2023 12:21:13 Anal fissure 49247403 K60.2 No hemorrhoid or fissure noted on [...] seat is causing pain/ spasm. Acute prostatitis 970083 02 N41.0 Pain of ri ght knee joint 8087764094 12249 M25.561 right knee pain, recommend tylenol as needed, ice, elevate, compressio n, if sx not better in 2 weeks will refer to PT. [id number] Juvenal Hathaway MD Main Office [address] [place] [address] 04/07/2023 13:26:34 04/07/2023 13:56:43 Incisional hernia 974731451 K43.2 Advised to avoid anything that increase intra-abdo tiki pressure, follow up with surgeon on 04/11. Transition of care from emergency department to self-care 9526617217 80405 Z76.89 summary, lab and imaging results reviewed and medication reconciled [id number] Juvenal Hathaway MD Main Office [address] [address] [place] [address] 04/27/2023 08:02:37 05/03/2023 17:00:28 [id number] HIRAM PANTOJA Main Office [address] [place] [address] 07/24/2023 14:51:13 07/24/2023 15:30:31 Insomnia 581546901 G47.00 -requests a refill of melatonin- has sleep study scheduled at the end of the month Mild persi stent asthma 305139964 J45.30 refill per pt request Allergic rhinitis 577770 04 J30.9 refill per pt request History of transient ischemic attack 192512286 Z86.73 [place] [facility] [place]ip[place] back in 04/2023-quach s not had any symptoms since discharge- PE was unremarkab le; sensation intact WNL, no signs of TIA-pt completed the outpatient echo and holter monitor as [place] [facility] [place] requests a referral to neurology [id number] Godwin Diaz MD Main Office [address] [facility] [address] [facility] [place] [address] 10/26/2023 13:03:24 10/26/2023 13:38:46 Candidal intertrigo 340380196 B37.2 -ongoing issue for the past x2 [...] conservati ve measuremen ts; will refer to [facility]-will refill topical ointments. Pt is currently on tramadol for chronic pain, contraindi cated with fluconazol e [id number] Juvenal Hathaway MD Main Office [address] [facility] [address] [facility] [place] [address] 11/17/2023 13:03:21 11/17/2023 14:00:14 Adult health examination 212027069 Z00.00 Patient was counseled on healthy diet, [...] discussed. Medication reconciled Chronic pain syndrome 37 7815386 G89.4 stable on tramadol discussed if more needed I am happy to have him be seen by pain management .He agreed that I will continue with his current regimen for the time being.Risk of narcotic use discussed. Chronic back pain 930961 002 G89.29 Patient has chronic lower back pain, patient has been on tramadol therapy but is open to be seen by a physiatry, to help with his low back pain if needs be. Morbid obesity 853699015 E66.01 Body mass index 40+ - severely obese 810311685 Z68.41 Patient is being followed by the bariatric center for his obesity and is being followed by a nutritioni st/dietici an. Chronic ki dney disease stage 3 345430693 N18.31 Follows renal, advised to avoid NSAID and hydrate. Hyperlipidemia 50734419 E78.5 Impaired f asting glycemia 057307032 R73.01 Snoring 61866018 R06.83 Follows sleep medicine. Moderate m ajor depression 287783 F32.1 Notes mood was better with bupropiond enies homicidal or suicidal ideation Asthma 175635496 J45.90 9 stable on inhaler. Administra tion of pneumococcal vaccine 12904087 Z23 [id number] Juvenal Hathaway MD Main Office [address] [facility] [address] [facility] [place] [address] 04/17/2024 09:11:24 04/17/2024 10:03:28 Upper respiratory infection 92118722 J06.9 Finish regimen per ED as sx has improved.W ill follow up next month. Mild persi stent asthma 353543660 J45.30 Will increase dose of inhaler I suspect covid resulted in asthma exacerbati on as he tells me his cough was worse at night.Cont . albuterol prn. Leukocytosis 759513680 D 72.829 Will repeat CBC, wbc elevation can be from prednisone . Lactic acidosis 53327802 E87.20 Hydration enforced, will repeat lactic acid levels. Transition of care from emergency department to self-care 8863209341 27727 Z76.89 summary, lab and imaging results reviewed and medication reconciled [id number] Juvenal Hathaway MD Main Office [address] [facility] [address] [facility] [place] [address] 06/18/2024 15:03:16 06/18/2024 16:02:43 Asthma 123624503 J45.909 -Given his recent increase in exacerbati ons, I will start Montelukas t 10 mg daily.-Silvano ck box warning regarding potential mood changes and behavioral side effects was discussed with the patient.-C ont. LABA/ICS-C ont. Albuterol PRN Degenerati on of lumbar intervertebral disc 87574370 M51.360 Degenerati on of cervical intervertebral disc 05146951 M50.30 -Patient reports not tolerating CPAP therapy.-P rovided education on sleep apnea, including the importance of treatment adherence and alternativ e options (e.g., mouth guards). Chronic pain syndrome 37 0628729 G89.4 -The patient is stable on Tramadol and agrees to continue the current regimen for now.-Discu ssed risks associated with narcotic use, including dependency and side effects.-A dvised that if pain worsens or becomes unmanageab le, I will refer him to pain management .-Control substance up to date. Needs infl uenza immunization 614130895 Z23 19 YEARS AND OLDER ONLY Administra tion of pneumococcal vaccine 34828973 Z23 Has asthma encourage to get. Obstructiv e sleep apnea syndrome 69693907 G47.33 Not tolerating CPAP.Consi drea dental guard. Cobalamin deficiency 190 462105 E53.8 -Ordered labs to evaluate the underlying cause of the deficiency .-He is aware must hold all antiacid ppi one week prior to lab and do fasting. Morbid obesity 390838167 E66.01 -Patient is preparing for H. pylori [...] of care from emergency department to self-care 6651296877 55253 Z76.89 -Reviewed hospital summary, lab, and imaging results.-C ompleted medication reconcilia tion.*Prov ided education on transition ing to self-care and the importance of follow-up visits. Pneumonia 044004810 J18. 9 Resolved Cheek injury 148647182 S 09.93XD Resolved and healed. [id number] Juvenal Hathaway MD Main Office [address] [facility] [address] [place] [address] 06/25/2024 13:48:00 06/25/2024 14:20:49 Morbid obesity 710305702 E66.01 Body mass index 40+ - severely obese 443134438 E66.01 Z68.41 Obstructiv e sleep apnea syndrome 29281018 G47.33 Degenerati on of lumbar intervertebral disc 11426748 M51.360 Degenerati on of cervical intervertebral disc 66863512 M50.30 Chronic back pain 161768 002 G89.29 [id number] Juvenal Hathaway MD Main Office [address] [address] [place] [address] 07/26/2024 13:32:22 07/26/2024 14:11:55 Migraine 12368065 G43.909 stable with topamax. Transition of care 84229 88316 105 Z75.8 Notes from home care reviewed. Cobalamin deficiency 190 304359 E53.8 -Ordered labs to evaluate the underlying cause of the deficiency .-He is aware must hold all antiacid ppi one week prior to lab and do fasting. [id number] Juvenal Hathaway MD Main Office [address] [place] [address] 11/18/2024 13:04:45 11/18/2024 13:55:45 Adult health examination 074670637 Z00.00 Patient was counseled on healthy diet, [...] discussed. Medication reconciled Chronic pain syndrome 37 1557315 G89.4 stable on tramadol discussed if more needed I am happy to have him be seen by pain management .He agreed that I will continue with his current regimen for the time being.Risk of narcotic use discussed. Chronic back pain 778613 002 G89.29 Patient has chronic lower back pain, patient has been on tramadol therapy but is open to be seen by a physiatry, to help with his low back pain if needs be. Morbid obesity 236395481 E66.01 Body mass index 40+ - severely obese 496682289 Z68.41 Patient is being followed by the bariatric center for his obesity and is being followed by a nutritioni st/dietici an. Chronic ki dney disease stage 3 675528469 N18.31 Follows renal, advised to avoid NSAID and hydrate. Hyperlipidemia 58059652 E78.5 Impaired f asting glycemia 716044098 R73.01 Snoring 58723024 R06.83 Follows sleep medicine. Moderate m ajor depression 808792 F32.1 Notes mood was better with bupropiond enies homicidal or suicidal ideation Cobalamin deficiency 190 761898 E53.8 -Ordered labs to evaluate the underlying cause of the deficiency .-He is aware must hold all antiacid ppi one week prior to lab and do fasting. Drug-induc ed constipation 86136614 K59.03 8840 [id number] Godwin Diaz MD Main Office [address] [place] [address] 12/04/2024 11:06:14 12/04/2024 12:04:26 Pain of knee region 0645159304 M25.562 18766176 likely due to knee sprain. Recommend rest, ice,elevat ion,compre ssion and topical diclofenac cream on affected area. If no or marginal improvemen t improvemen t in 3-4 weeks,. pt is advised to see an orthopedis t. [id number] Godwin Diaz MD Main Office [address] [place] [address] 12/11/2024 10:01:39 12/11/2024 10:11:50 Anemia 277224148 D64.9 6795016536 [id number] Godwin Diaz MD Main Office [address] [place] [address] 12/18/2024 13:22:12 12/18/2024 13:51:27 Pernicious anemia 03950044 D51.9 [id number] Godwin Diaz MD Main Office [address], [place] [address] 12/25/2024 13:31:28 12/25/2024 13:46:22 Pernicious anemia 57160209 D51.9 [id number] Juvenal Hathaway MD Main Office [address] [place] [address] 01/01/2025 13:30:43 01/01/2025 13:59:11 Pernicious anemia 42134927 D51.9 [id number] NADIR SANDERSON MD Main Office [address] [place] [address] 02/03/2025 13:21:14 02/03/2025 13:32:57 Pernicious anemia 25291151 D51.9 [id number] Malcolm Bear MD Main Office [address] [place] [address] 03/06/2025 13:22:01 03/06/2025 14:26:37 Neuropathy 660557342 G62.9 13130 - Patient describes neuropathy that can be [...] emergency. Blood pres sure above reference range 49496372 R03.0 798518 - Home BP reading 138/83. Blood pressures [...] log. Degenerati on of cervical intervertebral disc 31627455 M50.30 - Patient has acutely increased neck [...] that warrant emergency medical care Pernicious anemia 207370 09 D51.9 - Patient due for routine B12 injection for pernicious anemia [id number] Godwin Diaz MD Main Office [address] [facility] 207 [place] [address] 03/20/2025 14:02:46 03/20/2025 14:40:05 Blood pressure above reference range 43065844 R03.0 111479 - Blood pressures at home have been within normal range for the past 2 weeks. No further follow up is indicated at this time other than routine preventati ve monitoring . Needs infl uenza immunization 140585077 Z23 19 YEARS AND OLDER ONLY Change in skin lesion 39 3550722 D22.9 62509507 - Patient reports change in mole in [...] keeping site covered to prevent irritation . [id number] NADIR SANDERSON MD Main Office [address] [facility] 207 [place] [address] 04/04/2025 13:16:37 04/04/2025 13:21:47 Pernicious anemia 36416361 D51.9 [id number] Malcolm Bear MD Main Office [address] [facility] [address] [place] [address] 05/06/2025 13:19:08 05/06/2025 15:01:12 Pernicious anemia 81752068 D51.9 [id number] Juvenal Hathaway MD Main Office [address] [address] [place] [address] 05/12/2025 10:01:19 05/12/2025 10:48:01 Chronic pain syndrome 088332309 G89.4 -The patient is stable on Tramadol and agrees to continue the current regimen for now.-Discu ssed risks associated with narcotic use, including dependency and side effects.-A dvised that if pain worsens or becomes unmanageab le, I will refer him to pain management .-Notes he is having bowel movement and passing gas.-Contr ol substance up to date. Degenerati on of lumbar intervertebral disc 10002247 M51.360 Degenerati on of cervical intervertebral disc 44965094 M50.30 Obstructiv e sleep apnea syndrome 48448769 G47.33 -Patient reports not tolerating CPAP therapy.-P rovided education on sleep apnea, including the importance of treatment adherence and alternativ e options (e.g., mouth guards). He is now on zepbound. Pain of knee region 1003 834177 M25.561 M25.562 31191735 -Will get xray.-Dicl ofenac gel PRN will avoid oral due to NSAID mild renal derangemen t, he is seeing renal for this.-Advi sed PT.-Will consider ortho after PT. [id number] Godwin Diaz MD Main Office [address] [facility] [address] [place] [address] 06/05/2025 13:22:46 06/05/2025 13:39:59 Pernicious anemia 64358971 D51.9 Health Concerns Section Related Observation LastModified by Organization Detai ls LastModified Time None Recorded Concern Status LastModified by Organization Details LastModified Time None Recorded Advance Directives Directive Y: HCP Payers Insurance Date Sequence Insurance Name Policy Number Policy Steen Covered Member ID Steen Member ID Guarantor Name 06/13/2025 1 [facility] - DOS ON OR AFTER 2022 - DUAL ELIGIBLE - FPC OPTIONS AND ONE CARE (MEDICARE REPLACEMENT/A DVANTAGE - HMO) Ramírez Mena [id number] Ramírez Aldridge Rajesh 01/01/2025 1 [place] [employer] Ramírez Mena [id number] Ramírez Aldridge Rajesh 06/13/2025 2 [place] Ramírez Mena [id number] Ramírez Mena 01/01/2025 1 [facility] - DOS PRIOR TO 2022 - DUAL ELIGIBLE (MEDICARE REPLACEMENT/A DVANTAGE - HMO) Ramírez Mena [id number] Ramírez Aldridge Rajesh Notes Date Note Type Note Provider Name and Address Organization Details Recorded Time 03/20/20 25 text/htm l ROS as noted in the HPI Ramírez [...] a referral to dermatology Malcolm Bear MD [address] [address], [place], [address], [facility] 03/20/2025 15:20:05 05/12/20 25 text/htm l Musculoskeletal PainReported by PatientHPIFor quality, patient reportssharp(gives out). For severity, patient reportsworsening. For location, patient reportsbilateral knee (l>r). For timing, patient reportsintermittent. For associated symptoms, patient reportsno fever,no weak limbs,no tingling, andno numbness of the legs/feet. For duration, (worsening past 3 mo.). Pain Management F/UReported by PatientHPIFor associated symptoms, patient reportsnumbnessandtinglingbut reportsno weakness,no skin changes,no fever,no swelling,no bowel changes, andno bladder changes(occasional.). For location, patient reportslower back rightandbuttock bilateral. For quality, patient reportstightness. For severity, patient reportsimproving. For duration, patient reportspresent for >12 months. For timing, patient reportsintermittent. For context, patient reportsprior back problems,used medication for back pain,had evaluations by back specialist,previous epidural, andprevious mri. For alleviating factors, patient reportsrest,ice,heat,changing position,medication,injections, andphysical therapy.Denies saddle parasthesia or anesthesia, denies bowel or baldder incontinence, denies lower extremity weakness or loss of sensation regarding lower back.ROS as noted in the HPI The patient presents for a follow-up regarding chronic pain of lower back controlled with tramadol.He notes worsening knee pain especially when coming down stairs and sometimes when going up. It was intermittent but more frequent past 3 mo. Both knees bother him L>R. Juvenal Hathaway MD [address] [address], [place], [address], [facility] 05/12/2025 12:03:07
--- OUTSIDE RECORDS SUMMARY | 2025-06-25 13:35 | XMS_ITS | Continuity of Care Document ---
Author Organization [facility], Main Office Address [address] [place] [address] Care Team Providers Care Loss Prevention Investigator Name Role Phone BLUE MC Pipe Stress Engineer EDELMIRA NEWTON Phys. Med. & Rehab [facility]NAG[facility] N utritionist CHRISTIANO SONG MD Sleep Medicine [phone] MATTHEW GARCIA Steel Manager [facility] Urologist IAIN COBB Roll Edge Stitcher Hand ALISHA SNIDER General Surgeon [facility] Sleep [facility] cine SUDARSHAN BAKER Document Review Attorney FREDDIE HATHAWAY Primary Care Provider [phone] [facility] Acoustical Material Worker [phone] MELISA CORBETT Neurologist [phone] Assessment No assessment recorded. Plan of Treatment Reminders Order Date Submit Date Provider Last Modified By Organization Details Last Modified Time Details Appointments FOLLOW UP 2024 11:00A M Freddie Hathaway MD Not available Not available Not available NM 2025 01:15P M CHIDI SCHEDULE Not available Not available Not available Lab None recorde d. Referral None recorde d. Procedures None recorde d. Surgeries None recorde d. Imaging None recorde d. Medication Orders cyanoco balamin (vit B-12) 1,000 mcg/mL injecti on solutio n 2024 025 [email or web address] [id number], [phone] [place], [address], 06/05/2025 14:49:41 Patient TargetsNo targets recorded. Patient InstructionsNo instructions recorded. Reason for Referral None Reported. Results Created Date Observation Date Name Description Value Unit Range Abnormal Flag Note LastModifiedBy Organization Detail LastModifiedTime 05/12/2005/12/2025 XR, knee, weigh tbear ing Knees [...] effusi on. IMPRES WILDER: Normal . WSN: [id number] Orderi ng Physic berna: Alyce Hathaway ai Dictat ed By: Ryder Chris MD Dictat ed Date/T sheryl: 11:48 a Review ed By: Ryder Chris MD Signed By: Ryder Chris MD Signed Date/T sheryl: 11:48 am Transc ribed By: ALEJO Transc ribed Date/T sheryl: 11:48 am Patien t Class: Outpat ient [facility] (Outpt Imaging) [address] [place], [address], 05/26/2025 10:48:56 05/12/2005/12/2025 XR, knee, 3 view No observ ation record ed. [facility] [address], [address], 05/26/2025 10:48:56 05/19/20 ECG 12-le ad No observ ation record ed. [facility] [address] [facility] [[email or web address]], [place], [address], 05/20/2025 13:21:09 Result Notes None recorded. Problems Name Problem SNOMED Code Status Onset Date Resolution Date Notes Provider Name and Address Organization Details Recorded Time Allergic rhinitis 82442384 Active Not Available [facility] 3 12:19:13 Anxiety state 235569343 Active Not Available [facility] 3 12:19:13 Asthma 705520092 Completed 09/23/2018 José John MD [address] [facility] [facility] [address], [place], [address] , [facility] 9 08:14:02 Lesion of ulnar nerve 490426421 Completed 11/17/2023 Freddie Hathaway MD [address] [facility] [facility] [address], [place], [address] , [facility] 4 13:26:49 Pulmonar y emphysem a 43149580 Completed 09/21/2018 José John MD [address], [place], [address] , [facility] 9 15:50:02 Gastroes ophageal reflux disease 807052398 Active Not Available [facility] 3 12:19:13 Tobacco user 526807779 Completed 01/31/2017 Removal Reason: quit CHIDI Pelletier, [facility] 7 14:34:48 History of clinical finding in subject 870452362 Completed 01/31/2017 CHIDI Pelletier, [facility] 7 14:36:36 Hyperlip idemia 64755289 Active Not Available [facility] 3 12:19:13 Insomnia 314367003 Active Not Available [facility] 3 12:19:13 Migraine 30188092 Active Not Available [facility] 3 12:19:13 Obesity 101459991 Completed 09/23/2018 José John MD [address] [facility] [facility] [address], [place], [address] , [facility] 9 08:12:35 Plantar fascial fibromat osis 29317554 Completed 11/18/2024 Freddie Hathaway MD [address] [facility] [address], [place], [address] , [facility] 5 13:30:37 Lateral epicondy litis 598938735 Completed 09/23/2018 José John MD [address] [facility] [address], [place], [address] , [facility] 9 08:14:25 Neck pain 68785118 Completed 09/23/2018 José John MD [address] [facility] [address], [place], [address] , [facility] 9 08:12:39 Mild persiste nt asthma 550566653 Active Not Available [facility] 3 12:19:13 Fatigue 76300816 Completed 11/17/2023 Freddie Hathaway MD [address] [facility] [address], [place], [address] , [facility] 4 08:20:34 Degenera tion of lumbar interver tebral disc 29038229 Active Not Available [facility] 3 12:19:13 Major depressi ve disorder 481681100 Completed 02/19/2019 Kemi Murillo RN null, [facility] 9 15:20:59 Atypical chest pain 872651576 Completed 09/23/2018 José John MD [address] [facility] [address], [place], [address] , [facility] 9 08:14:19 Acute sinusiti s 65477887 Completed 01/31/2017 Mali henao MA null, [facility] 7 14:36:31 Herpes labialis 1014325 Active Not Available [facility] 3 12:19:13 Helicoba cter detected by serology 276732508 Completed 11/17/2023 Freddie Hathaway MD [address], [place], [address] , [facility] 4 13:25:33 Candidia sis of mouth 71784868 Completed 09/23/2018 José John MD [address], [place], [address] , [facility] 9 08:12:42 Low back pain 700753478 Completed 09/23/2018 José John MD [address], [place], [address] , [facility] 9 08:13:27 Heartbur n 10405829 Completed 11/17/2023 Freddie Hathaway MD [address] [facility] [address], [place], [address] , [facility] 4 13:24:36 Asthma 400384098 Active Not Available [facility] 3 12:19:13 Herpes simplex 80380653 Completed 11/17/2023 Freddie Hathaway MD [address] [facility] [address], [place], [address] , [facility] 4 13:25:55 Chronic back pain 934814396 Active Not Available [facility] 3 12:19:13 Administ ration of bacteria l and viral vaccine Completed 200801/21/2014 RECORDED 09/27/19 09 3:30PM BY DRISS STEELE, OFFICE VISIT Not Available [facility] 4 14:38:56 Administ ration of bacteria l and viral vaccine Completed 200802/10/2014 RECORDED 09/27/19 09 3:30PM BY DRISS STEELE, OFFICE VISIT Not Available [facility] 4 06:47:55 Tobacco dependen ce syndrome 79292103 Completed 201001/21/2014 RECORDED 12/08/19 11 10:25AM BY MALILUCHO STEELE MA, MELODIE ON/ADDEN DUM Not Available [facility] 4 14:38:56 Tobacco dependen ce syndrome 90969269 Completed 201002/10/2014 RECORDED 12/08/19 11 10:25AM BY MALI STEELE MA, MELODIE ON/ADDEN DUM Not Available [facility] 4 06:47:56 Acute pyelonep hritis without medullar y necrosis 488400061 Completed 201101/21/2014 RECORDED 02/07/20 12 1:32PM BY MALI STEELE MA, MELODIE ON/ADDEN DUM Not Available [facility] 4 14:38:54 Chest pain 90338772 Completed 201101/21/2014 STORY: NOTES SINGLE EPISODE OF SUBSTERN AL CHEST PAIN AT REST. STATES EPISODE LAST 45MIN. SOME NAUSEA.; RECORDED 02/07/20 12 1:32PM BY MALI STEELE MA, MELODIE ON/ADDEN DUM Not Available [facility] 4 14:38:55 Headache 43035954 Completed 201101/21/2014 RECORDED 02/07/20 12 1:32PM BY MALI STEELE MA, MELODIE ON/ADDEN DUM Not Available [facility] 4 14:38:55 Pain of elbow region 63344339 Completed 201101/21/2014 IMPRESSI ON: R SIDED, NO HX OF TRAUMA OR INJURY. PAIN X 2 DAYS. PT WITH CONCERN RE BURSITIS , NO SWELLING OR DEFORMIT Y. PAIN OVER TRICEPS TENDON. ADVISED RE REST, ICE, NSAID FOR PAIN. WILL CHECK XRAY AND CONTACT PT WITH REPORT. HE IS TO CALL SOONER PRN.; RECORDED 02/07/20 12 1:32PM BY MALI STEELE MA, MELODIE ON/ADDEN DUM Not Available [facility] 4 14:38:55 Blood in urine 24438558 Completed 201101/21/2014 RECORDED 02/07/20 12 1:32PM BY MALI STEELE MA, ANNOTATI ON/ADDEN DUM Not Available [facility] 4 14:38:55 Kidney stone 16316199 Completed 201101/21/2014 STORY: HISTORY OF PRIOR PYELONEP HRITIS AND HEMATURI A; RECORDED 02/07/20 12 1:32PM BY MALI STEELE MA, MELODIE ON/ADDEN DUM Not Available [facility] 4 14:38:56 Otalgia 71444007 Completed 201101/21/2014 IMPRESSI ON: SXS YESTERDA Y, IMPROVIN G TODAY. NORMAL EXAM. REASSURE D. PT TO CALL PRN.; RECORDED 02/07/20 12 1:32PM BY MALI STEELE MA, MELODIE ON/ADDEN DUM Not Available [facility] 4 14:38:56 Knee pain Completed 201101/21/2014 RECORDED 02/07/20 12 1:32PM BY MALI STEELE MA, MELODIE ON/ADDEN DUM Not Available [facility] 4 14:38:56 Sprain of foot 78939109 Completed 201101/21/2014 RECORDED 02/07/20 12 1:32PM BY MALI STEELE MA, MELODIE ON/ADDEN DUM Not Available [facility] 4 14:38:56 Syncope and collapse 934306225 Completed 201101/21/2014 RECORDED 02/07/20 12 1:32PM BY MALI STEELE MA, ANNOTATI ON/ADDEN DUM Not Available [facility] 4 14:38:56 Viral disease 50035743 Completed 201101/21/2014 RECORDED 02/07/20 12 1:32PM BY MALI STEELE MA, ANNOTATI ON/ADDEN DUM Not Available [facility] 4 14:38:57 Wheezing 78092776 Completed 201101/21/2014 RECORDED 02/07/20 12 1:32PM BY MALI STEELE MA, ANNOTATI ON/ADDEN DUM Not Available [facility] 4 14:38:57 Acute pyelonep hritis without medullar y necrosis 943583782 Completed 201102/10/2014 RECORDED 02/07/20 12 1:32PM BY MALI STEELE MA, MELODIE ON/ADDEN DUM Not Available [facility] 4 06:47:55 Chest pain 51922401 Completed 201102/10/2014 STORY: NOTES SINGLE EPISODE OF SUBSTERN AL CHEST PAIN AT REST. STATES EPISODE LAST 45MIN. SOME NAUSEA.; RECORDED 02/07/20 12 1:32PM BY MALI STEELE MA, MELODIE ON/ADDEN DUM Not Available [facility] 4 06:47:55 Headache 56532267 Completed 201102/10/2014 RECORDED 02/07/20 12 1:32PM BY MALI STEELE MA, MELODIE ON/ADDEN DUM Not Available [facility] 4 06:47:55 Pain of elbow region 45775986 Completed 201102/10/2014 IMPRESSI ON: R SIDED, NO HX OF TRAUMA OR INJURY. PAIN X 2 DAYS. PT WITH CONCERN RE BURSITIS , NO SWELLING OR DEFORMIT Y. PAIN OVER TRICEPS TENDON. ADVISED RE REST, ICE, NSAID FOR PAIN. WILL CHECK XRAY AND CONTACT PT WITH REPORT. HE IS TO CALL SOONER PRN.; RECORDED 02/07/20 12 1:32PM BY MALI STEELE MA, ANNOTATI ON/ADDEN DUM Not Available [facility] 4 06:47:55 Blood in urine 22248211 Completed 201102/10/2014 RECORDED 02/07/20 12 1:32PM BY MALI STEELE MA, ANNOTATI ON/ADDEN DUM Not Available [facility] 4 06:47:55 Kidney stone 36564114 Completed 201102/10/2014 STORY: HISTORY OF PRIOR PYELONEP HRITIS AND HEMATURI A; RECORDED 02/07/20 12 1:32PM BY MALI STEELE MA, MELODIE ON/ADDEN DUM Not Available [facility] 4 06:47:55 Otalgia 59030937 Completed 201102/10/2014 IMPRESSI ON: SXS YESTERDA Y, ELHAM G TODAY. NORMAL EXAM. REASSURE D. PT TO CALL PRN.; RECORDED 02/07/20 12 1:32PM BY MALI STEELE MA, MELODIE ON/ADDEN DUM Not Available [facility] 4 06:47:56 Knee pain Completed 201102/10/2014 RECORDED 02/07/20 12 1:32PM BY MALI STEELE MA, MELODIE ON/ADDEN DUM Not Available [facility] 4 06:47:56 Sprain of foot 13273079 Completed 201102/10/2014 RECORDED 02/07/20 12 1:32PM BY MALI STEELE MA, MELODIE ON/ADDEN DUM Not Available [facility] 4 06:47:56 Syncope and collapse 705232587 Completed 201102/10/2014 RECORDED 02/07/20 12 1:32PM BY MALI STEELE MA, MELODIE ON/ADDEN DUM Not Available [facility] 4 06:47:56 Viral disease 32293561 Completed 201102/10/2014 RECORDED 02/07/20 12 1:32PM BY MALI STEELE MA, MELODIE ON/ADDEN DUM Not Available [facility] 4 06:47:56 Wheezing 03653805 Completed 201102/10/2014 RECORDED 02/07/20 12 1:32PM BY MALI STEELE MA, MELODIE ON/ADDEN DUM Not Available [facility] 4 06:47:56 Bronchit is 55311208 Completed 201201/21/2014 RECORDED 08/07/19 13 9:16AM BY MELODIE JONES ON/ADDEN DUM Not Available [facility] 4 14:38:55 Bronchit is 34171454 Completed 201202/10/2014 RECORDED 08/07/19 13 9:16AM BY JEANNETTE JONESATI ON/ADDEN DUM Not Available [facility] 4 06:47:55 Renewal of prescrip tion Completed 201201/21/2014 RECORDED 10/04/19 13 9:02AM BY KACY COLEMAN MA, ANNOTATI ON/ADDEN DUM Not Available [facility] 4 14:38:56 [facility] 63560236 Completed 201201/21/2014 RECORDED 10/04/19 13 9:02AM BY KACY COLEMAN MA, ANNOTATI ON/ADDEN DUM Not Available [facility] 4 14:38:56 Renewal of prescrip tion Completed 201202/10/2014 RECORDED 10/04/19 13 9:02AM BY KACY COLEMAN MA, MELODIE ON/ADDEN DUM Not Available [facility] 4 06:47:55 [facility] 08888672 Completed 201202/10/2014 RECORDED 10/04/19 13 9:02AM BY KACY COLEMAN MA, ANNOTATI ON/ADDEN DUM Not Available [facility] 4 06:47:56 Tobacco user 583358475 Completed 201201/21/2014 RECORDED 11/24/19 13 8:46AM BY MALI STEELE MA, ANNOTATI ON/ADDEN DUM CHIDI Pelletier MA - [facility] 7 14:34:48 Acute asthma 887845486 Completed 201201/21/2014 RECORDED 02/05/20 13 10:50AM BY RUSSELL CAT MA, MELODIE ON/ADDEN DUM Not Available [facility] 4 14:38:54 Chronic sinusiti s 11267558 Completed 201201/21/2014 RECORDED 02/05/20 13 10:50AM BY RUSSELL CAT MA, ANNOTATI ON/ADDEN DUM Not Available [facility] 4 14:38:56 Acute asthma 488981572 Completed 201202/10/2014 RECORDED 02/05/20 13 10:50AM BY RUSSELL CAT MA, ANNOTATI ON/ADDEN DUM Not Available [facility] 4 06:47:55 Chronic sinusiti s 99410911 Completed 201202/10/2014 RECORDED 02/05/20 13 10:50AM BY RUSSELL CAT MA, ANNOTATI ON/ADDEN DUM Not Available [facility] 4 06:47:56 Acute pharyngi tis 085307834 Completed 201201/21/2014 RECORDED 02/12/20 13 1:05PM BY MALI STEELE MA, ANNOTATI ON/ADDEN DUM Not Available [facility] 4 14:38:54 Acute sinusiti s 55274380 Completed 201201/21/2014 RECORDED 02/12/20 13 1:05PM BY MALI STEELE MA, ANNOTATI ON/ADDEN DUM CHIDI Pelletier [place] - [facility] 7 14:36:31 Acute pharyngi tis 673081701 Completed 201202/10/2014 RECORDED 02/12/20 13 1:05PM BY MALI STEELE MA, ANNOTATI ON/ADDEN DUM Not Available [facility] 4 06:47:55 Acute sinusiti s 63974593 Completed 201202/10/2014 RECORDED 02/12/20 13 1:05PM BY MALI STEELE MA, ANNOTATI ON/ADDEN DUM CHIDI Pelletier [facility] 7 14:36:31 Left upper quadrant pain 161478814 Completed 201201/21/2014 RECORDED 05/08/20 13 10:40AM BY MALI STEELE MA, JEANNETTEATI ON/ADDEN DUM Not Available [facility] 4 14:38:54 Follow-u p encounte r Completed 201201/21/2014 RECORDED 05/08/20 13 10:39AM BY MALI STEELE MA, ANNOTATI ON/ADDEN DUM Not Available [facility] 4 14:38:55 Malaise and fatigue 964072158 Completed 201201/21/2014 RECORDED 05/08/20 13 10:39AM BY MALI STEELE MA, ANNOTATI ON/ADDEN DUM Not Available [facility] 4 14:38:55 Adult health examinat ion Completed 201201/21/2014 RECORDED 05/08/20 13 10:39AM BY MALI STEELE MA, ANNOTATI ON/ADDEN DUM Not Available [facility] 4 14:38:55 Left upper quadrant pain 054793692 Completed 201202/10/2014 RECORDED 05/08/20 13 10:40AM BY MALI STEELE MA, ANNOTATI ON/ADDEN DUM Not Available [facility] 4 06:47:55 Follow-u p encounte r Completed 201202/10/2014 RECORDED 05/08/20 13 10:39AM BY MALI STEELE MA, ANNOTATI ON/ADDEN DUM Not Available [facility] 4 06:47:55 Malaise and fatigue 866806580 Completed 201202/10/2014 RECORDED 05/08/20 13 10:39AM BY MALI STEELE MA, ANNOTATI ON/ADDEN DUM Not Available [facility] 4 06:47:55 Adult health examinat ion Completed 201202/10/2014 RECORDED 05/08/20 13 10:39AM BY MALI STEELE MA, ANNOTATI ON/ADDEN DUM Not Available [facility] 4 06:47:55 Pain in limb 55659281 Completed 201301/21/2014 RECORDED 07/31/19 14 11:03AM BY MALILUCHO STEELE MA, ANNOTATI ON/ADDEN DUM Not Available [facility] 4 14:38:56 Abdomina l pain 45352021 Completed 201301/21/2014 RECORDED 07/31/19 14 11:03AM BY MALI STEELE MA, ANNOTATI ON/ADDEN DUM Not Available [facility] 4 14:38:56 Pain in limb 89695226 Completed 201302/10/2014 RECORDED 07/31/19 14 11:03AM BY MALI STEELE MA, ANNOTATI ON/ADDEN DUM Not Available [facility] 4 06:47:56 Abdomina l pain 76684132 Completed 201302/10/2014 RECORDED 07/31/19 14 11:03AM BY MALI STEELE MA, ANNOTATI ON/ADDEN DUM Not Available [facility] 4 06:47:56 Disorder of lower extremit y Completed 201301/21/2014 RECORDED 08/13/19 14 12:52PM BY YAMILE MAKI MA, ANNOTATI ON/ADDEN DUM Not Available [facility] 4 14:38:54 History of depressi on 143839535 Completed 201301/21/2014 RECORDED 08/13/19 14 12:53PM BY YAMILE MAKI MA, ANNOTATI ON/ADDEN DUM Not Available [facility] 4 14:38:55 Disorder of lower extremit y Completed 201302/10/2014 RECORDED 08/13/19 14 12:52PM BY YAMILE MAKI MA, ANNOTATI ON/ADDEN DUM Not Available [facility] 4 06:47:55 History of depressi on 698963361 Completed 201302/10/2014 RECORDED 08/13/19 14 12:53PM BY YAMILE MAKI MA, ANNOTATI ON/ADDEN DUM Not Available [facility] 4 06:47:55 Meralgia paresthe jagdeep 73051707 Active 2015 Dx: G57.11; numbness and burning in outer thigh Not Available [facility] 3 12:19:14 Ex-smoke r 4578748 Active 2016 Not Available [facility] 3 12:19:14 Mild intermit tent asthma 046039974 Completed 201809/23/2018 José John MD [address] [facility] [facility] [address], [place], [address] , [facility] 9 08:15:52 Uncompli cated mild persiste nt asthma 844422216 Completed 201809/23/2019 José John MD [address] [facility] [facility] [address], [place], [address] , [facility] 0 19:55:46 Moderate major depressi on 406753 Completed 201811/17/2023 Freddie Hathaway MD [address] [facility] [address], [address] , [facility] 4 13:28:48 Serum creatini ne above referenc e range 984777186 Completed 201809/23/2019 José John MD [address] [facility] [address], [place], [address] , [facility] 0 19:55:30 Hiatal hernia 74206986 Active 2018 Not Available [facility] 3 12:19:14 Morbid obesity 340364046 Active 2019 Not Available [facility] 3 12:19:13 Hypoglyc emia 276909027 Completed 202011/17/2023 Freddie Hathaway MD [address] [facility] [place], [address] , [facility] 4 13:26:03 Left lateral elbow tendinop athy 31375756337 9100 Completed 202011/17/2023 Freddie Hathaway MD [address] [facility] [address], [address] , [facility] 4 13:26:42 Hyperten sive disorder 40718804 Active 2020 Martine Craft MA null, [facility] 4 14:17:09 Chronic kidney disease stage 2 079062552 Completed 202006/30/2021 Martine Craft MA null, [facility] 4 14:17:09 Obstruct usman sleep apnea syndrome 80955659 Active 2021 Not Available [facility] 3 12:19:13 Degenera tion of cervical interver tebral disc 84626119 Active 2021 Not Available [facility] 3 12:19:13 Primary erectile dysfunct ion 303017486 Active 2021 Not Available [facility] 3 12:19:13 Anal fissure 58800021 Active 2022 Xavier Brooks, [facility] [address] [facility] [address], [place], [address] , [facility] 3 11:50:26 Acute prostati tis 59080157 Completed 202211/17/2023 Freddie Hathaway MD [address], [place], [address] , [facility] 4 13:23:54 Pain of left knee joint 17528367860 4107 Completed 202211/18/2024 Freddie Hathaway MD [address], [place], [address] , [facility] 5 13:27:25 Pain of right knee joint 20614929525 4100 Active 2022 Xavier Brooks, [facility] [address], [place], [address] , [facility] 3 13:10:57 History of Helicoba cter pylori infectio n 13133882456 898498 Active 2023 Freddie Hathaway MD [address], [place], [address] , [facility] 4 13:25:14 Major depressi on in remissio n 62946629 Active 2023 Freddie Hathaway MD [address], [place], [address] , [facility] 4 13:28:43 Chronic pain syndrome 129786306 Active 2023 Freddie Hathaway MD [address], [place], [address] , [facility] 4 07:50:05 Incision al hernia 973174932 Active 2024 Freddie Hathaway MD [address], [place], [address] , [facility] 5 13:29:31 Pain of knee region 4444314934 Active 2024 Teri Panda null, [facility] 5 12:25:03 Pernicio us anemia 56036560 Active 2024 Moreno doyle [place] null, [facility] 5 13:36:18 Neuropat hy 172029300 Active 2024 PK MIRANDA [address] [facility] [address], [place], [address] , [facility] 5 13:47:38 Blood pressure above referenc e range 64954969 Active 2024 PK MIRANDA [address] [facility] [address], [place], [address] , [facility] 5 13:54:14 Change in skin lesion 685351826 Active 2024 PK MIRANDA [address], [place], [address] , [facility] 5 14:30:34 Mari ceja 42197495 Active 2024 ALBAN Wang, [facility] [address] [facility] [address], [place], [address] , [facility] 5 12:16:04 Problem Notes None recorded. Procedures Surgical History Date Name Laterality Status Provider Name and Address Organization Details Recorded Time 05/12/20 Chronic Pain Assessment completed Mali smith MA [facility] 05/12/2025 10:16:57 06/18/20 24 Chronic Pain Assessment completed Mali smith MA [facility] 06/18/2024 15:30:34 09/25/19 24 circumcision completed Freddie Hathaway MD [address] [facility] [address], [place], [address], [facility] 11/17/2023 13:33:39 10/05/19 22 Chronic Pain Assessment completed Mali smith MA [facility] 10/04/2021 13:54:52 09/29/19 21 Six-Item Cognitive Test completed Juana Miner MA [facility] 09/28/2020 13:38:47 09/04/19 21 Upper gi endoscopy performed completed Prachi Teran [facility] 09/03/2020 13:44:48 08/20/19 20 laparoscopic appendectomy completed Esthela Mercer [facility] 08/21/2019 10:00:45 04/11/20 17 Polysom 6/> yrs 4/> antony completed Mali smith MA [facility] 04/17/2017 10:49:10 05/12/20 16 Colonoscopy completed Mali smith MA [facility] 01/31/2017 14:39:56 I&d abscess simple/single completed Priscila Porter [facility] 11/03/2020 11:22:34 Imaging Results None recorded. Procedure Notes None recorded. Medical Equipment None Reported. Allergies Allergen ID Allergen Name Allergen Category Reaction Reaction Severity Criticality Documentation Date Start Date Code Code System Note Provider Name and Address Organization Details Recorded Time 19293 No known allergy (situatio n) Not available Not available Not available Not available 03/13/2024 [id number] SNOMED CHIDI Jones, [facility] 4 14:16:56 No known drug [...] active RECORDED 09/22/19 12 10:48AM BY MELODIE CESPEDES/CROW ELENA; Not Available Not Available Not Available [...] 06/30 completed RECORDED 07/27/19 11 1:54PM BY MALI STEELE MA, MEDICATI ON AUTO-ILYA CTIVATIO N; Not Available Not Available Not Available naproxen TWO TIMES DAILY 06/14 completed RECORDED 06/14/20 10 11:27AM BY MALI STEELE MA, OFFICE VISIT; Not Available Not [...] Not Available Not Avai lable Afluria Qd (36 mos up)(PF)60 mcg (15 mcg x4)/0.5 [...] Not Available Not Available Not Available Vitals None Recorded Social History Question Answer Notes LastModified by Organizat ion Details LastModified Time Tobacco Smoking Status Former Smoker quit in 07/2010 CHIDI Curran [facility] 04/18/2014 10:42:29 Do You Have An Advance Directive? Yes HCP [email or web address] Information not available 11/08/2021 Is Blood Transfusion [...] None Information not available 04/18/2014 Education 12 [email or web address] Information not available 11/08/2021 When Did You Quit Smoking? 11-15yearssi [email or web address] ette Information not available 11/08/2021 Live Alone Or With Others? With Others Quentin Milligan) And 2 Stepchildren [email or web address] Information not available 11/08/2021 Do You Take [...] Information not available 07/27/2020 Marital Status Single [email or web address] Informatio n not available 11/08/2021 What Was The Date Of Your Most Recent Tobacco Screening? 05/12/2025 Information not available 05/12/2025 How Many Children Do You Have? 0 Information not available 04/18/2014 What Is Your Current Pack Years? 10packyears [email or web address] Information not available 11/08/2021 Do You Use Protection During Sex? No Information not available 05/01/2015 Seat Belts Used Routinely Yes [email or web address] Information not available 11/08/2021 Are You Sexually Active? Yes Aarti Information not available 11/17/2023 Smoke Alarm In Home Yes Information not available 11/08/2021 At What Age [...] use any illicit or recreational drugs? No [email or web address] Information not available 11/08/2021 Do you or have you ever used any other forms of tobacco or nicotine? No [email or web address] Information not available 11/08/2021 What is your level of alcohol consumption? None Information not available 04/18/2014 Do you or have you ever used smokeless tobacco? Never used smokeless tobacco Information not available 09/23/2019 Are you currently employed? No disabled due to back issues Information not available 04/18/2014 Are you able to walk independently without assistance or assistive devices? YESWOREST [email or web address] Information not available 11/08/2021 Are you able to care for yourself independently? 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 Never used electronic cigarettes Information not available 11/08/2021 What is your exercise level? Occasional walking Information not available 05/01/2015 Mental Status None recorded. Family History Relationship Description Onset Age of this Age Resolved Age Notes LastModified by Organization Details LastModified Time Mother Essential hypertension Not available 14:25:06 Mother Diabetes mellitus [email or web address] s Not available 11/02/2015 10:09:52 Mother Asthma [email or web address] s Not available 11/02/2015 10:09:52 Mother Glaucoma [email or web address] s Not available 11/17/2023 13:17:00 Mother Cataract [email or web address] s Not available 11/17/2023 13:17:06 Father Essential hypertension [email or web address] Not available 14:25:06 Father Prostatism [email or web address] Not avail able 11/08/2021 14:25:06 Father Heart disease 68 [email or web address] Not available 11/29 11:41:41 Maternal Grandfather Primary malignant neoplasm of lung [email or web address] Not available 11/08 14:25:06 Medical History Condition Response Anxiety Disorder Y Obesity Y Depression Y Immunizations Vaccine Type Date Status Note Provider Nam e and Address Organization Details Recorded Time Influenza, split virus, trivalent, preservative 7 completed Not Available [facility] 05/17/2023 15:46:02 Influenza, split virus, quadrivalent, preservative 9 completed TANI Lindsay [facility] 07/24/2023 15:15:16 Influenza, split virus, quadrivalent, preservative 0 completed TANI Lindsay [facility] 07/24/2023 15:15:16 Influenza, split virus, quadrivalent, PF 0 completed Not Available [facility] 05/17/2023 15:46:02 COVID-19, mRNA, LNP-S, PF, 100 mcg/0.5mL dose or 50 mcg/0.25mL dose 1 completed Not Available [facility] 05/17/2023 15:46:02 COVID-19, mRNA, LNP-S, PF, 100 mcg/0.5mL dose or 50 mcg/0.25mL dose 1 completed Not Available [facility] 05/17/2023 15:46:02 Influenza, MDCK, quadrivalent, PF 9 completed Not Available [facility] 05/17/2023 15:46:02 Influenza, MDCK, quadrivalent, PF 7 completed Not Available [facility] 05/17/2023 15:46:02 Influenza, MDCK, quadrivalent, PF 6 completed Not Available [facility] 05/17/2023 15:46:02 Influenza, split virus, trivalent, PF 4 completed Not Available [facility] 05/17/2023 15:46:02 Influenza, split virus, quadrivalent, PF 5 completed Not Available [facility] 05/17/2023 15:46:03 Td (adult), 2 Lf tetanus toxoid, preservative free, adsorbed 9 completed Not Available [facility] 05/17/2023 15:46:02 Influenza, split virus, quadrivalent, PF 8 completed Not Available [facility] 05/17/2023 15:46:02 zoster recombinant 3 completed Not Available [facility] 05/17/2023 15:46:02 zoster recombinant 3 completed Nury Galan LPN null, [facility] 07/24/2023 15:15:17 Tdap 4 completed Mali Mendez MA null, [facility] 06/18/2024 15:09:13 Pneumococcal conjugate PCV20, polysaccharide ODI810 conjugate, adjuvant, PF 5 completed Ofelia Watkins null, [facility] 07/12/2024 09:10:54 COVID-19, mRNA, LNP-S, PF, jen-sucrose, 30 mcg/0.3 mL 5 completed CHIDI Camargo, [facility] 07/26/2024 13:39:45 Influenza, split virus, quadrivalent, PF 2 completed Freddie Hathaway MD [address] [address], [place], [address], [facility] 05/17/2022 14:52:47 Tdap 9 completed Not Available [facility] 05/17/2023 15:46:02 Influenza, split virus, trivalent, PF 4 completed Freddie Hathaway MD [address], [address], [facility] 06/19/2024 12:48:41 Influenza, split virus, trivalent, PF 5 completed CHIDI Curran, [facility] 03/20/2025 14:38:37 Past Encounters Encounter ID Performer Location Encounter Start Date Encounter Closed Date Diagnosis/Indication Diagnosis SNOMED-CT Code Diagnosis ICD10 Code Diagnosis IMO Codes Diagnosis Note [id number] Malcolm Bear MD Main Office [address] [address] 05/06/2025 13:19:08 05/06/2025 15:01:12 Pernicious anemia 13016360 D51.9 [id number] Freddie Hathaway MD Main Office [address] [address] 05/12/2025 10:01:19 05/12/2025 10:48:01 Chronic pain syndrome 958541657 G89.4 -The patient is stable on Tramadol and agrees to continue the current regimen for now.-Discu ssed risks associated with narcotic use, including dependency and side effects.-A dvised that if pain worsens or becomes unmanageab le, I will refer him to pain management .-Notes he is having bowel movement and passing gas.-Contr ol substance up to date. Degenerati on of lumbar intervertebral disc 84522490 M51.360 Degenerati on of cervical intervertebral disc 19801588 M50.30 Obstructiv e sleep apnea syndrome 43071207 G47.33 -Patient reports not tolerating CPAP therapy.-P rovided education on sleep apnea, including the importance of treatment adherence and alternativ e options (e.g., mouth guards). He is now on zepbound. Pain of knee region [id number] [id number] M25.561 M25.562 [id number] -Will get xray.-Dicl ofenac gel PRN will avoid oral due to NSAID mild renal derangemen t, he is seeing renal for this.-Advi sed PT.-Will consider ortho after PT. [id number] Godwin Diaz MD [address] [address] 06/05/2025 13:22:46 06/05/2025 13:39:59 Pernicious anemia 87111900 D51.9 Health Concerns Section Related Observation LastModified by Organization Detai ls LastModified Time None Recorded Concern Status LastModified by Organization Details LastModified Time None Recorded Payers Encounter Date Sequence Insurance Name Policy Number Policy Steen Covered Member ID Steen Member ID Guarantor Name 06/05/2025 2 [place] [facility] Ramírez Mena [id number] Ramírez Mena 06/05/2025 1 [facility] - DOS ON OR AFTER 2022 - DUAL ELIGIBLE - [employer]PC OPTIONS AND ONE CARE (MEDICARE REPLACEMENT/A DVANTAGE - HMO) Ramírez Mena [id number] Ramírez Mena
--- OUTSIDE RECORDS SUMMARY | 2025-06-25 13:35 | XMS_ITS | Continuity of Care Document ---
Author Organization [facility], Main Office Address [address] [place] [address] Care Team Providers Care Elevator Adjuster Name Role Phone BLUE MC Ict Managers [phone] EDELMIRA NEWTON Phys. Med. & Rehab [facility] COMPREHENSIVE ADULT WEIGHT MANAGEMENT N utritionist CHRISTIANO SONG MD Sleep Medicine [phone] MATTHEW GARCIA Instructional Designer [facility] UROLOGY Urologist [phone] IAIN COBB Health Navigator ALISHA SNIDER General Surgeon [facility] Sleep [facility] SUDARSHAN BAKER Pocket Machine Operator [phone] FREDDIE HATHAWAY Primary Care Provider [phone] [facility] Chiller Tender MELISA CORBETT Neurologist Assessment No assessment recorded. Plan of Treatment Reminders Order Date Submit Date Provider Last Modified By Organization Details Last Modified Time Details Appointments FOLLOW UP 2024 11:00A M Freddie Hathaway MD Not available Not available Not available CHIDI 2025 01:15P M CHIDI SCHEDULE Not available Not available Not available Lab None recorded. Referral physical therapist referral 2024 025 [email or web address] Not available 05/12/2025 15:36:59 Procedures None recorded. Surgeries None recorded. Imaging XR, knee, 3 view 2024 025 QIANA Not available 05/12/2025 12:18:53 XR, knee, weightbea ring 2024 QIANA Not available 05/12/2025 11:53:48 Medication Orders diclofena c 1 % topical gel 2024 QIANA [id number], [phone] [place], [address], 05/12/2025 10:42:48 Patient TargetsNo targets recorded. Patient Instructions Encounter Date Encounter Id Patient Instructions Last Modified By Organization Details Last Modified Time 05/12/2025 [id number] knee arthritis: exercises [email or web address] Not available 05/12/2025 [...] chronic, non-malignant pain. 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 [email or web address] Not available 05/12/2025 10:12:26 Reason for Referral Physical Therapist Referral for Pain of knee region Referring Physician: Freddie Hathaway, Family Medicine, Encounter Date: 05/12/2025 Results Created Date Observation Date Name Description Value Unit Range Abnormal Flag Note LastModifiedBy Organization Detail LastModifiedTime 04/22/2004/22/2025 elect romyo gram + nerve condu ction study No observ ation record ed. QIANA [facility] (Medical Records) [address] [place], [address], 04/26/2025 02:29:19 04/24/2004/22/2025 elect romyo gram + nerve condu ction study No observ ation record ed. [facility] (Medical Records) [address] [place], [address], 04/25/2025 12:27:09 05/12/2005/12/2025 XR, knee, weigh tbear [...] effusi on. IMPRES WILDER: Normal . WSN: [id number] Orderi ng Physic berna: Alyce Hathaway Dictat ed By: Ryder Chris MD Dictat ed Date/T sheryl: 11:48 a Review ed By: Ryder Chris MD Signed By: Ryder Chris MD Signed Date/T sheryl: 11:48 am Transc ribed By: ALEJO Transc ribed Date/T sheryl: 11:48 am Patien t Class: Outpat ient [facility] (Outpt Imaging) [address], [place], [address], 05/26/2025 10:48:56 05/12/2005/12/2025 XR, knee, 3 view No observ ation record ed. [facility] [address], [address], 05/26/2025 10:48:56 05/19/20 25 ECG 12-le ad No observ ation record ed. [facility] [address] [place], [place], [address], 05/20/2025 13:21:09 Result Notes Documentation Provider Name and Address Organization Details Recorded Time Xr, Knee, Weightbearing : Knees Bilat Standing, 3 views Reason: bilateral knee pain; Special Instructions: weightbearing COMPARISON: 04/07/2017. FINDINGS: No bone lesions or fractures. No arthritic changes. No osteochondral defects or intra-articular loose bodies. No evidence of joint effusion. IMPRESSION: Normal. WSN: [id number] Ordering Physician: Freddie Hathaway Dictated By: Chapin Villegas MD Dictated Date/Time: 05/12/25 11:48 a Reviewed By: Chapin Villegas MD Signed By: Chapin Villegas MD Signed Date/Time: 05/12/25 11:48 am Transcribed By: ALEJO Transcribed Date/Time: 05/12/25 11:48 am Patient Class: Outpatient CHIDI Alarcon, [facility] 05/26/2025 10:48:56 Problems Name Problem SNOMED Code Status Onset Date Resolution Date Notes Provider Name and Address Organization Details Recorded Time Allergic rhinitis 12667649 Active Not Available [facility] 3 12:19:13 Anxiety state 410989520 Active Not Available [facility] 3 12:19:13 Asthma 223108117 Completed 09/23/2018 José John MD [address], [place], [address] , [facility] [place] 9 08:14:02 Lesion of ulnar nerve 725519270 Completed 11/17/2023 Freddie Hathaway MD [address], [place], [address] , [facility] 4 13:26:49 Pulmonar y emphysem a 41630164 Completed 09/21/2018 José John MD [address], [place], [address] , [facility] [place] 9 15:50:02 Gastroes ophageal reflux disease 916265914 Active Not Available [facility] hospital 3 12:19:13 Tobacco user 236095445 Completed 01/31/2017 Removal Reason: quit [place] CHIDI Nasciemnto, [facility] 7 14:34:48 History of clinical finding in subject 385697334 Completed 01/31/2017 [place] CHIDI Nascimento, [facility] 7 14:36:36 Hyperlip idemia 06057549 Active Not Available Critical access hospital 3 12:19:13 Insomnia 705099366 Active Not Available [facility] 3 12:19:13 Migraine 59086585 Active Not Available [facility] access hospital 3 12:19:13 Obesity 827580117 Completed 09/23/2018 José John MD [address] [address], [place], [address] , [facility] [place] 9 08:12:35 Plantar fascial fibromat osis 58247937 Completed 11/18/2024 Freddie Hathaway MD [address] [address], [place], [address] , [facility] 5 13:30:37 Lateral epicondy litis 417787565 Completed 09/23/2018 José John MD [address] [address], [place], [address] , [facility] 9 08:14:25 Neck pain 64792337 Completed 09/23/2018 José John MD [address] [address], [place], [address] , [facility] 9 08:12:39 Mild persiste nt asthma 606214961 Active Not Available Critical access hospital 3 12:19:13 Fatigue 14898485 Completed 11/17/2023 Freddie Hathaway MD [address] [facility] [address], [place], [address] , [facility] 4 08:20:34 Degenera tion of lumbar interver tebral disc 21017328 Active Not Available Critical access hospital 3 12:19:13 Major depressi ve disorder 604349548 Completed 02/19/2019 Kemi Murillo RN null, [facility] 9 15:20:59 Atypical chest pain 248233996 Completed 09/23/2018 José John MD [address], [place], [address] , [facility] 9 08:14:19 Acute sinusiti s 85667485 Completed 01/31/2017 [place] henao [place] null, [facility] 7 14:36:31 Herpes labialis 5061938 Active Not Available Critical access hospital 3 12:19:13 Helicoba cter detected by serology 793888658 Completed 11/17/2023 Freddie Hathaway MD [address], [place], [address] , [facility] 4 13:25:33 Candidia sis of mouth 57323757 Completed 09/23/2018 José John MD [address] [facility] [address], [place], [address] , [facility] 9 08:12:42 Low back pain 844328009 Completed 09/23/2018 José John MD [address] [facility] [address], [place], [address] , [facility] [place] 9 08:13:27 Heartbur n 11219228 Completed 11/17/2023 Freddie Hathaway MD [address] [facility] [address], [place], [address] , [facility] [place] 4 13:24:36 Asthma 226217757 Active Not Available [facility] 3 12:19:13 Herpes simplex 36715005 Completed 11/17/2023 Freddie Hathaway MD [address], [place], [address] , [facility] 4 13:25:55 Chronic back pain 661189891 Active Not Available [facility] 3 12:19:13 Administ ration of bacteria l and viral vaccine Completed 200801/21/2014 RECORDED 09/27/19 09 3:30PM BY DRISS STEELE, OFFICE VISIT Not Available [facility] 4 14:38:56 Administ ration of bacteria l and viral vaccine Completed 200802/10/2014 RECORDED 09/27/19 09 3:30PM BY DRISS STEELE, OFFICE VISIT Not Available [facility] 4 06:47:55 Tobacco dependen ce syndrome 52999771 Completed 201001/21/2014 RECORDED 12/08/19 11 10:25AM BY MALI STEELE MA, ANNOTATI ON/ADDEN DUM Not Available [facility] 4 14:38:56 Tobacco dependen ce syndrome 21971717 Completed 201002/10/2014 RECORDED 12/08/19 11 10:25AM BY MALI STEELE MA, ANNOTATI ON/ADDEN DUM Not Available [facility] 4 06:47:56 Acute pyelonep hritis without medullar y necrosis 456778273 Completed 201101/21/2014 RECORDED 02/07/20 12 1:32PM BY MALI STEELE MA, ANNOTATI ON/ADDEN DUM Not Available [facility] 4 14:38:54 Chest pain 85933234 Completed 201101/21/2014 STORY: NOTES SINGLE EPISODE OF SUBSTERN AL CHEST PAIN AT REST. STATES EPISODE LAST 45MIN. SOME NAUSEA.; RECORDED 02/07/20 12 1:32PM BY MALI STEELE MA, ANNOTATI ON/ADDEN DUM Not Available Critical access hospital 4 14:38:55 Headache 95632764 Completed 201101/21/2014 RECORDED 02/07/20 12 1:32PM BY MALI STEELE MA, MELODIE ON/ADDEN DUM Not Available Critical access hospital 4 14:38:55 Pain of elbow region 85158459 Completed 201101/21/2014 IMPRESSI ON: R SIDED, NO [...] STEELE MA, MELODIE ON/ADDEN DUM Not Available Critical access hospital 4 14:38:55 Blood in urine 98894910 Completed 201101/21/2014 RECORDED 02/07/20 12 1:32PM BY MALI STEELE MA, MELODIE ON/ADDEN DUM Not Available Critical access hospital 4 14:38:55 Kidney stone 29262685 Completed 201101/21/2014 STORY: HISTORY OF PRIOR PYELONEP HRITIS AND HEMATURI A; RECORDED 02/07/20 12 1:32PM BY MALI STEELE MA, MELODIE ON/ADDEN DUM Not Available Critical access hospital 4 14:38:56 Otalgia 79087112 Completed 201101/21/2014 IMPRESSI ON: SXS YESTERDA Y, IMPROVIN G TODAY. NORMAL EXAM. REASSURE D. PT TO CALL PRN.; RECORDED 02/07/20 12 1:32PM BY MALI STEELE MA, MELODIE ON/ADDEN DUM Not Available Critical access hospital 4 14:38:56 Knee pain Completed 201101/21/2014 RECORDED 02/07/20 12 1:32PM BY MALI I MARAH- CEDRIC, MA, ANNOTATI ON/ADDEN DUM Not Available [facility] 4 14:38:56 Sprain of foot 19593709 Completed 201101/21/2014 RECORDED 02/07/20 12 1:32PM BY MALI STEELE MA, JEANNETTEATI ON/ADDEN DUM Not Available [facility] 4 14:38:56 Syncope and collapse 391897483 Completed 201101/21/2014 RECORDED 02/07/20 12 1:32PM BY MALI STEELE MA, ANNOTATI ON/ADDEN DUM Not Available [facility] 4 14:38:56 Viral disease 09057662 Completed 201101/21/2014 RECORDED 02/07/20 12 1:32PM BY MALI STEELE MA, MELODIE ON/ADDEN DUM Not Available [facility] 4 14:38:57 Wheezing 01369117 Completed 201101/21/2014 RECORDED 02/07/20 12 1:32PM BY MALI STEELE MA, MELODIE ON/ADDEN DUM Not Available [facility] 4 14:38:57 Acute pyelonep hritis without medullar y necrosis 166076502 Completed 201102/10/2014 RECORDED 02/07/20 12 1:32PM BY MALI STEELE MA, MELODIE ON/ADDEN DUM Not Available [facility] 4 06:47:55 Chest pain 04748490 Completed 201102/10/2014 STORY: NOTES SINGLE EPISODE OF SUBSTERN AL CHEST PAIN AT REST. STATES EPISODE LAST 45MIN. SOME NAUSEA.; RECORDED 02/07/20 12 1:32PM BY MALI STEELE MA, MELODIE ON/ADDEN DUM Not Available [facility] 4 06:47:55 Headache 21032146 Completed 201102/10/2014 RECORDED 02/07/20 12 1:32PM BY MALI STEELE MA, MELODIE ON/ADDEN DUM Not Available [facility] 4 06:47:55 Pain of elbow region 82331750 Completed 201102/10/2014 IMPRESSI ON: R SIDED, NO [...] STEELE MA, MELODIE ON/ADDEN DUM Not Available Critical access hospital 4 06:47:55 Blood in urine 92440383 Completed 201102/10/2014 RECORDED 02/07/20 12 1:32PM BY MALI STEELE MA, MELODIE ON/ADDEN DUM Not Available Critical access hospital 4 06:47:55 Kidney stone 18878570 Completed 201102/10/2014 STORY: HISTORY OF PRIOR PYELONEP HRITIS AND HEMATURI A; RECORDED 02/07/20 12 1:32PM BY MALI STEELE MA, MELODIE ON/ADDEN DUM Not Available [facility] 4 06:47:55 Otalgia 74778251 Completed 201102/10/2014 IMPRESSI ON: SXS YESTERDA Y, IMPROVIN G TODAY. NORMAL EXAM. REASSURE D. PT TO CALL PRN.; RECORDED 02/07/20 12 1:32PM BY MALI STEELE MA, MELODIE ON/ADDEN DUM Not Available Critical access hospital 4 06:47:56 Knee pain Completed 201102/10/2014 RECORDED 02/07/20 12 1:32PM BY MALI STEELE MA, MELODIE ON/ADDEN DUM Not Available [facility] 4 06:47:56 Sprain of foot 00722730 Completed 201102/10/2014 RECORDED 02/07/20 12 1:32PM BY MALI STEELE MA, MELODIE ON/ADDEN DUM Not Available [facility] 4 06:47:56 Syncope and collapse 278005998 Completed 201102/10/2014 RECORDED 02/07/20 12 1:32PM BY MALI STEELE MA, MELODIE ON/ADDEN DUM Not Available [facility] 4 06:47:56 Viral disease 96261486 Completed 201102/10/2014 RECORDED 02/07/20 12 1:32PM BY MALI STEELE MA, MELODIE ON/ADDEN DUM Not Available [facility] 4 06:47:56 Wheezing 89855515 Completed 201102/10/2014 RECORDED 02/07/20 12 1:32PM BY MALI STEELE MA, MELODIE ON/ADDEN DUM Not Available [facility] 4 06:47:56 Bronchit is 56903846 Completed 201201/21/2014 RECORDED 08/07/19 13 9:16AM BY MELODIE JONES ON/ADDEN DUM Not Available [facility] 4 14:38:55 Bronchit is 27801621 Completed 201202/10/2014 RECORDED 08/07/19 13 9:16AM BY MELODIE JONES ON/ADDEN DUM Not Available [facility] 4 06:47:55 Renewal of prescrip tion Completed 201201/21/2014 RECORDED 10/04/19 13 9:02AM BY KACY COLEMAN MA, MELODIE ON/ADDEN DUM Not Available [facility] 4 14:38:56 Enthesop athy of [facility] 55339123 Completed 201201/21/2014 RECORDED 10/04/19 13 9:02AM BY KACY COLEMAN MA, MELODIE ON/ADDEN DUM Not Available [facility] 4 14:38:56 Renewal of prescrip tion Completed 201202/10/2014 RECORDED 10/04/19 13 9:02AM BY KACY COLEMAN MA, MELODIE ON/ADDEN DUM Not Available [facility] 4 06:47:55 Enthesop athy of [facility] 72399382 Completed 201202/10/2014 RECORDED 10/04/19 13 9:02AM BY KACY COLEMAN MA, ANNOTATI ON/ADDEN DUM Not Available Critical [facility] hospital 4 06:47:56 Tobacco user 322032257 Completed 201201/21/2014 RECORDED 11/24/19 13 8:46AM BY MALI STEELE MA, ANNOTATI ON/ADDEN DUM CHIDI Pelletier MA - [facility] 7 14:34:48 Acute asthma 747095284 Completed 201201/21/2014 RECORDED 02/05/20 13 10:50AM BY RUSSELL CAT MA, ANNOTATI ON/ADDEN DUM Not Available [facility] 4 14:38:54 Chronic sinusiti s 71260068 Completed 201201/21/2014 RECORDED 02/05/20 13 10:50AM BY RUSSELL CAT MA, ANNOTATI ON/ADDEN DUM Not Available [facility] 4 14:38:56 Acute asthma 912637398 Completed 201202/10/2014 RECORDED 02/05/20 13 10:50AM BY RUSSELL CAT MA, ANNOTATI ON/ADDEN DUM Not Available Critical access hospital 4 06:47:55 Chronic sinusiti s 53705585 Completed 201202/10/2014 RECORDED 02/05/20 13 10:50AM BY RUSSELL CAT MA, ANNOTATI ON/ADDEN DUM Not Available [facility] 4 06:47:56 Acute pharyngi tis 971162679 Completed 201201/21/2014 RECORDED 02/12/20 13 1:05PM BY MALI STEELE MA, ANNOTATI ON/ADDEN DUM Not Available Critical access hospital 4 14:38:54 Acute sinusiti s 45927214 Completed 201201/21/2014 RECORDED 02/12/20 13 1:05PM BY MALI STEELE MA, ANNOTATI ON/ADDEN DUM CHIDI Pelletier [facility] 7 14:36:31 Acute pharyngi tis 333463391 Completed 201202/10/2014 RECORDED 02/12/20 13 1:05PM BY MALI STEELE MA, ANNOTATI ON/ADDEN DUM Not Available Critical access hospital 4 06:47:55 Acute sinusiti s 52267870 Completed 201202/10/2014 RECORDED 02/12/20 13 1:05PM BY MALI STEELE MA, ANNOTATI ON/ADDEN DUM CHIDI Pelletier, [facility] 7 14:36:31 Left upper quadrant pain 846998608 Completed 201201/21/2014 RECORDED 05/08/20 13 10:40AM BY MALI STEELE MA, MELODIE ON/ADDEN DUM Not Available Critical access hospital 4 14:38:54 Follow-u p encounte r Completed 201201/21/2014 RECORDED 05/08/20 13 10:39AM BY MALI STEELE MA, ANNOTLAVON ON/ADDEN DUM Not Available Critical access hospital 4 14:38:55 Malaise and fatigue 615476388 Completed 201201/21/2014 RECORDED 05/08/20 13 10:39AM BY MALI STEELE MA, ANNOTATI ON/ADDEN DUM Not Available Critical access hospital 4 14:38:55 Adult health examinat ion Completed 201201/21/2014 RECORDED 05/08/20 13 10:39AM BY MALI STEELE MA, ANNOTATI ON/ADDEN DUM Not Available Critical [facility] hospital 4 14:38:55 Left upper quadrant pain 705045747 Completed 201202/10/2014 RECORDED 05/08/20 13 10:40AM BY MALI STEELE MA, ANNOTATI ON/ADDEN DUM Not Available [facility] 4 06:47:55 Follow-u p encounte r Completed 201202/10/2014 RECORDED 05/08/20 13 10:39AM BY MALI STEELE MA, ANNOTATI ON/ADDEN DUM Not Available [facility] 4 06:47:55 Malaise and fatigue 484042616 Completed 201202/10/2014 RECORDED 05/08/20 13 10:39AM BY MALI STEELE MA, ANNOTATI ON/ADDEN DUM Not Available [facility] 4 06:47:55 Adult health examinat ion Completed 201202/10/2014 RECORDED 05/08/20 13 10:39AM BY MALI STEELE MA, ANNOTATI ON/ADDEN DUM Not Available [facility] 4 06:47:55 Pain in limb 39776235 Completed 201301/21/2014 RECORDED 07/31/19 14 11:03AM BY MALI STEELE MA, ANNOTATI ON/ADDEN DUM Not Available [facility] 4 14:38:56 Abdomina l pain 45085137 Completed 201301/21/2014 RECORDED 07/31/19 14 11:03AM BY MALI STEELE MA, ANNOTATI ON/ADDEN DUM Not Available [facility] 4 14:38:56 Pain in limb 46589899 Completed 201302/10/2014 RECORDED 07/31/19 14 11:03AM BY MALI STEELE MA, ANNOTATI ON/ADDEN DUM Not Available [facility] 4 06:47:56 Abdomina l pain 26485273 Completed 201302/10/2014 RECORDED 07/31/19 14 11:03AM BY MALI STEELE MA, ANNOTATI ON/ADDEN DUM Not Available [facility] 4 06:47:56 Disorder of lower extremit y Completed 201301/21/2014 RECORDED 08/13/19 14 12:52PM BY YAMILE MAKI MA, ANNOTATI ON/ADDEN DUM Not Available [facility] 4 14:38:54 History of depressi on 406667953 Completed 201301/21/2014 RECORDED 08/13/19 14 12:53PM BY YAMILE MAKI MA, ANNOTATI ON/ADDEN DUM Not Available [facility] 4 14:38:55 Disorder of lower extremit y Completed 201302/10/2014 RECORDED 08/13/19 14 12:52PM BY YAMILE MAKI MA, ANNOTATI ON/ADDEN DUM Not Available [facility] 4 06:47:55 History of depressi on 860287859 Completed 201302/10/2014 RECORDED 08/13/19 14 12:53PM BY YAMILE MAKI MA, ANNOTATI ON/ADDEN DUM Not Available [facility] 4 06:47:55 Meralgia paresthe jagdeep 92743791 Active 2015 Dx: G57.11; numbness and burning in outer thigh Not Available [facility] 3 12:19:14 Ex-smoke r 8256063 Active 2016 Not Available Critical access hospital 3 12:19:14 Mild intermit tent asthma 689341363 Completed 201809/23/2018 José John MD [address], [place], [address] , [facility] 9 08:15:52 Uncompli cated mild persiste nt asthma 304186012 Completed 201809/23/2019 José John MD [address], [place], [address] , [facility] [place] 0 19:55:46 Moderate major depressi on 601230 Completed 201811/17/2023 Freddie Hathaway MD [address], [place], [address] , [facility] [place] 4 13:28:48 Serum creatini ne above referenc e range 921328527 Completed 201809/23/2019 José John MD [address], [place], [address] , [facility] [place] 0 19:55:30 Hiatal hernia 82312950 Active 2018 Not Available [facility] 3 12:19:14 Morbid obesity 690626913 Active 2019 Not Available [facility] 3 12:19:13 Hypoglyc emia 988647312 Completed 202011/17/2023 Freddie Hathaway MD [address], [place], [address] , [facility] [place] 4 13:26:03 Left lateral elbow tendinop athy 00466205753 9100 Completed 202011/17/2023 Freddie Hathaway MD [address], [place], [address] , [facility] [place] 4 13:26:42 Hyperten sive disorder 67657744 Active 2020 CHIDI Jones, [facility] 4 14:17:09 Chronic kidney disease stage 2 610725035 Completed 202006/30/2021 CHIDI Jones, [facility] 4 14:17:09 Obstruct usman sleep apnea syndrome 29001918 Active 2021 Not Available [facility] 3 12:19:13 Degenera tion of cervical interver tebral disc 10942027 Active 2021 Not Available [facility] 3 12:19:13 Primary erectile dysfunct ion 726582554 Active 2021 Not Available [facility] 3 12:19:13 Anal fissure 39080398 Active 2022 Xavier Brooks, [facility] [address], [place], [address] , [facility] [place] 3 11:50:26 Acute prostati tis 87732930 Completed 202211/17/2023 Freddie Hathaway MD [address], [place], [address] , [facility] 4 13:23:54 Pain of left knee joint 42937971761 4107 Completed 202211/18/2024 Freddie Hathaway MD [address], [place], [address] , [facility] 5 13:27:25 Pain of right knee joint 30252769448 4100 Active 2022 Xavier Brooks, [facility] [address] [facility] [address], [place], [address] , [facility] 3 13:10:57 History of Helicoba cter pylori infectio n 74165759674 256575 Active 2023 Freddie Hathaway MD [address], [place], [address] , [facility] [place] 4 13:25:14 Major depressi on in remissio n 70921250 Active 2023 Freddie Hathaway MD [address], [place], [address] , [facility] 4 13:28:43 Chronic pain syndrome 039857508 Active 2023 Freddie Hathaway MD [address], [place], [address] , [facility] [place] 4 07:50:05 Incision al hernia 806764740 Active 2024 Freddie Hathaway MD [address], [place], [address] , [facility] [place] 5 13:29:31 Pain of knee region 5858171780 Active 2024 Teri Panda null, [facility] 5 12:25:03 Pernicio us anemia 82287356 Active 2024 Moreno doyle [place] null, [facility] 5 13:36:18 Neuropat hy 328532600 Active 2024 ALBAN Wang, [facility]- [address], [place], [address] , [facility] [place] 5 13:47:38 Blood pressure above referenc e range 27700386 Active 2024 ALBAN Wang, [facility] [address], [place], [address] , [facility] [place] 5 13:54:14 Change in skin lesion 448717462 Active 2024 ALBAN Wang, [facility] [address], [place], [address] , [facility] 5 14:30:34 Polyneur opathy 47251175 Active 2024 ALBAN Wang, [facility]- [address] [facility] [address], [place], [address] , [facility] [place] 5 12:16:04 Problem Notes None recorded. Procedures Surgical History Date Name Laterality Status Provider Name and Address Organization Details Recorded Time 05/12/20 Chronic Pain Assessment completed Mali smith MA [facility] 05/12/2025 10:16:57 06/18/20 Chronic Pain Assessment completed Mali smith MA [facility] 06/18/2024 15:30:34 09/25/19 24 circumcision completed Freddie Hathaway MD [address] [facility] [address], [place], [address], [facility] [place] 11/17/2023 13:33:39 10/05/19 22 Chronic Pain Assessment completed Mali smith MA [facility] 10/04/2021 13:54:52 09/29/19 21 Six-Item Cognitive Test completed Juana Miner MA [facility] 09/28/2020 13:38:47 09/04/19 21 Upper gi endoscopy performed completed Prachi Teran [facility] 09/03/2020 13:44:48 08/20/19 20 laparoscopic appendectomy completed Esthelayo Mercer [facility] 08/21/2019 10:00:45 04/11/20 17 Polysom 6/> yrs 4/> antony completed Mali smith MA [facility] 04/17/2017 10:49:10 05/12/20 16 Colonoscopy completed Mali smith MA [facility] 01/31/2017 14:39:56 I&d abscess simple/single completed Priscila Porter [facility] 11/03/2020 11:22:34 Imaging Results None recorded. Procedure Notes None recorded. Medical Equipment None Reported. Allergies Allergen ID Allergen Name Allergen Category Reaction Reaction Severity Criticality Documentation Date Start Date Code Code System Note Provider Name and Address Organization Details Recorded Time 21547 No known allergy (situatio n) Not available Not available Not available Not available 03/13/2024 02892 6003 SNOMED [place] Jones [facility] 14:16:56 No known drug allergies Medications Name [...] Not Available No t Available clotrimaz ole 10 mg troc active Not Available Not Available Not Available ibuprofen tab 800mgibup rofen active Not Available Not Available Not Available zolpidem tartrate 10 mg tabs active Not Available Not Available Not Available omeprazol e 40 mg cpdr active Not Available Not Available Not Available topiramat e tab 50mgtopir amate active Not Available Not Available Not Available Prescript ion - Prior Authoriza tion [...] 02/04 completed RECORDED 02/05/20 13 11:02AM BY URSSELL CAT MA, OFFICE VISIT;DR Dafne ALBA GIVES [...] Updated DateTime 5 180.34 cm 39.6 kg/m2 448062. 23 g 74 /min 98 % 98.4 [degF] 8 112/62 mm[Hg] Mali bryan MA [facility] 5 10:12:57 Social History Question Answer Notes LastModified by Organizat ion Details LastModified Time Tobacco Smoking Status Former [facility]oker [facility] 04/18/2014 10:42:29 Do You Have An Advance Directive? Yes [facility] [email or web address] Information not available 11/08/2021 Is Blood Transfusion [...] None Information not available 04/18/2014 Education 12 [email or web address] Information not available 11/08/2021 When Did You Quit Smoking? 11-15yearssi nccristel nicholsonte Information not available 11/08/2021 Live Alone Or With Others? With Others Quentin Milligan) And 2 Stepchildren [email or web address] Information not available 11/08/2021 Do You Take [...] Information not available 07/27/2020 Marital Status Single [email or web address] Informatio n not available 11/08/2021 What Was The Date Of Your Most Recent Tobacco Screening? 05/12/2025 Information not available 05/12/2025 How Many Children Do You Have? 0 Information not available 04/18/2014 What Is Your Current Pack Years? 10packyears [email or web address] Information not available 11/08/2021 Do You Use Protection During Sex? No Information not available 05/01/2015 Seat Belts Used Routinely Yes [email or web address] Information not available 11/08/2021 Are You Sexually Active? Yes Aarti Information not available 11/17/2023 Smoke Alarm In Home Yes [email or web address] Information not available 11/08/2021 At What Age [...] use any illicit or recreational drugs? No [email or web address] Information not available 11/08/2021 Do you or have you ever used any other forms of tobacco or nicotine? No [email or web address] Information not available 11/08/2021 What is your level of alcohol consumption? None Information not available 04/18/2014 Do you or have you ever used smokeless tobacco? Never used smokeless tobacco Information not available 09/23/2019 Are you currently employed? No disabled due to back issues Information not available 04/18/2014 Are you able to walk independently without assistance or assistive devices? YESWOREST Information not available 11/08/2021 Are you able to care for yourself independently? 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 Never used electronic cigarettes [email or web address] Information not available 11/08/2021 What is your exercise level? Occasional walking Information not available 05/01/2015 Mental Status None recorded. Family History Relationship Description Onset Age of this Age Resolved Age Notes LastModified by Organization Details LastModified Time Mother Essential hypertension [email or web address] Not available 14:25:06 Mother Diabetes mellitus [email or web address] s Not available 11/02/2015 10:09:52 Mother Asthma [email or web address] s Not available 11/02/2015 10:09:52 Mother Glaucoma [email or web address] s Not available 11/17/2023 13:17:00 Mother Cataract [email or web address] s Not available 11/17/2023 13:17:06 Father Essential hypertension [email or web address] Not available 14:25:06 Father Prostatism [email or web address] Not avail able 11/08/2021 14:25:06 Father Heart disease 68 [email or web address] Not available 11/29 11:41:41 Maternal Grandfather Primary malignant neoplasm of lung [email or web address] Not available 11/08 14:25:06 Medical History Condition Response Anxiety Disorder Y Obesity Y Depression Y Immunizations Vaccine Type Date Status Note Provider Nam e and Address Organization Details Recorded Time Influenza, split virus, trivalent, preservative 7 completed Not Available [facility] 05/17/2023 15:46:02 Influenza, split virus, quadrivalent, preservative 9 completed Nury Caporale, FRONT TENDER null, [facility] 07/24/2023 15:15:16 Influenza, split virus, quadrivalent, preservative 0 completed Nury Caporale, FRONT TENDER null, [facility] 07/24/2023 15:15:16 Influenza, split virus, quadrivalent, PF 0 completed Not Available [facility] 05/17/2023 15:46:02 COVID-19, mRNA, LNP-S, PF, 100 mcg/0.5mL dose or 50 mcg/0.25mL dose 1 completed Not Available [facility] 05/17/2023 15:46:02 COVID-19, mRNA, LNP-S, PF, 100 mcg/0.5mL dose or 50 mcg/0.25mL dose 1 completed Not Available [facility] 05/17/2023 15:46:02 Influenza, MDCK, quadrivalent, PF 9 completed Not Available [facility] 05/17/2023 15:46:02 Influenza, MDCK, quadrivalent, PF 7 completed Not Available [facility] 05/17/2023 15:46:02 Influenza, MDCK, quadrivalent, PF 6 completed Not Available [facility] 05/17/2023 15:46:02 Influenza, split virus, trivalent, PF 4 completed Not Available [facility] 05/17/2023 15:46:02 Influenza, split virus, quadrivalent, PF 5 completed Not Available [facility] 05/17/2023 15:46:03 Td (adult), 2 Lf tetanus toxoid, preservative free, adsorbed 9 completed Not Available [facility] 05/17/2023 15:46:02 Influenza, split virus, quadrivalent, PF 8 completed Not Available [facility] 05/17/2023 15:46:02 zoster recombinant 3 completed Not Available [facility] 05/17/2023 15:46:02 zoster recombinant 3 completed Nury Galan LPN null, [facility] 07/24/2023 15:15:17 Tdap 4 completed Mali Mendez MA null, [facility] 06/18/2024 15:09:13 Pneumococcal conjugate PCV20, polysaccharide BOR616 conjugate, adjuvant, PF 5 completed Ofelia Watkins null, [facility] 07/12/2024 09:10:54 COVID-19, mRNA, LNP-S, PF, jen-sucrose, 30 mcg/0.3 mL 5 completed Cindi Yanez MA null, [facility] 07/26/2024 13:39:45 Influenza, split virus, quadrivalent, PF 2 completed Freddie Hathaway MD [address] [address], [place], [address], [facility] [place] 05/17/2022 14:52:47 Tdap 9 completed Not Available [facility] 05/17/2023 15:46:02 Influenza, split virus, trivalent, PF 4 completed Freddie Hathaway MD [address] [facility] [address], [place], [address], [facility] [place] 06/19/2024 12:48:41 Influenza, split virus, trivalent, PF 5 completed Mali Mendez [facility], [facility] 03/20/2025 14:38:37 Past Encounters Encounter ID Performer Location Encounter Start Date Encounter Closed Date Diagnosis/Indication Diagnosis SNOMED-CT Code Diagnosis ICD10 Code Diagnosis IMO Codes Diagnosis Note [id number] Malcolm Bear MD Main Office [address] [address] 05/06/2025 13:19:08 05/06/2025 15:01:12 Pernicious anemia 58206686 D51.9 [id number] Freddie Hathaway MD Main Office [address] [address] 05/12/2025 10:01:19 05/12/2025 10:48:01 Chronic pain syndrome 732760222 G89.4 -The patient is stable on Tramadol and agrees to continue the current regimen for now.-Discu ssed risks associated with narcotic use, including dependency and side effects.-A dvised that if pain worsens or becomes unmanageab le, I will refer him to pain management .-Notes he is having bowel movement and passing gas.-Contr ol substance up to date. Degenerati on of lumbar intervertebral disc 30939462 M51.360 Degenerati on of cervical intervertebral disc 31170603 M50.30 Obstructiv e sleep apnea syndrome 93082263 G47.33 -Patient reports not tolerating CPAP therapy.-P rovided education on sleep apnea, including the importance of treatment adherence and alternativ e options (e.g., mouth guards). He is now on zepbound. Pain of knee region 1003 078548 M25.561 M25.562 [id number] -Will get xray.-Dicl ofenac gel PRN will avoid oral due to NSAID mild renal derangemen t, he is seeing renal for this.-Advi sed PT.-Will consider ortho after PT. Health Concerns Section Related Observation LastModified by Organization Detai ls LastModified Time None Recorded Concern Status LastModified by Organization Details LastModified Time None Recorded Payers Encounter Date Sequence Insurance Name Policy Number Policy Steen Covered Member ID Steen Member ID Guarantor Name 05/12/2025 2 [place] Ramírez Mena [id number] Ramírez Mena 05/12/2025 1 [facility] - DOS ON OR AFTER 2022 - DUAL ELIGIBLE - CORRECTION OPTIONS AND ONE CARE (MEDICARE REPLACEMENT/A DVANTAGE - HMO) Ramírez Mena [id number] Ramírez Mena Notes Date Note Type Note Provider Name and Address Organization Details Recorded Time 05/12/20 25 text/htm l Musculoskeletal PainReported by [...] 3 mo. Both knees bother him L>R. Freddie Hathaway MD [address], [address], [facility] [place] 05/12/2025 12:03:07
--- OUTSIDE RECORDS SUMMARY | 2025-06-25 13:35 | XMS_ITS | Data Portability ---
Author Organization [place] - [facility], Allergy Address [address] [address] Care Team Providers Care Rn Occupational Health Name Role Phone JUVENAL HATHAWAY Primary Care [...] meet with his dentist to obtain a counter person. Referral to physical therapist who specializes in [...] and Address Organization Details Recorded Time Dysphonia 12255898 Active 2020 Hoarsenes s; Note: Date Diagnosed : 09/09/2020 3:30 PM (R49.0) Not Available [facility] 4 02:40:14 Pain of right temporoma ndibular joint 57524856516 448602 Active 2021 Arthralgi a of right temporoma ndibular joint; Note: Date Diagnosed : 08/19/2021 11:17 AM (M26.621) Not Available [facility] 4 02:40:08 Otalgia of right ear 5933351510 Active 2021 Otalgia, right ear; Note: Date Diagnosed : 08/19/2021 11:12 AM (H92.01) Not Available [facility] 4 02:40:02 Abnormal auditory perceptio n 42426243 Active 2022 Other abnormal auditory perceptio ns, right ear; Note: Date Diagnosed : 3 4:53 PM (H93.291) Other abnormal auditory perceptio ns, bilateral ; Note: Date Diagnosed : 11/10/2020 1:58 PM (H93.293) ; Start Date : 1 Not Available [facility] 4 02:40:07 Bilateral temporoma ndibular joint pain 81841928186 759268 Active 2022 Arthralgi a of bilateral temporoma ndibular joint; Location: bilateral Note: Date Diagnosed : 3 4:52 PM (M26.623) Not Available [facility] 4 02:40:02 Otalgia of left ear 9123353202 Active 2022 Otalgia, left ear; Note: Date Diagnosed : 3 4:52 PM (H92.02) Not Available [facility] 4 02:40:13 Impacted cerumen in left ear 07526254187 43351 Active 2022 Impacted cerumen, left ear; Note: Date Diagnosed : 05/09/2023 3:55 PM (H61.22) Not Available [facility] 4 02:40:01 Impacted cerumen of bilateral ears 69944804609 43684 Active 2023 Impacted cerumen, bilateral ; Note: Date Diagnosed : 10/23/2023 3:37 PM (H61.23) Not Available [facility] 4 02:40:07 Abnormal auditory perceptio n 51829727 Active [address] [facility],[place] [address], [facility] [place], [address] , [facility] - [facility] 5 09:26:42 Referred otalgia of right ear 36196371701 46837 Active [address] [facility],[place] [address], [facility] [place], [address] , [facility] - [facility] 5 10:42:06 Problem Notes None recorded. Procedures Surgical History Date Name Laterality Status Provider Name and Address Organization Details Recorded Time 5 Air & Speech Audio with Tymps - 56133, 01083 & 19922 completed CASSIE VIDAL [address] [facility],[place] [address] [address], [place], [address], [place] - [facility] 02/10/2025 09:26:26 Cerumen removal without microscope bilat completed LISY COLEMAN PA-C [address] [place] [address], [place], [address], [facility] - [facility] 05/02/2024 09:39:10 Imaging Results None recorded. Procedure Notes None recorded. Medical Equipment None Reported. Medications Name Sig Start Date Stop Date Status Note LastModified by Organization Details LastModified Time neomycin- polymyxin -hydrocor t 3.5 mg/mL-10, 000 unit/mL-1 % ear solution 10/22 completed Medicati on ID: [id number] B rand Name: neomycin -polymyx in-HC Se [...] gram tablet 10/22 completed Medicati on ID: [id number] B rand Name: valacycl ovir Sen d Method: E-Prescr ibed Sub s Allowed: subs OK Medic ationGen ericName : valacycl ovir Not Available Not Available Not Available naltrexon e 50 mg tablet TAKE 1/2 TABLET (25 MG TOTAL) BY MOUTH DAILY active Not Available Not Available No t Available FreeStyle Lancets 28 gauge 10/22 completed Medicati on ID: [id number] B rand Name: FreeStyl e Lancets Send Method: E-Prescr ibed Sub s Allowed: subs OK Speci al Instruct ion: USE TO CHECK BLOOD SUGAR ONCE DAILY E11.65 M edicatio nGeneric Name: FreeStyl e Lancets Not Available Not Available Not Available famotidin e 40 mg tablet 10/22 completed Medicati on ID: [id number] B rand Name: famotidi ne Send Method: [...] mg tablet 10/29 completed Medicati on ID: [id number] B rand Name: sulfamet hoxazole -trimeth oprim [...] layed release 10/29 completed Medicati on ID: [id number] B rand Name: aspirin Send Method: E-Prescr [...] topical cream 10/29 completed Medicati on ID: [id number] B rand Name: betameth asone dipropio ping [...] mg tablet 10/22 completed Medicati on ID: [id number] B rand Name: zolpidem Send Method: E-Prescr [...] topical cream 10/29 completed Medicati on ID: [id number] B rand Name: clotrima zole Sen d Method: E-Prescr ibed Sub s Allowed: subs OK Medic ationGen ericName : clotrima zole Not Available Not Available Not Available dicyclomi ne 10 mg capsule 10/22 completed Medicati on ID: [id number] B rand Name: dicyclom ine Send Method: E-Prescr ibed Sub s Allowed: subs OK Medic ationGen ericName : dicyclom ine Not Available Not Available Not Available loratadin e 10 mg tablet TAKE 1 TABLET BY MOUTH EVERY DAY active Not Available Not Available No t Available nabumeton e 500 mg tablet 10/22 completed Medicati on ID: [id number] B rand Name: nabumeto ne Send Method: [...] extended release 10/22 completed Medicati on ID: [id number] B rand Name: bupropio n HCl Send [...] Meter kit 10/22 completed Medicati on ID: [id number] B rand Name: FreeStyl e Lite Meter Se nd Method: E-Prescr ibed Sub s Allowed: subs OK Speci al Instruct ion: USE TO CHECK BLOOD SUGAR ONCE DAILY. E11.65 M marco Abreuic Name: FreeStyl e Lite Meter Not Available Not Available Not Available FreeStyle Lite Strips 10/22 completed Medicati on ID: [id number] B rand Name: FreeStyl e Lite Strips [...] Updated DateTime 10/30/2024 182.88 cm 44.9 kg/m2 188853.07 g Baylee Fonseca [facility] 10/30/2024 15:02:10 Date Recorded Body height Body mass index (BMI) Body weight Provider Name and Address Organization Details Last Updated DateTime 02/10/2025 195.58 cm 35.3 kg/m2 111917.53 g Baylee Fonseca [facility] 02/10/2025 09:34:38 Date Recorded Body height Body mass index (BMI) Body weight Provider Name and Address Organization Details Last Updated DateTime 05/02/2024 182.88 cm 44.2 kg/m2 179213.11 g Sharon Ramon [facility] 05/02/2024 09:17:01 Social History None recorded. Functional [...] Emphysema N Migraines Y Thyroid Problems N COPD N Depression N Developmental Delay N Glaucoma N Nasal or Sinus Problems N Anemia N Immune System Disorder N Anesthesia Complications N Heart Attack (HI) N Other Skin Condition N Diabetes N Rhinitis N Bleeding Disorder N Food Allergy N Hearing Loss N Arthritis Y Hyperlipidemia N Cancer N Stroke N Dementia N Nasal polyps N Asthma Y Sleep Disorder Y High Cholesterol N GERD/Reflux Y Liver Disease N Headaches Y Fibromyalgia N Hypertension Y Speech Delay N Kidney Disease Y Past Encounters Encounter ID Performer Location Encounter Start Date Encounter Closed Date Diagnosis/Indication Diagnosis SNOMED-CT Code Diagnosis ICD10 Code Diagnosis IMO Codes Diagnosis Note [id number] LISY COLEMAN PA-C [facility] [address] [address] 05/02/2024 09:03:01 05/02/2024 09:37:59 Impacted cerumen of bilateral ears 4709378424 530986 H61.23 [id number] LISY COLEMAN PA-C [facility] [address] [address] 10/30/2024 14:54:48 10/30/2024 15:07:41 Ear examination normal 581837485 Z01.10 [id number] HIRAM TRIM[address] [facility] [address] [place] [address] 02/10/2025 08:58:32 02/10/2025 09:52:26 Abnormal auditory perception 24300690 H93.291 [id number] Audiologic al evaluation results: Right ear:Normal hearing with excellent word recognitio n.Left ear:Normal hearing with excellent word recognitio n. Tympanomet ry:Right Ear:Type ALeft Ear:Type A Referred o talgia of right ear 1336219951 160946 H92.01 M26.621 M79.11 Health Concerns Section Related Observation LastModified by Organization Detai ls LastModified Time None Recorded Concern Status LastModified by Organization Details LastModified Time None Recorded Advance Directives Directive None Recorded Payers Insurance Date Sequence Insurance Name Policy Number Policy Steen Covered Member ID Steen Member ID Guarantor Name 04/02/2025 1 [facility] - DOS ON OR AFTER 2022 - ONE CARE (MEDICARE REPLACEMENT/AD VANTAGE - HMO) Ramírez Mena [id number] Ramírez Mena 03/24/2025 1 [facility] - DOS ON OR AFTER 2022 - ONE CARE (MEDICARE REPLACEMENT/AD VANTAGE - HMO) Ramírez Mena [id number] Ramírez Mena 03/24/2025 1 [facility] - DOS ON OR AFTER 2022 - MEDICARE [place]ANTAGE [place] (MEDICARE REPLACEMENT/AD VANTAGE - PPO) Ramírez Mena [id number] Ramírez Mena 04/02/2025 2 [place] [facility] Ramírez Mena [id number] Ramírez Mena Notes Date Note Type Note Provider Name and Address Organization Details Recorded Time 05/02/2024 text/html ROS as noted in the [facility] 53-year-old male presents for evaluation of the ears. Reports no change in hearing. Denies otalgia, otorrhea, change in tinnitus, or Qtip use. KARSON CARR MD [address] [facility],[address], [address], [facility] 05/03/2024 17:08:25 10/30/2024 text/html ROS as noted in the [facility] 54-year-old male presents for evaluation of the ears. No acute issues since last visit. Denies ear pain, drainage, or hearing loss. He stopped using Qtips in his ears. BRITTANY VELÁSQUEZ MD [address] [facility],[address], [address], [facility] 10/31/2024 09:01:50 02/10/2025 text/html ROS as noted in the [facility] 54 year old male presents for [...] scheduled to see his dentist for a counter person. No longer using Q-tips. CHAYA NOLASCO MD [address] [facility],[address], [address], [facility] 02/10/2025 13:32:20
--- OUTSIDE RECORDS SUMMARY | 2025-06-25 13:35 | XMS_ITS | Clinical Summary ---
Author Organization [facility]. 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 Name Role Phone Freddie Peguero MD Primary Care Provider [phone] Allergies No known active allergies Medications acetaminophen [...] Office Visit [facility] [address] [place] [phone] Ashok Carpio MD [address] [address] 07/17/2025 Orders Only [facility] [address] [place] [phone] Ashok Carpio MD [address] [phone] Chronic kidney disease, stage 2 (mild) Health Maintenance Due Date Last Done Comments Hepatitis B Vaccine (1 of 3 - 19+ 3-dose series) 1991 Pneumococcal Vaccine: 50+ Ye ars (1 of 2 - PCV) 1991 Colorectal Cancer Screening: Annual FOBT 2021 Colorectal Cancer Screening: Colonoscopy 2021 Colorectal Cancer Screening: Sigmoidoscopy 2021 Influenza Vaccine Completed 03/20/2025, , 05/17/2022, Additional history exists Insurance ([id number]) [facility] ([id number]) Care Teams Dry Ice Machine Operator Relationship Specialty Start Date End Date Freddie Peguero MD [address] [address] PCP - General Family Medicine 02/02/22
--- OUTSIDE RECORDS SUMMARY | 2025-06-25 13:35 | XMS_ITS | Continuity of Care Document ---
Author Organization [facility], Main Office Address [address] [facility] [address] [place] [address] Care Team Providers Care Boxcar Weigher Name Role Phone [employer] P[employer] Instructor EDELMIRA NEWTON Phys. Med. & Rehab [phone] [facility] COMPREHENSIVE ADULT WEIGHT MANAGEMENT N utritionist CHRISTIANO SONG MD Sleep Medicine [phone] MATTHEW GARCIA Well Driller Helper [facility] Urologist IAIN COBB Learning Coordinator ALISHA SNIDER General Surgeon [facility] Sleep [facility] SUDARSHAN BAKER Beauty Artist FREDDIE HATHAWAY Primary Care Provider [phone] [facility] Bottle Gauger MELISA CORBETT Neurologist Assessment No assessment recorded. Plan of Treatment Reminders Order Date Submit Date Provider Last Modified By Organization Details Last Modified Time Details Appointments FOLLOW UP 2024 11:00A M Freddie Hathaway MD Not available Not available Not available [place] 2025 01:15P M CHIDI SCHEDULE Not available Not available Not available Lab None recorded. Referral None recorded. Procedures None recorded. Surgeries None recorded. Imaging None recorded. Medication Orders cyanocoba junie (vit B-12) 1,000 mcg/mL injection solution 2024 025 [id number] [facility] #[id number], [phone] [place], [address], 04/04/2025 13:34:43 Patient TargetsNo targets recorded. Patient InstructionsNo instructions recorded. Reason for Referral None Reported. Results Created Date Observation Date Name Description Value Unit Range Abnormal Flag Note LastModifiedBy Organization Detail LastModifiedTime 03/07/2003/06/2025 XR, cervi koffi spine No observ ation record ed. [facility] [address] [place], [address], 03/17/2025 15:06:16 04/22/2004/22/2025 elect romyo gram + nerve condu ction study No observ ation record ed. [facility] (Medical Records) [address] [place], [address], 04/26/2025 02:29:19 04/24/2004/22/2025 elect romyo gram + nerve condu ction study No observ ation record ed. [facility] (Medical Records) [address] [place], [address], 04/25/2025 12:27:09 05/12/20 25 05/12/2025 XR, knee, weigh tbear ing Knees Bilat [...] effusi on. IMPRES WILDER: Normal . WSN: [id number] Orderi ng Physic berna: Alyce Hathaway Dictat ed By: Ryder Chris MD Dictat ed Date/T sheryl: 11:48 a Review ed By: Ryder Chris MD Signed By: Ryder Chris MD Signed Date/T sheryl: 11:48 am Transc ribed By: ALEJO Transc ribed Date/T sheryl: 11:48 am Patien t Class: Outpat ient [facility] (Outpt Imaging) [address], [place], [address], 05/26/2025 10:48:56 05/12/2005/12/2025 XR, knee, 3 view No observ ation record ed. [facility] [address], [place], [address], 05/26/2025 10:48:56 05/19/20 ECG 12-le ad No observ ation record ed. [facility] [address] [place], [address], 05/20/2025 13:21:09 Result Notes None recorded. Problems Name Problem SNOMED Code Status Onset Date Resolution Date Notes Provider Name and Address Organization Details Recorded Time Allergic rhinitis 00664097 Active Not Available [facility] 3 12:19:13 Anxiety state 819733125 Active Not Available [facility] 3 12:19:13 Asthma 449137984 Completed 09/23/2018 José Jhon MD [address], [place], [address] , [facility] 9 08:14:02 Lesion of ulnar nerve 978538180 Completed 11/17/2023 Freddie Hathaway MD [address], [place], [address] , [facility] 4 13:26:49 Pulmonar y emphysem a 37505567 Completed 09/21/2018 José John MD [address], [place], [address] , [facility] 9 15:50:02 Gastroes ophageal reflux disease 609914913 Active Not Available [facility] 3 12:19:13 Tobacco user 133131945 Completed 01/31/2017 Removal Reason: quit CHIDI Pelletier, [facility] 7 14:34:48 History of clinical finding in subject 283571458 Completed 01/31/2017 CHIDI Pelletier, [facility] 7 14:36:36 Hyperlip idemia 48643261 Active Not Available [facility] 3 12:19:13 Insomnia 970950505 Active Not Available [facility] 3 12:19:13 Migraine 54025558 Active Not Available [facility] 3 12:19:13 Obesity 977426391 Completed 09/23/2018 José John MD [address], [place], [address] , [facility] 9 08:12:35 Plantar fascial fibromat osis 32421097 Completed 11/18/2024 Freddie Hathaway MD [address], [place], [address] , [facility] 5 13:30:37 Lateral epicondy litis 140712740 Completed 09/23/2018 José John MD [address], [place], [address] , [facility] 9 08:14:25 Neck pain 75657350 Completed 09/23/2018 José John MD [address], [place], [address] , [facility] 9 08:12:39 Mild persiste nt asthma 075886161 Active Not Available [facility] 3 12:19:13 Fatigue 42930169 Completed 11/17/2023 Freddie Hathaway MD [address], [place], [address] , [facility] 4 08:20:34 Degenera tion of lumbar interver tebral disc 06639123 Active Not Available [facility] 3 12:19:13 Major depressi ve disorder 816424669 Completed 02/19/2019 Kemi Murillo RN null, [facility] 9 15:20:59 Atypical chest pain 906437691 Completed 09/23/2018 José John MD [address] [address], [place], [address] , [facility] 9 08:14:19 Acute sinusiti s 42248723 Completed 01/31/2017 Mali henao MA null, [facility] 7 14:36:31 Herpes labialis 1638403 Active Not Available [facility] 3 12:19:13 Helicoba cter detected by serology 942770917 Completed 11/17/2023 Freddie Hathaway MD [address] [address], [place], [address] , [facility] 4 13:25:33 Candidia sis of mouth 51920069 Completed 09/23/2018 José John MD [address] [address], [place], [address] , [facility] 9 08:12:42 Low back pain 674690573 Completed 09/23/2018 José John MD [address] [address], [address] , [facility] 9 08:13:27 Heartbur n 72877064 Completed 11/17/2023 Freddie Hathaway MD [address] [address], [address] , [facility] 4 13:24:36 Asthma 802069332 Active Not Available [facility] 3 12:19:13 Herpes simplex 09376301 Completed 11/17/2023 Freddie Hathaway MD [address] [address], [place], [address] , [facility] 4 13:25:55 Chronic back pain 613739005 Active Not Available [facility] 3 12:19:13 Administ ration of bacteria l and viral vaccine Completed 200801/21/2014 RECORDED 09/27/19 09 3:30PM BY DRISS STEELE, OFFICE VISIT Not Available [facility] 4 14:38:56 Administ ration of bacteria l and viral vaccine Completed 200802/10/2014 RECORDED 09/27/19 09 3:30PM BY DRISS STEELE, OFFICE VISIT Not Available [facility] 4 06:47:55 Tobacco dependen ce syndrome 50993542 Completed 201001/21/2014 RECORDED 12/08/19 11 10:25AM BY MALI STEELE MA, ANNOTATI ON/ADDEN DUM Not Available [facility] 4 14:38:56 Tobacco dependen ce syndrome 52291204 Completed 201002/10/2014 RECORDED 12/08/19 11 10:25AM BY MALI STEELE MA, ANNOTATI ON/ADDEN DUM Not Available [facility] 4 06:47:56 Acute pyelonep hritis without medullar y necrosis 231014277 Completed 201101/21/2014 RECORDED 02/07/20 12 1:32PM BY MALI STEELE MA, ANNOTLAVON ON/ADDEN DUM Not Available [facility] 4 14:38:54 Chest pain 92454551 Completed 201101/21/2014 STORY: NOTES SINGLE EPISODE OF SUBSTERN AL CHEST PAIN AT REST. STATES EPISODE LAST 45MIN. SOME NAUSEA.; RECORDED 02/07/20 12 1:32PM BY MALI STEELE MA, ANNOTATI ON/ADDEN DUM Not Available [facility] 4 14:38:55 Headache 40235773 Completed 201101/21/2014 RECORDED 02/07/20 12 1:32PM BY MALI STEELE MA, MELODIE ON/ADDEN DUM Not Available [facility] 4 14:38:55 Pain of elbow region 65250869 Completed 201101/21/2014 IMPRESSI ON: R SIDED, NO [...] STEELE MA, MELODIE ON/ADDEN DUM Not Available [facility] 4 14:38:55 Blood in urine 31910755 Completed 201101/21/2014 RECORDED 02/07/20 12 1:32PM BY MALI STEELE MA, ANNOTATI ON/ADDEN DUM Not Available [facility] 4 14:38:55 Kidney stone 63667990 Completed 201101/21/2014 STORY: HISTORY OF PRIOR PYELONEP HRITIS AND HEMATURI A; RECORDED 02/07/20 12 1:32PM BY MALI STEELE MA, ANNOTATI ON/ADDEN DUM Not Available [facility] 4 14:38:56 Otalgia 37308484 Completed 201101/21/2014 IMPRESSI ON: SXS YESTERDA Y, IMPROVIN G TODAY. NORMAL EXAM. REASSURE D. PT TO CALL PRN.; RECORDED 02/07/20 12 1:32PM BY MALI STEELE MA, ANNOTATI ON/ADDEN DUM Not Available [facility] 4 14:38:56 Knee pain Completed 201101/21/2014 RECORDED 02/07/20 12 1:32PM BY MALI STEELE MA, ANNOTATI ON/ADDEN DUM Not Available [facility] 4 14:38:56 Sprain of foot 99290354 Completed 201101/21/2014 RECORDED 02/07/20 12 1:32PM BY MALI STEELE MA, ANNOTATI ON/ADDEN DUM Not Available [facility] 4 14:38:56 Syncope and collapse 356867760 Completed 201101/21/2014 RECORDED 02/07/20 12 1:32PM BY MALI STEELE MA, ANNOTATI ON/ADDEN DUM Not Available [facility] 4 14:38:56 Viral disease 49118664 Completed 201101/21/2014 RECORDED 02/07/20 12 1:32PM BY MALI STEELE MA, ANNOTATI ON/ADDEN DUM Not Available [facility] 4 14:38:57 Wheezing 31634789 Completed 201101/21/2014 RECORDED 02/07/20 12 1:32PM BY MALI STEELE MA, ANNOTATI ON/ADDEN DUM Not Available [facility] 4 14:38:57 Acute pyelonep hritis without medullar y necrosis 831047453 Completed 201102/10/2014 RECORDED 02/07/20 12 1:32PM BY MALI STEELE MA, ANNOTATI ON/ADDEN DUM Not Available [facility] 4 06:47:55 Chest pain 64185737 Completed 201102/10/2014 STORY: NOTES SINGLE EPISODE OF SUBSTERN AL CHEST PAIN AT REST. STATES EPISODE LAST 45MIN. SOME NAUSEA.; RECORDED 02/07/20 12 1:32PM BY MALI STEELE MA, MELODIE ON/ADDEN DUM Not Available [facility] 4 06:47:55 Headache 19808738 Completed 201102/10/2014 RECORDED 02/07/20 12 1:32PM BY MALI STEELE MA, MELODIE ON/ADDEN DUM Not Available [facility] 4 06:47:55 Pain of elbow region 98020209 Completed 201102/10/2014 IMPRESSI ON: R SIDED, NO [...] access hospital 4 06:47:55 Blood in urine 94045761 Completed 201102/10/2014 RECORDED 02/07/20 12 1:32PM BY MALI STEELE MA, MELODIE ON/ADDEN DUM Not Available [facility] 4 06:47:55 Kidney stone 92170401 Completed 201102/10/2014 STORY: HISTORY OF PRIOR PYELONEP HRITIS AND HEMATURI A; RECORDED 02/07/20 12 1:32PM BY MALI STEELE MA, MELODIE ON/ADDEN DUM Not Available [facility] 4 06:47:55 Otalgia 71146950 Completed 201102/10/2014 IMPRESSI ON: SXS YESTERDA Y, IMPROVIN G TODAY. NORMAL EXAM. REASSURE D. PT TO CALL PRN.; RECORDED 02/07/20 12 1:32PM BY MALI STEELE MA, MELODIE ON/ADDEN DUM Not Available [facility] 4 06:47:56 Knee pain Completed 201102/10/2014 RECORDED 02/07/20 12 1:32PM BY MALI STEELE MA, ANNOTATI ON/ADDEN DUM Not Available [facility] 4 06:47:56 Sprain of foot 86087632 Completed 201102/10/2014 RECORDED 02/07/20 12 1:32PM BY MALI STEELE MA, ANNOTATI ON/ADDEN DUM Not Available [facility] 4 06:47:56 Syncope and collapse 010679748 Completed 201102/10/2014 RECORDED 02/07/20 12 1:32PM BY AMLI STEELE MA, ANNOTATI ON/ADDEN DUM Not Available [facility] 4 06:47:56 Viral disease 96615207 Completed 201102/10/2014 RECORDED 02/07/20 12 1:32PM BY MALI STEELE MA, JEANNETTEATI ON/ADDEN DUM Not Available [facility] 4 06:47:56 Wheezing 74975315 Completed 201102/10/2014 RECORDED 02/07/20 12 1:32PM BY MALI STEELE MA, ANNOTATI ON/ADDEN DUM Not Available [facility] 4 06:47:56 Bronchit is 85606180 Completed 201201/21/2014 RECORDED 08/07/19 13 9:16AM BY MELODIE JONES ON/ADDEN DUM Not Available [facility] 4 14:38:55 Bronchit is 37740763 Completed 201202/10/2014 RECORDED 08/07/19 13 9:16AM BY MELODIE JONES ON/ADDEN DUM Not Available [facility] 4 06:47:55 Renewal of prescrip tion Completed 201201/21/2014 RECORDED 10/04/19 13 9:02AM BY KACY COLEMAN MA, MELODIE ON/ADDEN DUM Not Available [facility] 4 14:38:56 Enthesop athy of [facility] 44490612 Completed 201201/21/2014 RECORDED 10/04/19 13 9:02AM BY KACY COLEMAN MA, MELODIE ON/ADDEN DUM Not Available [facility] 4 14:38:56 Renewal of prescrip tion Completed 201202/10/2014 RECORDED 10/04/19 13 9:02AM BY KACY COLEMAN MA, MELODIE ON/ADDEN DUM Not Available [facility] 4 06:47:55 Enthesop athy of [facility] 42192003 Completed 201202/10/2014 RECORDED 10/04/19 13 9:02AM BY KACY COLEMAN MA, MELODIE ON/ADDEN DUM Not Available [facility] 4 06:47:56 Tobacco user 116609135 Completed 201201/21/2014 RECORDED 11/24/19 13 8:46AM BY MALI STEELE MA, ANNOTATI ON/ADDEN DUM CHIDI Pelletier MA - [facility] 7 14:34:48 Acute asthma 601934483 Completed 201201/21/2014 RECORDED 02/05/20 13 10:50AM BY RUSSELL CAT MA, ANNOTATI ON/ADDEN DUM Not Available [facility] 4 14:38:54 Chronic sinusiti s 50331343 Completed 201201/21/2014 RECORDED 02/05/20 13 10:50AM BY RUSSELL CAT MA, ANNOTATI ON/ADDEN DUM Not Available [facility] 4 14:38:56 Acute asthma 514433163 Completed 201202/10/2014 RECORDED 02/05/20 13 10:50AM BY RUSSELL CAT MA, ANNOTATI ON/ADDEN DUM Not Available [facility] 4 06:47:55 Chronic sinusiti s 53108605 Completed 201202/10/2014 RECORDED 02/05/20 13 10:50AM BY RUSSELL CAT MA, ANNOTATI ON/ADDEN DUM Not Available [facility] 4 06:47:56 Acute pharyngi tis 025904888 Completed 201201/21/2014 RECORDED 02/12/20 13 1:05PM BY MALI STEELE MA, ANNOTATI ON/ADDEN DUM Not Available [facility] 4 14:38:54 Acute sinusiti s 63170372 Completed 201201/21/2014 RECORDED 02/12/20 13 1:05PM BY MALI STEELE MA, ANNOTATI ON/ADDEN DUM CHIDI Pelletier MA - [facility] 7 14:36:31 Acute pharyngi tis 416038506 Completed 201202/10/2014 RECORDED 02/12/20 13 1:05PM BY MALI STEELE MA, ANNOTATI ON/ADDEN DUM Not Available [facility] 4 06:47:55 Acute sinusiti s 67422941 Completed 201202/10/2014 RECORDED 02/12/20 13 1:05PM BY MALI STEELE MA, ANNOTATI ON/ADDEN DUM CHIDI Pelletier MA [facility] 7 14:36:31 Left upper quadrant pain 436818073 Completed 201201/21/2014 RECORDED 05/08/20 13 10:40AM BY MALI STEELE MA, ANNOTATI ON/ADDEN DUM Not Available [facility] 4 14:38:54 Follow-u p encounte r Completed 201201/21/2014 RECORDED 05/08/20 13 10:39AM BY MALI STEELE MA, ANNOTATI ON/ADDEN DUM Not Available [facility] 4 14:38:55 Malaise and fatigue 101560511 Completed 201201/21/2014 RECORDED 05/08/20 13 10:39AM BY MALI STEELE MA, ANNOTATI ON/ADDEN DUM Not Available [facility] 4 14:38:55 Adult health examinat ion Completed 201201/21/2014 RECORDED 05/08/20 13 10:39AM BY MALI STEELE MA, ANNOTATI ON/ADDEN DUM Not Available [facility] 4 14:38:55 Left upper quadrant pain 880303000 Completed 201202/10/2014 RECORDED 05/08/20 13 10:40AM BY MALI STEELE MA, ANNOTATI ON/ADDEN DUM Not Available [facility] 4 06:47:55 Follow-u p encounte r Completed 201202/10/2014 RECORDED 05/08/20 13 10:39AM BY MALI STEELE MA, ANNOTATI ON/ADDEN DUM Not Available [facility] 4 06:47:55 Malaise and fatigue 249163055 Completed 201202/10/2014 RECORDED 05/08/20 13 10:39AM BY MALI STEELE MA, ANNOTATI ON/ADDEN DUM Not Available [facility] 4 06:47:55 Adult health examinat ion Completed 201202/10/2014 RECORDED 05/08/20 13 10:39AM BY MALI STEELE MA, ANNOTATI ON/ADDEN DUM Not Available [facility] 4 06:47:55 Pain in limb 36936522 Completed 201301/21/2014 RECORDED 07/31/19 14 11:03AM BY MALI STEELE MA, ANNOTATI ON/ADDEN DUM Not Available [facility] 4 14:38:56 Abdomina l pain 97676111 Completed 201301/21/2014 RECORDED 07/31/19 14 11:03AM BY MALI STEELE MA, ANNOTATI ON/ADDEN DUM Not Available [facility] 4 14:38:56 Pain in limb 78080943 Completed 201302/10/2014 RECORDED 07/31/19 14 11:03AM BY MALI STEELE MA, ANNOTATI ON/ADDEN DUM Not Available [facility] 4 06:47:56 Abdomina l pain 19630167 Completed 201302/10/2014 RECORDED 07/31/19 14 11:03AM BY MALI STEELE MA, ANNOTATI ON/ADDEN DUM Not Available [facility] 4 06:47:56 Disorder of lower extremit y Completed 201301/21/2014 RECORDED 08/13/19 14 12:52PM BY YAMILE MAKI MA, ANNOTATI ON/ADDEN DUM Not Available [facility] 4 14:38:54 History of depressi on 451426951 Completed 201301/21/2014 RECORDED 08/13/19 14 12:53PM BY YAMILE MAKI MA, ANNOTATI ON/ADDEN DUM Not Available [facility] 4 14:38:55 Disorder of lower extremit y Completed 201302/10/2014 RECORDED 08/13/19 14 12:52PM BY YAMILE MAKI MA, ANNOTATI ON/ADDEN DUM Not Available [facility] 4 06:47:55 History of depressi on 443348748 Completed 201302/10/2014 RECORDED 08/13/19 14 12:53PM BY YAMILE MAKI MA, ANNOTATI ON/ADDEN DUM Not Available [facility] 4 06:47:55 Meralgia paresthe jagdeep 39955197 Active 2015 Dx: G57.11; numbness and burning in outer thigh Not Available [facility] 3 12:19:14 Ex-smoke r 3209580 Active 2016 Not Available [facility] 3 12:19:14 Mild intermit tent asthma 020950805 Completed 201809/23/2018 José John MD [address] [address], [place], [address] , [facility] 9 08:15:52 Uncompli cated mild persiste nt asthma 875511543 Completed 201809/23/2019 José John MD [address] [address], [address] , [facility] 0 19:55:46 Moderate major depressi on 694284 Completed 201811/17/2023 Freddie Hathaway MD [address] [address], [address] , [facility] 4 13:28:48 Serum creatini ne above referenc e range 564275602 Completed 201809/23/2019 José John MD [address] [address], [address] , [facility] 0 19:55:30 Hiatal hernia 76780790 Active 2018 Not Available [facility] 3 12:19:14 Morbid obesity 325292419 Active 2019 Not Available [facility] 3 12:19:13 Hypoglyc emia 410053211 Completed 202011/17/2023 Freddie Hathaway MD [address], [place], [address] , [facility] 4 13:26:03 Left lateral elbow tendinop athy 38329929001 9100 Completed 202011/17/2023 Freddie Hathaway MD [address], [place], [address] , [facility] 4 13:26:42 Hyperten sive disorder 13602283 Active 2020 CHIDI Jones, [facility] 4 14:17:09 Chronic kidney disease stage 2 062040322 Completed 202006/30/2021 CHIDI Jones, [facility] 4 14:17:09 Obstruct usman sleep apnea syndrome 95441201 Active 2021 Not Available [facility] 3 12:19:13 Degenera tion of cervical interver tebral disc 99339314 Active 2021 Not Available [facility] 3 12:19:13 Primary erectile dysfunct ion 365311385 Active 2021 Not Available [facility] 3 12:19:13 Anal fissure 58079541 Active 2022 Xavier Brooks [facility] [address], [place], [address] , [facility] 3 11:50:26 Acute prostati tis 94326623 Completed 202211/17/2023 Freddie Hathaway MD [address] [facility], [place], [address] , [facility] 4 13:23:54 Pain of left knee joint 46158076132 4107 Completed 202211/18/2024 Freddei Hathaway MD [address] [facility], [place], [address] , [facility] 5 13:27:25 Pain of right knee joint 43719045506 4100 Active 2022 Xavier Brooks [facility] [address] [facility], [place], [address] , [facility] 3 13:10:57 History of Helicoba cter pylori infectio n 02599627395 594013 Active 2023 Freddie Hathaway MD [address] [facility], [place], [address] , [facility] 4 13:25:14 Major depressi on in remissio n 14179583 Active 2023 Freddie Hathaway MD [address] [facility] [address], [place], [address] , [facility] 4 13:28:43 Chronic pain syndrome 769615846 Active 2023 Freddie Hathaway MD [address] [facility], [place], [address] , [facility] 4 07:50:05 Incision al hernia 798683366 Active 2024 Freddie Hathaway MD [address] [facility] [address], [address] , [facility] 5 13:29:31 Pain of knee region 8117952366 Active 2024 Teri booth, [facility] 5 12:25:03 Pernicio us anemia 26852522 Active 2024 Moreno doyle [place] [facility] 5 13:36:18 Neuropat hy 992465624 Active 2024 ALBNA MERLOSSURIBerny Felipe, [facility] [address] [facility] [address] [facility] [address], [place], [address] , [facility] 5 13:47:38 Blood pressure above referenc e range 82645309 Active 2024 ALBAN FELIX Wang, [facility] [address] [facility] [address], [place], [address] , [facility] 5 13:54:14 Change in skin lesion 509205855 Active 2024 ALBAN Wang, [facility] [address] [facility] [address], [place], [address] , [facility] 5 14:30:34 Polyneur opathy 83052864 Active 2024 ALBAN Wang, [facility] [address] [facility] [address], [place], [address] , [facility] 5 12:16:04 Problem Notes None recorded. Procedures Surgical History Date Name Laterality Status Provider Name and Address Organization Details Recorded Time 05/12/20 25 Chronic Pain Assessment completed Mali smith MA [facility] 05/12/2025 10:16:57 06/18/20 24 Chronic Pain Assessment completed Mali smith MA [facility] 06/18/2024 15:30:34 09/25/19 24 circumcision completed Freddie Hathaway MD [address] [facility] [address], [place], [address], [facility] 11/17/2023 13:33:39 10/05/19 22 Chronic Pain Assessment completed Mali smith MA [facility] 10/04/2021 13:54:52 09/29/19 21 Six-Item Cognitive Test completed Juana Miner MA [facility] 09/28/2020 13:38:47 09/04/19 21 Upper gi endoscopy performed completed Prachi Teran [facility] 09/03/2020 13:44:48 08/20/19 20 laparoscopic appendectomy completed Esthela Ruslan [facility] 08/21/2019 10:00:45 04/11/20 17 Polysom 6/> yrs 4/> antony completed Mali smith MA [facility] 04/17/2017 10:49:10 05/12/20 16 Colonoscopy completed Mali smith MA [facility] 01/31/2017 14:39:56 I&d abscess simple/single completed Priscila Porter [facility] 11/03/2020 11:22:34 Imaging Results None recorded. Procedure Notes None recorded. Medical Equipment None Reported. Allergies Allergen ID Allergen Name Allergen Category Reaction Reaction Severity Criticality Documentation Date Start Date Code Code System Note Provider Name and Address Organization Details Recorded Time 65876 No known allergy (situatio n) Not available Not available Not available Not available 03/13/2024 76566 6003 SNOMED CHIDI Jones [facility] 4 14:16:56 No known drug allergies Medications [...] completed RECORDED 09/22/19 12 10:49AM BY MELODIE CESPEDES/CROW ELENA;USE PRN HEADACHE . MAY REPEAT IN [...] Former Smoker quit in 07/2010 CHIDI Curran [facility] 04/18/2014 10:42:29 Do You Have An Advance Directive? Yes HCP [email or web address] Information not available 11/08/2021 Is Blood Transfusion [...] None Information not available 04/18/2014 Education 12 [email or web address] Information not available 11/08/2021 When Did You Quit Smoking? 11-15yearssi ncelastdara nicholsonte Information not available 11/08/2021 Live Alone Or With Others? With Others Quentin Milligan) And 2 Stepchildren [email or web address] Information not available 11/08/2021 Do You Take [...] Information not available 07/27/2020 Marital Status Single Informatio n not available 11/08/2021 What Was The Date Of Your Most Recent Tobacco Screening? 05/12/2025 Information not available 05/12/2025 How Many Children Do You Have? 0 Information not available 04/18/2014 What Is Your Current Pack Years? 10packyears [email or web address] Information not available 11/08/2021 Do You Use Protection During Sex? No Information not available 05/01/2015 Seat Belts Used Routinely Yes Information not available 11/08/2021 Are You Sexually Active? Yes Aarti Information not available 11/17/2023 Smoke Alarm In Home Yes [email or web address] Information not available 11/08/2021 At What Age [...] use any illicit or recreational drugs? No [email or web address] Information not available 11/08/2021 Do you or have you ever used any other forms of tobacco or nicotine? No [email or web address] Information not available 11/08/2021 What is your level of alcohol consumption? None Information not available 04/18/2014 Do you or have you ever used smokeless tobacco? Never used smokeless tobacco Information not available 09/23/2019 Are you currently employed? No disabled due to back issues Information not available 04/18/2014 Are you able to walk independently without assistance or assistive devices? YESWOREST [email or web address] Information not available 11/08/2021 Are you able to care for yourself independently? 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 Never used electronic cigarettes [email or web address] Information not available 11/08/2021 What is your exercise level? Occasional walking Information not available 05/01/2015 Mental Status None recorded. Family History Relationship Description Onset Age of this Age Resolved Age Notes LastModified by Organization Details LastModified Time Mother Essential hypertension [email or web address] Not available 14:25:06 Mother Diabetes mellitus [email or web address] s Not available 11/02/2015 10:09:52 Mother Asthma [email or web address] s Not available 11/02/2015 10:09:52 Mother Glaucoma [email or web address] s Not available 11/17/2023 13:17:00 Mother Cataract [email or web address] s Not available 11/17/2023 13:17:06 Father Essential hypertension [email or web address] Not available 14:25:06 Father Prostatism Not avail able 11/08/2021 14:25:06 Father Heart disease 68 Not available 11/29 11:41:41 Maternal Grandfather Primary malignant neoplasm of lung Not available 11/08 14:25:06 Medical History Condition Response Anxiety Disorder Y Obesity Y Depression Y Immunizations Vaccine Type Date Status Note Provider Nam e and Address Organization Details Recorded Time Influenza, split virus, trivalent, preservative 7 completed Not Available [facility] 05/17/2023 15:46:02 Influenza, split virus, quadrivalent, preservative 9 completed Nury Caporale, BILLING COORDINATOR null, [facility] 07/24/2023 15:15:16 Influenza, split virus, quadrivalent, preservative 0 completed Nury Caporale, BILLING COORDINATOR null, [facility] 07/24/2023 15:15:16 Influenza, split virus, quadrivalent, PF 0 completed Not Available [facility] 05/17/2023 15:46:02 COVID-19, mRNA, LNP-S, PF, 100 mcg/0.5mL dose or 50 mcg/0.25mL dose 1 completed Not Available [facility] 05/17/2023 15:46:02 COVID-19, mRNA, LNP-S, PF, 100 mcg/0.5mL dose or 50 mcg/0.25mL dose 1 completed Not Available [facility] 05/17/2023 15:46:02 Influenza, MDCK, quadrivalent, PF 9 completed Not Available [facility] 05/17/2023 15:46:02 Influenza, MDCK, quadrivalent, PF 7 completed Not Available [facility] 05/[facility] 15:46:02 Influenza, MDCK, quadrivalent, PF 6 completed Not Available [facility] 05/17/[facility] 15:46:02 Influenza, split virus, trivalent, PF 4 completed Not Available [facility] 05/17/2023 15:46:02 Influenza, split virus, quadrivalent, PF 5 completed Not Available [facility] 05/17/2023 15:46:03 Td (adult), 2 Lf tetanus toxoid, preservative free, adsorbed 9 completed Not Available [facility] 05/17/2023 15:46:02 Influenza, split virus, quadrivalent, PF 8 completed Not Available [facility] 05/17/2023 15:46:02 zoster recombinant 3 completed Not Available [facility] 05/17/2023 15:46:02 zoster recombinant 3 completed Nury Galan LPN null, [facility] 07/24/2023 15:15:17 Tdap 4 completed Mali Mendez MA null, [facility] 06/18/2024 15:09:13 Pneumococcal conjugate PCV20, polysaccharide [id number] conjugate, adjuvant, PF 5 completed Ofelia Watkins null, [facility] 07/12/2024 09:10:54 COVID-19, mRNA, LNP-S, PF, jen-sucrose, 30 mcg/0.3 mL 5 completed Cindi Yanez MA null, [facility] 07/26/2024 13:39:45 Influenza, split virus, quadrivalent, PF 2 completed Freddie Hathaway MD [address], [address], [facility] 05/17/2022 14:52:47 Tdap 9 completed Not Available [facility] 05/17/2023 15:46:02 Influenza, split virus, trivalent, PF 4 completed Freddie Hathaway MD [address] [address], [place], [address], [facility] 06/19/2024 12:48:41 Influenza, split virus, trivalent, PF 5 completed CHIDI Curran, [facility] 03/20/2025 14:38:37 Past Encounters Encounter ID Performer Location Encounter Start Date Encounter Closed Date Diagnosis/Indication Diagnosis SNOMED-CT Code Diagnosis ICD10 Code Diagnosis IMO Codes Diagnosis Note [id number] Malcolm Bear MD Main Office [address] [facility] [place] [address] 03/06/2025 13:22:01 03/06/2025 14:26:37 Neuropathy 083502495 G62.9 84644 - Patient describes neuropathy that can be [...] emergency. Blood pres sure above reference range 38105141 R03.0 256650 - Home BP reading 138/83. Blood pressures [...] log. Degenerati on of cervical intervertebral disc 68563599 M50.30 - Patient has acutely increased neck [...] that warrant emergency medical care Pernicious anemia 937431 09 D51.9 - Patient due for routine B12 injection for pernicious anemia [id number] Godwin Diaz MD Main Office [address] [place] [address] 03/20/2025 14:02:46 03/20/2025 14:40:05 Blood pressure above reference range 95214130 R03.0 892987 - Blood pressures at home have been within normal range for the past 2 weeks. No further follow up is indicated at this time other than routine preventati ve monitoring . Needs infl uenza immunization [id number] Z23 19 YEARS AND OLDER ONLY Change in skin lesion 39 9696036 D22.9 24592082 - Patient reports change in mole in [...] keeping site covered to prevent irritation . [id number] NADIR SANDERSON MD Main Office [address] [place] [address] 04/04/2025 13:16:37 04/04/2025 13:21:47 Pernicious anemia 56553525 D51.9 Health Concerns Section Related Observation LastModified by Organization Detai ls LastModified Time None Recorded Concern Status LastModified by Organization Details LastModified Time None Recorded Payers Encounter Date Sequence Insurance Name Policy Number Policy Steen Covered Member ID Steen Member ID Guarantor Name 04/04/2025 2 [place] Ramírez Mena [id number] Ramírez Mena 04/04/2025 1 [facility] DOS ON OR AFTER 2022 - DUAL ELIGIBLE - LONG TERM OPTIONS AND ONE CARE (MEDICARE REPLACEMENT/A DVANTAGE - HMO) Ramírez Mena [id number] Ramírez Mena
--- OUTSIDE RECORDS SUMMARY | 2025-06-25 13:35 | XMS_ITS | Clinical Summary ---
Author Organization [facility] Address [address] [place] [address] Phone Care Team Providers Care Account Advisor Name Role Phone Freddie Peguero MD Primary Care Provider [phone] Allergies No known active allergies Medications tamsulosin (FLOMAX) 0.4 mg 24 hr capsule TAKE 1 CAPSULE ONCE A DAY BEFORE BED Active melatonin 10 mg tablet Route: Take 1 Tablet by mouth at bedtime. - Oral Active albuterol sulfate (ProAir RespiClick) 90 mcg/actuation aerosol powdr breath activated Inhale 2 Puffs into the lungs daily as needed. Active omeprazole (PriLOSEC) [address] capsule Take 2 Caps by mouth 2 times daily. Active gabapentin (NEURONTIN) 400 mg capsule Route: Take 1 Cap by mouth 3 times daily. 3caps at bed as well - Oral Active topiramate (TOPAMAX) 50 mg tablet - Route: Take 1 Tab by mouth 2 times daily. - Oral Active buPROPion XL (WELLBUTRIN XL) 300 mg 24 hr tablet Take 1 Tab by mouth every morning. Active valACYclovir (VALTREX) 1 gram tablet Take 1 Tab by mouth 2 times daily as needed. Active traMADoL (ULTRAM) 50 mg tablet Route: Take 50 mg by mouth every 6 hours as needed. - Oral Active montelukast (SINGULAIR) 10 mg tablet Take 1 tablet (10 mg total) by mouth 1 (one) time each day. 06/18/20 24 Active acetaminophen (TYLENOL) 500 mg tablet Take 2 tablets (1,000 mg total) by mouth every 8 (eight) hours. 30 tablet 12/31/19 25 Active oxyCODONE (OXY-IR) 5 mg immediate release capsule Take 1 capsule (5 mg total) by mouth every 6 (six) hours if needed for severe pain (This is a substitue for Tramadol to address severe pain which is not adequately controlled with Tramadol alone. DO NOT TAKE Oxycodone along with Tramadol. Take either Oxycodone OR the previously prescribed Tramadol. DO NOT TAKE BOTH Oxycodone and Tramadol at the same time.) for up to 10 doses. Max Daily Amount: 20 mg 10 capsule 01/02/20 25 Active oxyCODONE (ROXICODONE) 5 mg immediate release tabletIndicatio ns:Post-op pain Take 1 tablet (5 mg total) by mouth every 6 (six) hours if needed for severe pain. Max Daily Amount: 20 mg 10 tablet 01/23/20 25 Active senna-docusate (PERICOLACE) 8.6-50 mg per tabletIndicatio ns:Constipation , unspecified constipation type Take 2 tablets by mouth 1 (one) time each day. 60 each 01/31/20 026 Active Additional Information Patient not taking.Reason: Other (taking different med), Reported on 05/19/2025 polyethylene glycol (MIRALAX) 17 gram packetIndicatio ns:Drug induced constipation,Le ft lower quadrant abdominal pain Take 17 g by mouth 2 (two) times a day. 1020 g 02/05/20 25 026 Active loratadine (CLARITIN) 10 mg tablet Take 1 tablet (10 mg total) by mouth 1 (one) time each day. Active omeprazole (PriLOSEC) [address] capsule Take 1 capsule (40 mg total) by mouth 2 (two) times a day. Do not crush or chew. Active tirzepatide, weight loss, (Zepbound) 15 mg/0.5 mL injection Inject 0.5 mL (15 mg total) under the skin every 7 (seven) days. 2 mL 06/11/20 25 026 Active tirzepatide, weight loss, (Zepbound) 15 mg/0.5 mL injection Inject 0.5 mL (15 mg total) under the skin every 7 (seven) days. 2 mL 05/08/20 25 025 Discontinued Active Problems Problem Noted Date Diagnosed Date Drug induced constipation 02/04/2025 Left lower quadrant abdominal pain 02/04/2025 Assessment & Plan (04/09/2025 4:48 PM EDT): Intermittent and improved with better constipation regimen No alarm symptoms present Unremarkable abdominal imaging Continue to treat constipation with MiraLAX once to twice a day Anxiety state 01/30/2025 Binge eating disorder 01/30/2025 Candidiasis of mouth 01/30/2025 Generalized anxiety disorder with panic attacks 01/30/2025 Herpes labialis 01/30/2025 HSV infection 01/30/2025 Neck pain 01/30/2025 Pulmonary emphysema 01/30/2025 Pain in left knee 12/04/2024 Chronic pain syndrome 06/17/2024 Major depressive disorder 11/17/2023 Bilateral impacted cerumen 05/09/2023 Overview (01/30/2025): Impacted cerumen, bilateral; Note: Date Diagnosed: 10/23/2023 3:37 PM (H61.23) Abnormal auditory perception 04/28/2023 Overview (01/30/2025): Other abnormal auditory perceptions, right ear; Note: Date Diagnosed: 04/28/2023 4:53 PM (H93.291) Other abnormal auditory perceptions, bilateral; Note: Date Diagnosed: 11/10/2020 1:58 PM (H93.293) ; Start Date : 11/10/2020 Otalgia of left ear 04/28/2023 Overview (01/30/2025): Otalgia, left ear; Note: Date Diagnosed: 04/28/2023 4:52 PM (H92.02) Acute prostatitis 03/23/2023 Anal fissure 03/23/2023 Arthralgia of right knee 03/23/2023 Acute nontraumatic kidney injury 02/06/2023 Allergic rhinitis 02/06/2023 Chronic back pain 02/06/2023 Fatigue 02/06/2023 Gastroesophageal reflux disease 02/06/2023 Assessment & Plan (04/09/2025 4:48 PM EDT): Controlled with omeprazole 40 mg twice a day Patient is hopeful that with continued weight loss he will be able to lower the dose Continue GERD diet, healthy lifestyle Heartburn 02/06/2023 Helicobacter pylori (H. pylo ri) as the cause of diseases classified elsewhere 02/06/2023 Herpes simplex 02/06/2023 Insomnia 02/06/2023 Migraine 02/06/2023 Primary erectile dysfunction 05/18/2022 Degeneration of cervical intervertebral disc Elevated blood pressure reading 01/24/2022 Assessment & Plan (05/19/2025 1:34 PM EST): Obesity 01/24/2022 Assessment & Plan (05/19/2025 1:34 PM EST): Cervical radiculitis 01/12/2022 Obstructive sleep apnea syndrome 01/10/2022 Bilateral temporomandibular joint pain Overview (01/30/2025): Arthralgia of right temporomandibular joint; Note: Date Diagnosed: 08/19/2021 11:17 AM (M26.621) Otalgia of right ear 08/19/2021 Overview (01/30/2025): Otalgia, right ear; Note: Date Diagnosed: 08/19/2021 11:12 AM (H92.01) Chronic kidney disease, stage 2 (mild) Hypertension 06/30/2021 Lateral epicondylitis 03/24/2021 Chest discomfort 09/28/2020 Assessment & Plan (05/19/2025 1:34 PM EST): Orders: ECG 12 lead Hyperlipidemia 09/28/2020 Dysphonia 09/09/2020 Overview (01/30/2025): Hoarseness; Note: Date Diagnosed: 09/09/2020 3:30 PM (R49.0) Hypoglycemia 07/27/2020 Hiatal hernia 04/24/2019 Moderate major depression 02/19/2019 Pain in limb 07/31/2013 Overview (01/30/2025): RECORDED 07/31/2013 11:03AM BY WES MONROY MA, ANNOTATION/ADDENDUM Malaise and fatigue 05/08/2013 Overview (01/30/2025): RECORDED 05/08/2013 10:39AM BY WES MONROY MA, ANNOTATION/ADDENDUM Acute pharyngitis 02/11/2013 Overview (01/30/2025): RECORDED 02/11/2013 1:05PM BY WES MONROY MA, ANNOTATION/ADDENDUM Chronic sinusitis 02/04/2013 Overview (01/30/2025): RECORDED 02/04/2013 10:50AM BY RUSSELL CAT MA, ANNOTATION/ADDENDUM Asthma 02/04/2013 Overview (01/30/2025): RECORDED 02/04/2013 10:50AM BY RUSSELL CAT MA, ANNOTATION/ADDENDUM Enthesopathy of hip region 10/03/2012 Overview (01/30/2025): RECORDED 10/03/2012 9:02AM BY KACY BOOTHE MA, ANNOTATION/ADDENDUM Bronchitis 08/07/2012 Overview (01/30/2025): RECORDED 08/07/2012 9:16AM BY YOLY UGARTE, ANNOTATION/ADDENDUM Kidney stone 02/07/2012 Overview (01/30/2025): STORY: HISTORY OF PRIOR PYELONEPHRITIS AND HEMATURIA; RECORDED 02/07/2012 1:32PM BY WES MONROY MA, ANNOTATION/ADDENDUM Acute pyelonephritis without medullary necrosis 02/07/2012 Overview (01/30/2025): RECORDED 02/07/2012 1:32PM BY WES MONROY MA, ANNOTATION/ADDENDUM Blood in urine 02/07/2012 Overview (01/30/2025): RECORDED 02/07/2012 1:32PM BY WES MONROY MA, ANNOTATION/ADDENDUM Viral disease 02/07/2012 Overview (01/30/2025): RECORDED 02/07/2012 1:32PM BY WES MONROY MA, ANNOTATION/ADDENDUM Resolved Problems Problem Noted Date Diagnosed Date Resolved Date Ventral hernia 12/30/2024 12/30/2024 Encounters Date Type Department Care Team Description 06/05/2025 Telephone Bariatric Surgery [address] [phone] Anant Sandhu MD 05/19/2025 3:00 PM EST Office Visit Bariatric Surgery [address] [phone] Anant Sandhu MD Class 2 obesity due to excess calories with body mass index (BMI) of 38.0 to 38.9 in adult, unspecified whether serious comorbidity present (Primary Dx) 05/19/2025 1:00 PM EST Office Visit [facility] [address] [phone] Dane Bueno MD Chest discomfort (Primary Dx); Elevated blood pressure reading; Class 2 obesity due to excess calories without serious comorbidity with body mass index (BMI) of 39.0 to 39.9 in adult 05/12/2025 Telephone Bariatric Surgery [address] [phone] Anant Sandhu MD 05/06/2025 Telephone Bariatric Surgery - [facility] [address] [place] [phone] Anant Sandhu MD 04/21/2025 2:00 PM EDT Office Visit General Surgery - [facility] [address] [facility] [address] [place] [address] Clement Dozier MD History of ventral hernia repair (Primary Dx); Incisional hernia, without obstruction or gangrene 04/09/2025 2:10 PM EDT Office Visit Gastroenterology - [facility] [address] [facility] [address] [place] [address] Danny Cavazos PA Left lower quadrant abdominal pain (Primary Dx); Gastroesophageal reflux disease without esophagitis; Irritable bowel syndrome with constipation; Colon cancer screening 04/07/2025 Telephone Bariatric Surgery - [facility] [address] [place] [phone] Anant Sandhu MD from Last 3 Months Surgical History Surgery Date Site/Laterality Comments APPENDECTOMY PROCEDURE: NE APPENDECTOMY OTHER SURGICAL HISTORY PROCEDURE: NE INCISION & DRAINAGE ABSCESS SIMPLE/SINGLE; COMMENT: right calf APPENDECTOMY 08/20/2019 PROCEDURE: LAPAROSCOPIC APPENDECTOMY OTHER SURGICAL HISTORY 04/11/2017 PROCEDURE: NE POLYSOM 6/>YRS SLEEP W/CPAP 4/> ADDL GRACIA ATTND COLONOSCOPY 05/12/2016 PROCEDURE: HISTORICAL COLONOSCOPY UPPER GASTROINTESTINAL ENDOSCOPY 03/05/2015 PROCEDURE: NE UPPER GI ENDOSCOPY PERFORMED HERNIA REPAIR HERNIA REPAIR 12/01/2024 - 12/30/2024 ESOPHAGOGASTRODUODENOSCOPY 08/31/2020 - 09/30/[address] Milian Medical History Medical History Date Comments Asthma DX:Asthma Esophageal reflux DX:Esophageal reflux Migraines DX:Migraines Back problem DX:Back problem CKD (chronic kidney disease) DX: CKD (chronic kidney disease) Herpes simplex DX:Herpes simple x Hypoglycemia 07/27/2020 DX:Hypoglycemia Morbid obesity (CMS/HCC V24, CMS/HCC V28) 08/07/2019 DX:Morbid obesity (HCC) Moderate major depression (C MS/HCC V24, CMS/HCC V28) 02/19/2019 DX:Moderate major depression (HCC) Anxiety DX:Anxiety Hiatal hernia 04/24/2019 DX:Hiatal hernia Chronic back pain DX:Chronic joseph k pain Heartburn DX:Heartburn Plantar fascial fibromatosis DX: Plantar fascial fibromatosis Herpes labialis DX:Herpes labial is Positive Helicobacter pylori serology DX:Positive Helicobacter pylori serology Insomnia DX:Insomnia GERD (gastroesophageal reflu x disease) DX:GERD (gastroesophageal re flux disease) Degeneration of lumbar inter vertebral disc DX:Degeneration of lumbar intervertebral disc Lesion of ulnar nerve DX:Lesion of ulnar nerve Body mass index 40.0-44.9, a dult (CMS/HCC V24, CMS/HCC V28) 09/23/2019 DX:Body mass index 40.0-44. 9, adult (HCC) Hyperlipidemia DX:Hyperlipidemi a Allergic rhinitis DX:Allergic rh initis Fatigue DX:Fatigue Meralgia paresthetica DX:Meralgi a paresthetica Family History Medical History Relation Name Comments Other: CKD Brother Hyperlipidemia Father Hypertension Father Other: Prostatism Father Other: heartattack Father Other: Primary malignant neoplasm of lung Maternal Gra ndfather Asthma Mother Diabetes Mother Hyperlipidemia Mother Hypertension Mother Relation Name Status Comments Brother Alive Father Maternal Grandfather Mother Alive Social History Tobacco Use Types Packs/Day Years Used Date Smoking Tobacco: Never Smokeless Tobacco: Never Tobacco Cessation:Counseling Given: Not Answered Alcohol Use Standard Drinks/Week Comments No 0 (1 standard drink = 0.6 oz pur e alcohol) Sex and Gender Information Value Date Recorded Sex Assigned at Male 05/08/2024 4:40 PM EST Legal Sex Male 4:53 AM EST Gender Identity Male 05/08/2024 4:40 PM EST Sexual Orientation Straight 05/08/2024 4: 40 PM EST Last Filed Vital Signs Vital Sign Reading Time Taken Comments Blood Pressure 110/76 05/19/2025 3:10 PM EST Pulse 76 05/19/2025 3:10 PM EST Temperature 36.6 C (97.8 F) 01/30/2025 1:35 PM EDT Respiratory Rate 18 01/22/2025 8:11 PM EDT Oxygen Saturation 99% 05/19/2025 1:07 PM EST Inhaled Oxygen Concentration - - Weight 129 kg (285 lb) 05/19/2025 3:10 PM EST Height 182.9 cm (6') 05/19/2025 1:07 PM EST Body Mass Index 38.65 05/19/2025 1:07 PM EST Plan of Treatment Upcoming Encounters Date Type Department Care Team (Late st Contact Info) Description 12/02/2025 1:00 PM EDT Office Visit Bariatric Surgery - [facility] [address] [facility] [address] [place] [address] Anant Sandhu MD [address] [place] [phone] Health Maintenance Due Date Last Done Comments Hepatitis B Vaccines (1 of 3 - 19+ 3-dose series) 1991 RSV Immunization Adult Patients (1 - Risk 50-74 years 1-dose series) 2022 HIV Screening 06/11/2022 Hepatitis C Screening 06/11/2022 Medicare Annual Wellness Visit 06/11/2022 Social Influencers of Health Screening 06/11/2022 Depression Screening 07/03/2024 COVID-19 Vaccine ( season) 2025 07/10/2024, 04/13/2021, 03/16/2021 Hypertension/CHF/CAD Annual BMP Blood Test 01/22/2026 01/22/2025, 12/29/2024, 08/09/2024, Additional history exists Colorectal Cancer Screening: Colonoscopy 05/12/2026 05/12/2016 Cholesterol Screening (Lipid Panel) 05/23/2029 05/23/2024 DTaP,Tdap,and Td Vaccines (4 - Td or Tdap) 09/02/2033 09/03/2023, 09/21/2018, 09/26/2008 Zoster Vaccines Completed 03/11/2023, 10/12/2022 Pneumococcal Vaccine: 50+ Years Completed 07/10/2024 Influenza Vaccine Completed 03/20/2025, , 05/17/2022, Additional history exists HIB Vaccines Aged Out No longer eligi ble based on patient's age to complete this topic HPV Vaccines Aged Out No longer eligi ble based on patient's age to complete this topic Hepatitis A Vaccines Aged Out No long er eligible based on patient's age to complete this topic IPV Vaccines Aged Out No longer eligi ble based on patient's age to complete this topic MMR Vaccines Aged Out No longer eligi ble based on patient's age to complete this topic Meningococcal ACWY Vaccine Aged Out N o longer eligible based on patient's age to complete this topic Meningococcal B Vaccine Aged Out No l onger eligible based on patient's age to complete this topic RSV Immunization Patients Under 20 months Aged Out No longer eligible based on patient's age to complete this topic Varicella Vaccines Aged Out No longer eligible based on patient's age to complete this topic Medical Devices Implanted Type Area Business Education Teacher Device Identifier Shelf Expiration Date Model / Serial / Lot Mesh Ventralight St [address] Cir W/Echo Ps Posi Syst - Sna - [id number] Implanted:Qty: 1 on 12/30/2024 by Clement Dozier MD at [facility] Surgical Mesh Sling Implants N/A: Abdomen CR BARD - DAVOL DIV [id number] 07/30/2026 [id number] / NA / [id number] Procedures Procedure Name Priority Date/Time Associated Diagnosis Comments ECG 12-LEAD Routine 05/19/2025 1:14 PM EST Chest discomfort COMPREHENSIVE METABOLIC PANEL STAT 01/22/2025 4:46 PM EDT LIPID PANEL WITH REFLEX TO DIRECT LDL Routine 05/23/2024 11:41 AM EST Class 3 severe obesity with body mass index (BMI) of 45.0 to 49.9 in adult, unspecified obesity type, unspecified whether serious comorbidity present (CMS/HCC V24, CMS/HCC V28) EXTERNAL COLONOSCOPY REPORT Routine 05/12/2016 8:59 AM EST from Last 3 Months or Most Recently Relevant to Health Maintenance Results * ECG 12 lead (05/19/2025 1:14 PM EST) Ventricular Rate ECG 60 BPM GEMUSE Atrial Rate 60 BPM GEMUSE P-R Interval 150 ms GEMUSE QRS Duration 142 ms GEMUSE Q-T Interval 398 ms GEMUSE QTc 398 ms GEMUSE P Wave [place] 73 degrees GEMUSE R [place] -46 degrees GEMUSE T [place] 54 degrees GEMUSE ECG Interpretation Normal sinus rhythm Right bundle branch block Left anterior fascicular block Bifascicular block Abnormal ECG When compared with ECG of 15-APR-2024 22:21, Vent. rate has decreased BY 30 BPM T wave inversion no longer evident in Anterior leads QT has shortened Confirmed by MD Myles, Dane ([id number]) on 05/19/2025 1:35:39 PM GEMUSE 05/19/2025 1:14 PM EST 05/19/2025 1:35 PM EST us Dane Bueno MD ECG ORDERABLES Final Res ult GEMCHELSEA * (ABNORMAL) Comprehensive metabolic panel (01/22/2025 4:46 PM EDT) Sodium 138 133 - 145 mmol/L LAB CHEMISTRY [facility] Potassium 4.7 3.5 - 5.5 mmol/L LAB CHEMISTRY METHOD 01/22/2025 5:[address] [facility] Chloride 108 96 - 110 mmol/L LAB CHEMISTRY METHOD 01/22/2025 5:[address] [facility] CO2 25 21 - 32 mmol/L LAB CHEMISTRY METHOD 01/22/2025 5:[address] [facility] Anion Gap 5 3 - 11 LAB CHEMISTRY METHOD 01/22/2025 5:[address] [facility] Glucose 81 70 - 100 mg/dL LAB CHEMISTRY METHOD 01/22/2025 5:[address] [facility] BUN 11 5 - 25 mg/dL LAB CHEMISTRY METHOD 01/22/2025 5:[address] [facility] Creatinine 1.33(H) 0.70 - 1.30 mg/dL LAB CHEMISTRY METHOD 01/22/2025 5:[address] [facility] eGFR 64 >=60 mL/min/1. 73m2 LAB CHEMISTRY METHOD 01/22/2025 5:[address] [facility] Comment:Calculation based on the Chronic Kidney Disease Epidemiology Collaboration (CKD-EPI) equation refit without adjustment for race. BUN/Creatinine Ratio 8.3 LAB CHEMISTRY METHOD 01/22/2025 5:59 PM EDT [facility] Calcium 9.5 8.5 - 10.5 mg/dL LAB CHEMISTRY METHOD 01/22/2025 5:59 PM EDT [facility] AST (SGOT) 14 10 - 42 unit/L LAB CHEMISTRY METHOD 01/22/2025 5:59 PM EDT [facility] ALT (SGPT) 20 10 - 60 unit/L LAB CHEMISTRY METHOD 01/22/2025 5:59 PM EDT [facility] Alkaline Phosphatase 82 42 - 121 unit/L LAB CHEMISTRY METHOD 01/22/2025 5:59 PM EDT [facility] Total Protein 7.7 6.0 - 8.0 g/dL LAB CHEMISTRY METHOD 01/22/2025 5:59 PM EDT [facility] Albumin 4.0 3.2 - 5.0 g/dL LAB CHEMISTRY METHOD 01/22/2025 5:59 PM EDT [facility] Total Bilirubin 0.5 0.0 - 1.4 mg/dL LAB CHEMISTRY METHOD 01/22/2025 5:59 PM EDT [facility] Blood Venous blood specimen / Unknown Venipuncture / Unknown 01/22/2025 4:46 PM EDT 01/22/2025 5:22 PM EDT us Regis Hawkins MD LAB BLOOD ORDERABLES Final Resul t [facility] [address] [place] [address], * Lipid panel with reflex to direct LDL (05/23/2024 11:41 AM EST) Cholesterol 126 0 - 200 mg/dL LAB CHEMISTRY METHOD 05/23/2024 3:49 PM EST [facility] Triglycerides 72 0 - 150 mg/dL LAB CHEMISTRY METHOD 05/23/2024 3:49 PM EST [facility] HDL 50 >=40 mg/dL LAB CHEMISTRY METHOD 05/23/2024 3:49 PM EST [facility] LDL Calculated 62 0 - 100 mg/dL LAB CHEMISTRY METHOD 05/23/2024 3:49 PM EST [facility] VLDL Cholesterol Chuckie 14.4 mg/dL LAB CHEMISTRY METHOD 05/23/2024 3:49 PM EST [facility] Non HDL Chol. (LDL+VLDL) 76 <145 mg/dL LAB CHEMISTRY METHOD 05/23/2024 3:49 PM EST [facility] Chol/HDL Ratio 2.5 0.0 - 4.4 LAB CHEMISTRY METHOD 05/23/2024 3:49 PM EST [facility] Blood Venous blood specimen / Unknown Venipuncture / Unknown 05/23/2024 11:41 AM EST 05/23/2024 11:41 AM EST Anant Sandhu MD LAB BLOOD ORDERABLES Final R esult [facility] [address] [place] [address], * External Colonoscopy Report (05/12/2016 8:59 AM EST) Anatomical Region Laterality Modality Endoscopy Historical Provider GI~PROCEDURE ORDERABLES F inal Result from Last 3 Months or Most Recently Relevant to Health Maintenance Insurance [facility] MEDICARE Member Subscriber Plan / Payer (Ef fective 2021-Present) Name:HOLLY MENA Relation to Subscriber:Self Name:Holly Rodriges Payer ID:[id number] Group ID:[id number] Type:Not on file Address: [address] [facility] [place] [phone] Advance Directives * Full Code - Default (Latest Code Status on File) Date Activated Date Inactivated Comments 12/30/2024 1:02 AM 12/30/2024 3:52 PM This is orde r is used when code status has not been discussed with the patient, or code status is otherwise unknown/unconfirmed To update the patient's code status, place a code status order. Do not modify or discontinue any currently active code status orders. Care Teams Account Advisor Relationship Specialty [place] [address] [place] [phone] PCP - General 11/02/20
--- OUTSIDE RECORDS SUMMARY | 2025-06-25 13:36 | XMS_ITS | Data Portability ---
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 No hx CAD or ME. No leg swelling. No F/C. VS wnl [...] in the field was performed by my bottler helper colleague, as noted above, I provided real-time [...] Lab BMP, serum or plasma [address], [id number] 5 08:02:15 rapid SARS CoV 2 Ag, QL IA, respiratory specimen [address], [id number] 4 21:55:06 rapid flu (A+B) [address], [address] 4 21:54:46 urinalysis, dipstick [address], [id number] 4 08:09:01 rapid SARS CoV 2 Ag, QL IA, respiratory specimen 2023 [facility], [address] [place] [address], [id number] 4 08:09:16 Referral None recorded. Procedures None recorded. Surgeries None recorded. Imaging None recorded. Medication Orders sodium chloride 0.9 % intravenous solution 2024 025 [facility], [phone] [place], [address], 5 21:42:38 metoclopram marybel 5 mg/mL injection solution 2024 025 [facility], [phone] [place], [address], 5 21:42:38 diphenhydra mine 50 mg/mL injection solution 2024 025 [facility], [phone] [place], [address], 5 21:42:38 prednisone 20 mg tablet 2023 024 [facility], [phone] [place], [address], 4 21:04:59 prednisone 20 mg tablet 2023 024 [facility] [phone] [place], [address], 4 21:05:00 albuterol sulfate 2.5 mg/3 mL (0.083 %) solution for nebulizatio n 2023 024 [facility] [phone] [place], [address], 4 21:09:20 prednisone 20 mg tablet 2023 024 [email or web address] [facility] [phone] [place], [address], 4 21:43:45 prednisone 20 mg tablet 2023 024 [facility] [phone] [place], [address], 4 21:43:46 albuterol sulfate HFA 90 mcg/actuati on aerosol inhaler 2023 024 [facility] [phone] [place], [address], 4 21:43:47 Lotrimin AF Powder 2 % topical spray 2023 024 [facility] [phone] [place], [address], 4 10:40:31 Patient TargetsNo targets recorded. Patient InstructionsNo instructions recorded. Reason for Referral None Reported. Results Created Date Observation Date Name Description Value Unit Range Abnormal Flag Note LastModifiedBy Organization Detail LastModifiedTime 06/10/20 24 06/10/2024 rapid SARS CoV 2 Ag, QL IA, respi rator y speci men rapid SARS CoV 2 Ag, QL IA, respiratory specimen negati ve Not Available [facility] ed [address] [place] [address], [phone] 06/10/2024 21:06:43 06/10/20 24 06/10/2024 rapid flu (A+B) Flu negati ve Not Available [facility] ed [address] [place] [address], [phone] 06/10/2024 21:06:43 Result Notes None recorded. Medical [...] Vitals Date Recorded Body temperature Oxygen saturation Respiratory rate Heart rate Systolic And Diastolic Provider Name and Address Organization Details Last Updated DateTime 5 98.4 [degF] 99 % 18 /min 66 /min 145/90 mm[Hg] Not Available [facility] 5 21:32:23 Date Recorded Body temperature Heart rate Respiratory rate Oxygen saturation Systolic blood pressure Provider Name and Address Organization Details Last Updated DateTime 4 98.2 [degF] 69 /min 16 /min 97 % 120 mm[Hg] Not Available [facility] 4 10:36:09 Date Recorded Respiratory rate Oxygen saturation Body weight Body temperature Heart rate Systolic And Diastolic Provider Name and Address Organization Details Last Updated DateTime 4 16 /min 97 % 649777. 992 g 104 [degF] 87 /min 124/70 mm[Hg] Not Available [facility] [employer] 4 20:11:37 Date Recorded Body temperature Oxygen saturation Body weight Body height Heart rate Respiratory rate Systolic And Diastolic Provider Name and Address Organization Details Last Updated DateTime 4 98.5 [degF] 98 % 603646. 992 g 182.88 cm 68 /min 16 /min 140/85 mm[Hg] Not Available [facility] 21:31:30 Date Recorded Respiratory rate Body temperature Oxygen saturation Body weight Body height Heart rate Systolic And Diastolic Provider Name and Address Organization Details Last Updated DateTime 4 18 /min 98.9 [degF] 95 % 225376. 728 g 182.88 cm 72 /min 108/76 mm[Hg] Not Available [facility] 21:01:05 Social History None recorded. Functional Status None recorded. Mental Status None recorded. Family History Nothing Reported. Medical History No medical history recorded. Past Encounters Encounter ID Performer Location Encounter Start Date Encounter Closed Date Diagnosis/Indication Diagnosis SNOMED-CT Code Diagnosis ICD10 Code Diagnosis IMO Codes Diagnosis Note [id number] Gold Dolan MD [facility] - [facility] [address] [place] [phone] 06/06/2022 14:51:44 06/08/2022 11:05:10 Upper respiratory infection 62977794 J06.9 [id number] Cari Urbina MD [facility] - [facility] [address] [place] [id number] 09/22/2023 21:15:30 09/23/2023 00:43:00 Nausea, vomiting and diarrhea 8596455 R19.7 [id number] [facility] [address] [place] [phone] 10/13/2023 10:31:40 10/13/2023 12:57:37 Localized eruption of skin 764944648 R21 Evaluation in the field was performed by my bottler helper colleague, as noted above, I provided real-time direction and supervisio n for this visit. 53yo M with painful and slightly pruritic erythemato us rash in skin folds of chest x 1 week. Recently on Bactrim. No mucosal lesions. On bottler helper eval VS wnl, exam c/w intertriga l [...] shortness of breath, cough, chest pain, fever. [id number] Gracia Aldridge MD [facility] - [facility] [address] [place] [phone] 03/27/2024 20:11:35 03/28/2024 08:10:36 COVID-19 [id number] U07.1 Acute COVID-19 [id number] 8 U07.1 [id number] MONSE FONG MD [facility] - [facility] [address] [place] [phone] 04/04/2024 21:31:28 04/08/2024 19:28:20 Dyspnea on exertion 93080017 R06.09 [id number] Marissa Levy MD [facility] - [facility] [address] [place] [phone] 06/10/2024 21:01:00 06/10/2024 22:07:26 Exacerbation of intermittent asthma 182744348 J45.22 [id number] ZHANE POLANCO MD [facility] - [facility] [address] [place] [phone] 07/20/2024 21:21:47 07/22/2024 20:57:59 Headache 29576878 R51.9 Evaluation in the field was performed by my bottler helper colleague, as noted above, I provided real-time [...] Steen Member ID Guarantor Name 06/10/2024 1 [employer] - DOS PRIOR TO 2022 - DUAL ELIGIBLE (MEDICARE REPLACEMENT/AD VANTAGE - HMO) Ramírez Mena [id number] Ramírez Mena 07/22/2024 1 [facility] [employer] - DOS ON OR AFTER 2022 - DUAL ELIGIBLE - GROUP HOME OPTIONS AND ONE CARE (MEDICARE REPLACEMENT/AD VANTAGE - HMO) Ramírez Mena [id number] Ramírez Mena Notes Date Note Type Note Provider Name and Address Organization Details Recorded Time 10/13/2023 text/html [facility] Nurse Triage Notes (Johncasey Dorothy): Chief Complaints: Pain PMH: COPD/Asthma Allergies: No Known Comments: Identity/Address/ verified. Member reports left axillary region redness and burning. Slightly itchy. Noticed 1 week ago, becoming worse. No new medication. Skin intact. Denies fevers. No OTC meds taken. .................... .................... .................... .................... .................... .................... .................... . Oven Dumper Note From Aliya Srinivasan: Community Oven Dumper Christin Srinivasan SC6 dispatched to [facility] for a 53 yom C/O a rash. [...] SOB, abd pain, N/V/D, or urinary S/S. [facility] consulted; pt was given rx for nystatin and general wound care instructions for fungal infection. Red flags discussed. .................... .................... .................... .................... .................... .................... .................... . Disposition: Fulfilled Christin Morales MD [address] [facility],[address], [place], [phone], [employer] 10/13/2023 11:16:10 03/27/2024 text/html [facility] Nurse Triage Notes (Ean Sunshine): Chief Complaints: UTI/Pyelonephritis, URI PMH: COPD/Asthma Allergies: Unknown Comments: Beverage Host verified the Pt.'s name//address and phone number. Education provided on the response time and the Pt. was advised to monitor reported s/s and seek emergency treatment if needed. Member reports UTI symptoms - Lower back pain and fever - Increased in frequency and urinating little amounts - S/S started x2 days - Member also reports having a cough/cold and congestion. Oven Dumper Organization Information for Shmuel Mendosa [employer] Legal Name: [facility] Address: [address] [place] [address], Manager Lpn: Nabeel Kimble MD [facility] No.: [id number] Oven Dumper POC Test Results from Shmuel Mendosa Urine Dipstick (20:07:33) Urine leukocytes: NR Urine nitrites: NR Urine urobilinogen: 0.2(3.5) URO Urine protein: NR Urine pH: 6 pH Urine blood: + BLO Urine specific gravity: 1.015 SG Urine ketones: NR Urine bilirubin: NR Urine glucose: NR .................... .................... .................... .................... .................... .................... .................... . Oven Dumper Note From Shmuel Mendosa: Pt co fever [...] dip benign , Covid positive, flu negative. [facility] contacted and advised pt to continue with Tylenol every 4-6 hours as needed, self care and rest and plenty of fluid intake. Pt declines paxlovid, Pt educated on signs indicating the ER. Pt advised if symptoms worsen to go to ER. .................... .................... .................... .................... .................... .................... .................... . Disposition: Fulfilled Gracia Aldridge MD [address] [place] [address],[address], [place], [phone], [employer] 03/27/2024 23:24:29 04/04/2024 text/html [facility] Nurse Triage [...] .................... .................... .................... .................... .................... .................... . Oven Dumper Note From Raji Valdes: [facility] visit for male pt. Pt presents complaining [...] more than 1 year . Consulted with [facility] Dr. Fong who ordered EKG. 12 lead [...] . Disposition: Fulfilled MONSE FONG MD [address] [facility],[address], [place], [phone], [employer] 04/08/2024 18:21:34 06/10/2024 text/html HPI: 54 year old male member. This underwriter mortgage loan called to perform telephonic MDS and member [...] Asthma, Cough PMH: COPD/Asthma Comments: HPI reviewed Oven Dumper Organization Information for Dax Briceño Legal Name: [employer]. Address: [address] [place] [address], Manager Lpn: Braydon Rabago MD [facility] No.: [id number] Oven Dumper POC Test Results from Dax Briceño - BLS Rapid COVID antigen (20:48:39) COVID: - Rapid influenza antigen (20:48:44) Flu: - [facility] HPI - 2d asthma sxs. wheezing. shob. albuterol MDI not helping. he felt sick - recently felt feverish, cough, and congestion. .................... .................... .................... .................... .................... .................... .................... . Oven Dumper Note From Dax Briceño: [id number] to the above address for asthma and [...] .................... .................... .................... .................... .................... .................... . [facility] Consulted: Marissa Levy .................... .................... .................... .................... .................... .................... .................... . Disposition: Fulfilled Marissa Levy MD [address] [place] [address],[address] [facility], [place], [phone], [employer] 06/10/2024 21:54:30 07/20/2024 text/html ROS as noted in the [facility] Nurse Triage Notes (Ean Sunshine - RN): Denies: History of Heart Attack, in the [...] PMH: COPD/Asthma PMH Reviewed at 07/20/2024 - 21:07 Allergies Reviewed at 07/20/2024 - 21:07 Comments: Beverage Host verified the Pt.'s name//address and phone number. [...] Denies taking any over the counter medications Oven Dumper Organization Information for [employer] Legal Name: [employer]. Address: [address] [place] [address], Manager Lpn: Braydon Rabago MD CLIA No.: [id number] Oven Dumper POC Test Results from Joel Li iSTAT Chem8+ (22:01:56) Na: 138 mEq/L K: 4.4 mEq/L Cl: 106 mEq/L iCa: 1.27 mmol/L TCO2: 23 mmol/L Glu: 79 mg/dL BUN: 12 mg/dL Crea: 1.5 mg/dL Hct: 45 % Hb: 15.3 g/dL A Attachments uploaded as part of this test result can be found under Documents section. .................... .................... .................... .................... .................... .................... .................... . Oven Dumper Note From Joel Li: SC12 dispatched to the address listed above for the report of a male green party with a headache and hypertension. Arrival on [...] noted with improvements from prior blood pressures. [facility] was consulted, provided orders to [place] to establish IV access with blood draw [...] additionally advised to follow up with PCP. AK12 clear. [facility] Lab Orders: BMP, serum or plasma: Performed .................... .................... .................... .................... .................... .................... .................... . [facility] Consulted: Zhane Polanco .................... .................... .................... .................... .................... .................... .................... . Disposition: Fulfilled ZHANE POLANCO MD [address] [place] [address],[address], [place], [phone], ANIKA PRATER 07/21/2024 09:19:23
--- OUTSIDE RECORDS SUMMARY | 2025-06-25 13:36 | XMS_ITS | Continuity of Care Document ---
Author Organization [facility], Main Office Address [address] [facility] [address] [place] [address] Care Team Providers Care Shoe Lay Out Planner Name Role Phone BLUE MC Fire Protection Engineer EDELMIRA NEWTON Phys. Med. & Rehab [phone] [facility]NAG[facility] N utritionist CHRISTIANO SONG MD Sleep Medicine [phone] MATTHEW GARCIA Cold Meat Chef [facility] UR[facility]Y Urologist IAIN COBB Smoke Jumper ALISHA SNIDER General Surgeon [facility] SUDARSHAN BAKER Revenue Analyst FREDDIE HATHAWAY Primary Care Provider [phone] [facility] Director Power [phone] MELISA CORBETT Neurologist Assessment No assessment recorded. Plan of Treatment Reminders Order Date Submit Date Provider Last Modified By Organization Details Last Modified Time Details Appointments FOLLOW UP 2024 11:00A M Freddie Hathaway MD Not available Not available Not available CHIDI 2025 01:15P M CHIDI SCHEDULE Not available Not available Not available Lab None recorded . Referral None recorded . Procedures None recorded . Surgeries None recorded . Imaging None recorded . Medication Orders cyanocob alamin (vit B-12) 1,000 mcg/mL injectio n solution 2024 025 [email or web address] Not available 05/06/2025 14:03:30 Patient TargetsNo targets recorded. Patient InstructionsNo instructions recorded. Reason for Referral None Reported. Results Created Date Observation Date Name Description Value Unit Range Abnormal Flag Note LastModifiedBy Organization Detail LastModifiedTime 04/22/2004/22/2025 elect romyo gram + nerve condu ction study No observ ation record ed. [facility] (Medical Records) [address] [place], [address], 04/26/2025 02:29:19 04/24/2004/22/2025 elect romyo gram + nerve condu ction study No observ ation record ed. [facility] (Medical Records) [address] [place], [address], 04/25/2025 12:27:09 05/12/2005/12/2025 XR, knee, weigh tbear [...] effusi on. IMPRES WILDER: Normal . WSN: [id number] Orderi ng Physic berna: Alyce Hathaway Dictat ed By: Ryder Chris MD Dictat ed Date/T sheryl: 11:48 a Review ed By: Ryder Chris MD Signed By: Ryder Chris MD Signed Date/T sheryl: 11:48 am Transc ribed By: ALEJO Transc ribed Date/T sheryl: 11:48 am Patien t Class: [facility] (Out[facility]) [address], [place], [address], 05/26/2025 10:48:56 05/12/2005/12/2025 XR, knee, 3 view No observ ation [facility] ed[facility] [address], [place], [address], 05/26/2025 10:48:56 05/19/20 25 ECG 12-le ad No observ ation record ed. [facility]S Dept [address] [facility] [address], [place], [address], 05/20/2025 13:21:09 Result Notes None recorded. Problems Name Problem SNOMED Code Status Onset Date Resolution Date Notes Provider Name and Address Organization Details Recorded Time Allergic rhinitis 94228461 Active Not Available [facility] 3 12:19:13 Anxiety state 968769591 Active Not Available [facility] 3 12:19:13 Asthma 105931147 Completed 09/23/2018 José John MD [address], [place], [address] , [facility] 9 08:14:02 Lesion of ulnar nerve 705588388 Completed 11/17/2023 Freddie Hathaway MD [address], [place], [address] , [facility] 4 13:26:49 Pulmonar y emphysem a 23962843 Completed 09/21/2018 José John MD [address], [place], [address] , [facility] 9 15:50:02 Gastroes ophageal reflux disease 156915158 Active Not Available [facility] 3 12:19:13 Tobacco user 400798362 Completed 01/31/2017 Removal Reason: quit CHIDI Pelletier, [facility] 7 14:34:48 History of clinical finding in subject 605725370 Completed 01/31/2017 CHIDI Pelletier, [facility] 7 14:36:36 Hyperlip idemia 25442999 Active Not Available [facility] 3 12:19:13 Insomnia 230862604 Active Not Available [facility] 3 12:19:13 Migraine 05809386 Active Not Available [facility] 3 12:19:13 Obesity 391939125 Completed 09/23/2018 José John MD [address] [address], [place], [address] , [facility] 9 08:12:35 Plantar fascial fibromat osis 78082143 Completed 11/18/2024 Freddie Hathaway MD [address] [address], [place], [address] , [facility] 5 13:30:37 Lateral epicondy litis 517496770 Completed 09/23/2018 José John MD [address] [address], [place], [address] , [facility] 9 08:14:25 Neck pain 45306081 Completed 09/23/2018 José John MD [address] [address], [place], [address] , [facility] 9 08:12:39 Mild persiste nt asthma 733578992 Active Not Available [facility] 3 12:19:13 Fatigue 49692163 Completed 11/17/2023 Freddie Hathaway MD [address] [address], [place], [address] , [facility] 4 08:20:34 Degenera tion of lumbar interver tebral disc 23350326 Active Not Available [facility] 3 12:19:13 Major depressi ve disorder 432402642 Completed 02/19/2019 Kemi Murillo RN [facility], [facility] 9 15:20:59 Atypical chest pain 231982749 Completed 09/23/2018 José John MD [address] [address], [place], [address] , [facility] 9 08:14:19 Acute sinusiti s 80915777 Completed 01/31/2017 Mali henao [place] null, [facility] 7 14:36:31 Herpes labialis 7093129 Active Not Available [facility] 3 12:19:13 Helicoba cter detected by serology 858813025 Completed 11/17/2023 Freddie Hathaway MD [address], [place], [address] , [facility] 4 13:25:33 Candidia sis of mouth 40637218 Completed 09/23/2018 José John MD [address], [place], [address] , [facility] 9 08:12:42 Low back pain 146130463 Completed 09/23/2018 José John MD [address], [place], [address] , [facility] 9 08:13:27 Heartbur n 69933799 Completed 11/17/2023 Freddie Hathaway MD [address], [place], [address] , [facility] 4 13:24:36 Asthma 201355253 Active Not Available [facility] 3 12:19:13 Herpes simplex 54795125 Completed 11/17/2023 Freddie Hathaway MD [address], [place], [address] , [facility] 4 13:25:55 Chronic back pain 292973478 Active Not Available [facility] 3 12:19:13 Administ ration of bacteria l and viral vaccine Completed 200801/21/2014 RECORDED 09/27/19 09 3:30PM BY DRISS STEELE, OFFICE VISIT Not Available [facility] 4 14:38:56 Administ ration of bacteria l and viral vaccine Completed 200802/10/2014 RECORDED 09/27/19 09 3:30PM BY DRISS STEELE, OFFICE VISIT Not Available [facility] 4 06:47:55 Tobacco dependen ce syndrome 51321498 Completed 201001/21/2014 RECORDED 12/08/19 11 10:25AM BY MALI STEELE MA, MELODIE ON/ADDEN DUM Not Available [facility] 4 14:38:56 Tobacco dependen ce syndrome 17505168 Completed 201002/10/2014 RECORDED 12/08/19 11 10:25AM BY MALI STEELE MA, ANNOTATI ON/ADDEN DUM Not Available [facility] 4 06:47:56 Acute pyelonep hritis without medullar y necrosis 659040293 Completed 201101/21/2014 RECORDED 02/07/20 12 1:32PM BY MALI STEELE MA, ANNOTLAVON ON/ADDEN DUM Not Available [facility] 4 14:38:54 Chest pain 63749685 Completed 201101/21/2014 STORY: NOTES SINGLE EPISODE OF SUBSTERN AL CHEST PAIN AT REST. STATES EPISODE LAST 45MIN. SOME NAUSEA.; RECORDED 02/07/20 12 1:32PM BY MALI STEELE MA, MELODIE ON/ADDEN DUM Not Available [facility] 4 14:38:55 Headache 68580519 Completed 201101/21/2014 RECORDED 02/07/20 12 1:32PM BY MALI STEELE MA, JEANNETTEATI ON/ADDEN DUM Not Available [facility] 4 14:38:55 Pain of elbow region 19422636 Completed 201101/21/2014 IMPRESSI ON: R SIDED, NO [...] STEELE MA, MELODIE ON/ADDEN DUM Not Available [facility] 4 14:38:55 Blood in urine 92728395 Completed 201101/21/2014 RECORDED 02/07/20 12 1:32PM BY MALI STEELE MA, MELODIE ON/ADDEN DUM Not Available [facility] 4 14:38:55 Kidney stone 38887139 Completed 201101/21/2014 STORY: HISTORY OF PRIOR PYELONEP HRITIS AND HEMATURI A; RECORDED 02/07/20 12 1:32PM BY MALI STEELE MA, MELODIE ON/ADDEN DUM Not Available [facility] 4 14:38:56 Otalgia 74279864 Completed 201101/21/2014 IMPRESSI ON: SXS YESTERDA Y, IMPROVIN G TODAY. NORMAL EXAM. REASSURE D. PT TO CALL PRN.; RECORDED 02/07/20 12 1:32PM BY MALI STEELE MA, ANNOTATI ON/ADDEN DUM Not Available [facility] 4 14:38:56 Knee pain Completed 201101/21/2014 RECORDED 02/07/20 12 1:32PM BY MALI STEELE MA, ANNOTATI ON/ADDEN DUM Not Available [facility] 4 14:38:56 Sprain of foot 55774344 Completed 201101/21/2014 RECORDED 02/07/20 12 1:32PM BY MALI STEELE MA, ANNOTATI ON/ADDEN DUM Not Available [facility] 4 14:38:56 Syncope and collapse 743660035 Completed 201101/21/2014 RECORDED 02/07/20 12 1:32PM BY MALI STEELE MA, ANNOTATI ON/ADDEN DUM Not Available [facility] 4 14:38:56 Viral disease 29425579 Completed 201101/21/2014 RECORDED 02/07/20 12 1:32PM BY MALI STEELE MA, MELODIE ON/ADDEN DUM Not Available [facility] 4 14:38:57 Wheezing 70479337 Completed 201101/21/2014 RECORDED 02/07/20 12 1:32PM BY MALI STEELE MA, ANNOTATI ON/ADDEN DUM Not Available [facility] 4 14:38:57 Acute pyelonep hritis without medullar y necrosis 932981837 Completed 201102/10/2014 RECORDED 02/07/20 12 1:32PM BY MALI STEELE MA, ANNOTATI ON/ADDEN DUM Not Available [facility] 4 06:47:55 Chest pain 05705528 Completed 201102/10/2014 STORY: NOTES SINGLE EPISODE OF SUBSTERN AL CHEST PAIN AT REST. STATES EPISODE LAST 45MIN. SOME NAUSEA.; RECORDED 02/07/20 12 1:32PM BY MALI STEELE MA, ANNOTATI ON/ADDEN DUM Not Available [facility] 4 06:47:55 Headache 97757809 Completed 201102/10/2014 RECORDED 02/07/20 12 1:32PM BY MALI STEELE MA, ANNOTATI ON/ADDEN DUM Not Available [facility] 4 06:47:55 Pain of elbow region 21267243 Completed 201102/10/2014 IMPRESSI ON: R SIDED, NO [...] STEELE MA, MELODIE ON/ADDEN DUM Not Available [facility] 4 06:47:55 Blood in urine 86689665 Completed 201102/10/2014 RECORDED 02/07/20 12 1:32PM BY MALI STEELE MA, JEANNETTEATI ON/ADDEN DUM Not Available [facility] 4 06:47:55 Kidney stone 97063926 Completed 201102/10/2014 STORY: HISTORY OF PRIOR PYELONEP HRITIS AND HEMATURI A; RECORDED 02/07/20 12 1:32PM BY MALI STEELE MA, MELODIE ON/ADDEN DUM Not Available [facility] 4 06:47:55 Otalgia 71060974 Completed 201102/10/2014 IMPRESSI ON: SXS YESTERDA Y, IMPROVIN G TODAY. NORMAL EXAM. REASSURE D. PT TO CALL PRN.; RECORDED 02/07/20 12 1:32PM BY MALI STEELE MA, MELODIE ON/ADDEN DUM Not Available [facility] 4 06:47:56 Knee pain Completed 201102/10/2014 RECORDED 02/07/20 12 1:32PM BY MALI STEELE MA, MELODIE ON/ADDEN DUM Not Available [facility] 4 06:47:56 Sprain of foot 76913383 Completed 201102/10/2014 RECORDED 02/07/20 12 1:32PM BY MALI STEELE MA, MELODIE ON/ADDEN DUM Not Available [facility] 4 06:47:56 Syncope and collapse 532098338 Completed 201102/10/2014 RECORDED 02/07/20 12 1:32PM BY MALI STEELE MA, MELODIE ON/ADDEN DUM Not Available [facility] 4 06:47:56 Viral disease 16681069 Completed 201102/10/2014 RECORDED 02/07/20 12 1:32PM BY MALI STEELE MA, MELODIE ON/ADDEN DUM Not Available [facility] 4 06:47:56 Wheezing 16114982 Completed 201102/10/2014 RECORDED 02/07/20 12 1:32PM BY MALI STEELE MA, ANNOTATI ON/ADDEN DUM Not Available [facility] 4 06:47:56 Bronchit is 75318520 Completed 201201/21/2014 RECORDED 08/07/19 13 9:16AM BY YOLY UGARTE, ANNOTATI ON/ADDEN DUM Not Available [facility] 4 14:38:55 Bronchit is 89066240 Completed 201202/10/2014 RECORDED 08/07/19 13 9:16AM BY YOLY UGARTE ANNOTATI ON/ADDEN DUM Not Available [facility] 4 06:47:55 Renewal of prescrip tion Completed 201201/21/2014 RECORDED 10/04/19 13 9:02AM BY KACY COLEMAN MA, ANNOTATI ON/ADDEN DUM Not Available [facility] 4 14:38:56 Enthesop athy [facility] 20831254 Completed 201201/21/2014 RECORDED 10/04/19 13 9:02AM BY KACY COLEMAN MA, ANNOTATI ON/ADDEN DUM Not Available [facility] 4 14:38:56 Renewal of prescrip tion Completed 201202/10/2014 RECORDED 10/04/19 13 9:02AM BY KACY COLEMAN MA, ANNOTATI ON/ADDEN DUM Not Available [facility] 4 06:47:55 [facility] 78869644 Completed 201202/10/2014 RECORDED 10/04/19 13 9:02AM BY AKCY COLEMAN MA, ANNOTATI ON/ADDEN DUM Not Available [facility] 4 06:47:56 Tobacco user 951287147 Completed 201201/21/2014 RECORDED 11/24/19 13 8:46AM BY MALI STEELE MA, ANNOTATI ON/ADDEN DUM CHIDI Pelletier MA [facility] 7 14:34:48 Acute asthma 009143804 Completed 201201/21/2014 RECORDED 02/05/20 13 10:50AM BY RUSSELL CAT MA, ANNOTATI ON/ADDEN DUM Not Available [facility] 4 14:38:54 Chronic sinusiti s 94188637 Completed 201201/21/2014 RECORDED 02/05/20 13 10:50AM BY RUSSELL CAT MA, ANNOTATI ON/ADDEN DUM Not Available [facility] 4 14:38:56 Acute asthma 595593904 Completed 201202/10/2014 RECORDED 02/05/20 13 10:50AM BY RUSSELL CAT MA, ANNOTATI ON/ADDEN DUM Not Available [facility] 4 06:47:55 Chronic sinusiti s 67930929 Completed 201202/10/2014 RECORDED 02/05/20 13 10:50AM BY RUSSELL CAT MA, ANNOTATI ON/ADDEN DUM Not Available [facility] 4 06:47:56 Acute pharyngi tis 234828819 Completed 201201/21/2014 RECORDED 02/12/20 13 1:05PM BY MALI STEELE MA, ANNOTATI ON/ADDEN DUM Not Available [facility] 4 14:38:54 Acute sinusiti s 51597125 Completed 201201/21/2014 RECORDED 02/12/20 13 1:05PM BY MALI STEELE MA, ANNOTATI ON/ADDEN DUM CHIDI Pelletier [place] - [facility] 7 14:36:31 Acute pharyngi tis 990179931 Completed 201202/10/2014 RECORDED 02/12/20 13 1:05PM BY MALI STEELE MA, ANNOTATI ON/ADDEN DUM Not Available [facility] 4 06:47:55 Acute sinusiti s 17161616 Completed 201202/10/2014 RECORDED 02/12/20 13 1:05PM BY MALI STEELE MA, ANNOTATI ON/ADDEN DUM CHIDI Pelletier [place] - [facility] 7 14:36:31 Left upper quadrant pain 011047968 Completed 201201/21/2014 RECORDED 05/08/20 13 10:40AM BY MALI STEELE MA, ANNOTATI ON/ADDEN DUM Not Available [facility] 4 14:38:54 Follow-u p encounte r Completed 201201/21/2014 RECORDED 05/08/20 13 10:39AM BY MALI STEELE MA, ANNOTATI ON/ADDEN DUM Not Available [facility] 4 14:38:55 Malaise and fatigue 805303853 Completed 201201/21/2014 RECORDED 05/08/20 13 10:39AM BY MALI STEELE MA, ANNOTATI ON/ADDEN DUM Not Available [facility] 4 14:38:55 Adult health examinat ion Completed 201201/21/2014 RECORDED 05/08/20 13 10:39AM BY MALI STEELE MA, ANNOTATI ON/ADDEN DUM Not Available [facility] 4 14:38:55 Left upper quadrant pain 138064972 Completed 201202/10/2014 RECORDED 05/08/20 13 10:40AM BY MALI STEELE MA, ANNOTATI ON/ADDEN DUM Not Available [facility] 4 06:47:55 Follow-u p encounte r Completed 201202/10/2014 RECORDED 05/08/20 13 10:39AM BY MALI STEELE MA, ANNOTATI ON/ADDEN DUM Not Available [facility] 4 06:47:55 Malaise and fatigue 737157814 Completed 201202/10/2014 RECORDED 05/08/20 13 10:39AM BY MALI STEELE MA, ANNOTATI ON/ADDEN DUM Not Available [facility] 4 06:47:55 Adult health examinat ion Completed 201202/10/2014 RECORDED 05/08/20 13 10:39AM BY MALI STEELE MA, ANNOTATI ON/ADDEN DUM Not Available [facility] 4 06:47:55 Pain in limb 33510145 Completed 201301/21/2014 RECORDED 07/31/19 14 11:03AM BY MALI STEELE MA, ANNOTATI ON/ADDEN DUM Not Available [facility] 4 14:38:56 Abdomina l pain 55405431 Completed 201301/21/2014 RECORDED 07/31/19 14 11:03AM BY MALI STEELE MA, ANNOTATI ON/ADDEN DUM Not Available [facility] 4 14:38:56 Pain in limb 15274098 Completed 201302/10/2014 RECORDED 07/31/19 14 11:03AM BY MALI STEELE MA, ANNOTATI ON/ADDEN DUM Not Available [facility] 4 06:47:56 Abdomina l pain 13042830 Completed 201302/10/2014 RECORDED 07/31/19 14 11:03AM BY MALI STEELE MA, ANNOTATI ON/ADDEN DUM Not Available [facility] 4 06:47:56 Disorder of lower extremit y Completed 201301/21/2014 RECORDED 08/13/19 14 12:52PM BY YAMILE MAKI MA, ANNOTATI ON/ADDEN DUM Not Available [facility] 4 14:38:54 History of depressi on 548167312 Completed 201301/21/2014 RECORDED 08/13/19 14 12:53PM BY YAMILE MAKI MA, ANNOTATI ON/ADDEN DUM Not Available [facility] 4 14:38:55 Disorder of lower extremit y Completed 201302/10/2014 RECORDED 08/13/19 14 12:52PM BY YAMILE MAKI MA, ANNOTATI ON/ADDEN DUM Not Available [facility] 4 06:47:55 History of depressi on 586875149 Completed 201302/10/2014 RECORDED 08/13/19 14 12:53PM BY YAMILE MAKI MA, ANNOTATI ON/ADDEN DUM Not Available [facility] 4 06:47:55 Meralgia paresthe jagdeep 96016458 Active 2015 Dx: G57.11; numbness and burning in outer thigh Not Available [facility] 3 12:19:14 Ex-smoke r 8924693 Active 2016 Not Available [facility] 3 12:19:14 Mild intermit tent asthma 448635896 Completed 201809/23/2018 José John MD [address], [place], [address] , [facility] 9 08:15:52 Uncompli cated mild persiste nt asthma 434362814 Completed 201809/23/2019 José John MD [address], [place], [address] , [facility] 0 19:55:46 Moderate major depressi on 380304 Completed 201811/17/2023 Freddie Hathaway MD [address], [place], [address] , [facility] 4 13:28:48 Serum creatini ne above referenc e range 474997210 Completed 201809/23/2019 José John MD [address], [place], [address] , [facility] 0 19:55:30 Hiatal hernia 98544325 Active 2018 Not Available [facility] 3 12:19:14 Morbid obesity 811550982 Active 2019 Not Available [facility] 3 12:19:13 Hypoglyc emia 879126461 Completed 202011/17/2023 Freddie Hathaway MD [address] [address], [place], [address] , [facility] 4 13:26:03 Left lateral elbow tendinop athy 89334426842 9100 Completed 202011/17/2023 Freddie Hathaway MD [address] [address], [place], [address] , [facility] 4 13:26:42 Hyperten sive disorder 57100808 Active 2020 CHIDI Jones, [facility] 4 14:17:09 Chronic kidney disease stage 2 823856962 Completed 202006/30/2021 CHIDI Jones, [facility] 4 14:17:09 Obstruct usman sleep apnea syndrome 44712443 Active 2021 Not Available [facility] 3 12:19:13 Degenera tion of cervical interver tebral disc 44534738 Active 2021 Not Available [facility] 3 12:19:13 Primary erectile dysfunct ion 389983209 Active 2021 Not Available [facility] 3 12:19:13 Anal fissure 52816256 Active 2022 Xavier Brooks [facility] [address], [place], [address] , [facility] 3 11:50:26 Acute prostati tis 32857925 Completed 202211/17/2023 Freddie Hathaway MD [address] [address], [place], [address] , [facility] 4 13:23:54 Pain of left knee joint 15954242797 4107 Completed 202211/18/2024 Freddie Hathaway MD [address] [address], [place], [address] , [facility] 5 13:27:25 Pain of right knee joint 03280386078 4100 Active 2022 Xavier Brooks [facility] [address], [place], [address] , [facility] 3 13:10:57 History of Helicoba cter pylori infectio n 08743407703 530641 Active 2023 Freddie Hathaway MD [address], [place], [address] , [facility] 4 13:25:14 Major depressi on in remissio n 74653559 Active 2023 Freddie Hathaway MD [address], [place], [address] , [facility] 4 13:28:43 Chronic pain syndrome 793706229 Active 2023 Freddie Hathaway MD [address], [place], [address] , [facility] 4 07:50:05 Incision al hernia 735560599 Active 2024 Freddie Hathaway MD [address], [place], [address] , [facility] 5 13:29:31 Pain of knee region 6705788684 Active 2024 Teri booth, [facility] 5 12:25:03 Pernicio us anemia 22850566 Active 2024 CHIDI Roberts, [facility] 5 13:36:18 Neuropat hy 302913674 Active 2024 ALBAN Wang, [employer]ACK [employer]- [address], [place], [address] , [facility] 5 13:47:38 Blood pressure above referenc e range 52984906 Active 2024 ALBAN Wang, [facility] [address], [place], [address] , [facility] 5 13:54:14 Change in skin lesion 665564285 Active 2024 ALBAN Wang, [facility] [address], [place], [address] , [facility] 5 14:30:34 Polyneur opathy 34765105 Active 2024 ALBAN Wang [facility] [address], [place], [address] , [facility] 5 12:16:04 Problem Notes None recorded. Procedures Surgical History Date Name Laterality Status Provider Name and Address Organization Details Recorded Time 05/12/20 25 Chronic Pain Assessment completed Mali smith MA [facility] 05/12/2025 10:16:57 06/18/20 24 Chronic Pain Assessment completed Mali smith MA [facility] 06/18/2024 15:30:34 09/25/19 24 circumcision completed Freddie Hathaway MD [address], [place], [address], [facility] 11/17/2023 13:33:39 10/05/19 22 Chronic Pain Assessment completed Mali smith MA [facility] 10/04/2021 13:54:52 09/29/19 21 Six-Item Cognitive Test completed Juana Miner MA [facility] 09/28/2020 13:38:47 09/04/19 21 Upper gi endoscopy performed completed Prachi Teran [facility] 09/03/2020 13:44:48 08/20/19 20 laparoscopic appendectomy completed Esthela Mercer [facility] 08/21/2019 10:00:45 04/11/20 17 Polysom 6/> yrs 4/> antony completed Mali smith MA [facility] 04/17/2017 10:49:10 05/12/20 16 Colonoscopy completed Mali smith MA [facility] 01/31/2017 14:39:56 I&d abscess simple/single completed Priscila Porter [facility] 11/03/2020 11:22:34 Imaging Results None recorded. Procedure Notes None recorded. Medical Equipment None Reported. Allergies Allergen ID Allergen Name Allergen Category Reaction Reaction Severity Criticality Documentation Date Start Date Code Code System Note Provider Name and Address Organization Details Recorded Time 44562 No known allergy (situatio n) Not available Not available Not available Not available 03/13/2024 [id number] SNOMED CHIDI Jones [facility] 4 14:16:56 No known drug allergies Medications [...] 09/22/19 12 10:49AM BY MELODIE CESPEDES ON/CROW DUM;USE PRN HEADACHE . MAY REPEAT IN 2 [...] completed Not Available Not Available Not Available Marybelxellie Inhub 500 mcg-50 mcg/dose powder for inhalatio n Inhale 2 puffs every day by inhalati on route for 90 days. 2024 active Not Available Not Available Not Avai lable Afluria Qd 2020-21 (36 mos up)(PF)60 mcg (15 mcg x4)/0.5 [...] Status Former Smoker quit in 07/2010 CHIDI Curran, [facility] 04/18/2014 10:42:29 Do You Have An Advance Directive? Yes [facility] Information not available 11/08/2021 Is Blood Transfusion [...] None Information not available 04/18/2014 Education 12 [email or web address] Information not available 11/08/2021 When Did You Quit Smoking? 11-15yearssi ncelastcigar ette Information not available 11/08/2021 Live Alone Or With Others? With Others Quentin (Aarti) And 2 Stepchildren Information not available 11/08/2021 Do You Take [...] Information not available 07/27/2020 Marital Status Single [email or web address] Informatio n not available 11/08/2021 What Was The Date Of Your Most Recent Tobacco Screening? 05/12/2025 Information not available 05/12/2025 How Many Children Do You Have? 0 Information not available 04/18/2014 What Is Your Current Pack Years? 10packyears [email or web address] Information not available 11/08/2021 Do You Use Protection During Sex? No Information not available 05/01/2015 Seat Belts Used Routinely Yes [email or web address] Information not available 11/08/2021 Are You Sexually Active? Yes Aarti Information not available 11/17/2023 Smoke Alarm In Home Yes [email or web address] Information not available 11/08/2021 At What Age [...] use any illicit or recreational drugs? No [email or web address] Information not available 11/08/2021 Do you or have you ever used any other forms of tobacco or nicotine? No [email or web address] Information not available 11/08/2021 What is your level of alcohol consumption? None Information not available 04/18/2014 Do you or have you ever used smokeless tobacco? Never used smokeless tobacco Information not available 09/23/2019 Are you currently employed? No disabled due to back issues Information not available 04/18/2014 Are you able to walk independently without assistance or assistive devices? YESWOREST [email or web address] Information not available 11/08/2021 Are you able to care for yourself independently? 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 Never used electronic cigarettes [email or web address] Information not available 11/08/2021 What is your exercise level? Occasional walking Information not available 05/01/2015 Mental Status None recorded. Family History Relationship Description Onset Age of this Age Resolved Age Notes LastModified by Organization Details LastModified Time Mother Essential hypertension [email or web address] Not available 14:25:06 Mother Diabetes mellitus [email or web address] s Not available 11/02/2015 10:09:52 Mother Asthma [email or web address] s Not available 11/02/2015 10:09:52 Mother Glaucoma [email or web address] s Not available 11/17/2023 13:17:00 Mother Cataract [email or web address] s Not available 11/17/2023 13:17:06 Father Essential hypertension Not available 14:25:06 Father Prostatism [email or web address] Not avail able 11/08/2021 14:25:06 Father Heart disease 68 [email or web address] Not available 11/29 11:41:41 Maternal Grandfather Primary malignant neoplasm of lung [email or web address] Not available 11/08 14:25:06 Medical History Condition Response Anxiety Disorder Y Obesity Y Depression Y Immunizations Vaccine Type Date Status Note Provider Nam e and Address Organization Details Recorded Time Influenza, split virus, trivalent, preservative 7 completed Not Available [facility] 05/17/2023 15:46:02 Influenza, split virus, quadrivalent, preservative 9 completed Nury Caporale, HOSPICE/HOME HEALTH AIDE null, [facility] 07/24/2023 15:15:16 Influenza, split virus, quadrivalent, preservative 0 completed Nury Caporale, HOSPICE/HOME HEALTH AIDE null, [facility] 07/24/2023 15:15:16 Influenza, split virus, quadrivalent, PF 0 completed Not Available [facility] 05/17/2023 15:46:02 COVID-19, mRNA, LNP-S, PF, 100 mcg/0.5mL dose or 50 mcg/0.25mL dose 1 completed Not Available [facility] 05/17/2023 15:46:02 COVID-19, mRNA, LNP-S, PF, 100 mcg/0.5mL dose or 50 mcg/0.25mL dose 1 completed Not Available [facility] 05/17/2023 15:46:02 Influenza, MDCK, quadrivalent, PF 9 completed Not Available [facility] 05/17/2023 15:46:02 Influenza, MDCK, quadrivalent, PF 7 [...] preservative free, adsorbed 9 completed Not Available [facility] 05/17/2023 15:46:02 Influenza, split virus, quadrivalent, PF 8 completed Not Available [facility] 05/17/2023 15:46:02 zoster recombinant 3 completed Not Available [facility] 05/17/2023 15:46:02 zoster recombinant 3 completed Nury Galan LPN null, [facility] 07/24/2023 15:15:17 Tdap 4 completed Mali Mendez MA null, [facility] 06/18/2024 15:09:13 Pneumococcal conjugate PCV20, polysaccharide [id number] conjugate, adjuvant, PF 5 completed Ofelia Watkins null, [facility] 07/12/2024 09:10:54 COVID-19, mRNA, LNP-S, PF, jen-sucrose, 30 mcg/0.3 mL 5 completed Cindi Yanez MA null, [facility] 07/26/2024 13:39:45 Influenza, split virus, quadrivalent, PF 2 completed Freddie Hathaway MD [address], [phone], [facility] 05/17/2022 14:52:47 Tdap 9 completed Not Available [facility] 05/17/2023 15:46:02 Influenza, split virus, trivalent, PF 4 completed Freddie Hathaway MD [address], [phone], [facility] 06/19/2024 12:48:41 Influenza, split virus, trivalent, PF 5 completed Mali Mendez MA null, [facility] 03/20/2025 14:38:37 Past Encounters Encounter ID Performer Location Encounter Start Date Encounter Closed Date Diagnosis/Indication Diagnosis SNOMED-CT Code Diagnosis ICD10 Code Diagnosis IMO Codes Diagnosis Note [id number] Malcolm Bear MD Main Office [address] [address] 05/06/2025 13:19:08 05/06/2025 15:01:12 Pernicious anemia 31575148 D51.9 Health Concerns Section Related Observation LastModified by Organization Detmirza ls LastModified Time None Recorded Concern Status LastModified by Organization Details LastModified Time None Recorded Payers Encounter Date Sequence Insurance Name Policy Number Policy Steen Covered Member ID Steen Member ID Guarantor Name 05/06/2025 2 [place] [facility] Ramírez Mena [id number] Ramírez Mena 05/06/2025 1 [facility] - DOS ON OR AFTER 2022 - DUAL ELIGIBLE - HALF-WAY OPTIONS AND ONE CARE (MEDICARE REPLACEMENT/A DVANTAGE - HMO) Ramírez Mena [id number] Ramírez Mena
--- NOTE | 2025-06-25 14:09 | A.OFFVIS_ITS ---
Intake Visit Reasons: polyneuropathy Allergies No Known Allergies Allergy (Verified 06/25/25 14:29) Medication List - Last Reconciled 06/25/25 by Lou Gonzalez CNP bupropion HCl XL 150 mg PO DAILY cyanocobalamin (vitamin B-12) 1,000 mcg IM QMONTH gabapentin 400 mg PO TID loratadine 10 mg PO DAILY melatonin 10 mg PO BEDTIME montelukast 10 mg PO DAILY omeprazole 40 mg PO BID sildenafil 100 mg PO tirzepatide (weight loss) (Zepbound) 15 mg subcut QWEEK tramadol 100 mg PO TID PRN HPI Comments Details: No further episodes of numbness and weakness. He has a history of degenerative lumbar disc disease, mild sleep apnea who had an episode in April 2023 where he was admitted overnight at [facility] for evaluation. He woke up with his left arm under him and it was numb. He started shaking it because he thought he had slept on it, but later in the day he noted that there was some numbness in the left side of the face followed by some numbness in the left thigh area. He then went to the [facility] where he was evaluated with CT, CTA and MRI. Those results are not available at this time. All symptoms resolved within 8 hours. He is had no recurrence. He has no stroke risk factors such as smoking, diabetes, hypertension, or family history and any immediate family members. He is being evaluated for weight loss, surgery. Past history is remarkable for migraines that occur every couple of months. Sometimes fluid preceding visual symptoms, but never with speech impediment or numbness. In 2001, he fell 17 feet and hit his head and has had spine problems since then. He suffered a concussion. Has chronic low back pain an dgoes to the pain clinic. COUNT INCLUDES THE [facility] Medical History (Updated 06/25/25 @ 14:26 by Lou Gonzalez CNP) GERD (gastroesophageal reflux disease) Asthma Migraine Insomnia Pernicious anemia Morbid obesity HLD (hyperlipidemia) Herpes labialis Review of Systems Const Denies chills, Denies daytime sleepiness, Reports difficulty sleeping, Denies fatigue, Denies fever(s), Denies frequent falls, Reports headache(s), Denies increased appetite, Denies poor appetite, Denies snoring, Reports weakness, Denies weight gain and Denies weight loss Eyes Denies loss of vision ENT Denies vertigo, Reports dizziness, Reports headache(s) and Reports neck pain Card Denies chest pain at rest, Denies chest pain with activity, Denies syncope, Denies leg edema, Denies palpitations, Denies dyspnea and Denies dyspnea on exertion Resp Denies cough, Denies dyspnea, Denies dyspnea on exertion and Denies snoring GI Denies abdominal pain, Denies constipation, Denies heartburn, Denies diarrhea and Denies nausea Denies urinary frequency, Denies urinary incontinence and Denies urinary urgency Musc Denies abnormal gait, Reports back pain, Denies myalgias, Reports arthralgias, Reports neck pain, Reports numbness and Reports tingling Neuro Denies abnormal gait, Denies vertigo, Reports dizziness, Denies syncope, Denies frequent falls, Reports headache(s), Denies lack of coordination, Denies loss of vision, Reports memory loss, Reports numbness, Denies Other visual disturbances, Denies restless legs, Denies seizure-like activity, Reports tingling, Denies paresthesias, Denies tremor(s) and Reports weakness Psych Reports anxiety, Denies depression, Denies auditory hallucinations, Reports memory loss and Denies visual hallucinations Endo Denies fatigue and Denies palpitations Physical Exam Const Other: General Appearance:? normal, in no acute distress. Heart:? S1, S2 normal, no murmurs. Lungs:? clear anteriorly and posteriorly. Musculoskeletal:? normal. Extremities:? no edema. Psych:? alert, oriented, cognitive function intact, cooperative with exam. Neuro Other: Abnormal Neurological Findings:?none.? Mental Status: alert and oriented X 3. Normal attention, orientation, memory, and affect. Cranial Nerves: Pupils are equal, round, and reactive to light. External ocular muscles are intact. Visual alvarado are full, no ptosis. Face is symmetrical, no facial weakness or droop. Facial sensations are normal. Tongue protrudes in midline. Palate elevates symmetrically. Shoulder shrugging is normal Motor Examination: Normal muscle tone, bulk and strength. No atrophy or fasciculations. No drift of the extended upper extremities. DTR 2+. Plantars are flexor. Sensory Exam: Normal light touch, temperature, pinprick, vibration, and joint- position sensations. Rhomberg sign is absent. Coordination: No ataxia. No titubation. Gait Exam: Within normal limits. Cerebellar Signs: Fqrucz-du-nkis is okay. Extrapyramidal System: No tremor, rigidity with normal facial expressions. No bradykinesia. No bradyphrenia. Normal arm swing and posture. No propulsion or retropulsion. Speech: Normal. Results Reviewed Results Reviewed: [address] [address] EMG / Nerve Conduction Report Signed Patient: Ramírez Mena MR#: [id number] : 1970 Acct:[id number] Age/Sex: 54 / M ADM Date: 04/22/25 Loc: .NEURO Attending Dr: Leanna JUNG Ordering Physician: Leanna Álvarez Date of Service: 04/22/25 Procedure(s): NE electromyogram (EMG); NE nerve conduction velocity Accession Number(s): [id number]; [id number] cc: Leanna Álvarez~ Reason for Exam: LEFT ARM, B/L FOR COMPARISON Chief complaint: Numbness and tingling left > right hands Reason for referral: G62.9 Polyneuropathy Referred by: ERICH Paula Procedure done: Nerve conduction of the bilateral upper extremities with EMG performed bilaterally Bilateral median and ulnar motor studies were performed, bilateral median and ulnar mixed sensory studies, radial sensory studies and median lateral antecubital brachial sensory studies were performed an EMG needle examination was performed. Bilateral median motor distal latencies were slightly prolonged, bilateral median mixed sensory distal latencies were prolonged with mildly slow conduction velocities. Bilateral ulnar motor study revealed moderate slowing across elbow with slight reduction of amplitude. In addition, median amplitudes were slightly larger distally than proximally, and ulnar amplitudes were larger proximally than distally. Impression: 1. Eouf-of-tduqnxeu bilateral median neuropathy across carpal tunnel 2. Vsvr-pf-zyflvldb bilateral ulnar neuropathy across elbow 3. Bilateral Marek Cele anastomosis, a normal variant Dictated By: Kenji Silverman MD Signed By: <Electronically signed by Kenji Silverman MD> 04/22/25 1229 MRI brain and CTA head/neck 04/2023: normal Assessment & Plan Assessment & Plan (1) Bilateral carpal tunnel syndrome: Code(s): G56.03 - Carpal tunnel syndrome, bilateral upper limbs Category: Medical (2) Ulnar neuropathy: Code(s): G56.20 - Lesion of ulnar nerve, unspecified upper limb Coding Diagnoses Bilateral carpal tunnel syndrome G56.03 Ulnar neuropathy G56.20
--- NOTE | 2025-06-25 14:38 | MHC.OFFVIS ---
Intake Visit Reasons: polyneuropathy Allergies No Known Allergies Allergy (Verified 06/25/25 14:29) Medication List - Last Reconciled 06/25/25 by Lou Gonzalez CNP [bilateral wrist splint 2 ea; ] bupropion HCl XL 150 mg PO DAILY cyanocobalamin (vitamin B-12) 1,000 mcg IM QMONTH gabapentin 400 mg PO TID loratadine 10 mg PO DAILY melatonin 10 mg PO BEDTIME montelukast 10 mg PO DAILY omeprazole 40 mg PO BID sildenafil 100 mg PO tirzepatide (weight loss) (Zepbound) 15 mg subcut QWEEK tramadol 100 mg PO TID PRN HPI Comments Details: He was here with some occasional numbness tingling to upper extremities, L > R. He was right-handed. He enjoys drawing but could not draw as much because his hand would sometimes go numb. No significant symptoms in lower extremities. He has a history of degenerative lumbar disc disease, mild sleep apnea who had an episode in April 2023 where he was admitted overnight at [facility] for evaluation. He woke up with his left arm under him and it was numb. He started shaking it because he thought he had slept on it, but later in the day he noted that there was some numbness in the left side of the face followed by some numbness in the left thigh area. He then went to the [facility] where he was evaluated with CT, CTA and MRI. All symptoms resolved within 8 hours. He has no stroke risk factors such as smoking, diabetes, hypertension, or family history and any immediate family members. Past history is remarkable for migraines that occur every couple of months. Sometimes preceded by visual symptoms, but never with speech impediment or numbness. In 2001, he fell 17 feet and hit his head and has had spine problems since then. He suffered a concussion. Has chronic low back pain. [facility] Medical History (Updated 06/25/25 @ 14:40 by Lou Gonzalez CNP) GERD (gastroesophageal reflux disease) Asthma Migraine Insomnia Pernicious anemia Morbid obesity HLD (hyperlipidemia) Herpes labialis Review of Systems Const Denies chills, Denies daytime sleepiness, Reports difficulty sleeping, Denies fatigue, Denies fever(s), Denies frequent falls, Reports headache(s), Denies increased appetite, Denies poor appetite, Denies snoring, Denies weakness, Denies weight gain and Denies weight loss Eyes Denies loss of vision ENT Denies vertigo, Denies dizziness, Reports headache(s) and Denies neck pain Card Denies chest pain at rest, Denies chest pain with activity, Denies syncope, Denies leg edema, Denies palpitations, Denies dyspnea and Denies dyspnea on exertion Resp Denies cough, Denies dyspnea, Denies dyspnea on exertion and Denies snoring GI Denies abdominal pain, Denies constipation, Denies heartburn, Denies diarrhea and Denies nausea Denies urinary frequency, Denies urinary incontinence and Denies urinary urgency Musc Denies abnormal gait, Denies back pain, Denies myalgias, Denies arthralgias, Denies neck pain, Reports numbness and Reports tingling Neuro Denies abnormal gait, Denies vertigo, Denies dizziness, Denies syncope, Denies frequent falls, Reports headache(s), Denies lack of coordination, Denies loss of vision, Reports memory loss, Reports numbness, Denies Other visual disturbances, Denies restless legs, Denies seizure-like activity, Reports tingling, Denies paresthesias, Denies tremor(s) and Denies weakness Psych Reports anxiety, Denies depression, Denies auditory hallucinations, Reports memory loss and Denies visual hallucinations Endo Denies fatigue and Denies palpitations Physical Exam Const Other: General Appearance:? normal, in no acute distress. Heart:? S1, S2 normal, no murmurs. Lungs:? clear anteriorly and posteriorly. Musculoskeletal:? normal. Extremities:? no edema. Psych:? alert, oriented, cognitive function intact, cooperative with exam. Neuro Other: Abnormal Neurological Findings:?5-/5 L finger spread. Mental Status: alert and oriented X 3. Normal attention, orientation, memory, and affect. Cranial Nerves: Pupils are equal, round, and reactive to light. External ocular muscles are intact. Visual alvarado are full, no ptosis. Face is symmetrical, no facial weakness or droop. Facial sensations are normal. Tongue protrudes in midline. Palate elevates symmetrically. Shoulder shrugging is normal Motor Examination: Normal muscle tone, bulk and strength. No atrophy or fasciculations. No drift of the extended upper extremities. DTR 2+. Plantars are flexor. Sensory Exam: Normal light touch, temperature, pinprick, vibration, and joint-position sensations. Rhomberg sign is absent. Coordination: No ataxia. No titubation. Gait Exam: Within normal limits. Cerebellar Signs: Ajakfq-[id number]-wvgn is okay. Extrapyramidal System: No tremor, rigidity with normal facial expressions. No bradykinesia. No bradyphrenia. Normal arm swing and posture. No propulsion or retropulsion. Speech: Normal. Assessment & Plan Assessment & Plan (1) Bilateral carpal tunnel syndrome: Code(s): G56.03 - Carpal tunnel syndrome, bilateral upper limbs Category: Medical Plan: NCV/EMG UE results reviewed. He was educated on this condition, and treatment options. Recommend wearing wrist splint at night, script given. Follow up in 3 months or sooner as needed. (2) Ulnar neuropathy: Code(s): G56.20 - Lesion of ulnar nerve, unspecified upper limb Category: Medical Qualifiers: Laterality: bilateral Qualified Code(s): G56.23 - Lesion of ulnar nerve, bilateral upper limbs Plan: He was educated on this and conservative measures reviewed. Medications: New [bilateral wrist splint] 2 ea; 2 ea 0RF G56.03 - Carpal tunnel syndrome, bilateral upper limbs Coding Level of Care Code Est Pt Level 4 (82751) Diagnoses Bilateral carpal tunnel syndrome G56.03 Ulnar neuropathy of both upper extremities G56.23 Laterality: bilateral
== END 2025-06-25 14:45 | disposition home or self-care (01) ==
PROVIDERS: PCP Family Medicine; Visit Provider Registered Nurse
DX: G56.03 Carpal tunnel syndrome, bilateral upper limbs (principal); G56.23 Lesion of ulnar nerve, bilateral upper limbs
CPT/HCPCS: 99214